=== PATIENT | female | born 1935 | race Caucasian/White ===

== ENCOUNTER → 2017-05-16 13:17 | Outpatient (POV) | payer MEDICARE, BC, SELFPAY ==
[2017-05-16 13:36] VITALS: BP 136/101; PULSE 69; RESP 18; O2SAT 96; BMI 24.7
--- NOTE | 2017-05-16 13:40 | P.CONS_ITS ---
[facility] Pain Management SOAP Note Subjective:: This patient is a pleasant 82-year-old white female who we are seeing for low back pain and right hip pain. She had great benefit from her previous right SI joint injection. She still has some residual pain over the right SI joint. She does have a positive Peewee's test on the right side. We will seek approval and plan on a repeat right SI joint injection under fluoroscopy. She also has some issues with bowel irregularity. We have suggested MiraLAX and Activia to help with these issues. Objective:: Alert and oriented ?3 in no acute distress. Patient does have an antalgic gait. She is tender over the right SI joint. She does have a positive Peewee's test on the right side. Motor strength of the lower extremities is 5/5. There is no gross sensory deficit. Assessment:: Sacroiliitis and degenerative disc disease of lumbar spine with lumbar radiculopathy symptoms. Plan:: We will seek approval for an plan on repeat right SI joint injection under fluoroscopy.
== END ==
PROVIDERS: PCP Nurse Practitioner Family; Visit Provider Anesthesiology
DX: M46.1 Sacroiliitis, not elsewhere classified (principal); M51.16 Intervertebral disc disorders with radiculopathy, lumbar region
CPT/HCPCS: 99212

== ENCOUNTER → 2017-06-16 13:32 | Day surgery (SDC) | payer MEDICARE, BC, SELFPAY ==
[2017-06-16 13:54] VITALS: BP 178/78; PULSE 77; RESP 18; TEMP 36.1; O2SAT 95; BMI 23.6
--- NOTE | 2017-06-16 14:38 | HMH.PMPROC ---
- Procedure Date: 06/16/17 Time: 14:38 Anesthesiologist:: Jian Huntley MD Complications:: None Pre-procedure Diagnosis:: Sacroiliitis Post-procedure Diagnosis:: Same Indications for Procedure:: My pain pump refillThoracic epidural steroid injection this patient is a pleasant 82-year-old white female who we are seeing for low back pain and right hip pain. She has had great benefit from a post right SI joint injection. She still has some residual pain. We will do a repeat right SI joint injection under fluoroscopy today.She does have a positive Peewee's test. She is tender over the right SI joint. Procedure Details:: Right SI joint injection under fluoroscopy Informed consent was obtained and the risks and benefits of the procedure was going to the patient. Patient was taken to the procedure room. Patient was placed prone on the procedure table. The right hip was prepped using ChloraPrep. The skin and subcutaneous tissues were anesthetized using lidocaine. I placed a 22-gauge spinal needle into the inferior aspect of the right SI joint. Needle placement was confirmed with dye. After this we injected 5 mL bupivacaine 0.25% and Depo-Medrol 40 mg into the right SI joint. The patient tolerated the procedure well with no complication. Plan and Disposition:: We will follow-up in 2 weeks. We will reevaluate her symptoms at that time
[2017-06-16 14:42] VITALS: BP 167/86; PULSE 77; RESP 20
[2017-06-16 14:43] VITALS: BP 167/84; PULSE 72; RESP 18
[2017-06-16 14:48] VITALS: BP 184/75; PULSE 77; RESP 16; O2SAT 96
== END ==
PROVIDERS: Family Provider Nurse Practitioner Family; PCP Nurse Practitioner Family; Visit Provider Anesthesiology
DX: M46.1 Sacroiliitis, not elsewhere classified (principal)
CPT/HCPCS: 27096; G0260; J1040; Q9966

== ENCOUNTER → 2017-07-25 10:16 | Outpatient (POV) | payer MEDICARE, BC, SELFPAY ==
[2017-07-25 10:31] VITALS: BP 145/73; PULSE 68; RESP 18; O2SAT 95; BMI 23.1
--- NOTE | 2017-07-25 11:06 | HMH.PAINSOAP ---
[facility] Pain Management SOAP Note Subjective:: This patient is a pleasant 82-year-old white female who presents today as a follow-up after her right SI joint injection. Patient states that relief from this. She received 80% is still having benefit from it. Patient states that her last right SI joint injection lasted up to 2 months. Patient states her pain is slowly returning. Patient is wondering about more long-term relief of her SI joint pain. Patient would like to discuss risotto me of SI joint. She would also like to discuss anti-inflammatory medications. ROS General: no recent weight change, no fever, no sleep disturbances Respiratory: no cough, no shortness of air, no recurring pulmonary infections Cardiovascular/Peripheral Vascular: No chest pain, No palpitations, no edema, no shortness of breath. Gastrointestinal: no new onset incontinence, normal bowel movements reported Genitourinary: no new onset incontinence Musculoskeletal: SI joint pain, back pain Psychiatric: normal mood/ affect, [denies depression], [denies anxiety] Neurological: [denies weakness in extremities], [denies balance issues] Objective:: Physical Exam General: Alert and oriented x3, no acute distress, pleasant and cooperative, [on room air] Lungs: Resps E/U, Symmetrical chest expansion, Eyes: PERRL Musculoskeletal: Flexion and extension of lumbar spine somewhat guarded secondary to pain, deep tendon reflexes normal, strength in upper and lower extremities [5/5], slightly antalgic gait noted, positive Peewee's test on the right side, extreme point tenderness over right SI joint Neurological: speech clear, necktie stitcher equal, no gross sensory deficits Assessment:: Sacroiliitis Plan:: Patient has been seen by Dr. Carmona in the past and been treated at [facility] for her back pain. Patient states that no injection has helped her more than his right SI injections. Patient is interested in a right SI joint risotto me. We will schedule this for her today I believe that this would be beneficial for the patient due to her good relief from the injections and increase functionality. Patient is also asking about an anti-inflammatory medications. I will start her on diclofenac 75 mg 1 p.o. twice daily I discussed with her that she cannot take any other NSAIDs with this medication. Patient will call us in a few weeks if this is not helping her and at that time we discussed starting gabapentin 100 mg 1 p.o. nightly. I will follow-up with the patient after her right SI rhizotomy. This note was dictated using voice recognition software and may contain errors or omissions
--- NOTE | 2017-07-25 11:10 | P.CONS_ITS ---
[facility] Pain Management SOAP Note Subjective:: This patient is a pleasant 82-year-old white female who presents today as a follow-up after her right SI joint injection. Patient states that relief from this. She received 80% is still having benefit from it. Patient states that her last right SI joint injection lasted up to 2 months. Patient states her pain is slowly returning. Patient is wondering about more long-term relief of her SI joint pain. Patient would like to discuss risotto me of SI joint. She would also like to discuss anti-inflammatory medications. ROS General: no recent weight change, no fever, no sleep disturbances Respiratory: no cough, no shortness of air, no recurring pulmonary infections Cardiovascular/Peripheral Vascular: No chest pain, No palpitations, no edema, no shortness of breath. Gastrointestinal: no new onset incontinence, normal bowel movements reported Genitourinary: no new onset incontinence Musculoskeletal: SI joint pain, back pain Psychiatric: normal mood/ affect, [denies depression], [denies anxiety] Neurological: [denies weakness in extremities], [denies balance issues] Objective:: Physical Exam General: Alert and oriented x3, no acute distress, pleasant and cooperative, [ on room air] Lungs: Resps E/U, Symmetrical chest expansion, Eyes: PERRL Musculoskeletal: Flexion and extension of lumbar spine somewhat guarded secondary to pain, deep tendon reflexes normal, strength in upper and lower extremities [5/5], slightly antalgic gait noted, positive Peewee's test on the right side, extreme point tenderness over right SI joint Neurological: speech clear, claim manager equal, no gross sensory deficits Assessment:: Sacroiliitis Plan:: Patient has been seen by Dr. Carmona in the past and been treated at [facility] for her back pain. Patient states that no injection has helped her more than his right SI injections. Patient is interested in a right SI joint risotto me. We will schedule this for her today I believe that this would be beneficial for the patient due to her good relief from the injections and increase functionality. Patient is also asking about an anti-inflammatory medications. I will start her on diclofenac 75 mg 1 p.o. twice daily I discussed with her that she cannot take any other NSAIDs with this medication. Patient will call us in a few weeks if this is not helping her and at that time we discussed starting gabapentin 100 mg 1 p.o. nightly. I will follow-up with the patient after her right SI rhizotomy. This note was dictated using voice recognition software and may contain errors or omissions
== END ==
PROVIDERS: Family Provider Nurse Practitioner Family; PCP Nurse Practitioner Family; Visit Provider Clinical Nurse Specialist Family Health
DX: M46.1 Sacroiliitis, not elsewhere classified (principal)
CPT/HCPCS: 99212

== ENCOUNTER → 2017-09-18 13:19 | Outpatient (POV) | payer MEDICARE, BC, SELFPAY ==
[2017-09-18 13:30] VITALS: BP 144/40; PULSE 71; RESP 18; TEMP 36.7; O2SAT 99; BMI 23.6
--- NOTE | 2017-09-18 14:29 | HMH.PAINSOAP ---
[facility] Pain Management SOAP Note Subjective:: This patient is a pleasant 82-year-old white female who presents today for follow-up after her right SI joint rhizotomy. She is doing extremely well stating that she is 90% better. Patient states she is sleeping better than she has in 2 years. Patient states she is much more functional. Patient rates her pain a 2 out of 10 today. Patient is also on diclofenac 75 mg 1 p.o. twice daily. Patient needs a refill of this. ROS General: no recent weight change, no fever, no sleep disturbances Respiratory: no cough, no shortness of air, no recurring pulmonary infections Cardiovascular/Peripheral Vascular: No chest pain, No palpitations, no edema, no shortness of breath. Gastrointestinal: no incontinence, normal bowel movements reported Genitourinary: no incontinence Musculoskeletal: SI joint pain on the right side Psychiatric: normal mood/ affect Neurological: [denies balance issues] Objective:: Physical Exam General: Alert and oriented x3, no acute distress, pleasant and cooperative, [on room air] Lungs: Resps E/U, Symmetrical chest expansion, Eyes: PERRL Musculoskeletal: Flexion and extension of lumbar spine somewhat guarded secondary to pain, deep tendon reflexes normal, strength in upper and lower extremities [5/5], [abnormal gait noted], positive Peewee's test on the right side Neurological: speech clear, yarn tester equal, no gross sensory deficits Assessment:: Right-sided sacroiliitis Plan:: We will follow-up with this patient on an as-needed basis. We will call in her diclofenac 75 mg 1 p.o. twice daily. This note was dictated using voice recognition software and may contain errors or omissions
--- NOTE | 2017-09-18 14:32 | P.CONS_ITS ---
[facility] Pain Management SOAP Note Subjective:: This patient is a pleasant 82-year-old white female who presents today for follow-up after her right SI joint rhizotomy. She is doing extremely well stating that she is 90% better. Patient states she is sleeping better than she has in 2 years. Patient states she is much more functional. Patient rates her pain a 2 out of 10 today. Patient is also on diclofenac 75 mg 1 p.o. twice daily. Patient needs a refill of this. ROS General: no recent weight change, no fever, no sleep disturbances Respiratory: no cough, no shortness of air, no recurring pulmonary infections Cardiovascular/Peripheral Vascular: No chest pain, No palpitations, no edema, no shortness of breath. Gastrointestinal: no incontinence, normal bowel movements reported Genitourinary: no incontinence Musculoskeletal: SI joint pain on the right side Psychiatric: normal mood/ affect Neurological: [denies balance issues] Objective:: Physical Exam General: Alert and oriented x3, no acute distress, pleasant and cooperative, [ on room air] Lungs: Resps E/U, Symmetrical chest expansion, Eyes: PERRL Musculoskeletal: Flexion and extension of lumbar spine somewhat guarded secondary to pain, deep tendon reflexes normal, strength in upper and lower extremities [5/5], [abnormal gait noted], positive Peewee's test on the right side Neurological: speech clear, line crewman equal, no gross sensory deficits Assessment:: Right-sided sacroiliitis Plan:: We will follow-up with this patient on an as-needed basis. We will call in her diclofenac 75 mg 1 p.o. twice daily. This note was dictated using voice recognition software and may contain errors or omissions
--- NOTE | 2017-09-18 16:15 | PC.PHONENOTE ---
called in Rx for Diclofenac 75mg BID with 2 refills
== END ==
PROVIDERS: Family Provider Nurse Practitioner Family; PCP Nurse Practitioner Family; Visit Provider Clinical Nurse Specialist Family Health
DX: M46.1 Sacroiliitis, not elsewhere classified (principal)
CPT/HCPCS: 99212

== ENCOUNTER → 2018-04-02 13:59 | Outpatient (POV) | payer MEDICARE, BC, SELFPAY ==
--- NOTE | 2018-04-02 14:24 | HMH.PAINSOAP ---
[facility] Pain Management SOAP Note Subjective:: Patient is a pleasant 83-year-old white female who presents today for follow-up. Patient had a right SI joint injection and resolved any several months ago and she has had good relief. Patient states she still having some relief however her pain is beginning to return. Patient is also out of refills on her diclofenac 75 mg 1 tab p.o. twice daily. Patient rates her pain 4 out of 10 today. ROS General: no recent weight change, no fever, no sleep disturbances Respiratory: no cough, no shortness of air, no recurring pulmonary infections Cardiovascular/Peripheral Vascular: No chest pain, No palpitations, no edema, no shortness of breath. Gastrointestinal: no incontinence, normal bowel movements reported Genitourinary: no incontinence Musculoskeletal: Right SI joint pain Psychiatric: normal mood/ affect Neurological: [denies weakness in extremities], [denies balance issues] Objective:: Physical Exam General: Alert and oriented x3, no acute distress, pleasant and cooperative, [on room air] Lungs: Resps E/U, Symmetrical chest expansion, Eyes: PERRL Musculoskeletal: Flexion and extension of lumbar spine somewhat guarded secondary to pain, deep tendon reflexes normal, strength in upper and lower extremities [5/5], [abnormal gait noted], positive Peewee's test on the right side Neurological: speech clear, contracts manager equal, no gross sensory deficits Assessment:: Right-sided sacroiliitis Plan:: We will schedule a right SI joint injection for the patient. We will also call in her diclofenac 75 mg 1 p.o. twice daily. This note was dictated using voice recognition software and may contain errors or omissions
[2018-04-02 14:26] VITALS: BP 160/71; PULSE 76; RESP 18; O2SAT 98; BMI 23.1
--- NOTE | 2018-04-02 14:27 | P.CONS_ITS ---
[facility] Pain Management SOAP Note Subjective:: Patient is a pleasant 83-year-old white female who presents today for follow-up. Patient had a right SI joint injection and resolved any several months ago and she has had good relief. Patient states she still having some relief however her pain is beginning to return. Patient is also out of refills on her diclofenac 75 mg 1 tab p.o. twice daily. Patient rates her pain 4 out of 10 today. ROS General: no recent weight change, no fever, no sleep disturbances Respiratory: no cough, no shortness of air, no recurring pulmonary infections Cardiovascular/Peripheral Vascular: No chest pain, No palpitations, no edema, no shortness of breath. Gastrointestinal: no incontinence, normal bowel movements reported Genitourinary: no incontinence Musculoskeletal: Right SI joint pain Psychiatric: normal mood/ affect Neurological: [denies weakness in extremities], [denies balance issues] Objective:: Physical Exam General: Alert and oriented x3, no acute distress, pleasant and cooperative, [on room air] Lungs: Resps E/U, Symmetrical chest expansion, Eyes: PERRL Musculoskeletal: Flexion and extension of lumbar spine somewhat guarded secondary to pain, deep tendon reflexes normal, strength in upper and lower extremities [5/5], [abnormal gait noted], positive Peewee's test on the right side Neurological: speech clear, mobile home servicer equal, no gross sensory deficits Assessment:: Right-sided sacroiliitis Plan:: We will schedule a right SI joint injection for the patient. We will also call in her diclofenac 75 mg 1 p.o. twice daily. This note was dictated using voice recognition software and may contain errors or omissions
== END ==
PROVIDERS: PCP Nurse Practitioner Family; Visit Provider Clinical Nurse Specialist Family Health
DX: M46.1 Sacroiliitis, not elsewhere classified (principal)
CPT/HCPCS: 99213

== ENCOUNTER → 2018-05-01 09:56 | Outpatient (POV) | payer MEDICARE, BC, SELFPAY ==
[2018-05-01 10:03] VITALS: BP 169/74; PULSE 69; RESP 18; O2SAT 98; BMI 23.1
--- NOTE | 2018-05-01 10:16 | HMH.PAINSOAP ---
[facility] Pain Management SOAP Note Subjective:: Is an extremely pleasant 83-year-old white female who presents today for follow-up after right SI joint injection. Patient got some relief however she did not get as much relief as she has in the past with her right SI joint rhizotomies. Patient received 80% relief for 7 months. Patient would like to repeat this. I do believe it would be beneficial. Patient rates her pain an 8 out of 10 today. ROS General: no recent weight change, no fever, no sleep disturbances Respiratory: no cough, no shortness of air, no recurring pulmonary infections Cardiovascular/Peripheral Vascular: No chest pain, No palpitations, no edema, no shortness of breath. Gastrointestinal: no incontinence, normal bowel movements reported Genitourinary: no incontinence Musculoskeletal: Right SI joint pain Psychiatric: normal mood/ affect Neurological: [denies weakness in extremities], [denies balance issues] Objective:: Physical Exam General: Alert and oriented x3, no acute distress, pleasant and cooperative, [on room air] Lungs: Resps E/U, Symmetrical chest expansion, Eyes: PERRL Musculoskeletal: Flexion and extension of lumbar spine somewhat guarded secondary to pain, deep tendon reflexes normal, strength in upper and lower extremities [5/5], [abnormal gait noted] positive Peewee's test on the right side Neurological: speech clear, prepress proofer equal, no gross sensory deficits Assessment:: Sacroiliitis Plan:: We will set of a right SI joint rhizotomy given the efficacy of this in the past. We will call in tramadol 50 mg 1 p.o. 3 times daily for 1 month. I will follow-up with the patient after her rhizotomy. This note was dictated using voice recognition software and may contain errors or omissions
--- NOTE | 2018-05-01 10:19 | P.CONS_ITS ---
[facility] Pain Management SOAP Note Subjective:: Is an extremely pleasant 83-year-old white female who presents today for follow- up after right SI joint injection. Patient got some relief however she did not get as much relief as she has in the past with her right SI joint rhizotomies. Patient received 80% relief for 7 months. Patient would like to repeat this. I do believe it would be beneficial. Patient rates her pain an 8 out of 10 today. ROS General: no recent weight change, no fever, no sleep disturbances Respiratory: no cough, no shortness of air, no recurring pulmonary infections Cardiovascular/Peripheral Vascular: No chest pain, No palpitations, no edema, no shortness of breath. Gastrointestinal: no incontinence, normal bowel movements reported Genitourinary: no incontinence Musculoskeletal: Right SI joint pain Psychiatric: normal mood/ affect Neurological: [denies weakness in extremities], [denies balance issues] Objective:: Physical Exam General: Alert and oriented x3, no acute distress, pleasant and cooperative, [on room air] Lungs: Resps E/U, Symmetrical chest expansion, Eyes: PERRL Musculoskeletal: Flexion and extension of lumbar spine somewhat guarded secondary to pain, deep tendon reflexes normal, strength in upper and lower extremities [5/5], [abnormal gait noted] positive Peewee's test on the right side Neurological: speech clear, independent film maker equal, no gross sensory deficits Assessment:: Sacroiliitis Plan:: We will set of a right SI joint rhizotomy given the efficacy of this in the past. We will call in tramadol 50 mg 1 p.o. 3 times daily for 1 month. I will follow-up with the patient after her rhizotomy. This note was dictated using voice recognition software and may contain errors or omissions
== END ==
PROVIDERS: PCP Nurse Practitioner Family; Visit Provider Clinical Nurse Specialist Family Health
DX: M46.1 Sacroiliitis, not elsewhere classified (principal)
CPT/HCPCS: 99213

== ENCOUNTER → 2018-05-30 08:43 | Outpatient (CLI) | payer MEDICARE, BC, SELFPAY ==
--- NOTE | 2018-05-30 09:02 | CT_ITS ---
CT abdomen pelvis w con CLINICAL INDICATION: Rectal pain,, possible rectal massITS.REASON: RECTAL MASS ORDERING PHYSICIAN: Haylie Valdez PATIENT AGE: 83 years COMPARISON: 04/03/2007 TECHNIQUE: Axial images obtained with sagittal and coronal reformats. All CT scans at the facility use one or more dose reduction, viz: automated exposure control, ma/kV adjustment per patient size (including targeted exams where dose is matched to indication, i.e. head), or iterative reconstruction technique. PROCEDURE: Oral Contrast: Redicat IV Contrast: 75 mg [id number]. FINDINGS: There are mild atelectatic or fibrotic changes in the lung bases. There is a small hiatal hernia There are scattered isodense lesions of the liver largest in the right hepatic lobe at 3.3 x 2.5 cm consistent with hepatic cysts. There are postcholecystectomy changes with mild biliary ectasia. The spleen, adrenal glands, and pancreas have an unremarkable appearance. There is an exophytic nodule projecting off the lateral aspect of the left kidney at 8 mm which is more dense somewhat one would expect for simple cyst. 5 mm cyst is present within the medial aspect of the left kidney. No renal calculi. No ureteral calculi. No hydronephrosis. No intestinal obstruction or free air. No evidence of appendicitis. There is extensive diverticulosis of the lower descending and sigmoid colon but no evidence of diverticulitis. No obvious rectal mass apparent. There is no stranding of the perirectal or presacral fat. There has been a prior hysterectomy. No pelvic mass abnormal fluid collection or focal inflammatory change. There is degenerative disc disease in the lumbar spine with 6 mm anterolisthesis of L3 on L4 with bulging discs at L3-L4, L4-L5, and L5-S1. There is a pessary device present IMPRESSION: 1. No acute abdominal or pelvic findings. 2. There is an 8 mm nodule projecting off the lateral aspect of the left kidney which could be due to hyperdense cyst or solid nodule. Ultrasound may be of further value to determine cystic or solid nature. 3. Diverticulosis. No evidence of diverticulitis. No obvious rectal mass. 4 hepatic cysts
== END ==
PROVIDERS: PCP Nurse Practitioner Family; Visit Provider Nurse Practitioner Family
DX: R19.07 Generalized intra-abdominal and pelvic swelling, mass and lump (principal)
CPT/HCPCS: 74177; Q9967

== ENCOUNTER → 2018-07-09 13:34 | Outpatient (POV) | payer MEDICARE, BC, SELFPAY ==
[2018-07-09 13:55] VITALS: BP 157/88; PULSE 75; RESP 18; O2SAT 99; BMI 23.0
--- NOTE | 2018-07-09 13:57 | P.CONS_ITS ---
[facility] Pain Management SOAP Note Subjective:: Is a very pleasant 83-year-old white female who presents today for follow-up after SI joint rhizotomy. Patient rates her pain in her SI joint is 0 out of 10. And is doing really well however she is having a flare of bursitis in her right hip. She rates the pain in her right hip a 7 out of 10. ROS General: no recent weight change, no fever, no sleep disturbances Respiratory: no cough, no shortness of air, no recurring pulmonary infections Cardiovascular/Peripheral Vascular: No chest pain, No palpitations, no edema, no shortness of breath. Gastrointestinal: no incontinence, normal bowel movements reported Genitourinary: no incontinence Musculoskeletal: Hip pain Psychiatric: normal mood/ affect Neurological: [denies weakness in extremities], [denies balance issues] Objective:: Physical Exam General: Alert and oriented x3, no acute distress, pleasant and cooperative, [on room air] Lungs: Resps E/U, Symmetrical chest expansion, Eyes: PERRL Musculoskeletal: Flexion and extension of lumbar spine somewhat guarded secondary to pain, deep tendon reflexes normal, strength in upper and lower extremities [5/5], [abnormal gait noted] extreme point tenderness over right greater trochanteric bursa Neurological: speech clear, senior sql server 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 I believe it would be beneficial given her symptomology. Patient is tried and failed anti-inflammatories and is trying to stay as active as possible with a home stretching routine. Dr. Huntley has reviewed this note and agrees with this plan of care. This note was dictated using voice recognition software and may contain errors or omissions
== END ==
PROVIDERS: PCP Nurse Practitioner Family; Visit Provider Clinical Nurse Specialist Family Health
DX: M71.9 Bursopathy, unspecified (principal); M46.1 Sacroiliitis, not elsewhere classified
CPT/HCPCS: 99213

== ENCOUNTER → 2018-07-31 11:36 | Outpatient (POV) | payer MEDICARE, BC, SELFPAY ==
--- NOTE | 2018-07-31 12:28 | HMH.PAINSOAP ---
[facility] Pain Management SOAP Note Subjective:: Patient is a pleasant 83-year-old white female who presents today for follow-up after right bursa injection. It did very well. Patient states her only pain is over her piriformis muscle. Patient is continuing with her diclofenac 75 mg 1 p.o. twice daily. Patient states that this is beneficial. She rates her pain a 7 out of 10 over her piriformis. ROS General: no recent weight change, no fever, no sleep disturbances Respiratory: no cough, no shortness of air, no recurring pulmonary infections Cardiovascular/Peripheral Vascular: No chest pain, No palpitations, no edema, no shortness of breath. Gastrointestinal: no incontinence, normal bowel movements reported Genitourinary: no incontinence Musculoskeletal: Piriformis pain Psychiatric: normal mood/ affect Neurological: [denies weakness in extremities], [denies balance issues] Objective:: Physical Exam General: Alert and oriented x3, no acute distress, pleasant and cooperative, [on room air] Lungs: Resps E/U, Symmetrical chest expansion, Eyes: PERRL Musculoskeletal: Flexion and extension of lumbar spine somewhat guarded secondary to pain, deep tendon reflexes normal, strength in upper and lower extremities [5/5], [abnormal gait noted] extreme point tenderness over right piriformis muscle Neurological: speech clear, nuclear operator equal, no gross sensory deficits Assessment:: Piriformis syndrome, myofascial pain syndrome, degenerative disc disease lumbar spine Plan:: We will schedule a right piriformis injection for the patient. We will refill her diclofenac 75 mg 1 p.o. twice daily and also start her on gabapentin 100 mg 1 p.o. nightly. I will follow-up with the patient at her injection and reassess her symptoms at that time. Dr. Huntley has reviewed this note and agrees with this plan of care. This note was dictated using voice recognition software and may contain errors or omissions
--- NOTE | 2018-07-31 12:32 | P.CONS_ITS ---
[facility] Pain Management SOAP Note Subjective:: Patient is a pleasant 83-year-old white female who presents today for follow-up after right bursa injection. It did very well. Patient states her only pain is over her piriformis muscle. Patient is continuing with her diclofenac 75 mg 1 p.o. twice daily. Patient states that this is beneficial. She rates her pain a 7 out of 10 over her piriformis. ROS General: no recent weight change, no fever, no sleep disturbances Respiratory: no cough, no shortness of air, no recurring pulmonary infections Cardiovascular/Peripheral Vascular: No chest pain, No palpitations, no edema, no shortness of breath. Gastrointestinal: no incontinence, normal bowel movements reported Genitourinary: no incontinence Musculoskeletal: Piriformis pain Psychiatric: normal mood/ affect Neurological: [denies weakness in extremities], [denies balance issues] Objective:: Physical Exam General: Alert and oriented x3, no acute distress, pleasant and cooperative, [on room air] Lungs: Resps E/U, Symmetrical chest expansion, Eyes: PERRL Musculoskeletal: Flexion and extension of lumbar spine somewhat guarded secondary to pain, deep tendon reflexes normal, strength in upper and lower extremities [5/5], [abnormal gait noted] extreme point tenderness over right piriformis muscle Neurological: speech clear, fixed income analyst equal, no gross sensory deficits Assessment:: Piriformis syndrome, myofascial pain syndrome, degenerative disc disease lumbar spine Plan:: We will schedule a right piriformis injection for the patient. We will refill her diclofenac 75 mg 1 p.o. twice daily and also start her on gabapentin 100 mg 1 p.o. nightly. I will follow-up with the patient at her injection and reassess her symptoms at that time. Dr. Huntley has reviewed this note and agrees with this plan of care. This note was dictated using voice recognition software and may contain errors or omissions
[2018-07-31 13:40] VITALS: BP 152/49; PULSE 69; RESP 18; O2SAT 98; BMI 23.0
== END ==
PROVIDERS: PCP Nurse Practitioner Family; Visit Provider Clinical Nurse Specialist Family Health
DX: M51.36 Other intervertebral disc degeneration, lumbar region (principal); G57.01 Lesion of sciatic nerve, right lower limb; M79.18 Myalgia, other site
CPT/HCPCS: 99213

== ENCOUNTER → 2018-09-11 09:24 | Outpatient (POV) | payer MEDICARE, BC, SELFPAY ==
[2018-09-11 09:38] VITALS: BP 146/68; PULSE 78; RESP 18; O2SAT 98; BMI 23.0
--- NOTE | 2018-09-11 14:03 | P.CONS_ITS ---
[facility] Pain Management SOAP Note Subjective:: She is a pleasant 83-year-old white female who presents today for follow-up after her piriformis injection. Patient is just not getting the same relief from injections that she has in the past. She rates the pain 8 out of 10. She is having sharp pains. She has tried multiple injections with no real relief along with facet joint injections and rhizotomies. Patient and I had a discussion about neuro stimulation. Patient is interested in pursuing this. Majority since pain is in her low back and bilateral legs. She also has burning and numbness and tingling in her toes. ROS General: no recent weight change, no fever, no sleep disturbances Respiratory: no cough, no shortness of air, no recurring pulmonary infections Cardiovascular/Peripheral Vascular: No chest pain, No palpitations, no edema, no shortness of breath. Gastrointestinal: no incontinence, normal bowel movements reported Genitourinary: no incontinence Musculoskeletal: Back pain, leg pain Psychiatric: normal mood/ affect Neurological: [denies weakness in extremities], [denies balance issues] Objective:: Physical Exam General: Alert and oriented x3, no acute distress, pleasant and cooperative, [on room air] Lungs: Resps E/U, Symmetrical chest expansion, Eyes: PERRL Musculoskeletal: Flexion and extension of lumbar spine somewhat guarded secondary to pain, deep tendon reflexes normal, strength in upper and lower extremities [5/5], [abnormal gait noted] Neurological: speech clear, media production manager equal, no gross sensory deficits Assessment:: Degenerative disc disease lumbar spine with lumbar radiculopathy, lumbar spondylosis and CRPS type II Plan:: Patient and I had a long discussion about realistic goal setting. Patient is interested in pursuing a neurostimulator. We will send patient for psychological evaluation to determine if she is a candidate if she has we will move forward with a nuvectra relator trial. Patient is not on any anticoagulation therapy. Patient's failed medications, injections, physical therapy, she continues a home stretching program. Dr. Huntley has reviewed this note and agrees with this plan of care. This note was dictated using voice recognition software and may contain errors or omissions
--- NOTE | 2018-09-24 13:15 | PC.NURSE ---
TRAMADOL 50MG TID WITH 2 REFILLS CALLED INTO CLINIC PHARMACY PER PROVIDER ORDER
== END ==
PROVIDERS: PCP Nurse Practitioner Family; Visit Provider Clinical Nurse Specialist Family Health
DX: M51.16 Intervertebral disc disorders with radiculopathy, lumbar region (principal); M47.896 Other spondylosis, lumbar region; G57.73 Causalgia of bilateral lower limbs
CPT/HCPCS: 99212

== ENCOUNTER → 2018-10-09 10:27 | Outpatient (POV) | payer MEDICARE, BC, SELFPAY ==
[2018-10-09 10:40] VITALS: BP 137/69; PULSE 71; RESP 18; O2SAT 98; BMI 22.3
--- NOTE | 2018-10-09 11:00 | HMH.PAINSOAP ---
[facility] Pain Management SOAP Note Subjective:: Patient is a pleasant 83-year-old white female who presents today for follow-up. Patient and I had discussed neuro stimulation previously she was on the schedule however at the last moment she decided that she had additional questions. She comes today with her to discuss. Patient is having back pain radiating into her left hip and down her sciatic nerve. She has bilateral numbness and tingling. Patient rates her pain a 6 out of 10. Patient is on tramadol. Patient would like to wean off of this. ROS General: no recent weight change, no fever, no sleep disturbances Respiratory: no cough, no shortness of air, no recurring pulmonary infections Cardiovascular/Peripheral Vascular: No chest pain, No palpitations, no edema, no shortness of breath. Gastrointestinal: no incontinence, normal bowel movements reported Genitourinary: no incontinence Musculoskeletal: Back pain, leg pain Psychiatric: normal mood/ affect, Neurological: Bilateral numbness and tingling in lower extremities, [denies balance issues] Objective:: Physical Exam General: Alert and oriented x3, no acute distress, pleasant and cooperative, [on room air] Lungs: Resps E/U, Symmetrical chest expansion, Eyes: PERRL Musculoskeletal: Flexion and extension of lumbar spine somewhat guarded secondary to pain, deep tendon reflexes normal, strength in upper and lower extremities [5/5], [abnormal gait noted] Neurological: speech clear, sampler and test preparer equal, no gross sensory deficits Assessment:: Degenerative disc disease lumbar spine with lumbar radiculopathy, lumbar spondylosis and CRPS type II Plan:: Patient had an appropriate psychological evaluation. Patient has tried and failed multiple injections including epidurals, facets, SI joint injections. She is failed physical therapy. She continues a home stretching program. Patient also failed anti-inflammatories and other medications. I will follow-up with the patient after her nuvectra trial. Patient's been instructed to call the office if she has any issues prior to her next appointment. She is not on any anticoagulation therapy. Dr. Huntley has reviewed this note and agrees with this plan of care. This note was dictated using voice recognition software and may contain errors or omissions
--- NOTE | 2018-10-09 11:04 | P.CONS_ITS ---
[facility] Pain Management SOAP Note Subjective:: Patient is a pleasant 83-year-old white female who presents today for follow-up. Patient and I had discussed neuro stimulation previously she was on the schedule however at the last moment she decided that she had additional questions. She comes today with her to discuss. Patient is having back pain radiating into her left hip and down her sciatic nerve. She has bilateral numbness and tingling. Patient rates her pain a 6 out of 10. Patient is on tramadol. Patient would like to wean off of this. ROS General: no recent weight change, no fever, no sleep disturbances Respiratory: no cough, no shortness of air, no recurring pulmonary infections Cardiovascular/Peripheral Vascular: No chest pain, No palpitations, no edema, no shortness of breath. Gastrointestinal: no incontinence, normal bowel movements reported Genitourinary: no incontinence Musculoskeletal: Back pain, leg pain Psychiatric: normal mood/ affect, Neurological: Bilateral numbness and tingling in lower extremities, [denies balance issues] Objective:: Physical Exam General: Alert and oriented x3, no acute distress, pleasant and cooperative, [on room air] Lungs: Resps E/U, Symmetrical chest expansion, Eyes: PERRL Musculoskeletal: Flexion and extension of lumbar spine somewhat guarded secondary to pain, deep tendon reflexes normal, strength in upper and lower extremities [5/5], [abnormal gait noted] Neurological: speech clear, box lining machine feeder equal, no gross sensory deficits Assessment:: Degenerative disc disease lumbar spine with lumbar radiculopathy, lumbar spondylosis and CRPS type II Plan:: Patient had an appropriate psychological evaluation. Patient has tried and failed multiple injections including epidurals, facets, SI joint injections. She is failed physical therapy. She continues a home stretching program. Patient also failed anti-inflammatories and other medications. I will follow-up with the patient after her nuvectra trial. Patient's been instructed to call the office if she has any issues prior to her next appointment. She is not on any anticoagulation therapy. Dr. Huntley has reviewed this note and agrees with this plan of care. This note was dictated using voice recognition software and may contain errors or omissions
== END ==
PROVIDERS: PCP Nurse Practitioner Family; Visit Provider Clinical Nurse Specialist Family Health
DX: M51.16 Intervertebral disc disorders with radiculopathy, lumbar region (principal); M47.896 Other spondylosis, lumbar region
CPT/HCPCS: 99212

== ENCOUNTER → 2018-10-23 12:54 | Outpatient (POV) | payer MEDICARE, BC, SELFPAY ==
[2018-10-23 13:10] VITALS: BP 146/69; PULSE 65; RESP 18; O2SAT 95; BMI 27.4
--- NOTE | 2018-10-23 13:24 | HMH.PMPROC ---
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 Patient states she got 90 to 100% relief of her symptoms she is much more functional. She is doing well. Patient would like to move forward with a permanent implant. She is tried and failed multiple modalities of treatment including injection therapy, medications, anti-inflammatories. She is also tried and failed physical therapy she is continuing a home stretching program. Physical Exam General: Alert and oriented x3, no acute distress, pleasant and cooperative, [on room air] Lungs: Resps E/U, Symmetrical chest expansion, Eyes: PERRL Musculoskeletal: Flexion and extension of lumbar spine somewhat guarded secondary to pain, deep tendon reflexes normal, strength in upper and lower extremities [5/5], [abnormal gait noted] Neurological: speech clear, chemist inorganic equal, no gross sensory deficits Procedure Details:: After informed consent was obtained the risk and benefits of the procedure were explained to the patient. Patient's vital signs were monitored with noninvasive blood pressure cuff and pulse oximeter. Patient's tape was removed on her back. The area in which her epidural leads entered was examined to ensure no redness or draining. Patient leads were then removed in sterile fashion. Patient then had Band-Aids placed over the puncture sites. Patient tolerated the procedure well. Plan and Disposition:: We will plan on a permanent placement for the patient. Patient is ready to move forward with this she is not on any anticoagulation therapy. I will follow-up with her after her implant. Patient during the trial had a pain score of 1 out of 10 it is typically a 6-[address] Huntley has reviewed this note and agrees with this plan of care. This note was dictated using voice recognition software and may contain errors or omissions
--- NOTE | 2018-10-23 13:27 | P.PCN_ITS ---
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 Patient states she got 90 to 100% relief of her symptoms she is much more functional. She is doing well. Patient would like to move forward with a permanent implant. She is tried and failed multiple modalities of treatment including injection therapy, medications, anti- inflammatories. She is also tried and failed physical therapy she is continuing a home stretching program. Physical Exam General: Alert and oriented x3, no acute distress, pleasant and cooperative, [on room air] Lungs: Resps E/U, Symmetrical chest expansion, Eyes: PERRL Musculoskeletal: Flexion and extension of lumbar spine somewhat guarded secondary to pain, deep tendon reflexes normal, strength in upper and lower extremities [5/5], [abnormal gait noted] Neurological: speech clear, artificial flower maker equal, no gross sensory deficits Procedure Details:: After informed consent was obtained the risk and benefits of the procedure were explained to the patient. Patient's vital signs were monitored with noninvasive blood pressure cuff and pulse oximeter. Patient's tape was removed on her back. The area in which her epidural leads entered was examined to ensure no redness or draining. Patient leads were then removed in sterile fashion. Patient then had Band-Aids placed over the puncture sites. Patient tolerated the procedure well. Plan and Disposition:: We will plan on a permanent placement for the patient. Patient is ready to move forward with this she is not on any anticoagulation therapy. I will follow-up with her after her implant. Patient during the trial had a pain score of 1 out of 10 it is typically a 6-[address] Huntley has reviewed this note and agrees with this plan of care. This note was dictated using voice recognition software and may contain errors or omissions
== END ==
PROVIDERS: PCP Nurse Practitioner Family; Visit Provider Clinical Nurse Specialist Family Health
DX: M51.16 Intervertebral disc disorders with radiculopathy, lumbar region (principal); M47.896 Other spondylosis, lumbar region
CPT/HCPCS: 99212

== ENCOUNTER → 2018-11-06 13:45 | Outpatient (POV) | payer MEDICARE, BC, SELFPAY ==
[2018-11-06 14:19] VITALS: BP 135/67; PULSE 74; RESP 18; O2SAT 94; BMI 22.3
--- NOTE | 2018-11-06 14:27 | HMH.PAINSOAP ---
[facility] Pain Management SOAP Note Subjective:: Patient is a pleasant 83-year-old white female who presents today for follow-up after a spinal cord stimulator placement. The patient says that she is doing great. She rates her pain a 0 out of 10 today. She says that she is able to walk and do daily activities around her house without any pain. Patient states this is the best thing that has ever happened to me . ROS General: no recent weight change, no fever, no sleep disturbances Respiratory: no cough, no shortness of air, no recurring pulmonary infections Cardiovascular/Peripheral Vascular: No chest pain, No palpitations, no edema, no shortness of breath. Gastrointestinal: no incontinence, normal bowel movements reported Genitourinary: no incontinence Musculoskeletal: Back pain Psychiatric: normal mood/ affect, [denies depression], [denies anxiety] Neurological: [denies weakness in extremities], [denies balance issues] Objective:: Physical Exam General: Alert and oriented x3, no acute distress, pleasant and cooperative, [on room air] Lungs: Resps E/U, Symmetrical chest expansion, Eyes: PERRL Musculoskeletal: Flexion and extension of lumbar spine somewhat guarded secondary to pain, deep tendon reflexes normal, strength in upper and lower extremities [5/5], normal gait noted Neurological: speech clear, telephone exchange operator equal, no gross sensory deficits Assessment:: Degenerative disc disease lumbar spine with lumbar radiculopathy, lumbar spondylosis and CRPS type II Plan:: The patient is doing well today. Incision is well approximated. There is no drainage, redness, or infection noted to site. Sutures remain intact. We will follow-up with the patient in 2 weeks and reassess her at that time. She is been instructed to call the office if she has any issues prior to that time. Dr. Huntley has reviewed this note and agrees with this plan of care. This note was dictated using voice recognition software and may contain errors or omissions
--- NOTE | 2018-11-06 14:31 | P.CONS_ITS ---
[facility] Pain Management SOAP Note Subjective:: Patient is a pleasant 83-year-old white female who presents today for follow-up after a spinal cord stimulator placement. The patient says that she is doing great. She rates her pain a 0 out of 10 today. She says that she is able to walk and do daily activities around her house without any pain. Patient states this is the best thing that has ever happened to me . ROS General: no recent weight change, no fever, no sleep disturbances Respiratory: no cough, no shortness of air, no recurring pulmonary infections Cardiovascular/Peripheral Vascular: No chest pain, No palpitations, no edema, no shortness of breath. Gastrointestinal: no incontinence, normal bowel movements reported Genitourinary: no incontinence Musculoskeletal: Back pain Psychiatric: normal mood/ affect, [denies depression], [denies anxiety] Neurological: [denies weakness in extremities], [denies balance issues] Objective:: Physical Exam General: Alert and oriented x3, no acute distress, pleasant and cooperative, [on room air] Lungs: Resps E/U, Symmetrical chest expansion, Eyes: PERRL Musculoskeletal: Flexion and extension of lumbar spine somewhat guarded secondary to pain, deep tendon reflexes normal, strength in upper and lower extremities [5/5], normal gait noted Neurological: speech clear, agency sales management assistant equal, no gross sensory deficits Assessment:: Degenerative disc disease lumbar spine with lumbar radiculopathy, lumbar spondylosis and CRPS type II Plan:: The patient is doing well today. Incision is well approximated. There is no drainage, redness, or infection noted to site. Sutures remain intact. We will follow-up with the patient in 2 weeks and reassess her at that time. She is been instructed to call the office if she has any issues prior to that time. Dr. Huntley has reviewed this note and agrees with this plan of care. This note was dictated using voice recognition software and may contain errors or omissions
== END ==
PROVIDERS: PCP Nurse Practitioner Family; Visit Provider Clinical Nurse Specialist Family Health
DX: M51.16 Intervertebral disc disorders with radiculopathy, lumbar region (principal); M47.896 Other spondylosis, lumbar region
CPT/HCPCS: 99212

== ENCOUNTER → 2018-11-20 10:52 | Outpatient (POV) | payer MEDICARE, BC, SELFPAY ==
[2018-11-20 11:08] VITALS: BP 120/66; PULSE 73; RESP 18; O2SAT 98; BMI 22.3
--- NOTE | 2018-11-20 11:17 | HMH.PAINSOAP ---
[facility] Pain Management SOAP Note Subjective:: Patient is a pleasant 83-year-old white female who presents today for follow-up after spinal cord stimulator placement. She says that she is doing great today. She rates her pain a 0 out of 10. Patient says that the stimulator has been 100% effective for her. She does report that she has some occasional pain upon awakening, but says the pain goes away after some movement. She says that she has gotten back to her normal routine and is having no complications today. Review of Systems General: No recent weight changes, no fever, no sleep disturbances Respiratory: No cough, no shortness of air, no recurring pulmonary infections Cardiovascular/peripheral vascular: No chest pain, no palpitations, no edema, no shortness of breath Gastrointestinal: No new onset incontinence, normal bowel movements reported Genitourinary: No new onset incontinence Musculoskeletal: Back pain Psychiatric: Normal mood/affect Neurological: [Denies weakness in extremities], [denies balance issues] Objective:: Physical exam General: Alert and oriented x3, no acute distress, pleasant and cooperative, [on room air] Lungs: Respirations even and unlabored, symmetrical chest expansion Eyes: PERRL Musculoskeletal: Flexion and extension lumbar spine somewhat guarded secondary to pain, deep tendon reflexes normal, strength in upper and lower extremities [5/5], [abnormal gait noted] Neurological: Speech clear, surveillance monitor equal, no gross sensory deficit Assessment:: Degenerative disc disease lumbar spine with lumbar radiculopathy, lumbar spondylosis and CRPS type II to bilateral lower extremities Plan:: Overall, the patient is doing well. She would like to follow-up with us in 1 month to reassess her symptoms. She is been instructed to call the office if she has any concerns prior to her next appointment. Dr. Huntley has reviewed this note and agrees with this plan of care. This note was dictated using voice recognition software and make contain errors or omissions.
--- NOTE | 2018-11-20 11:20 | P.CONS_ITS ---
[facility] Pain Management SOAP Note Subjective:: Patient is a pleasant 83-year-old white female who presents today for follow-up after spinal cord stimulator placement. She says that she is doing great today. She rates her pain a 0 out of 10. Patient says that the stimulator has been 100% effective for her. She does report that she has some occasional pain upon awakening, but says the pain goes away after some movement. She says that she has gotten back to her normal routine and is having no complications today. Review of Systems General: No recent weight changes, no fever, no sleep disturbances Respiratory: No cough, no shortness of air, no recurring pulmonary infections Cardiovascular/peripheral vascular: No chest pain, no palpitations, no edema, no shortness of breath Gastrointestinal: No new onset incontinence, normal bowel movements reported Genitourinary: No new onset incontinence Musculoskeletal: Back pain Psychiatric: Normal mood/affect Neurological: [Denies weakness in extremities], [denies balance issues] Objective:: Physical exam General: Alert and oriented x3, no acute distress, pleasant and cooperative, [on room air] Lungs: Respirations even and unlabored, symmetrical chest expansion Eyes: PERRL Musculoskeletal: Flexion and extension lumbar spine somewhat guarded secondary to pain, deep tendon reflexes normal, strength in upper and lower extremities [5/5], [abnormal gait noted] Neurological: Speech clear, line driver equal, no gross sensory deficit Assessment:: Degenerative disc disease lumbar spine with lumbar radiculopathy, lumbar spondylosis and CRPS type II to bilateral lower extremities Plan:: Overall, the patient is doing well. She would like to follow-up with us in 1 month to reassess her symptoms. She is been instructed to call the office if she has any concerns prior to her next appointment. Dr. Huntley has reviewed this note and agrees with this plan of care. This note was dictated using voice recognition software and make contain errors or omissions.
== END ==
PROVIDERS: PCP Nurse Practitioner Family; Visit Provider Clinical Nurse Specialist Family Health
DX: M51.16 Intervertebral disc disorders with radiculopathy, lumbar region (principal); M47.896 Other spondylosis, lumbar region
CPT/HCPCS: 99213

== ENCOUNTER → 2018-12-18 11:01 | Outpatient (POV) | payer MEDICARE, BC, SELFPAY ==
[2018-12-18 11:37] VITALS: BP 134/71; PULSE 71; RESP 18; O2SAT 98; BMI 23.0
--- NOTE | 2018-12-18 12:07 | HMH.PAINSOAP ---
[facility] Pain Management SOAP Note Subjective:: Patient is a pleasant 83-year-old white female who presents today for follow-up. Patient has had some increased pain lately. She has a neurostimulator which he is extremely well with fusion here today to be reprogram. She rates her pain a 5 out of 10. ROS General: no recent weight change, no fever, no sleep disturbances Respiratory: no cough, no shortness of air, no recurring pulmonary infections Cardiovascular/Peripheral Vascular: No chest pain, No palpitations, no edema, no shortness of breath. Gastrointestinal: no incontinence, normal bowel movements reported Genitourinary: no incontinence Musculoskeletal: Neck pain, back pain Psychiatric: normal mood/ affect, Neurological: [denies weakness in extremities], [denies balance issues] Objective:: Physical Exam General: Alert and oriented x3, no acute distress, pleasant and cooperative, [on room air] Lungs: Resps E/U, Symmetrical chest expansion, Eyes: PERRL Musculoskeletal: Flexion and extension of cervical and lumbar spine somewhat guarded secondary to pain, deep tendon reflexes normal, strength in upper and lower extremities [5/5], [abnormal gait noted] Neurological: speech clear, 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 Dr. Huntley has reviewed this note and agrees with this plan of care. This note was dictated using voice recognition software and may contain errors or omissions Pain Management Hx Components *Have you ever received a pneumonia vaccine?: Yes *Have you received a flu vaccine this season?: Yes - *Social History *Occupational Status:: other *Travel in the last 8 weeks: None
== END ==
PROVIDERS: PCP Nurse Practitioner Family; Visit Provider Clinical Nurse Specialist Family Health
DX: M51.16 Intervertebral disc disorders with radiculopathy, lumbar region (principal); M47.896 Other spondylosis, lumbar region; G57.73 Causalgia of bilateral lower limbs
CPT/HCPCS: 99212

== ENCOUNTER → 2019-04-15 13:37 | Outpatient (POV) | payer MEDICARE, BC, SELFPAY ==
[2019-04-15 14:06] VITALS: BP 137/71; PULSE 75; RESP 20; O2SAT 98; BMI 22.3
--- NOTE | 2019-04-15 14:46 | HMH.PAINSOAP ---
[facility] Pain Management SOAP Note Subjective:: Patient is a pleasant 84-year-old white female who presents today for follow-up. Patient has a neurostimulator and overall is doing well for her right side however she is having some left SI joint pain and left greater trochanteric bursa pain. Patient has had injections in the past with good relief. We will set her up with this. She rates her pain today a 10 out of 10. ROS General: no recent weight change, no fever, no sleep disturbances Respiratory: no cough, no shortness of air, no recurring pulmonary infections Cardiovascular/Peripheral Vascular: No chest pain, No palpitations, no edema, no shortness of breath. Gastrointestinal: no new onset incontinence, normal bowel movements reported Genitourinary: no new onset incontinence Musculoskeletal: Left hip and left SI joint pain Psychiatric: normal mood/ affect Neurological: [denies new onset weakness in extremities], [denies new onset balance issues] Objective:: Physical Exam General: Alert and oriented x3, no acute distress, pleasant and cooperative, Lungs: Resps E/U, Symmetrical chest expansion, Eyes: PERRL Musculoskeletal: Flexion and extension of lumbar spine somewhat guarded secondary to pain, deep tendon reflexes normal, strength in upper and lower extremities [5/5], [abnormal gait noted] patient is extremely tender over her left greater trochanteric bursa, positive SI joint compression test positive Arianne test and positive Anderson's test on the left side Neurological: speech clear, rating examiner equal, no gross sensory deficits Assessment:: Sacroiliitis, bursitis Plan:: We will set the patient for left SI joint injection left greater trochanteric bursa injection as soon as possible. I will follow-up with her after this reassess her symptoms at that time she is been instructed to call the office if she has any issues prior to her next appointment. Dr. Huntley has reviewed this note and agrees with this plan of care. This note was dictated using voice recognition software and may contain errors or omissions [facility] History I have reviewed the patient's past medical history: Yes Medical History: Reports:: Hypertension Denies:: Cancer, Diabetes Mellitus Type 1, Diabetes Mellitus Type 2, Internal Pacemaker, Lung Disease, MRSA, Seizures *Have you ever received a pneumonia vaccine?: Yes *Have you received a flu vaccine this season?: Yes Other Medical History: Reports: Hypothyroidism, Thyroid Disease, Other. Denies: Blood Transfusion Reaction Laterality Cases: Bilateral: Tonsillectomy Other Surgeries: Yes: Cholecystectomy, Hysterectomy-Total. No: Pacemaker Amputation: No Fractures: No - *Social History Smoking Status: Never smoker Alcohol Intake: never Substance Use Type: denies use *Occupational Status:: other Housing: house Household Members: spouse *Travel in the last 8 weeks: None Family Hx:: Cancer
--- NOTE | 2019-04-15 14:49 | P.CONS_ITS ---
[facility] Pain Management SOAP Note Subjective:: Patient is a pleasant 84-year-old white female who presents today for follow-up. Patient has a neurostimulator and overall is doing well for her right side however she is having some left SI joint pain and left greater trochanteric bursa pain. Patient has had injections in the past with good relief. We will set her up with this. She rates her pain today a 10 out of 10. ROS General: no recent weight change, no fever, no sleep disturbances Respiratory: no cough, no shortness of air, no recurring pulmonary infections Cardiovascular/Peripheral Vascular: No chest pain, No palpitations, no edema, no shortness of breath. Gastrointestinal: no new onset incontinence, normal bowel movements reported Genitourinary: no new onset incontinence Musculoskeletal: Left hip and left SI joint pain Psychiatric: normal mood/ affect Neurological: [denies new onset weakness in extremities], [denies new onset balance issues] Objective:: Physical Exam General: Alert and oriented x3, no acute distress, pleasant and cooperative, Lungs: Resps E/U, Symmetrical chest expansion, Eyes: PERRL Musculoskeletal: Flexion and extension of lumbar spine somewhat guarded secondary to pain, deep tendon reflexes normal, strength in upper and lower extremities [5/5], [abnormal gait noted] patient is extremely tender over her left greater trochanteric bursa, positive SI joint compression test positive Arianne test and positive Anderson's test on the left side Neurological: speech clear, 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 I will follow-up with her after this reassess her symptoms at that time she is been instructed to call the office if she has any issues prior to her next appointment. Dr. Huntley has reviewed this note and agrees with this plan of care. This note was dictated using voice recognition software and may contain errors or omissions [facility] History I have reviewed the patient's past medical history: Yes Medical History: Reports:: Hypertension Denies:: Cancer, Diabetes Mellitus Type 1, Diabetes Mellitus Type 2, Internal Pacemaker, Lung Disease, MRSA, Seizures *Have you ever received a pneumonia vaccine?: Yes *Have you received a flu vaccine this season?: Yes Other Medical History: Reports: Hypothyroidism, Thyroid Disease, Other. Denies: Blood Transfusion Reaction Laterality Cases: Bilateral: Tonsillectomy Other Surgeries: Yes: Cholecystectomy, Hysterectomy-Total. No: Pacemaker Amputation: No Fractures: No - *Social History Smoking Status: Never smoker Alcohol Intake: never Substance Use Type: denies use *Occupational Status:: other Housing: house Household Members: spouse *Travel in the last 8 weeks: None Family Hx:: Cancer
== END ==
PROVIDERS: PCP Nurse Practitioner Family; Visit Provider Clinical Nurse Specialist Family Health
DX: M46.1 Sacroiliitis, not elsewhere classified (principal); M71.9 Bursopathy, unspecified
CPT/HCPCS: 99212

== ENCOUNTER → 2019-05-09 10:31 | Outpatient (POV) | payer MEDICARE, BC, SELFPAY ==
[2019-05-09 10:49] VITALS: BP 134/52; PULSE 80; RESP 18; O2SAT 99; BMI 24.3
--- NOTE | 2019-05-09 11:02 | HMH.PAINSOAP ---
[facility] Pain Management SOAP Note Subjective:: Patient is a pleasant 84-year-old white female who presents today for follow-up after left SI joint injection, along with the left trochanteric bursa injection. Patient has a spinal cord stimulator for low back pain and for CRPS 2 of right lower leg. Patient says that she is having some increased pain now into her left low back area and into the left leg radiating all the way down to her left calf. Patient says this is a new onset of pain. She says that the stimulator is not giving her any relief in this area. Patient is also concerned that the stimulator it needs reprogramming. She says that she is not getting full relief as she did in the past. She is asking today to speak with the spinal cord stimulator utility sales representative. Patient says she did get a letter concerning bankruptcy of the stimulator company. She says that she is concerned because she does not feel that the stimulator is as effective as it once was and she is unsure what to do. He says that her pain did subside for approximately 1 day following her injections. She says that the pain also radiated to her left low back area and into the mid back area following the injection. patient says that she has undergone epidural steroid injections in the past and has gotten approximately 80% relief for 2 to 3 months. Patient is also complaining of left knee pain. She says that she suffered a fall approximately 1 year ago and is having increased pain to her left knee since the fall. She says the knee does intermittently swell and is cold to touch. She rates her pain a 6 out of 10 today. She is continuing with anti-inflammatories and a home stretching program. She is not on any anticoagulation therapy. Review of Systems General: No recent weight changes, no fever, no sleep disturbances Respiratory: No cough, no shortness of air, no recurring pulmonary infections Cardiovascular/peripheral vascular: No chest pain, no palpitations, no edema, no shortness of breath Gastrointestinal: No new onset incontinence, normal bowel movements reported Genitourinary: No new onset incontinence Musculoskeletal: Low back pain, left leg pain on the left knee pain Psychiatric: Normal mood/affect Neurological: [Denies weakness in extremities], [denies balance issues] Objective:: Physical exam General: Alert and oriented x3, no acute distress, pleasant and cooperative, [on room air] Lungs: Respirations even and unlabored, symmetrical chest expansion Eyes: PERRL Musculoskeletal: Flexion and extension of lumbar spine somewhat guarded secondary to pain, deep tendon reflexes normal, strength in upper and lower extremities [5/5], [abnormal gait noted] Neurological: Speech clear, 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 She is not on any anticoagulation therapy. We will also schedule her for an x-ray of her left knee. It is swollen cold to touch. We will give the patient the [employer] information so that she can contact them today. If the patient's stimulator continues to fail, we may need to consider placing the stimulator. Until then, she will continue with a home stretching program and anti-inflammatories. We will see her back in the clinic following her injection to reassess her symptoms. Dr. Huntley has reviewed this note and agrees with this plan of care. This note was dictated using voice recognition software and make contain errors or omissions. [facility] History I have reviewed the patient's past medical history: Yes Medical History: Reports:: Hypertension Denies:: Cancer, Diabetes Mellitus Type 1, Diabetes Mellitus Type 2, Internal Pacemaker, Lung Disease, MRSA, Seizures *Have you ever received a pneumonia vaccine?: Yes *Have you received
--- NOTE | 2019-05-09 11:22 | XR_ITS ---
PROCEDURE: XR KNEE LT 3V CLINICAL INDICATION: LT KNEE PAIN COMPARISON: No exams were available for comparison FINDINGS: No fracture or dislocation. No lytic or blastic change. There is normal mineralization. The joint spaces are well-preserved. No significant degenerative/arthritic changes. No erosive changes evident. Other findings:There are calcifications related to the medial and lateral meniscus areas. There are some posterior soft tissue linear calcifications, a few of which could be related to the popliteal artery and there could be involvement of the posterior capsule. IMPRESSION: No acute process. Calcific atherosclerotic vascular disease. Chondrocalcinosis. Dictated by: Guille Leary 05/09/2019 11:44 Electronically signed by Guille Leary in [place] 05/09/2019 11:44
== END ==
PROVIDERS: PCP Nurse Practitioner Family; Visit Provider Clinical Nurse Specialist Family Health
DX: M51.16 Intervertebral disc disorders with radiculopathy, lumbar region (principal); G57.70 Causalgia of unspecified lower limb; M25.569 Pain in unspecified knee
CPT/HCPCS: 73562; 99212

== ENCOUNTER → 2019-06-10 11:12 | Outpatient (POV) | payer MEDICARE, BC, SELFPAY ==
[2019-06-10 11:48] VITALS: BP 131/85; PULSE 75; RESP 18; O2SAT 99; BMI 21.6
--- NOTE | 2019-06-10 12:23 | P.CONS_ITS ---
[facility] Pain Management SOAP Note Subjective:: Patient is a pleasant 84-year-old white female who presents today for follow-up after a lumbar epidural steroid injection. Overall patient is doing better she rates her pain today 4 out of 10 mostly in her right SI joint. She does have a neurostimulator and is doing well with this. There is a positive Arianne test Anderson's test and SI joint compression test on the right side. Patient would like to schedule right SI joint injection. ROS General: no recent weight change, no fever, no sleep disturbances Respiratory: no cough, no shortness of air, no recurring pulmonary infections Cardiovascular/Peripheral Vascular: No chest pain, No palpitations, no edema, no shortness of breath. Gastrointestinal: no new onset incontinence, normal bowel movements reported Genitourinary: no new onset incontinence Musculoskeletal: SI joint pain Psychiatric: normal mood/ affect, [denies depression], [denies anxiety] Neurological: [denies new onset weakness in extremities], [denies new onset balance issues] Objective:: Physical Exam General: Alert and oriented x3, no acute distress, pleasant and cooperative, [on room air] Lungs: Resps E/U, Symmetrical chest expansion, [CTA bilateral] Eyes: PERRL Musculoskeletal: Flexion and extension of lumbar spine somewhat guarded secondary to pain, deep tendon reflexes normal, strength in upper and lower extremities [5/5], antalgic gait noted 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 I believe it would be beneficial give her him her symptomology. I will follow-up with her after this reassess her symptoms at that time she is been instructed to call the office if she has any issues prior to her next appointment. Dr. Huntley has reviewed this note and agrees with this plan of care. This note was dictated using voice recognition software and may contain errors or omissions [facility] History I have reviewed the patient's past medical history: Yes Medical History: Reports:: Hypertension Denies:: Cancer, Diabetes Mellitus Type 1, Diabetes Mellitus Type 2, Internal Pacemaker, Lung Disease, MRSA, Seizures *Have you ever received a pneumonia vaccine?: Yes *Have you received a flu vaccine this season?: Yes Other Medical History: Reports: Hypothyroidism, Thyroid Disease, Other. Denies: Blood Transfusion Reaction Laterality Cases: Bilateral: Tonsillectomy Other Surgeries: Yes: Cholecystectomy, Hysterectomy-Total. No: Pacemaker Amputation: No Fractures: No - *Social History Smoking Status: Never smoker Alcohol Intake: never Substance Use Type: denies use *Occupational Status:: other Housing: house Household Members: spouse *Travel in the last 8 weeks: None Family Hx:: Cancer
== END ==
PROVIDERS: PCP Nurse Practitioner Family; Visit Provider Clinical Nurse Specialist Family Health
DX: M46.1 Sacroiliitis, not elsewhere classified (principal); I10 Essential (primary) hypertension; E03.9 Hypothyroidism, unspecified
CPT/HCPCS: 99212

== ENCOUNTER → 2019-07-29 11:37 | Outpatient (POV) | payer MEDICARE, BC, SELFPAY ==
[2019-07-29 12:14] VITALS: BP 139/80; PULSE 67; RESP 18; O2SAT 98; BMI 21.6
--- NOTE | 2019-07-29 12:36 | HMH.PAINSOAP ---
[facility] Pain Management SOAP Note Subjective:: Patient is a pleasant 84-year-old white female presents today for follow-up after right SI joint injection. Patient is getting no relief with her injections. She rates her pain today a 7 out of 10 she is unable to do her activities of daily life. Patient's neurostimulator was working extremely well for her she was getting 90% relief of her symptoms however due to malfunction of the neurostimulator and no longer can be read interrogated or reprogram. Patient is no longer getting benefit from it. She would like to discuss a new system due to this failure. Patient had a successful trial getting 90% relief of her symptoms. Patient had a successful implant getting 90% relief of her symptoms however in the last several months there has been no ability to interrogate the stimulator or reprogram it. There is also no way to check impedances of the current neurostimulator leads. ROS General: no recent weight change, no fever, no sleep disturbances Respiratory: no cough, no shortness of air, no recurring pulmonary infections Cardiovascular/Peripheral Vascular: No chest pain, No palpitations, no edema, no shortness of breath. Gastrointestinal: no new onset incontinence, normal bowel movements reported Genitourinary: no new onset incontinence Musculoskeletal: Back pain, leg pain Psychiatric: normal mood/ affect, Neurological: [denies new onset weakness in extremities], [denies new onset balance issues] Objective:: Physical Exam General: Alert and oriented x3, no acute distress, pleasant and cooperative, [on room air] Lungs: Resps E/U, Symmetrical chest expansion, Eyes: PERRL Musculoskeletal: Flexion and extension of lumbar spine somewhat guarded secondary to pain, deep tendon reflexes normal, strength in upper and lower extremities [5/5], [abnormal gait noted] 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 Patient has been instructed to call the office if she has any issues prior to her next appointment. She is currently not on any anticoagulation therapy. Dr. Huntley has reviewed this note and agrees with this plan of care. This note was dictated using voice recognition software and may contain errors or omissions [facility] History I have reviewed the patient's past medical history: Yes Medical History: Reports:: Hypertension Denies:: Cancer, Diabetes Mellitus Type 1, Diabetes Mellitus Type 2, Internal Pacemaker, Lung Disease, MRSA, Seizures *Have you ever received a pneumonia vaccine?: Yes *Have you received a flu vaccine this season?: Yes Other Medical History: Reports: Hypothyroidism, Thyroid Disease, Other. Denies: Blood Transfusion Reaction Laterality Cases: Bilateral: Tonsillectomy Other Surgeries: Yes: Cholecystectomy, Hysterectomy-Total. No: Pacemaker Amputation: No Fractures: No - *Social History Smoking Status: Never smoker Alcohol Intake: never Substance Use Type: denies use *Occupational Status:: other Housing: house Household Members: spouse *Travel in the last 8 weeks: None Family Hx:: Unable to obtain
== END ==
PROVIDERS: PCP Nurse Practitioner Family; Visit Provider Clinical Nurse Specialist Family Health
DX: M51.16 Intervertebral disc disorders with radiculopathy, lumbar region (principal); G57.73 Causalgia of bilateral lower limbs
CPT/HCPCS: 99212

== ENCOUNTER → 2019-09-16 11:16 | Outpatient (CLI) | payer MEDICARE, BC, SELFPAY ==
[2019-09-17 08:54] LABS: Covid-19 Nasal PCR Sendout Lex NOT DETECTED
--- NOTE | 2019-09-17 10:20 | PC.NURSE ---
0938 - pt & [facility] notified of negative COVID 19 results.
== END ==
PROVIDERS: Visit Provider Anesthesiology
DX: Z03.818 Encounter for observation for suspected exposure to other biological agents ruled out (principal)
CPT/HCPCS: U0003

== ENCOUNTER 2019-09-18 14:04 | Day surgery (SDC) | payer MEDICARE, BC, SELFPAY ==
[2019-09-18 13:34] VITALS: BP 136/64; PULSE 72; RESP 18; TEMP 36.6; O2SAT 97; BMI 22.3
[2019-09-18 13:53] VITALS: BP 145/85; PULSE 88
[2019-09-18 13:54] VITALS: BP 150/85; PULSE 85; RESP 18; O2SAT 98
--- NOTE | 2019-09-18 13:58 | P.PCN_ITS ---
- Procedure Date: 09/18/19 Time: 13:58 Anesthesiologist:: Jian Huntley MD Complications:: None Pre-procedure Diagnosis:: Sacroiliitis Post-procedure Diagnosis:: Same Indications for Procedure:: Patient is a pleasant 84-year-old white female who we have been treating for low back pain with lumbar radicular symptoms. She currently has a [employer] cord stimulator system in place which is failing currently. She did get good relief however it is malfunctioning and we cannot reprogram the stimulator. We will try to get her approved for replacement of her spinal cord stimulator system wi th a [employer] system. This is due to failure of her spinal cord stimulator system as the company is no longer servicing the stimulators. She is also tender over both SI joints. She has a positive SI joint compression test bilaterally. She has a positive Peewee's test bilaterally. She has a positive Arianne test bilaterally. We will do bilateral SI joint injections today to help her with her SI joint pain. Procedure Details:: B/L SI joint injection under fluoroscopy Informed consent was obtained and the risks and benefits of the procedure was explained to the patient. The patient was taken to the procedure room and placed prone on the procedure table. The patient was prepped using ChloraPrep. The skin and subcutaneous tissues overlying the SI joints were anesthetized using lidocaine. I placed a 22-gauge needle first in the left SI joint and second in the right SI joint. Needle placement was confirmed with dye. After this we injected 5 mL bupivacaine 0.25% and Depo-Medrol 40 mg into each SI joint. Patient tolerated the procedure well with no complication. Plan and Disposition:: We will follow-up with her in 2 weeks. Will reevaluate her symptoms at that time. We will seek approval for replacement of her spinal cord stimulator system. Her leads are at T8-T9 and T10 bilaterally. Her current spinal cord s timulator system is failing due to non-servicing from the company. She did well with her spinal cord stimulator system when it was working.
[2019-09-18 14:18] VITALS: BP 143/68; PULSE 72; RESP 20; O2SAT 97
== END 2019-09-18 14:20 | disposition home or self-care (01) ==
LOC: SC.PAINP 14:04
PROVIDERS: PCP Nurse Practitioner Family; Visit Provider Anesthesiology
DX: M46.1 Sacroiliitis, not elsewhere classified (principal)
CPT/HCPCS: 27096; G0260; J1030; Q9966

== ENCOUNTER → 2019-09-30 09:59 | Outpatient (CLI) | payer MEDICARE, BC, SELFPAY ==
[2019-09-30 10:23] LABS: Basophils % 0.2 % (0.1-2.0); Eosinophils # 0.1 K/mm3 (0.0-0.4); Eosinophils % 1.5 % (0.1-12.0); Hematocrit 40.8 % (37.0-47.0); Hemoglobin 13.1 g/dL (12.2-16.2); Lymphocytes % 33.3 % (10-50); Mean Corpuscular HGB Conc 32.2 g/dL (31.8-35.4); Mean Corpuscular Hemoglobin 29.9 pg (27.0-31.2); Mean Corpuscular Volume 92.8 fl (81-99); Mean Platelet Volume 8.9 fl (7.4-10.4); Monocytes # 0.4 K/mm3 (0.1-1.0); Monocytes % 5.8 % (1.7-9.3); Neutrophils # 3.6 K/mm3 (1.8-7.8); Neutrophils % 59.1 % (37.0-80.0); Platelet Count 330 K/mm3 (142-424); Red Cell Distribution Width 13.8 % (11.5-17.5)
[2019-09-30 11:31] LABS: Anion Gap 7.7 mEq/L (5-15); Blood Urea Nitrogen 30 mg/dl (7-17); Calcium 9.5 mg/dl (8.4-10.2); Carbon Dioxide 31 mmol/L (22.0-30.0); Chloride 99 mmol/L (98-107); Estimated Glomerular Filt Rate 69 ml/min (>60); GFR (African American) 83 ML/MIN (>60); Glucose 100 mg/dl (74-100); Potassium 3.7 mmoL/L (3.5-5.1); Sodium 134 mmol/L (136-145)
[2019-10-02 11:05] LABS: Covid-19 Nasal PCR Sendout Lex NOT DETECTED
== END ==
PROVIDERS: Visit Provider Anesthesiology
DX: Z01.818 Encounter for other preprocedural examination (principal); M51.36 Other intervertebral disc degeneration, lumbar region
CPT/HCPCS: 36415; 80048; 85025; U0004

== ENCOUNTER 2019-10-02 08:15 | Day surgery (SDC) | payer MEDICARE, BC, SELFPAY ==
--- NOTE | 2019-09-27 08:29 | SUR.PREOP ---
09/27/2019 @ 0553--PHONE CALL MADE TO PATIENT. PATIENT UNDERSTANDS THAT LAB WORK AND COVID TESTING NEEDS TO BE COMPLETED @ 10 ON 09/30/2019 PATIENT UNDERSTANDS IF LAB WORK AND COVID-19 TESTS ARE NOT COMPLETED BY 12PM ON THAT DATE, THE SURGERY SCHEDULED WILL BE CANCELLED AND RESCHEDULED FOR ANOTHER TIME.
[2019-10-01 09:17] VITALS: BMI 22.8
[2019-10-02] VITALS (7 sets, daily range): BP systolic 131–168; BP diastolic 65–99; PULSE 45–63; RESP 18; TEMP 36.1–37.1; O2SAT 94–98
--- NOTE | 2019-10-02 09:32 | HMH.ANESCL ---
[facility] Anesthesia Checklist - Patient Identification Patient Identification: Arm Band, Verbal (Name & ) - Structural Data Admitted From: Home Planned Operative Procedure/s: Removal of neurostimulator, placement of neurostimulator generator and lead Consent for Planned Operative Procedure(s) Verified: Yes Verified Documents: Surgical Consent, History and Physical - NPO Status Verified Time NPO: 22:00 - Chart Verification Results Verified: CBC (Covid-19 negative), BMP - Additional verifications Anesthesia Reactions: No Hx Blood Transfusions: No Blood Transfusion Reaction: No - Airway Assessment C-Spine Mobility Assessed: Yes TMJ Mobility Assessed: Yes Dentition: Partials - Neurological Assessment Level of Consciousness: Awake, Alert, Appropriate, Follows Commands Hx Seizures: No Numbness or tingling in extremities: Yes (bilateral legs) - Anesthesia Plan Anesthesia Risk discussed: Yes Anesthesia Plan: Verified ASA Class: III Anesthesia Type: MAC (vs GA) [facility] History I have reviewed the patient's past medical history: Yes Medical History: Reports:: Hypertension Denies:: Cancer, Diabetes Mellitus Type 1, Diabetes Mellitus Type 2, Internal Pacemaker, Lung Disease, MRSA, Seizures *Have you ever received a pneumonia vaccine?: Yes *Have you received a flu vaccine this season?: Yes Other Medical History: Reports: Hypothyroidism, Thyroid Disease, Other. Denies: Blood Transfusion Reaction Anesthesia experience/problems:: None Laterality Cases: Bilateral: Cataract, Tonsillectomy Other Surgeries: Yes: Cholecystectomy, Hysterectomy-Total. No: Pacemaker Amputation: No Fractures: No - *Social History Educational Level: Completed High School Smoking Status: Never smoker Alcohol Intake: never Substance Use Type: denies use *Occupational Status:: retired Housing: house Household Members: spouse *Travel in the last 8 weeks: None Family Hx:: No significant family history
--- NOTE | 2019-10-02 11:55 | P.OP_ITS ---
Date of procedure: 10/02/19 Pre-op Diagnosis:: Malfunctioning pain stimulator system Post-op Diagnosis:: Same Procedure performed:: Removal and replacement of epidural pain stimulator generator Surgeon:: Mart Gomes MD MANAGER MEDICAL WRITING:: Boewn Hale, David Prasad, Sonny Bernabe, Henrry Winn, Other Anesthesia: MAC Estimated blood loss (mL): 5 Operative findings:: Not applicable Operative note:: Patient was placed prone on the operating table and her back and flank regions were prepped and draped in sterile fashion. Once adequate IV sedation was obtained via anesthesia and local anesthesia was 1% Xylocaine with epinephrine and incision was made over the epidural insertion site for the leads and carried through skin subcutaneous tissue. Careful dissection the leads and fixation devices were removed from this area noting the tip of the leads to be intact. Incision was made over the generator and with careful dissection generator was likewise removed. New epidural leads were placed in the epidural space to the area desired by Dr. gatica. These were affixed to the paraspinal fascia with fixation devices and 2-0 Prolene suture. At this point the leads were passed from the paraspinal incision to the pocket incision is a tunneling device. Leads fixed the new generator which was placed in the pocket. System noted to be functioning properly. Both pockets irrigated with antibiotic solution. Subcutaneous tissues closed with 2-0 Vicryl. Skin closed with a stitch of 4-0 nylon. Wound VAC dressings and binder applied to the wounds. The patient tolerated procedure well and was taken to the recovery room in stable condition. Antibiotic x1 week per protocol after discharge follow-up 1 week or sooner for any concerns Condition: stable Disposition: PACU Complications:: None
--- NOTE | 2019-10-02 12:24 | P.OP_ITS ---
Date of procedure: 11/06/19 Pre-op Diagnosis:: Degenerative disc disease of the lumbar spine with lumbar radiculopathy symptoms and failed spinal cord stimulator system Post-op Diagnosis:: Same Procedure performed:: Replacement spinal cord stimulator leads with tunneling for replacement of spinal cord stimulator system Surgeon:: Jian Huntley MD SERVICE LINE COORDINATOR:: Sonny Bernabe Anesthesia: GETA Estimated blood loss (mL): 5 Clinical Note:: Patient is a pleasant 84-year-old white female who we have been treating for low back pain with lumbar radicular symptoms. She currently has a [employer] core stimulator system in place which is currently failed. We are replacing her spinal cord stimulator leads and battery today. She previously did very well with her spinal cord stimulator system when it was working. She also recently had SI joint injections. These have helped with her pain symptoms in her hips. Operative findings:: None Operative note:: Informed consent was obtained the risk and benefits of the procedure were explained to the patient. The patient was taken to the operating room placed prone on the procedure table. She was prepped and draped in sterile fashion. C-arm fluoroscopy was used to view the lumbar spine. Dr. Gomes explanted the Nuvectra spinal cord stimulator system. A 17-gauge needle was inserted and advanced into the L2-L3 interspace. After confirmation of needle placement in the epidural space stimulating lead was inserted and advanced to the T8-T9-T10 vertebral body. Lead was checked in AP and lateral views. A second needle was then inserted and advanced again into the L2-L3 interspace. Again a stimulating lead was inserted and advanced again to the T8-T9-T10 vertebral body. The stylette of the lead and the needles were withdrawn. The leads were secured to the fascia with anchoring devices and 2-0 Prolene. I tunneled the leads from the back to the stimulator pocket and attached the leads to the stimulator. Impedances were checked and found to be okay. Both incisions were then closed with 2-0 Vicryl followed by 4-0 nylon. A wound VAC was placed over the incision and an abdominal binder was placed and the patient was taken to recovery in stable condition. The patient tolerated the procedure well with no complications. Was programmed by the [employer] sales representative womens health with good relief of pain symptoms. Patient was discharged home neurologically intact with good relief of pain symptoms. Patient was given a back brace to help with stability of the spine and also help relieve pain in the low back. Lyle and disposition: We will follow-up with this patient in 1 week for wound check. We will follow-up in 2 weeks for suture removal and reprogramming if needed. Condition: stable Disposition: PACU Complications:: None
== END 2019-10-02 13:45 | disposition home or self-care (01) ==
LOC: OR 08:16
PROVIDERS: PCP Nurse Practitioner Family; Visit Provider Anesthesiology
PROC: (CPT 63663; principal; 2019-10-02 09:45)
DX: T85.113A Breakdown (mechanical) of implanted electronic neurostimulator, generator, initial encounter (principal); M51.16 Intervertebral disc disorders with radiculopathy, lumbar region; I10 Essential (primary) hypertension; E03.9 Hypothyroidism, unspecified; Z90.710 Acquired absence of both cervix and uterus; Z90.49 Acquired absence of other specified parts of digestive tract
CPT/HCPCS: 63663; 63688; 96374; C1778; C1820; J2704; J3370

== ENCOUNTER → 2019-10-10 08:58 | Outpatient (POV) | payer MEDICARE, BC, SELFPAY ==
[2019-10-10 09:35] VITALS: BP 138/70; PULSE 69; RESP 18; TEMP 36.7; O2SAT 98; BMI 22.8
--- NOTE | 2019-10-10 10:00 | HMH.PAINSOAP ---
[facility] Pain Management SOAP Note Subjective:: Patient is a pleasant 84-year-old white female who presents today for follow-up after [employer] implant. Patient previously had a new vector stimulator system in place which failed. As a result, the device was removed and she was reimplanted with [employer]. She is following up today post procedure. Patient says that she is doing very well. She rates her pain a 2 out of 10. She says that she can already see that [employer] stimulator is going to work much better for her in comparison to her previous stimulator. The patient is being treated for low back pain and leg pain. Patient does live a very active lifestyle. [place] She also cares for 2 great grandchildren. Overall, the patient says she is doing well. Review of Systems General: No recent weight changes, no fever, no sleep disturbances Respiratory: No cough, no shortness of air, no recurring pulmonary infections Cardiovascular/peripheral vascular: No chest pain, no palpitations, no edema, no shortness of breath Gastrointestinal: No new onset incontinence, normal bowel movements reported Genitourinary: No new onset incontinence Musculoskeletal: Low back pain, leg pain Psychiatric: Normal mood/affect Neurological: [Denies weakness in extremities], [denies balance issues] Objective:: Physical exam General: Alert and oriented x3, no acute distress, pleasant and cooperative, [on room air] Lungs: Respirations even and unlabored, symmetrical chest expansion Eyes: PERRL Musculoskeletal: Flexion and extension of lumbar spine somewhat guarded secondary to pain, deep tendon reflexes normal, strength in upper and lower extremities [5/5], [abnormal gait noted] Neurological: Speech clear, field handyman equal, no gross sensory deficit Assessment:: Degenerative disc disease lumbar spine with lumbar radiculopathy symptoms, failed spinal cord stimulator system Plan:: Overall, the patient is doing well following her system change. We will plan to see her back in 2 weeks for suture removal. She has been instructed to contact clinic if she has any concerns before next clinic. The patient and I specifically discussed risk factors for COVID19. These risks include, but are not limited to age greater than 60, heart or lung disease, diabetes, immunosuppression, and travel. We also discussed NSAIDs may worsen COVID19 infection or symptoms. Patient should not use NSAIDs to treat COVID19 signs or symptoms. Patient was also informed that any type of corticosteroid of any form (oral or injection) will decrease the patient's immune system response and may increase the likelihood of COVID19 infection [address] symptoms[address]. Huntley has reviewed this note and agrees with this plan of care. This note was dictated using voice recognition software and make contain errors or omissions. [facility] History I have reviewed the patient's past medical history: Yes Medical History: Reports:: Hypertension Denies:: Cancer, Diabetes Mellitus Type 1, Diabetes Mellitus Type 2, Internal Pacemaker, Lung Disease, MRSA, Seizures *Have you ever received a pneumonia vaccine?: Yes *Have you received a flu vaccine this season?: Yes Other Medical History: Reports: Hypothyroidism, Thyroid Disease, Other. Denies: Blood Transfusion Reaction Laterality Cases: Bilateral: Tonsillectomy Other Surgeries: Yes: Cholecystectomy, Hysterectomy-Total. No: Pacemaker Amputation: No Fractures: No - *Social History Smoking Status: Never smoker Alcohol Intake: never Substance Use Type: denies use *Occupational Status:: other Housing: house Household Members: spouse *Travel in the last 8 weeks: None Family Hx:: No significant family history
== END ==
PROVIDERS: PCP Nurse Practitioner Family; Visit Provider Clinical Nurse Specialist Family Health
DX: M51.16 Intervertebral disc disorders with radiculopathy, lumbar region (principal); T85 Complications of other internal prosthetic devices, implants and grafts
CPT/HCPCS: 99212

== ENCOUNTER → 2019-10-22 10:03 | Outpatient (POV) | payer MEDICARE, BC, SELFPAY ==
[2019-10-22 10:43] VITALS: BP 145/75; PULSE 85; RESP 18; TEMP 36.6; O2SAT 99; BMI 23.0
--- NOTE | 2019-10-22 13:08 | HMH.PAINSOAP ---
[facility] Pain Management SOAP Note Subjective:: Pleasant 84-year-old white female who presents today for follow-up. Patient had a nerve stimulator placed she states her neurostimulator is doing well however she is fallen recently and is having quite a bit of hip pain. Patient has pain over her bilateral greater trochanteric bursa's. She rates her pain today a 10 out of 10 patient had her sutures removed for her nerve stimulator placement site intact with no sign symptoms of infection ROS General: no recent weight change, no fever, no sleep disturbances Respiratory: no cough, no shortness of air, no recurring pulmonary infections Cardiovascular/Peripheral Vascular: No chest pain, No palpitations, no edema, no shortness of breath. Gastrointestinal: no new onset incontinence, normal bowel movements reported Genitourinary: no new onset incontinence Musculoskeletal: Back pain, hip pain Psychiatric: normal mood/ affect Neurological: [denies new onset weakness in extremities], [denies new onset balance issues] Objective:: Physical Exam General: Alert and oriented x3, no acute distress, pleasant and cooperative, [on room air] Lungs: Resps E/U, Symmetrical chest expansion, Eyes: PERRL Musculoskeletal: Flexion and extension of lumbar spine somewhat guarded secondary to pain, deep tendon reflexes normal, strength in upper and lower extremities [5/5], [abnormal gait noted] Neurological: speech clear, retail sales representative equal, no gross sensory deficits Assessment:: Degenerative disc disease lumbar spine with lumbar radiculopathy symptoms, greater trochanteric bursitis Plan:: We will schedule the patient for bilateral greater trochanteric bursa injections we will get her seen by the neurostimulator company to ensure she is not getting over stimulation in her legs. I will follow-up with us after her injection reassess her symptoms at that time she has been instructed to call the office if she has any issues prior to her next appointment. Dr. Huntley has reviewed this note and agrees with this plan of care. This note was dictated using voice recognition software and may contain errors or omissions [facility] History I have reviewed the patient's past medical history: Yes Medical History: Reports:: Hypertension Denies:: Cancer, Diabetes Mellitus Type 1, Diabetes Mellitus Type 2, Internal Pacemaker, Lung Disease, MRSA, Seizures *Have you ever received a pneumonia vaccine?: Yes *Have you received a flu vaccine this season?: Yes Other Medical History: Reports: Hypothyroidism, Thyroid Disease, Other. Denies: Blood Transfusion Reaction Laterality Cases: Bilateral: Tonsillectomy Other Surgeries: Yes: Cholecystectomy, Hysterectomy-Total. No: Pacemaker Amputation: No Fractures: No - *Social History Smoking Status: Never smoker Alcohol Intake: never Substance Use Type: denies use *Occupational Status:: other Housing: house Household Members: spouse *Travel in the last 8 weeks: None Family Hx:: No significant family history
== END ==
PROVIDERS: PCP Nurse Practitioner Family; Visit Provider Clinical Nurse Specialist Family Health
DX: M51.16 Intervertebral disc disorders with radiculopathy, lumbar region (principal); M70.60 Trochanteric bursitis, unspecified hip
CPT/HCPCS: 99212

== ENCOUNTER 2019-11-08 10:41 | Day surgery (SDC) | payer MEDICARE, BC, SELFPAY ==
[2019-11-08 11:38] VITALS: BP 146/83; PULSE 67; RESP 18; TEMP 36.7; O2SAT 96; BMI 22.8
--- NOTE | 2019-11-08 11:48 | HMH.PMPROC ---
- Procedure Date: 11/08/19 Time: 11:48 Anesthesiologist:: Jian Huntley MD Complications:: None Pre-procedure Diagnosis:: Bilateral trochanteric bursitis Post-procedure Diagnosis:: Same Indications for Procedure:: This patient is a pleasant 84-year-old white female who we have been treating for low back pain with lumbar radiculopathy symptoms. She had been doing very well with her spinal cord stimulator. She did have a recent fall. She now has bilateral hip pain. She is tender over both trochanteric bursa's. We will do bilateral trochanteric bursa injections under fluoroscopy today to help her with her pain symptoms. Procedure Details:: My bilateral trochanteric bursa injection Informed consent was obtained and the risk and benefits of the procedure was explained to the patient. The patient was taken to the procedure room and placed prone on the procedure table. Both hips were prepped using ChloraPrep. The skin and subcutaneous tissues were anesthetized using lidocaine. A 22-gauge spinal needle was inserted and advanced into the greater trochanter on the left side. Needle placement was confirmed with dye. We then injected 5 mL bupivacaine 0.25% Depo-Medrol 40 mg into the left trochanteric bursa. The same was done for the right side. A 22-gauge spinal needle was inserted and advanced into the greater trochanter on the right side. Needle placement was confirmed with dye. We then injected 5 mL bupivacaine 0.25% Depo-Medrol 40 mg into the right trochanteric bursa. Patient tolerated the procedure well with no complications. Plan and Disposition:: We will follow-up with her in 2 weeks. Will reevaluate her symptoms at that time.
[2019-11-08 11:51] VITALS: BP 152/89; PULSE 85; RESP 18; O2SAT 99
[2019-11-08 11:52] VITALS: BP 158/89; PULSE 88; RESP 18; O2SAT 98
[2019-11-08 12:17] VITALS: BP 150/72; PULSE 67; RESP 18; TEMP 36.1; O2SAT 95
== END 2019-11-08 12:17 | disposition home or self-care (01) ==
LOC: SC.PAINP 10:44
PROVIDERS: PCP Nurse Practitioner Family; Visit Provider Anesthesiology
DX: M70.61 Trochanteric bursitis, right hip (principal); M70.62 Trochanteric bursitis, left hip; I10 Essential (primary) hypertension; F41.9 Anxiety disorder, unspecified; Z90.89 Acquired absence of other organs; Z90.711 Acquired absence of uterus with remaining cervical stump; Z96.82 Presence of neurostimulator; Z83.3 Family history of diabetes mellitus; Z79.899 Other long term (current) drug therapy
CPT/HCPCS: 20610; 77002; J1030; Q9966

== ENCOUNTER → 2019-11-28 13:40 | Outpatient (POV) | payer MEDICARE, BC, SELFPAY ==
[2019-11-28 14:05] VITALS: BP 144/84; PULSE 72; RESP 18; O2SAT 99; BMI 22.8
--- NOTE | 2019-11-28 14:39 | HMH.PAINSOAP ---
[facility] Pain Management SOAP Note Subjective:: Patient is a pleasant 84-year-old white female who presents today for follow-up after bilateral trochanteric bursa injections. Patient says that she is continuing to have low back pain with radiation into her buttocks and hips. She says that the pain is not any better following the injections. Patient did undergo a change out of her spinal cord stimulator system from [employer] to [employer]. She has been programmed by the stimulator employer relations representative. Patient says that extension of her back does give her some relief to her low back, however, she does not get any relief in her buttocks or leg pain. She rates her pain a 7 out of 10 today. Patient says she has been taking some [id number] gel as well as Aleve. This has given her some relief. She does try modified stretching program. Review of Systems General: No recent weight changes, no fever, no sleep disturbances Respiratory: No cough, no shortness of air, no recurring pulmonary infections Cardiovascular/peripheral vascular: No chest pain, no palpitations, no edema, no shortness of breath Gastrointestinal: No new onset incontinence, normal bowel movements reported Genitourinary: No new onset incontinence Musculoskeletal: Low back pain, bilateral buttock pain, right lower extremity pain Psychiatric: Normal mood/affect Neurological: [Denies weakness in extremities], [denies balance issues] Objective:: Physical exam General: Alert and oriented x3, no acute distress, pleasant and cooperative, [on room air] Lungs: Respirations even and unlabored, symmetrical chest expansion Eyes: PERRL Musculoskeletal: Flexion and extension of lumbar spine somewhat guarded secondary to pain, deep tendon reflexes normal, strength in upper and lower extremities [5/5], antalgic gait noted, positive [place]'s test, positive Peewee's test, positive distraction test Neurological: Speech clear, money examiner equal, no gross sensory deficit Assessment:: Degenerative disc disease lumbar spine with lumbar radiculopathy symptoms, sacroiliitis bilateral Plan:: The patient does have tenderness over her bilateral SI joints. She has a positive Arianne, Peewee's, distraction test. We will schedule her for bilateral SI joint injections to see if this gives her any relief. She has been reprogrammed with her stimulator and she says that she does continue to have pain unless she extends her back. She says that it is better, however, than her previous stimulator of new Vectra. She says it discharge better as well. We will order her diclofenac 50 mg 1 tablet p.o. twice daily. We will see her back in the clinic after her injections to reassess her symptoms. The patient and I specifically discussed risk factors for COVID19. These risks include, but are not limited to age greater than 60, heart or lung disease, diabetes, immunosuppression, and travel. We also discussed NSAIDs may worsen COVID19 infection or symptoms. Patient should not use NSAIDs to treat COVID19 signs or symptoms. Patient was also informed that any type of corticosteroid of any form (oral or injection) will decrease the patient's immune system response and may increase the likelihood of COVID19 [address] Huntley has reviewed this note and agrees with this plan of care. This note was dictated using voice recognition software and make contain errors or omissions. [facility] History I have reviewed the patient's past medical history: Yes Medical History: Reports:: Hypertension Denies:: Cancer, Diabetes Mellitus Type 1, Diabetes Mellitus Type 2, Internal Pacemaker, Lung Disease, MRSA, Seizures *Have you ever received a pneumonia vaccine?: Yes *Have you received a flu vaccine this season?: Yes Other Medical History: Reports: Hypothyroidism, Thyroid Disease, Other. Denies: Blood Transfusion Reaction Laterality Cases: Bilateral: Tonsillectomy Other Surgeries: Yes: Cholecystectomy, Hysterectomy-T
== END ==
PROVIDERS: PCP Nurse Practitioner Family; Visit Provider Clinical Nurse Specialist Family Health
DX: M51.16 Intervertebral disc disorders with radiculopathy, lumbar region (principal); M46.1 Sacroiliitis, not elsewhere classified
CPT/HCPCS: 99212

== ENCOUNTER → 2019-12-09 11:38 | Outpatient (CLI) | payer MEDICARE, BC, SELFPAY ==
[2019-12-09 13:20] LABS: Coronavirus 19 IgG Antibody Negative (Negative); Coronavirus 19 IgM Antibody Negative (Negative)
== END ==
PROVIDERS: Visit Provider Ophthalmology
DX: Z03.818 Encounter for observation for suspected exposure to other biological agents ruled out (principal)
CPT/HCPCS: 36415; 86328

== ENCOUNTER 2019-12-09 14:06 | Day surgery (SDC) | payer MEDICARE, BC, SELFPAY ==
[2019-12-09 14:36] VITALS: BP 147/62; PULSE 85; RESP 18; TEMP 36.2; O2SAT 97; BMI 22.8
[2019-12-09 14:47] VITALS: BP 140/77; PULSE 85; RESP 18
[2019-12-09 14:48] VITALS: BP 148/88; PULSE 85; RESP 18; O2SAT 98
--- NOTE | 2019-12-09 14:52 | HMH.PMPROC ---
- Procedure Date: 12/09/19 Time: 14:53 Anesthesiologist:: Ольга Sanchez APRN Complications:: None Pre-procedure Diagnosis:: Bilateral sacroiliitis Post-procedure Diagnosis:: Same Indications for Procedure:: Patient is a pleasant 84-year-old white female who presents today for bilateral SI joint injections. She has notable tenderness over bilateral SI joints with a positive Arianne, Peewee's, distraction test. Patient does rate her pain a 6 out of 10 today. We will perform bilateral SI injections if she gets relief. Patient also has a [employer] spinal cord stimulator. Physical exam General: Alert and oriented x3, no acute distress, pleasant and cooperative, [on room air] Lungs: Respirations even and unlabored, symmetrical chest expansion Eyes: PERRL Musculoskeletal: Flexion and extension of lumbar spine somewhat guarded secondary to pain, deep tendon reflexes normal, strength in upper and lower extremities [5/5], [abnormal gait noted] positive [place]'s test, positive Peewee's test, positive distraction test Neurological: Speech clear, enthone solder stripper equal, no gross sensory deficit Procedure Details:: Description of procedure: Informed consent was obtained and the risks and benefits of the procedure were explained to the patient. The patient was taken to the procedure room on the right and noninvasive monitors were placed including a noninvasive blood pressure cuff and pulse oximeter. Patient was placed prone on the procedure table. The lower back was cleansed using chlorhexidine as a cleansing solution. C-arm fluoroscopy was used to view the right sacroiliac joint. The skin and subcutaneous tissues were anesthetized Using lidocaine 1.5% and a 25-gauge needle. After this, a 22-gauge spinal needle was inserted using fluoroscopic guidance into the inferior aspect of the right sacroiliac joint. Omnipaque dye was injected and good spread was seen throughout the joint. After this, approximately mL of bupivacaine 0.25% and Depo-Medrol 0 40 mg was incrementally injected into the right sacroiliac joint. We then moved to the left sacroiliac joint. The skin and subcutaneous tissues were anesthetized using lidocaine 1.5% and a 25-gauge needle. After this a 22-gauge spinal needle was inserted under fluoroscopic guidance into the inferior aspect of the left sacroiliac joint. After this approximately 5 mL of bupivacaine 0.25% and Depo-Medrol 40 mg was incrementally injected into the left sacroiliac joint. The patient tolerated the procedure well without complications. The patient was observed in the pain clinic for period of time and was then discharged home neurologically intact. Plan and Disposition:: We will see the patient's back in the clinic in 2 weeks to reassess her symptoms. She has been instructed to contact the clinic if she has any concerns before her next appointment. The patient and I specifically discussed risk factors for COVID19. These risks include, but are not limited to age greater than 60, heart or lung disease, diabetes, immunosuppression, and travel. We also discussed NSAIDs may worsen COVID19 infection or symptoms. Patient should not use NSAIDs to treat COVID19 signs or symptoms. Patient was also informed that any type of corticosteroid of any form (oral or injection) will decrease the patient's immune system response and may increase the likelihood of COVID19 [address] Huntley has reviewed this note and agrees with this plan of care. This note was dictated using voice recognition software and make contain errors or omissions.
[2019-12-09 15:01] VITALS: BP 135/59; PULSE 74; RESP 18; O2SAT 97
== END 2019-12-09 15:02 | disposition home or self-care (01) ==
LOC: SC.PAINP 14:07
PROVIDERS: PCP Nurse Practitioner Family; Visit Provider Clinical Nurse Specialist Family Health
DX: M46.1 Sacroiliitis, not elsewhere classified (principal); Z96.82 Presence of neurostimulator; Z79.899 Other long term (current) drug therapy; Z90.89 Acquired absence of other organs; Z90.711 Acquired absence of uterus with remaining cervical stump; R63.0 Anorexia; Z68.22 Body mass index [BMI] 22.0-22.9, adult
CPT/HCPCS: 27096; 36415; 86328; G0260; J1030; Q9966

== ENCOUNTER 2019-12-10 08:17 | Day surgery (SDC) | payer MEDICARE, BC, SELFPAY ==
[2019-12-04 09:00] VITALS: BMI 22.8
[2019-12-10 10:00] VITALS: BP 177/72; PULSE 68; RESP 16; TEMP 36.5; O2SAT 98
[2019-12-10 10:49] VITALS: BP 142/79; PULSE 63; RESP 18; O2SAT 98
== END 2019-12-10 10:49 | disposition home or self-care (01) ==
LOC: OUTP 08:19
PROVIDERS: PCP Nurse Practitioner Family; Visit Provider Ophthalmology
PROC: (CPT 66821; principal; 2019-12-10 09:00)
DX: H26.491 Other secondary cataract, right eye (principal); Z96.1 Presence of intraocular lens; H53.8 Other visual disturbances; M19.90 Unspecified osteoarthritis, unspecified site; Z90.49 Acquired absence of other specified parts of digestive tract; Z90.721 Acquired absence of ovaries, unilateral; E78.5 Hyperlipidemia, unspecified; I10 Essential (primary) hypertension; Z79.899 Other long term (current) drug therapy
CPT/HCPCS: 66821

== ENCOUNTER → 2020-03-13 12:09 | Day surgery (SDC) | payer MEDICARE, BC, SELFPAY ==
[2020-03-13 12:11] VITALS: BP 133/52; PULSE 78; RESP 18; TEMP 36.2; O2SAT 97; BMI 22.8
--- NOTE | 2020-03-13 12:28 | HMH.PMPROC ---
- Procedure Date: 03/13/20 Time: 12:28 Anesthesiologist:: Jian Huntley MD Complications:: None Pre-procedure Diagnosis:: Sacroiliitis Post-procedure Diagnosis:: Same Indications for Procedure:: Patient is a pleasant 84-year-old white female who we are treating for low back pain with lumbar radiculopathy symptoms and bilateral hip pain. She does have a [employer] spinal cord stimulator which was reprogrammed today. This is helping tremendously with her spinal stenosis and lumbar radicular symptoms. She still has pain in her low back and over both hips. She is tender over both SI joints. She has had bilateral SI joint injections in the past which have helped tremendously. She is also have RFA in the past which is helped. We will plan on bilateral SI joint injections today to see if this takes care of her residual symptoms. Procedure Details:: B/L SI joint injection under fluoroscopy Informed consent was obtained and the risks and benefits of the procedure was explained to the patient. The patient was taken to the procedure room and placed prone on the procedure table. The patient was prepped using ChloraPrep. The skin and subcutaneous tissues overlying the SI joints were anesthetized using lidocaine. I placed a 22-gauge needle first in the left SI joint and second in the right SI joint. Needle placement was confirmed with dye. After this we injected 5 mL bupivacaine 0.25% and Depo-Medrol 40 mg into each SI joint. Patient tolerated the procedure well with no complication. Plan and Disposition:: We will follow-up with her in 2 weeks. Will reevaluate her symptoms at that time. We will plan on repeat injections if needed. She may need medial branch blocks and RFA in the future if this does not resolve her pain symptoms.
[2020-03-13 12:32] VITALS: BP 154/85; PULSE 82; RESP 18
[2020-03-13 12:33] VITALS: BP 155/78; PULSE 85; RESP 18; O2SAT 98
== END ==
PROVIDERS: Visit Provider Anesthesiology
DX: M46.1 Sacroiliitis, not elsewhere classified (principal); I10 Essential (primary) hypertension; E03.9 Hypothyroidism, unspecified; Z90.89 Acquired absence of other organs
CPT/HCPCS: 27096; G0260; J1030; Q9966

== ENCOUNTER → 2020-04-16 13:49 | Outpatient (POV) | payer MEDICARE, BC, SELFPAY ==
[2020-04-16 14:18] VITALS: BP 128/88; PULSE 74; RESP 18; TEMP 36.8; O2SAT 98; BMI 21.9
--- NOTE | 2020-04-16 14:29 | HMH.PAINSOAP ---
[facility] Pain Management SOAP Note Subjective:: Patient is a 89-year-old white female who presents today for complaints of severe left low back pain with radiation into her left hip and groin. Patient says this pain has been ongoing for the last couple weeks. She says that at her last visit on 03/13/2020 she met with the [employer] spinal cord stimulator outside sales representative. At that time, she also received a SI joint injection bilaterally. Patient says that she was doing well until the last 2 weeks. Her pain has returned worse to the left side at this time. She says it is worse with standing and walking and giving her worsening pain at bedtime. She says that she got 80% relief with the SI injections, however, only for 2 weeks. She would like to do a repeat left SI joint injection. Patient has asked for medication until she is able to have the injection. Her pain a 10 out of 10. Review of Systems General: No recent weight changes, no fever, no sleep disturbances Respiratory: No cough, no shortness of air, no recurring pulmonary infections Cardiovascular/peripheral vascular: No chest pain, no palpitations, no edema, no shortness of breath Gastrointestinal: No new onset incontinence, normal bowel movements reported Genitourinary: No new onset incontinence Musculoskeletal: Left low back pain mild left groin pain, left hip pain left leg pain Psychiatric: Normal mood/affect Neurological: [Denies weakness in extremities], [denies balance issues] Objective:: Physical exam General: Alert and oriented x3, no acute distress, pleasant and cooperative, [on room air] Lungs: Respirations even and unlabored, symmetrical chest expansion Eyes: PERRL Musculoskeletal: Flexion and extension of lumbar spine somewhat guarded secondary to pain, deep tendon reflexes normal, strength in upper and lower extremities [5/5], [abnormal gait noted] positive Peewee's test, positive distraction test, positive compression test Neurological: Speech clear, nursery supervisor equal, no gross sensory deficit Assessment:: Left sacroiliitis Plan:: Patient is having significant pain to her left low back area as well as her left groin and hip. She has tenderness to her left SI joint. We will schedule her for a left SI joint injection. I did discuss the corner lock procedure with the patient. If she continues to have pain but gets significant relief at least 80% with the injections she may be a corner lock candidate. We will give her tramadol 50 mg 1 tablet p.o. twice daily for 5 days. We will plan to do her injection this upcoming week to her left SI joint. We will see her back in the clinic after the injection to reassess her symptoms. Patient has been instructed to contact clinic if she has any concerns before her next appointment. The patient and I specifically discussed risk factors for COVID19. These risks include, but are not limited to age greater than 60, heart or lung disease, diabetes, immunosuppression, and travel. We also discussed NSAIDs may worsen COVID19 infection or symptoms. Patient should not use NSAIDs to treat COVID19 signs or symptoms. Patient was also informed that any type of corticosteroid of any form (oral or injection) will decrease the patient's immune system response and may increase the likelihood of COVID19 infection and symptoms[address] Dr. Huntley has reviewed this note and agrees with this plan of care. This note was dictated using voice recognition software and make contain errors or omissions. [facility] History I have reviewed the patient's past medical history: Yes Medical History: Reports:: Hyperlipidemia, Hypertension Denies:: Cancer, Diabetes Mellitus Type 1, Diabetes Mellitus Type 2, Internal Pacemaker, Lung Disease, MRSA, Seizures *Have you ever received a pneumonia vaccine?: Yes *Have you received a flu vaccine this season?: Yes Other Medical History: Reports: Hypothyroidism, Thyroid Disease, Other. Denies: Blood Transfusion Reaction Lateral
== END ==
PROVIDERS: PCP Nurse Practitioner Family; Visit Provider Clinical Nurse Specialist Family Health
DX: M46.1 Sacroiliitis, not elsewhere classified (principal)
CPT/HCPCS: 99212

== ENCOUNTER 2020-04-20 14:51 | Day surgery (SDC) | payer MEDICARE, BC, SELFPAY ==
[2020-04-20 15:09] VITALS: BP 172/72; PULSE 77; RESP 18; TEMP 36.8; O2SAT 99; BMI 21.2
[2020-04-20 15:41] VITALS: BP 138/78; PULSE 85; RESP 18; O2SAT 98
[2020-04-20 15:42] VITALS: BP 140/74; PULSE 88; RESP 18; O2SAT 97
--- NOTE | 2020-04-20 15:44 | HMH.PMPROC ---
- Procedure Date: 04/20/20 Time: 15:44 Anesthesiologist:: Debra Galvan APRN Complications:: None Pre-procedure Diagnosis:: Sacroiliitis Post-procedure Diagnosis:: Same Indications for Procedure:: Patient is a pleasant 85-year-old white female who presents today for SI joint injection. Patient has a positive Arianne test SI joint compression test Peewee's test on the left side. Her typical pain is well controlled with her neurostimulator. She presents today for a left SI joint injection. Procedure Details:: Informed consent was obtained and the risks and benefits of the procedure were explained to the patient. Patient was taken to the procedure room. Patient was placed prone on the procedure table. The left hip was prepped using ChloraPrep as a cleansing solution. The skin and subcutaneous tissues were anesthetized using lidocaine. Using fluoroscopic guidance I placed a 22-gauge spinal needle into the inferior aspect of the left SI joint. After this I injected 5 mL bupivacaine 0.25% and Depo-Medrol 40 mg into the left SI joint. The patient tolerated the procedure well with no complication. Plan and Disposition:: We will see the patient back in several weeks reassess her symptoms at that time she has been instructed to call the office if she has any issues prior to her next appointment. Dr. Huntley has reviewed this note and agrees with this plan of care. This note was dictated using voice recognition software and may contain errors or omissions
[2020-04-20 15:50] VITALS: BP 179/82; PULSE 77; RESP 20; O2SAT 99
== END 2020-04-20 15:50 | disposition home or self-care (01) ==
LOC: SC.PAINP 14:53
PROVIDERS: PCP Nurse Practitioner Family; Visit Provider Clinical Nurse Specialist Family Health
DX: M46.1 Sacroiliitis, not elsewhere classified (principal); I10 Essential (primary) hypertension; E03.9 Hypothyroidism, unspecified
CPT/HCPCS: 27096; G0260; J1040; Q9966

== ENCOUNTER → 2020-05-11 11:38 | Outpatient (POV) | payer MEDICARE, BC, SELFPAY ==
[2020-05-11 12:11] VITALS: BP 125/78; PULSE 85; RESP 18; O2SAT 98; BMI 21.1
--- NOTE | 2020-05-11 12:11 | P.CONS_ITS ---
[facility] Pain Management SOAP Note Subjective:: Patient is a pleasant 85-year-old white female who presents today for follow-up after SI joint injection. Patient got 90% relief of her symptoms for 2 weeks. She has had several SI joint injections with the same results. Patient has left-sided SI pain. She is a positive Arianne test Peewee's test SI joint compression test and distraction test on the left side. Patient has a neurostimulator that which does very well for her low back and right leg pain. However it does not cover her SI joint pain. Patient is interested in an SI joint stabilization. She rates her pain today an 8 out of 10 ROS General: no recent weight change, no fever, no sleep disturbances Respiratory: no cough, no shortness of air, no recurring pulmonary infections Cardiovascular/Peripheral Vascular: No chest pain, No palpitations, no edema, no shortness of breath. Gastrointestinal: no new onset incontinence, normal bowel movements reported Genitourinary: no new onset incontinence Musculoskeletal: Left SI joint pain Psychiatric: normal mood/ affect, Neurological: [denies new onset weakness in extremities], [denies new onset balance issues] Objective:: Physical Exam General: Alert and oriented x3, no acute distress, pleasant and cooperative, [on room air] Lungs: Resps E/U, Symmetrical chest expansion, Eyes: PERRL Musculoskeletal: Flexion and extension of lumbar spine somewhat guarded secondary to pain, deep tendon reflexes normal, strength in upper and lower extr emities [5/5], [abnormal gait noted] Neurological: speech clear, drop wire aliner equal, no gross sensory deficits Assessment:: Sacroiliitis Plan:: We will schedule the patient for left SI joint stabilization. I discussed the procedure with the patient. I answered all her questions. I will follow-up with her after this reassess her symptoms at that time she has been instructed to call the office if she has any issues prior to her next appointment. Dr. Huntley has reviewed this note and agrees with this plan of care. This note was dictated using voice recognition software and may contain errors or omissions [facility] History I have reviewed the patient's past medical history: Yes Medical History: Reports:: Hyperlipidemia, Hypertension Denies:: Cancer, Diabetes Mellitus Type 1, Diabetes Mellitus Type 2, Internal Pacemaker, Lung Disease, MRSA, Seizures *Have you ever received a pneumonia vaccine?: No *Have you received a flu vaccine this season?: No Other Medical History: Reports: Hypothyroidism, Thyroid Disease, Other. Denies: Blood Transfusion Reaction Laterality Cases: Bilateral: Tonsillectomy Other Surgeries: Yes: Cholecystectomy, Hysterectomy-Total, Hysterectomy-Partial. No: Pacemaker Amputation: No Fractures: No - *Social History Smoking Status: Never smoker Alcohol Intake: never Substance Use Type: denies use *Occupational Status:: retired Housing: assisted living facility Household Members: spouse *Travel in the last 8 weeks: None Family Hx:: Diabetes
== END ==
PROVIDERS: PCP Nurse Practitioner Family; Visit Provider Clinical Nurse Specialist Family Health
DX: M46.1 Sacroiliitis, not elsewhere classified (principal)
CPT/HCPCS: 99212

== ENCOUNTER → 2020-05-20 13:15 | Outpatient (CLI) | payer MEDICARE, BC, SELFPAY ==
[2020-05-20 14:19] LABS: Basophils % 0.4 % (0.1-2.0); Eosinophils # 0.1 K/mm3 (0.0-0.4); Hematocrit 43.3 % (37.0-47.0); Hemoglobin 14.4 g/dL (12.2-16.2); Lymphocytes # 1.8 K/mm3 (0.7-4.5); Lymphocytes % 30.7 % (10-50); Mean Corpuscular HGB Conc 33.3 g/dL (31.8-35.4); Mean Corpuscular Hemoglobin 32.3 pg (27.0-31.2); Mean Platelet Volume 9.7 fl (7.4-10.4); Monocytes # 0.4 K/mm3 (0.1-1.0); Monocytes % 6.1 % (1.7-9.3); Neutrophils # 3.7 K/mm3 (1.8-7.8); Neutrophils % 61.8 % (37.0-80.0); Platelet Count 283 K/mm3 (142-424); Red Blood Count 4.46 M/mm3 (4.20-5.40); Red Cell Distribution Width 13.7 % (11.5-17.5)
[2020-05-20 14:46] LABS: Chloride 100 mmol/L (98-107); Potassium 3.4 mmoL/L (3.5-5.1); Sodium 138 mmol/L (136-145)
[2020-05-20 14:49] LABS: Anion Gap 10.4 mEq/L (5-15); Blood Urea Nitrogen 21 mg/dl (7-17); Calcium 9.8 mg/dl (8.4-10.2); Carbon Dioxide 31 mmol/L (22.0-30.0); Estimated Glomerular Filt Rate 60 ml/min (>60); GFR (African American) 72 ML/MIN (>60); Glucose 111 mg/dl (74-100)
[2020-05-20 14:54] LABS: Coronavirus 19 IgG Antibody Negative (Negative); Coronavirus 19 IgM Antibody Negative (Negative)
== END ==
PROVIDERS: Visit Provider Anesthesiology
DX: Z01.818 Encounter for other preprocedural examination (principal); Z03.818 Encounter for observation for suspected exposure to other biological agents ruled out; M53.3 Sacrococcygeal disorders, not elsewhere classified
CPT/HCPCS: 36415; 80048; 85025; 86328

== ENCOUNTER 2020-05-22 10:19 | Day surgery (SDC) | payer MEDICARE, BC, SELFPAY ==
[2020-05-19 11:28] VITALS: BMI 21.4
[2020-05-22] VITALS (8 sets, daily range): BP systolic 130–159; BP diastolic 50–84; PULSE 65–77; RESP 12–18; TEMP 36.1–36.4; O2SAT 92–98
--- NOTE | 2020-05-22 15:29 | P.OP_ITS ---
Date of procedure: 05/22/20 Pre-op Diagnosis:: Sacroiliitis Post-op Diagnosis:: Same Procedure performed:: Left SI joint stabilization with Cornerloc Surgeon:: Jian Huntley MD BOILERMAKER LOFTSMAN:: Bowen Hale Anesthesia: GETA Estimated blood loss (mL): 20 Clinical Note:: Patient is a pleasant 85-year-old white female who we are treating for left- sided sacroiliitis. She did well after injections with 90% relief in her pain symptoms for approximately 2 to 3 weeks. Her pain is now returned. She only gets temporary relief with injections on the left side. She does have a positive Peewee's test on left side. She has a positive Arianne test on the left side. She has positive SI joint compression test on left side. She has a positive distraction test on left side. We will do left SI joint stabilization with cornerloc today. She does have a [employer] spinal cord stimulator which is helping her low back pain and right hip and leg pain tremendously. The stimulator was reprogrammed today. Operative findings:: None Operative note:: Informed consent was obtained and the risk and benefits of the procedure was explained to the patient. Patient was taken to the operating room placed prone on the procedure table. Patient was prepped and draped in sterile fashion. A lateral view of the sacrum with C-arm was taken to make sure it was out of anteversion. We then did an oblique view of the left sacroiliac joint. We lined up the anterior and posterior sides of the joint to achieve a [place] . A line was drawn on the skin with the SI joint. The superior and inferior aspect of the joint were anesthetized using lidocaine. The superior and inferior aspect of the joint were marked off. 1 cm medial and 1 cm superiorly into the upper quadrant and 1 cm medial and 1 cm distal a 1 1/2 cm longitudinal incisions were made through the skin and subcutaneous tissues. Guidepins were then placed superior and inferior at a 90 degree angle to each other under C-arm guidance through the incision was made into the superior third and inferior third of the SI joint. Lateral C-arm view was then taken to check the depth of the pins into the SI joint. On the lateral view the joint finder was placed over the guidepin into the appropriate position. The working cannula retractor was then placed over the joint finder into the SI joint into the appropriate position and depth. The joint finder and guidepin were removed. The SI joint was drilled to remove cartilage and to get into the subchondral bone of the sacrum and ilium. The broach was then used to prepare a triangular groove into both the sacrum and ilium for insertion of stabilization grafts. A collagen spine was then placed into the prepared space and the stabilization graft was placed. This was done both superiorly inferiorly into the SI joint. The cannulated retractor was removed. The incisions were then closed with 2-0 Vicryl followed by krystin. Dressings were placed and the patient was taken recovery in stable condition. Patient tolerated the procedure well with no complications. We will give the patient Bactrim DS 1 tablet twice a day for 5 days and [place] 5 mg 1 tablet every 4 to 6 hours. We gave her 24 tablets. Ramón and drug screen are all appropriate. Patient was discharged home neurologically intact with good relief of pain symptoms. She was sore on her left hip. We will follow-up with this patient in 2 weeks for suture removal. She has any problems or questions she is to call us back in the pain clinic. Condition: stable Disposition: PACU Complications:: None
--- NOTE | 2020-05-22 18:00 | P.PN_ITS ---
[facility] Anesthesia Checklist - Structural Data Admitted From: Home Planned Operative Procedure/s: si joint fusion Consent for Planned Operative Procedure(s) Verified: Yes - Additional verifications Anesthesia Reactions: No Hx Blood Transfusions: No Blood Transfusion Reaction: No - Airway Assessment C-Spine Mobility Assessed: Yes TMJ Mobility Assessed: Yes Dentition: Dentures-poor fitting - Neurological Assessment Level of Consciousness: Awake, Alert, Appropriate - Anesthesia Plan Anesthesia Risk discussed: Yes Anesthesia Plan: Verified ASA Class: III Anesthesia Type: General [facility] History I have reviewed the patient's past medical history: Yes Medical History: Reports:: Hyperlipidemia, Hypertension Denies:: Cancer, Diabetes Mellitus Type 1, Diabetes Mellitus Type 2, Internal Pacemaker, Lung Disease, MRSA, Seizures *Have you ever received a pneumonia vaccine?: Yes *Have you received a flu vaccine this season?: Yes Other Medical History: Reports: Hypothyroidism, Thyroid Disease, Other. Denies: Blood Transfusion Reaction Anesthesia experience/problems:: none Laterality Cases: Bilateral: Tonsillectomy Other Surgeries: Yes: Cholecystectomy, Hysterectomy-Total, Hysterectomy-Partial. No: Pacemaker Amputation: No Fractures: No - *Social History Smoking Status: Never smoker Alcohol Intake: never Substance Use Type: denies use *Occupational Status:: other Housing: assisted living facility Household Members: spouse *Travel in the last 8 weeks: None Family Hx:: Diabetes
--- NOTE | 2020-05-22 18:01 | HMH.ANESI ---
[facility] Anesthesia Record Part I Intake, IV Amount: 1,000 Estimated blood loss (mL): 0 Urine output (mL): 0 Blood Pressure: 130/60 SaO2: 94 Pulse Rate: 77 Respiratory Rate: 12 Temperature: 97.5 F Patient is:: Awake, Stable Stable to PACU at:: 18:00
--- NOTE | 2020-05-22 18:42 | PC.NURSE ---
1827-detailed report given to HUGH Daugherty 1829-pt transported to post op via stretcher w/yuli rails up and left in care of HUGH Daugherty with bed locked in lowest position, vss, pt stable
--- NOTE | 2020-05-25 13:05 | HMH.ANESII ---
[facility] Anesthesia Record Part II Discharge Time: 18:30 Destination: Surgical Day Care (OP Surgery) PACU nurse assessment reviewed?: Yes Patient Condition:: Good Anesthesia Complications:: None Swallowing reflex intact?: Yes Cyanosis?: No Blood Pressure: 152/84 Pulse Rate: 65 Temperature: 97.3 F Mental Status: Alert & Oriented Pain level:: 0 Nausea and/or vomitting:: None Intake, IV Amount: 0
[2020-05-25 13:06] VITALS: BP 152/84; PULSE 65; TEMP 36.3
== END 2020-05-22 19:00 | disposition home or self-care (01) ==
PROVIDERS: PCP Nurse Practitioner Family; Visit Provider Anesthesiology
PROC: (CPT 27280; principal; 2020-05-22 12:00)
DX: M46.1 Sacroiliitis, not elsewhere classified (principal); E03.9 Hypothyroidism, unspecified; Z79.899 Other long term (current) drug therapy
CPT/HCPCS: 27280; C1713; J2405; J2710; J3370

== ENCOUNTER → 2020-06-08 10:10 | Outpatient (POV) | payer MEDICARE, BC, SELFPAY ==
[2020-06-08 10:48] VITALS: BP 122/66; PULSE 71; RESP 20; TEMP 36.5; O2SAT 95; BMI 22.3
--- NOTE | 2020-06-08 11:22 | P.CONS_ITS ---
[facility] Pain Management SOAP Note Subjective:: She is a pleasant 85-year-old white female who presents today for follow-up after corner lock procedure. Patient is having quite a bit of pain she rates an 8 out of 10 she states that it is worse at nighttime. She does not have any bruising. Her incisions have healed well her krystin have been removed no sign symptoms of infection. Patient is just quite sore. Patient had a short-term prescription of [place] which did not benefit her. She states that this time she is not sleeping and she is absolutely miserable. I discussed extending the short-term prescription [place] for 2 additional weeks. She is agreeable. I do believe that she is still in her healing process. ROS General: no recent weight change, no fever, no sleep disturbances Respiratory: no cough, no shortness of air, no recurring pulmonary infections Cardiovascular/Peripheral Vascular: No chest pain, No palpitations, no edema, no shortness of breath. Gastrointestinal: no new onset incontinence, normal bowel movements reported Genitourinary: no new onset incontinence Musculoskeletal: Left SI joint pain Psychiatric: normal mood/ affect Neurological: [denies new onset weakness in extremities], [denies new onset balance issues] Objective:: Physical Exam General: Alert and oriented x3, no acute distress, pleasant and cooperative, [on room air] Lungs: Resps E/U, Symmetrical chest expansion, Eyes: PERRL Musculoskeletal: Flexion and extension of lumbar spine somewhat guarded seco ndary to pain, deep tendon reflexes normal, strength in upper and lower extremities [5/5], [abnormal gait noted] Neurological: speech clear, staff training and development manager equal, no gross sensory deficits Assessment:: Sacroiliitis Plan:: We will give the patient [place] 5 mg 1 p.o. 3 times daily as needed pain. We will see her back in the office in 2 weeks reassess her symptoms at that time. She has been instructed to call the office if she has any issues prior to next appointment. Dr. Huntley has reviewed this note and agrees with this plan of care. This note was dictated using voice recognition software and may contain errors or omissions Patient has been prescribed a controlled substance after being counseled on the medication, medication safety, and possible side effects. LAKESHIA report has been obtained and reviewed prior to prescription and found to be appropriate. Opioid contract was reviewed and signed by the patient, and that they have agreed to a ll of the terms set forth by our compliance program. [facility] History I have reviewed the patient's past medical history: Yes Medical History: Reports:: Hyperlipidemia, Hypertension Denies:: Cancer, Diabetes Mellitus Type 1, Diabetes Mellitus Type 2, Internal Pacemaker, Lung Disease, MRSA, Seizures *Have you ever received a pneumonia vaccine?: Yes *Have you received a flu vaccine this season?: Yes Other Medical History: Reports: Hypothyroidism, Thyroid Disease, Other. Denies: Blood Transfusion Reaction Laterality Cases: Bilateral: Tonsillectomy Other Surgeries: Yes: Cholecystectomy, Hysterectomy-Total, Hysterectomy-Partial. No: Pacemaker Amputation: No Fractures: No - *Social History Smoking Status: Never smoker Alcohol Intake: never Substance Use Type: denies use *Occupational Status:: retired Housing: assisted living facility Household Members: spouse *Travel in the last 8 weeks: None Family Hx:: Diabetes
== END ==
PROVIDERS: Visit Provider Clinical Nurse Specialist Family Health
DX: M46.1 Sacroiliitis, not elsewhere classified (principal)
CPT/HCPCS: 99212; G0463

== ENCOUNTER → 2020-06-22 11:23 | Outpatient (POV) | payer MEDICARE, BC, SELFPAY ==
[2020-06-22 11:30] VITALS: BP 152/70; PULSE 51; RESP 20; TEMP 36.5; O2SAT 99; BMI 21.4
--- NOTE | 2020-06-22 11:59 | P.CONS_ITS ---
[facility] Pain Management SOAP Note Subjective:: 85-year-old white female who presents today for follow-up. Patient states that she is in extreme pain rating it a 10 out of 10. Patient states it is in her left SI joint. Patient had a corner lock procedure her incisions are well healed no sign symptoms of infection. Patient is on [place] 5 mg 1 p.o. 3 times daily she states it does help somewhat. Patient and I discussed steroids to see if this would be beneficial. She is agreeable. ROS General: no recent weight change, no fever, no sleep disturbances Respiratory: no cough, no shortness of air, no recurring pulmonary infections Cardiovascular/Peripheral Vascular: No chest pain, No palpitations, no edema, no shortness of breath. Gastrointestinal: no new onset incontinence, normal bowel movements reported Genitourinary: no new onset incontinence Musculoskeletal: SI joint pain Psychiatric: normal mood/ affect Neurological: [denies new onset weakness in extremities], [denies new onset balance issues] Objective:: Physical Exam General: Alert and oriented x3, no acute distress, pleasant and cooperative, [on room air] Lungs: Resps E/U, Symmetrical chest expansion, Eyes: PERRL Musculoskeletal: Flexion and extension of lumbar spine somewhat guarded secondary to pain, deep tendon reflexes normal, strength in upper and lower extremities [5/5], [abnormal gait noted] Neurological: speech clear, butcher helper equal, no gross sensory deficits Assessment:: Degenerative disc disease lumbar spine lumbar radiculopathy, sacroiliitis Plan:: Patient is to continue with the [place] 5 mg 1 p.o. 3 times daily as needed for pain. We will also start her on prednisone 20 mg 1 p.o. twice daily for 5 days. I will follow-up with her in 1 week reassess her symptoms at that time she did not have any relief we will move forward with some diagnostic imaging. She has been instructed to call the office if she has any issues prior to her next appointment. Dr. Huntley has reviewed this note and agrees with this plan of care. This note was dictated using voice recognition software and may contain errors or omissions [facility] History I have reviewed the patient's past medical history: Yes Medical History: Reports:: Hyperlipidemia, Hypertension Denies:: Cancer, Diabetes Mellitus Type 1, Diabetes Mellitus Type 2, Internal Pacemaker, Lung Disease, MRSA, Seizures *Have you ever received a pneumonia vaccine?: Yes *Have you received a flu vaccine this season?: Yes Other Medical History: Reports: Hypothyroidism, Thyroid Disease, Other. Denies: Blood Transfusion Reaction Laterality Cases: Bilateral: Tonsillectomy Other Surgeries: Yes: Cholecystectomy, Hysterectomy-Total, Hysterectomy-Partial. No: Pacemaker Amputation: No Fractures: No - *Social History Smoking Status: Never smoker Alcohol Intake: never Substance Use Type: denies use *Occupational Status:: retired Housing: assisted living facility Household Members: spouse *Travel in the last 8 weeks: None Family Hx:: Diabetes
== END ==
PROVIDERS: PCP Nurse Practitioner Family; Visit Provider Clinical Nurse Specialist Family Health
DX: M51.16 Intervertebral disc disorders with radiculopathy, lumbar region (principal); M46.1 Sacroiliitis, not elsewhere classified
CPT/HCPCS: 99212; G0463

== ENCOUNTER 2020-07-24 11:03 | Day surgery (SDC) | payer MEDICARE, BC, SELFPAY ==
[2020-07-24 09:59] VITALS: BP 141/73; PULSE 80; RESP 18; TEMP 36.7; O2SAT 98; BMI 22.3
[2020-07-24 11:05] VITALS: BP 141/73; PULSE 80; RESP 18; TEMP 36.7; O2SAT 98; BMI 22.3
[2020-07-24 11:37] VITALS: BP 145/78; PULSE 78; RESP 18
[2020-07-24 11:40] VITALS: BP 148/82; PULSE 79; RESP 18; O2SAT 98
[2020-07-24 11:49] VITALS: BP 129/61; PULSE 71; RESP 18; O2SAT 98
--- NOTE | 2020-07-24 11:50 | P.PCN_ITS ---
- Procedure Date: 07/24/20 Time: 11:50 Anesthesiologist:: Jian Huntley MD Complications:: None Pre-procedure Diagnosis:: Trochanteric bursitis Post-procedure Diagnosis:: Same Indications for Procedure:: Patient is a pleasant 85-year-old white female who we are treating for left hip pain left leg pain. She did have her stimulator interrogated and reprogrammed today. This is helping her tremendously. She now has some residual pain in her left hip and left leg. This is worsened over the last few weeks. She is tender over the left trochanteric bursa. We will do a left trochanteric bursa injection under fluoroscopy today. She also has significant swelling and what seems to be arthritis in both hands. We will also start her on ibuprofen 800 mg 3 times a day to help her with her arthritic type symptoms. Procedure Details:: Left trochanteric bursa injection Informed consent was obtained and the risk and benefits of the procedure was explained to the patient. The patient was taken to procedure room and placed prone on the procedure table. The left hip was prepped using ChloraPrep. The skin and subcutaneous tissues were anesthetized using lidocaine. I placed a 22- gauge spinal needle under fluoroscopic guidance and advanced until it contacted the left greater trochanter. Needle placement was confirmed with dye. After this we injected 5 mL bupivacaine 0.25% and Depo-Medrol 40 mg. Patient tolerated the procedure well with no complications. Plan and Disposition:: We will follow-up with this patient in 2 weeks. Will reevaluate symptoms at that time. We will start her on ibuprofen 800 mg 3 times a day to see if this helps with her symptoms. Patient says her stimulator is doing well after reprogramming today.
== END 2020-07-24 11:50 | disposition home or self-care (01) ==
LOC: SC.PAINP 11:03
PROVIDERS: PCP Nurse Practitioner Family; Visit Provider Anesthesiology
DX: M19.042 Primary osteoarthritis, left hand (principal); M70.62 Trochanteric bursitis, left hip; M19.041 Primary osteoarthritis, right hand; Z96.82 Presence of neurostimulator; Z79.899 Other long term (current) drug therapy
CPT/HCPCS: 20610; 77002; 99212; G0463; J1040; Q9966

== ENCOUNTER → 2020-08-20 13:30 | Outpatient (POV) | payer MEDICARE, BC, SELFPAY ==
--- NOTE | 2020-08-20 14:12 | HMH.PAINSOAP ---
[facility] Pain Management SOAP Note Subjective:: Patient is a pleasant 85-year-old white female who presents today for follow-up after left trochanteric bursa injection. Patient states she got some relief from it however she still having more pain she is here to take to be reprogrammed for her neurostimulator. She is having some issues with her eyes she has an appointment with her central office equipment installer on Monday. Patient rates her pain a 7 out of 10 today. ROS General: no recent weight change, no fever, no sleep disturbances Respiratory: no cough, no shortness of air, no recurring pulmonary infections Cardiovascular/Peripheral Vascular: No chest pain, No palpitations, no edema, no shortness of breath. Gastrointestinal: no new onset incontinence, normal bowel movements reported Genitourinary: no new onset incontinence Musculoskeletal: Back pain, leg pain Psychiatric: normal mood/ affect Neurological: [denies new onset weakness in extremities], [denies new onset balance issues] Objective:: Physical Exam General: Alert and oriented x3, no acute distress, pleasant and cooperative, [on room air] Lungs: Resps E/U, Symmetrical chest expansion, Eyes: PERRL Musculoskeletal: Flexion and extension of lumbar spine somewhat guarded secondary to pain, deep tendon reflexes normal, strength in upper and lower extremities [5/5], [abnormal gait noted] Neurological: speech clear, 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 We will schedule L4-L5 lumbar epidural steroid injection if she has permission to move forward with this. Patient was reprogrammed by the personnel representative. She has been instructed to call the office if she has any issues prior to next appointment. Dr. Huntley has reviewed this note and agrees with this plan of care. This note was dictated using voice recognition software and may contain errors or omissions [facility] History I have reviewed the patient's past medical history: Yes Medical History: Reports:: Hyperlipidemia, Hypertension Denies:: Cancer, Diabetes Mellitus Type 1, Diabetes Mellitus Type 2, Internal Pacemaker, Lung Disease, MRSA, Seizures *Have you ever received a pneumonia vaccine?: No *Have you received a flu vaccine this season?: No Other Medical History: Reports: Hypothyroidism, Thyroid Disease, Other. Denies: Blood Transfusion Reaction Laterality Cases: Bilateral: Tonsillectomy Other Surgeries: Yes: Cholecystectomy, Hysterectomy-Total, Hysterectomy-Partial. No: Pacemaker Amputation: No Fractures: No - *Social History Smoking Status: Never smoker Alcohol Intake: never Substance Use Type: denies use *Occupational Status:: retired Housing: house Household Members: spouse *Travel in the last 8 weeks: None Family Hx:: Diabetes
[2020-08-20 14:44] VITALS: BP 149/66; PULSE 75; RESP 18; O2SAT 98; BMI 23.0
== END ==
PROVIDERS: PCP Nurse Practitioner Family; Visit Provider Clinical Nurse Specialist Family Health
DX: M51.16 Intervertebral disc disorders with radiculopathy, lumbar region (principal)
CPT/HCPCS: 99212; G0463

== ENCOUNTER 2020-09-04 10:49 | Day surgery (SDC) | payer MEDICARE, BC, SELFPAY ==
[2020-09-04 11:02] VITALS: BP 156/64; PULSE 74; RESP 18; TEMP 36.4; O2SAT 98; BMI 22.3
[2020-09-04 11:26] VITALS: BP 150/88; PULSE 85; RESP 18; O2SAT 98
[2020-09-04 11:30] VITALS: BP 152/89; PULSE 85; RESP 18; O2SAT 98
[2020-09-04 11:44] VITALS: BP 166/63; PULSE 75; RESP 18; O2SAT 98
--- NOTE | 2020-09-04 11:56 | HMH.PMPROC ---
- Procedure Date: 09/04/20 Time: 11:56 Anesthesiologist:: Jian Huntley MD Complications:: None Pre-procedure Diagnosis:: Disease of lumbar spine with lumbar radiculopathy symptoms Post-procedure Diagnosis:: Same Indications for Procedure:: This patient is a pleasant 85-year-old white female who we are treating for low back pain with lumbar radicular symptoms she does have a spinal cord stimulator in place she is doing well with her stimulator. She has some increasing pain down her left leg. We will do a transforaminal epidural steroid injection at L4-5 and L5-S1 on the left side today. Procedure Details:: Transforaminal epidural steroid injection under fluoroscopy Informed consent was obtained risk and benefits of the procedure were explained to the patient. Patient was taken the procedure room. The back was prepped using ChloraPrep. The skin and subcutaneous tissues were anesthetized using lidocaine. I placed a 22-gauge spinal needle into the intervertebral foramen of L4-5 and L5-S1. Needle placement was confirmed with dye. After this we injected 5 mL bupivacaine 0.25% and Depo-Medrol 20 mg into each transforaminal epidural space of L4-5 and L5-S1. We used a total of 40 mg of Medrol for both levels on the left side. Patient tolerated the procedure well with no complications. Plan and Disposition:: We will follow-up with her in 2 weeks. Will reevaluate symptoms at that time.
== END 2020-09-04 11:45 | disposition home or self-care (01) ==
LOC: SC.PAINP 10:51
PROVIDERS: PCP Nurse Practitioner Family; Visit Provider Anesthesiology
DX: M51.16 Intervertebral disc disorders with radiculopathy, lumbar region (principal); I10 Essential (primary) hypertension; E78.5 Hyperlipidemia, unspecified; E03.9 Hypothyroidism, unspecified; F41.9 Anxiety disorder, unspecified; Z90.49 Acquired absence of other specified parts of digestive tract; Z90.710 Acquired absence of both cervix and uterus
CPT/HCPCS: 64483; 64484; J1030; Q9966

== ENCOUNTER → 2020-12-03 09:10 | Outpatient (POV) | payer MEDICARE, BC, SELFPAY ==
[2020-12-03 09:30] VITALS: BP 144/63; PULSE 74; RESP 18; O2SAT 95; BMI 22.1
--- NOTE | 2020-12-03 10:29 | HMH.PAINSOAP ---
[facility] Pain Management SOAP Note Subjective:: Patient is an 85-year-old white female who presents today for follow-up. She was last seen in the clinic on 09/04/2020. Patient is having low back pain with radiation into her lower extremity. She is having swelling into her right leg and foot. She is also having neck pain with radiation into the right shoulder right hand with numbness and tingling. She did undergo a transforaminal epidural steroid injection at L4-L5 L5-S1 on the left side approximately 6 months ago. Her pain has returned. Her pain is a 7 out of 10 today. She says that her last injection that she had with Dr. Huntley was the best injection she has ever had. She says it has given her the most significant relief. She continues with home stretching and anti-inflammatories periodically. She says that she is ready for the injection once again. She is not on any anticoagulation therapy. Pain is worse when she is standing and walking and improves with sitting. Review of Systems General: No recent weight changes, no fever, no sleep disturbances Respiratory: No cough, no shortness of air, no recurring pulmonary infections Cardiovascular/peripheral vascular: No chest pain, no palpitations, no edema, no shortness of breath Gastrointestinal: No new onset incontinence, normal bowel movements reported Genitourinary: No new onset incontinence Musculoskeletal: Low back pain Psychiatric: Normal mood/affect Neurological: [Denies weakness in extremities], [denies balance issues] Objective:: Physical exam General: Alert and oriented x3, no acute distress, pleasant and cooperative, [on room air] Lungs: Respirations even and unlabored, symmetrical chest expansion Eyes: PERRL Musculoskeletal: Flexion and extension of [] lumbar spine somewhat guarded secondary to pain, deep tendon reflexes normal, strength in upper and lower extremities [5/5], [abnormal gait noted] Neurological: Speech clear, telemetry monitor equal, no gross sensory deficit Assessment:: Degenerative disc disease lumbar spine with lumbar radiculopathy symptoms Plan:: Patient had discussed undergoing a lumbar epidural steroid injection. She wants to repeat the transforaminal epidural injection that was performed at L4-L5 L5-S1 on the left side. She says her symptoms are exactly as they were before and this injection gave her significant relief. She is also having numbness and tingling in her neck, right shoulder, and right hand. She is having numbness and tingling in her right hand as well. She says that she would like to discuss injective therapy to this area after her transforaminal injection. Patient is not on any anticoagulation therapy. We will plan to see her back in the clinic after injection for reevaluation of symptoms. She has been instructed to contact clinic if she has any concerns for next ointment. Risks and benefits of the procedure have been explained to the patient. Patient would like to proceed with the procedure. Possible side effects of corticosteroids have been discussed with the patient. Patient has been instructed to contact the clinic with any concerns before the next appointment. Dr. uHntley has reviewed this note and agrees with this plan of care. This note was dictated using voice recognition software and make contain errors or omissions. [facility] History I have reviewed the patient's past medical history: Yes Medical History: Reports:: Hyperlipidemia, Hypertension Denies:: Cancer, Diabetes Mellitus Type 1, Diabetes Mellitus Type 2, Internal Pacemaker, Lung Disease, MRSA, Seizures *Have you ever received a pneumonia vaccine?: Yes *Have you received a flu vaccine this season?: Yes Other Medical History: Reports: Hypothyroidism, Thyroid Disease, Other. Denies: Blood Transfusion Reaction Laterality Cases: Bilateral: Tonsillectomy Other Surgeries: Yes: Cholecystectomy, Hysterectomy-Total, Hysterectomy-Partial. No: Pacemaker Amputation: No Fractures: No
== END ==
PROVIDERS: PCP Nurse Practitioner Family; Visit Provider Clinical Nurse Specialist Family Health
DX: M51.16 Intervertebral disc disorders with radiculopathy, lumbar region (principal)
CPT/HCPCS: 99212; G0463

== ENCOUNTER 2020-12-25 11:40 | Day surgery (SDC) | payer MEDICARE, BC, SELFPAY ==
[2020-12-25 11:44] VITALS: BP 148/63; PULSE 72; RESP 19; TEMP 36.4; O2SAT 97; BMI 21.6
[2020-12-25 11:58] VITALS: BP 143/62; PULSE 73; RESP 18; O2SAT 97
[2020-12-25 12:01] VITALS: BP 166/75; PULSE 72; RESP 18; O2SAT 97
[2020-12-25 12:10] VITALS: BP 151/70; PULSE 18; PULSE 67; O2SAT 97
--- NOTE | 2020-12-25 12:46 | P.PCN_ITS ---
- Procedure Date: 12/25/20 Time: 12:46 Anesthesiologist:: Jian Huntley MD Complications:: None Pre-procedure Diagnosis:: Disease of lumbar spine with lumbar radiculopathy symptoms down the left leg Post-procedure Diagnosis:: Same Indications for Procedure:: Patient is a pleasant 85-year-old white female who we are treating for low back pain and left leg pain. She has done well with previous transforaminal epidural steroid injection at L4-5 and L5-S1 on the left side. Pain is just now starting to come back. We will do a repeat injection today. Procedure Details:: Left transforaminal Epidural steroid injection of L4-5 and L5-S1 under fluoroscopy Informed consent was obtained the risk and benefits of the procedure was explained to the patient. Patient was taken the operating room placed prone on the procedure table. She was prepped and draped in sterile fashion. C-arm fluoroscopy was used to view the lumbar spine. The skin and subcutaneous tiss ues were anesthetized using lidocaine. I placed 22-gauge spinal needles into the intervertebral foramen of L4-L5 and L5-S1 on the left side. Needle placement was confirmed with dye. After this we injected 5 mL bupivacaine 0.25% and Depo-Medrol 20 mg into each transforaminal epidural base of L4-5 and L5-S1 on the left side. We used a total of 40 mg Depo-Medrol for both levels. The patient tolerated the procedure well with no complications. Plan and Disposition:: Follow-up with her in 2 weeks. Will reevaluate symptoms at that time.
== END 2020-12-25 12:10 | disposition home or self-care (01) ==
LOC: SC.PAINP 11:42
PROVIDERS: PCP Nurse Practitioner Family; Visit Provider Anesthesiology
DX: M51.16 Intervertebral disc disorders with radiculopathy, lumbar region (principal); E03.9 Hypothyroidism, unspecified; E78.5 Hyperlipidemia, unspecified; I10 Essential (primary) hypertension
CPT/HCPCS: 64483; 64484; 64493; J1030; Q9966

== ENCOUNTER → 2021-01-28 11:23 | Outpatient (POV) | payer MEDICARE, BC, SELFPAY ==
[2021-01-28 11:43] VITALS: BP 140/71; PULSE 67; RESP 18; O2SAT 98; BMI 21.6
--- NOTE | 2021-01-28 12:00 | HMH.PAINSOAP ---
[facility] Pain Management SOAP Note Subjective:: Patient is a pleasant 86-year-old white female who presents today for follow-up after an she says that she did undergo an injection in July 2020 for which she got up to 4 months of relief. She says while epidural steroid injection at L4-L5 and L5-S1?left transforaminal epidural injection. The patient says that she did not get any significant relief. She says that she is having pain in her left low back area with radiation into her left hip. Patient rates her pain a 7 out of 10. Her pain is worse with standing and walking. The pain does improve with sitting. Patient says that she did not get significant relief with her transforaminal epidural steroid injection. Patient says that she got significant relief with her injection that she had and July 2020. She says that she had the same type of pain that she is currently having. She has tried failed conservative therapies of physical therapy as well as continued home stretching. Review of Systems General: No recent weight changes, no fever, no sleep disturbances Respiratory: No cough, no shortness of air, no recurring pulmonary infections Cardiovascular/peripheral vascular: No chest pain, no palpitations, no edema, no shortness of breath Gastrointestinal: No new onset incontinence, normal bowel movements reported Genitourinary: No new onset incontinence Musculoskeletal: Left low back pain with radiation into left hip Psychiatric: [Normal mood/affect] Neurological: [Denies weakness in extremities], [denies balance issues] Objective:: Physical exam General: Alert and oriented x3, no acute distress, pleasant and cooperative, [on room air] Lungs: Respirations even and unlabored, symmetrical chest expansion Eyes: PERRL Musculoskeletal: Flexion and extension of lumbar [spine] somewhat guarded secondary to pain, strength in upper and lower extremities [5/5], [antalgic gait noted] positive Peewee's test, positive distraction test, compression test, tenderness to palpation over left trochanteric bursa , Neurological: Speech clear, [line staker equal], no gross sensory deficit Assessment:: Left trochanteric bursitis left sacroiliitis Plan:: We will schedule the patient for left SI joint injection and a left trochanteric bursa injection. She has had these injections in July 2020 and got up to 4 months of relief at about 70 to 80%. We will plan to follow-up with the patient after the injections for reevaluation of symptoms. Possible side effects of corticosteroids have been discussed with the patient. Risks and benefits of the procedure have been explained to the patient. Patient would like to proceed with the procedure. Patient has been instructed to contact the clinic with any concerns before the next appointment. Dr. Huntley has reviewed this note and agrees with this plan of care. This note was dictated using voice recognition software and make contain errors or omissions. [facility] History I have reviewed the patient's past medical history: Yes Medical History: Reports:: Hyperlipidemia, Hypertension Denies:: Cancer, Diabetes Mellitus Type 1, Diabetes Mellitus Type 2, Internal Pacemaker, Lung Disease, MRSA, Seizures *Have you ever received a pneumonia vaccine?: Yes *Have you received a flu vaccine this season?: No Other Medical History: Reports: Hypothyroidism, Thyroid Disease, Other. Denies: Blood Transfusion Reaction Laterality Cases: Bilateral: Tonsillectomy Other Surgeries: Yes: Cholecystectomy, Hysterectomy-Total, Hysterectomy-Partial. No: Pacemaker Amputation: No Fractures: No - *Social History Smoking Status: Never smoker Alcohol Intake: never Substance Use Type: denies use *Occupational Status:: unemployed Housing: house Household Members: spouse *Travel in the last 8 weeks: None Family Hx:: Diabetes
== END ==
PROVIDERS: Visit Provider Clinical Nurse Specialist Family Health
DX: M46.1 Sacroiliitis, not elsewhere classified (principal); M70.62 Trochanteric bursitis, left hip
CPT/HCPCS: 99212; G0463

== ENCOUNTER 2021-02-05 10:48 | Day surgery (SDC) | payer MEDICARE, BC, SELFPAY ==
[2021-02-05 10:52] VITALS: BP 132/60; PULSE 76; RESP 18; TEMP 36.6; O2SAT 97; BMI 21.9
[2021-02-05 11:20] VITALS: BP 178/68; PULSE 73; RESP 18; O2SAT 97
[2021-02-05 11:31] VITALS: BP 157/73; PULSE 85; RESP 18; O2SAT 97
--- NOTE | 2021-02-05 11:32 | P.PCN_ITS ---
- Procedure Date: 02/05/21 Time: 11:33 Anesthesiologist:: Jian Huntley MD Complications:: None Pre-procedure Diagnosis:: Sacroiliitis and trochanteric bursitis Post-procedure Diagnosis:: Same Indications for Procedure:: This patient is a pleasant 86-year-old white female who we are treating for left-sided hip pain. She is tender over the left SI joint. She is tender over the left trochanteric bursa. She has a positive Peewee's test on left side. She is positive Arianne test on left side. She is positive SI joint compression test on left side. She has a positive distraction test on left side. We will plan a left SI joint injection left trochanteric bursa injection under fluoroscopy today to help with pain symptoms. Procedure Details:: Left SI joint injection under fluoroscopy Informed consent was obtained and the risks and benefits of the procedure was explained to the patient. Patient was taken to the procedure room. Patient was placed prone on the procedure table. The left hip was prepped using ChloraPrep. The skin and subcutaneous tissues were anesthetized using lidocaine. I placed a 22-gauge spinal needle into the inferior aspect of the left SI joint. Needle placement was confirmed with dye. After this we injected 5 mL bupivacaine 0.25% and Depo-Medrol 40 mg into the left SI joint. The patient tolerated the procedure well with no complication. Left trochanteric bursa injection under fluoroscopy informed consent was obtained and the risk and benefits of the procedure was explained to the patient. The patient was taken to procedure room and placed prone on the procedure table. The left hip was prepped using ChloraPrep. The skin and subcutaneous tissues were anesthetized using lidocaine. I placed a 22- gauge spinal needle under fluoroscopic guidance and advanced until it contacted the left greater trochanter. Needle placement was confirmed with dye. After this we injected 5 mL bupivacaine 0.25% and Depo-Medrol 40 mg. Patient tolerated the procedure well with no complications. Plan and Disposition:: We will follow-up with this patient 2 weeks. Will reevaluate symptoms at that time.
[2021-02-05 11:43] VITALS: BP 160/70; PULSE 72; RESP 18; TEMP 36.6; O2SAT 97
[2021-02-05 11:44] VITALS: BP 160/70; PULSE 72; RESP 18; TEMP 36.6; O2SAT 97
== END 2021-02-05 11:30 | disposition home or self-care (01) ==
LOC: SC.PAINP 10:49
PROVIDERS: PCP Nurse Practitioner Family; Visit Provider Anesthesiology
DX: M46.1 Sacroiliitis, not elsewhere classified (principal); M70.62 Trochanteric bursitis, left hip; E78.5 Hyperlipidemia, unspecified; I10 Essential (primary) hypertension; E03.9 Hypothyroidism, unspecified
CPT/HCPCS: 20610; 27096; 77002; G0260; J1040; Q9966

== ENCOUNTER → 2021-02-25 11:30 | Outpatient (POV) | payer MEDICARE, BC, SELFPAY ==
[2021-02-25 11:40] VITALS: BP 158/78; PULSE 76; RESP 18; O2SAT 97; BMI 20.7
--- NOTE | 2021-02-25 12:22 | HMH.PAINSOAP ---
[facility] Pain Management SOAP Note Subjective:: Patient is an 86-year-old white female who presents today for follow-up after left SI joint injection and a left trochanteric bursa injection. Patient reports that she got 30 to 40% relief with the injections, however, she continues to have significant pain in her low back and left hip area. She is rating her pain a 6 or 7 out of 10 today. Patient says that the injection she had in August 2020 has given her the most significant relief. She does have a spinal cord stimulator that gives her relief of her right low back pain and radiation into her right lower extremity. The patient says that she did go to her primary care provider most recently and was told that her lab work is unremarkable and she does report to be having 4 pound weight loss in the last month. We do manage the patient with oral medications for arthritis, however she does not need a refill at this time. The patient has had multiple SI joint injections as well as epidural steroid injections and trochanteric bursa injections. She feels the epidural transforaminal gave her the most relief. She would like to proceed with this injection repeat. This would be the patient's #3 transforaminal epidural steroid injection. She has tried physical therapy in the past and home stretching. The patient is very active Review of Systems General: No recent weight changes, no fever, no sleep disturbances Respiratory: No cough, no shortness of air, no recurring pulmonary infections Cardiovascular/peripheral vascular: No chest pain, no palpitations, no edema, no shortness of breath Gastrointestinal: No new onset incontinence, normal bowel movements reported Genitourinary: No new onset incontinence Musculoskeletal: Left low back pain with radiation into left leg Psychiatric: [Normal mood/affect] Neurological: [Denies weakness in extremities], [denies balance issues] Objective:: Physical exam General: Alert and oriented x3, no acute distress, pleasant and cooperative Lungs: Respirations even and unlabored, symmetrical chest expansion Eyes: PERRL Musculoskeletal: Flexion and extension of lumbar [spine] somewhat guarded secondary to pain, [antalgic gait noted] Neurological: Speech clear, no gross sensory deficit Assessment:: Degenerative disc disease lumbar spine with lumbar radiculopathy symptoms Plan:: Patient has had a transforaminal epidural steroid injection in August 2020 for which she reports she got excellent relief up to 80% relief for a few months. She would like to proceed with a repeat injection. This would be the patient's #3 transforaminal epidural steroid injection at L4-L5 L5-S1 area. We will follow-up with her after the injection for reevaluation symptoms. Possible side effects of corticosteroids have been discussed with the patient. Risks and benefits of the procedure have been explained to the patient. Patient would like to proceed with the procedure. Patient has been instructed to contact the clinic with any concerns before the next appointment. Dr. Huntley has reviewed this note and agrees with this plan of care. This note was dictated using voice recognition software and make contain errors or omissions. [facility] History I have reviewed the patient's past medical history: Yes Medical History: Reports:: Hyperlipidemia, Hypertension Denies:: Cancer, Diabetes Mellitus Type 1, Diabetes Mellitus Type 2, Internal Pacemaker, Lung Disease, MRSA, Seizures *Have you ever received a pneumonia vaccine?: Yes *Have you received a flu vaccine this season?: Yes Other Medical History: Reports: Hypothyroidism, Thyroid Disease, Other. Denies: Blood Transfusion Reaction Laterality Cases: Bilateral: Tonsillectomy Other Surgeries: Yes: Cholecystectomy, Hysterectomy-Total, Hysterectomy-Partial. No: Pacemaker Amputation: No Fractures: No - *Social History Smoking Status: Never smoker Alcohol Intake: never Substance Use Type: denies
== END ==
PROVIDERS: Visit Provider Clinical Nurse Specialist Family Health
DX: M51.16 Intervertebral disc disorders with radiculopathy, lumbar region (principal)
CPT/HCPCS: 99212; G0463

== ENCOUNTER 2021-03-05 13:47 | Day surgery (SDC) | payer MEDICARE, BC, SELFPAY ==
[2021-03-05 14:37] VITALS: BP 148/73; PULSE 76; RESP 18; TEMP 35.3; O2SAT 98; BMI 20.7
--- NOTE | 2021-03-05 15:38 | HMH.PMPROC ---
- Procedure Date: 03/05/21 Time: 15:38 Anesthesiologist:: Jian Huntley MD Complications:: None Pre-procedure Diagnosis:: Degenerative disc disease of lumbar spine with lumbar radiculopathy symptoms Post-procedure Diagnosis:: Same Indications for Procedure:: This patient is a pleasant 86-year-old white female who we are treating for low back pain with lumbar radicular symptoms. Most of her pain is on the left side. It is radiating down the left leg. We will plan on lumbar epidural steroid injection transforaminal left L4-L5 and left L5-S1 today. Procedure Details:: Transforaminal epidural steroid injection under fluoroscopy Informed consent was obtained risk and benefits of the procedure were explained to the patient. Patient was taken the procedure room. The back was prepped using ChloraPrep. The skin and subtenons tissues were anesthetized using lidocaine. A 22-gauge spinal needle was inserted into the intervertebral foramen of L4-L5 and L5-S1 on the left side. Needle placement was confirmed with dye. After this we injected 5 mL bupivacaine 0.25% and Depo-Medrol 40 mg into each intervertebral foramen of L4-5 and L5-S1 left side. Plan and Disposition:: We will follow-up with this patient in 2 weeks. Will reevaluate symptoms at that time.
[2021-03-05 15:41] VITALS: BP 143/62; PULSE 79; RESP 20; O2SAT 96
[2021-03-05 15:42] VITALS: BP 145/62; PULSE 81; RESP 20; O2SAT 96
[2021-03-05 16:04] VITALS: BP 159/79; PULSE 78; RESP 18; TEMP 35.3; O2SAT 96
== END 2021-03-05 16:00 | disposition home or self-care (01) ==
LOC: SC.PAINP 13:48
PROVIDERS: PCP Nurse Practitioner Family; Visit Provider Anesthesiology
DX: M51.16 Intervertebral disc disorders with radiculopathy, lumbar region (principal); I10 Essential (primary) hypertension; K21.9 Gastro-esophageal reflux disease without esophagitis; Z90.49 Acquired absence of other specified parts of digestive tract; Z96.82 Presence of neurostimulator; Z90.710 Acquired absence of both cervix and uterus
CPT/HCPCS: 64483; 64484; J1040; Q9966

== ENCOUNTER → 2021-03-25 13:03 | Outpatient (POV) | payer MEDICARE, BC, SELFPAY ==
[2021-03-25 13:38] VITALS: BP 150/72; PULSE 82; RESP 18; O2SAT 96; BMI 20.7
== END ==
PROVIDERS: Visit Provider Clinical Nurse Specialist Family Health
DX: M25.562 Pain in left knee (principal); M79.605 Pain in left leg
CPT/HCPCS: 73502; 99212; G0463

== ENCOUNTER → 2021-03-25 13:33 | Outpatient (CLI) | payer MEDICARE, BC, SELFPAY ==
--- NOTE | 2021-03-25 13:40 | XR_ITS ---
PROCEDURE: XR HIP LT 2-3V W/PELVIS CLINICAL INDICATION: LT HIP PAIN COMPARISON: [facility] PELAP PELVIS AP ONLY from 02/13/2017 FINDINGS: AP view of the pelvis shows mild osteoarthritic change of the hips on both sides. No acute fracture or dislocation. No lytic or blastic change. A pessary device overlies the pubic area. There are 2 SI joint stabilizer devices on the left. Mild sclerosis of the right SI joint superiorly IMPRESSION: Mild osteoarthritis of the left hip Dictated by: Tremaine Pal MD 03/25/2021 14:24 Tremaine Pal MD in [place] 03/25/2021 14:24
--- NOTE | 2021-03-25 14:11 | HMH.PAINSOAP ---
[facility] Pain Management SOAP Note Subjective:: Patient is an 86-year-old white female who is following up today after transforaminal epidural steroid injection at left L4-L5 and left L5-S1. Patient says she got very little relief with this injection. She is having pain in her left hip and left leg. She says that her previous injection that she had performed in August 2020 is the only injection that has given her significant relief. Patient's chart was reviewed and, on 02/04/2021 patient had a transforaminal epidural steroid injection L4-L5/L5-S1 left, on 12/25/2020 left transforaminal epidural steroid injection L4-L5 L5-S1 left, 924 left SI joint injection, and most recently 03/05/2021 left transforaminal epidural steroid injection L4-L5 L5-S1. Patient is not getting significant relief. She rates her pain an 8 out of 10. She does not want to undergo CT scanning of the area due to anxiety of the machine. The patient has not gotten any significant relief with the last injections. She is having difficulty standing or walking. She is also complaining of neck pain that is made worse with turning or twisting neck. She has not had any recent imaging of this area. She does not want to perform imaging at this time. Patient is complaining of significant tenderness to her left hip as well. Review of Systems General: No recent weight changes, no fever, no sleep disturbances Respiratory: No cough, no shortness of air, no recurring pulmonary infections Cardiovascular/peripheral vascular: No chest pain, no palpitations, no edema, no shortness of breath Gastrointestinal: No new onset incontinence, normal bowel movements reported Genitourinary: No new onset incontinence Musculoskeletal: Left hip pain with radiation into left leg Psychiatric: [Normal mood/affect] Neurological: [Denies weakness in extremities], [denies balance issues] Objective:: Physical exam General: Alert and oriented x3, no acute distress, pleasant and cooperative Lungs: Respirations even and unlabored, symmetrical chest expansion Eyes: PERRL Musculoskeletal: Flexion and extension of left lower extremity somewhat guarded secondary to pain, [antalgic gait noted] Neurological: Speech clear, no gross sensory deficit Assessment:: Left hip pain, left leg pain Plan:: Patient is requesting x-rays. He we will order an x-ray of the patient's left hip. Her pain is primarily to the left hip and left leg. She does not want to undergo CT scan at this time. She has difficulty undergoing the scan due to the machine and anxiety. We will obtain the x-ray of the left hip and follow-up with her afterwards for discussion with further plan of care. Patient has been instructed to contact the clinic with any concerns before the next appointment. Dr. Huntley has reviewed this note and agrees with this plan of care. This note was dictated using voice recognition software and make contain errors or omissions. [facility] History I have reviewed the patient's past medical history: Yes Medical History: Reports:: Hyperlipidemia, Hypertension Denies:: Cancer, Diabetes Mellitus Type 1, Diabetes Mellitus Type 2, Internal Pacemaker, Lung Disease, MRSA, Seizures *Have you ever received a pneumonia vaccine?: Yes *Have you received a flu vaccine this season?: Yes Other Medical History: Reports: Hypothyroidism, Thyroid Disease, Other. Denies: Blood Transfusion Reaction Laterality Cases: Bilateral: Tonsillectomy Other Surgeries: Yes: Cholecystectomy, Hysterectomy-Total, Hysterectomy-Partial. No: Pacemaker Amputation: No Fractures: No - *Social History Smoking Status: Never smoker Alcohol Intake: never Substance Use Type: denies use *Occupational Status:: unemployed Housing: house Household Members: spouse *Travel in the last 8 weeks: None Family Hx:: Diabetes
== END ==
PROVIDERS: PCP Nurse Practitioner Family; Visit Provider Clinical Nurse Specialist Family Health
DX: M25.552 Pain in left hip (principal)
CPT/HCPCS: 73502

== ENCOUNTER → 2021-04-06 13:15 | Outpatient (POV) | payer MEDICARE, BC, SELFPAY | PROVIDERS: Visit Provider Dermatology | DX: Z00.00 Encounter for general adult medical examination without abnormal findings (principal) ==

== ENCOUNTER 2021-04-16 10:44 | Day surgery (SDC) | payer MEDICARE, BC, SELFPAY ==
[2021-04-16 10:54] VITALS: BP 159/66; PULSE 67; RESP 18; TEMP 36.9; O2SAT 97; BMI 31.0
[2021-04-16 11:19] VITALS: BP 162/68; PULSE 76; RESP 18; O2SAT 98
--- NOTE | 2021-04-16 11:27 | P.PCN_ITS ---
- Procedure Date: 04/16/21 Time: 11:28 Anesthesiologist:: Jian Huntley MD Complications:: None Pre-procedure Diagnosis:: Degenerative osteoarthritis left hip with continued left hip pain Post-procedure Diagnosis:: Same Indications for Procedure:: This patient is a pleasant 86-year-old white female who we are treating for left-sided hip pain. She does have an x-ray which does show mild osteoarthritis to the left hip. We will do a left hip intra-articular injection today to see if this helps with her pain symptoms. Procedure Details:: Left hip intra-articular injection Informed consent was obtained and the risk and benefits of the procedure were explained to the patient. Patient was taken the procedure room. Left hip was prepped using ChloraPrep. The skin and subtenons tissues were anesthetized using lidocaine. I placed a 22-gauge spinal needle into the left hip joint. Needle placement was confirmed with dye. After this we injected 10 mL bup ivacaine 0.25% and Depo-Medrol 40 mg into the left hip joint. Patient tolerated procedure well with no complications. Plan and Disposition:: We will follow-up with her in 2 weeks. Will reevaluate symptoms at that time. Patient is complaining of numbness in both hands. This is most likely due to degenerative arthritis of the cervical spine with cervical radicular symptoms. I do believe she would benefit from a cervical epidural steroid injection.
[2021-04-16 11:33] VITALS: BP 158/71; PULSE 78; RESP 20; O2SAT 97
== END 2021-04-16 11:34 | disposition home or self-care (01) ==
LOC: SC.PAINP 10:46
PROVIDERS: PCP Nurse Practitioner Family; Visit Provider Anesthesiology
DX: I10 Essential (primary) hypertension (principal); E78.5 Hyperlipidemia, unspecified; E03.9 Hypothyroidism, unspecified; Z72.0 Tobacco use; M16.12 Unilateral primary osteoarthritis, left hip; Z79.899 Other long term (current) drug therapy
CPT/HCPCS: 20610; 77002; J1040; Q9966

== ENCOUNTER → 2021-05-04 11:35 | Outpatient (POV) | payer MEDICARE, BC, SELFPAY ==
[2021-05-04 11:50] VITALS: BP 154/68; PULSE 72; RESP 18; O2SAT 97; BMI 20.9
--- NOTE | 2021-05-04 11:59 | HMH.PAINSOAP ---
[facility] Pain Management SOAP Note Subjective:: Patient is a pleasant 86-year-old female who comes in here today for follow-up after a left hip intra-articular injection. Patient is currently being treated for degenerative osteoarthritis of the left hip. After the procedure, patient says that she had significant relief of about 80 to 90% and rates her pain today as 4 out of 10. She denies any issues after the procedure. Today, patient is complaining of bilateral hand numbness, pain that radiates from her cervical spine. Patient says that this has been going on since the beginning of the month and it is gotten worse to where she keeps dropping things. She is also having issues driving. Patient is not currently taking any medication for this. Patient has a [employer] spinal cord stimulator for her lumbar pain that radiates to bilateral lower extremities causing pain, numbness, paresthesia. Patient is also complaining of some right leg numbness and says she will contact the [employer] environmental marketing representative for this. Her Ramón number is [phone] with a morphine equivalent of 0. Drug screens have been reviewed and appropriate. Review of Systems General: No recent weight changes, no fever, no sleep disturbances Respiratory: No cough, no shortness of air, no recurring pulmonary infections Cardiovascular/peripheral vascular: No chest pain, no palpitations, no edema, no shortness of breath Gastrointestinal: No new onset incontinence, normal bowel movements reported Genitourinary: No new onset incontinence Musculoskeletal: Low back pain, neck pain, Psychiatric: [Normal mood/affect] Neurological: bilateral upper extremities pain, numbness, and parestheia Objective:: Physical exam General: Alert and oriented x3, no acute distress, pleasant and cooperative Lungs: Respirations even and unlabored, symmetrical chest expansion Eyes: PERRL Musculoskeletal: Flexion and extension of lumbar and cervical [spine] somewhat guarded secondary to pain, [antalgic gait noted] Neurological: Speech clear, bilateral upper extremities pain, numbness, and parestheia Assessment:: 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 Osteoarthritis of the left hip Plan:: Patient has been having bilateral hand pain, weakness, and numbness that started at the beginning of the month. Patient states that she has been dropping objects and she has been having difficulty driving. Patient denies any trauma or falls recently. Patient's symptoms is most likely due to degenerative disc disease of the cervical spine with cervical radiculopathy. Patient has had success with lumbar epidural steroid injections in the past. We will schedule the patient for a cervical epidural steroid injection at the level of C5-C6. Risks and benefits of the procedure have been explained to the patient. Patient would like to proceed with the procedure. Patient says that she has been having some numbness to her right leg and will contact the [employer] environmental [employer] representative for this. Patient has been instructed to contact the clinic with any concerns before the next appointment. Dr. Huntley has reviewed this note and agrees with this plan of care. This note was dictated using voice recognition software and make contain errors or omissions. [facility] History Medical History: Reports:: Hyperlipidemia, Hypertension Denies:: Cancer, Diabetes Mellitus Type 1, Diabetes Mellitus Type 2, Internal Pacemaker, Lung Disease, MRSA, Seizures *Have you ever received a pneumonia vaccine?: No *Have you received a flu vaccine this season?: No Other Medical History: Reports: Hypothyroidism, Thyroid Disease, Other. Denies: Blood Transfusion Reaction Laterality Cases: Bilateral: Tonsillectomy Other Surgeries: Yes: Cholecystectomy, Hysterectomy-Total, Hysterectomy-Partial. No: Pacemaker Amputation: No Fractures: No - *Social History Smoking Sta
== END ==
PROVIDERS: Visit Provider Clinical Nurse Specialist Family Health
DX: M50.10 Cervical disc disorder with radiculopathy, unspecified cervical region (principal); M16.12 Unilateral primary osteoarthritis, left hip
CPT/HCPCS: 99212; G0463

== ENCOUNTER → 2021-05-11 15:52 | Outpatient (POV) | payer MEDICARE, BC, SELFPAY | PROVIDERS: Visit Provider Dermatology | DX: Z00.00 Encounter for general adult medical examination without abnormal findings (principal) ==

== ENCOUNTER 2021-05-28 10:45 | Day surgery (SDC) | payer MEDICARE, BC, SELFPAY ==
[2021-05-28 10:57] VITALS: BP 123/82; PULSE 73; RESP 20; TEMP 36.3; O2SAT 98; BMI 21.1
[2021-05-28 12:13] VITALS: BP 159/78; PULSE 80; RESP 18; O2SAT 95
[2021-05-28 12:15] VITALS: BP 159/78; PULSE 77; RESP 18; O2SAT 95
--- NOTE | 2021-05-28 12:20 | HMH.PMPROC ---
- Procedure Date: 05/28/21 Time: 12:21 Anesthesiologist:: Margarita Hickman MD Complications:: None Pre-procedure Diagnosis:: Degenerative disc disease of the cervical spine with cervical radiculopathy Post-procedure Diagnosis:: Same Indications for Procedure:: Patient is a very pleasant 86-year-old white female who presents today with chronic neck pain rating to her arms related to the above diagnosis. She has tried and failed conservative treatment including oral pain medications and home stretching program for greater than 6 weeks. The plan for today is for the patient to undergo a cervical epidural steroid injection at C7-T1. Procedure Details:: Cervical epidural steroid injection under fluoroscopy Informed consent was obtained and the risks and benefits of the procedure was explained to the patient. The patient was taken to the procedure room placed prone on the procedure table. The neck was prepped using ChloraPrep. The skin and subcutaneous tissues were anesthetized using lidocaine. I placed a 18-gauge epidural needle into the C7-T1 interspace and advanced using [id number] to air and fluoroscopic guidance. After confirmation of needle placement in the epidural space with dye, I injected 3 mL's lidocaine 1.5% and Depo-Medrol 80 mg. The patient tolerated the procedure well with no complications. Plan and Disposition:: We will follow-up with this patient in 2 weeks. Will reevaluate pain symptoms at that time.
[2021-05-28 12:26] VITALS: BP 146/66; PULSE 70; RESP 20; O2SAT 97
== END 2021-05-28 12:27 | disposition home or self-care (01) ==
LOC: SC.PAINP 10:47
PROVIDERS: PCP Nurse Practitioner Family; Visit Provider Anesthesiology Pain Medicine
DX: M50.13 Cervical disc disorder with radiculopathy, cervicothoracic region (principal); E78.5 Hyperlipidemia, unspecified; I10 Essential (primary) hypertension; E03.9 Hypothyroidism, unspecified
CPT/HCPCS: 62321; J1040; Q9966

== ENCOUNTER → 2021-06-14 11:34 | Outpatient (POV) | payer MEDICARE, BC, SELFPAY ==
[2021-06-14 11:48] VITALS: BP 151/77; PULSE 72; RESP 18; O2SAT 96; BMI 20.5
--- NOTE | 2021-06-14 12:01 | HMH.PAINSOAP ---
[facility] Pain Management SOAP Note Subjective:: Patient is an 86-year-old black female who presents today for follow-up after cervical epidural steroid injection at C7-T1. She got significant relief following the injection. She is doing well overall. Rates her pain a 3 out of 10. She does not want to proceed with any further injective therapy at this time. Review of Systems General: No recent weight changes, no fever, no sleep disturbances Respiratory: No cough, no shortness of air, no recurring pulmonary infections Cardiovascular/peripheral vascular: No chest pain, no palpitations, no edema, no shortness of breath Gastrointestinal: No new onset incontinence, normal bowel movements reported Genitourinary: No new onset incontinence Musculoskeletal: Intermittent neck pain with intermittent numbness into right arm Psychiatric: [Normal mood/affect] Neurological: [Denies weakness in extremities], [denies balance issues] Objective:: Physical exam General: Alert and oriented x3, no acute distress, pleasant and cooperative Lungs: Respirations even and unlabored, symmetrical chest expansion Eyes: PERRL Musculoskeletal: Flexion and extension of cervical [spine] somewhat guarded secondary to pain, normal gait noted Neurological: Speech clear, no gross sensory deficit Assessment:: Degenerative disc disease cervical spine cervical radiculopathy symptoms Plan:: Patient is doing well since her epidural to her cervical spine. We will plan to follow-up with her in 1 month for further evaluation. She has been instructed to contact the clinic if she has any concerns before next appointment. Patient has been instructed to contact the clinic with any concerns before the next appointment. Dr. Huntley has reviewed this note and agrees with this plan of care. This note was dictated using voice recognition software and make contain errors or omissions. [facility] History I have reviewed the patient's past medical history: Yes Medical History: Reports:: Hyperlipidemia, Hypertension Denies:: Cancer, Diabetes Mellitus Type 1, Diabetes Mellitus Type 2, Internal Pacemaker, Lung Disease, MRSA, Seizures *Have you ever received a pneumonia vaccine?: Yes *Have you received a flu vaccine this season?: Yes Other Medical History: Reports: Arthritis, Hypothyroidism, Thyroid Disease, Other. Denies: Blood Transfusion Reaction Laterality Cases: Bilateral: Tonsillectomy Other Surgeries: Yes: Cholecystectomy, Hysterectomy-Total, Hysterectomy-Partial. No: Pacemaker Amputation: No Fractures: No - *Social History Smoking Status: Never smoker Alcohol Intake: never Substance Use Type: denies use *Occupational Status:: unemployed Housing: house Household Members: spouse *Travel in the last 8 weeks: None Family Hx:: Other
== END ==
PROVIDERS: Visit Provider Clinical Nurse Specialist Family Health
DX: M50.10 Cervical disc disorder with radiculopathy, unspecified cervical region (principal)
CPT/HCPCS: 99212; G0463

== ENCOUNTER 2021-07-16 13:35 | Day surgery (SDC) | payer MEDICARE, BC, SELFPAY ==
[2021-07-16 13:46] VITALS: BP 141/72; BP 154/68; PULSE 83; PULSE 84; RESP 17; RESP 20; TEMP 36.4; O2SAT 97; O2SAT 98; BMI 20.5
[2021-07-16 14:28] VITALS: BP 152/71; PULSE 91; RESP 18; O2SAT 95
--- NOTE | 2021-07-16 14:39 | HMH.PMPROC ---
- Procedure Date: 07/16/21 Time: 14:39 Anesthesiologist:: Jian Huntley MD Complications:: None Pre-procedure Diagnosis:: Degenerative disc disease of the cervical spine with cervical radiculopathy symptoms Post-procedure Diagnosis:: Same Indications for Procedure:: Patient pleasant 86-year-old white female who we have been treating for neck pain and low back pain. She had a cervical epidural steroid injection at her last visit which did very well. Her pain is starting to return. We will do a repeat cervical epidural steroid injection under fluoroscopy today. She is noting some numbness in her hand and fingers as well as her feet. I do believe she has some neuropathy. We will start her on Lyrica 50 mg twice a day to see if this helps. Her Ramón and drug screen are all appropriate. Procedure Details:: Cervical epidural steroid injection under fluoroscopy Informed consent was obtained and the risks and benefits of the procedure was explained to the patient. The patient was taken to the procedure room placed prone on the procedure table. The neck was prepped using ChloraPrep. The skin and subcutaneous tissues were anesthetized using lidocaine. I placed a 18-gauge epidural needle into the C5-C6 interspace and advanced using [id number] to air and fluoroscopic guidance. After confirmation of needle placement in the epidural space with dye, I injected 3 mL's lidocaine 1.5% and Depo-Medrol 80 mg. The patient tolerated the procedure well with no complications. Plan and Disposition:: We will follow-up with her in 2 weeks. Will reevaluate symptoms at that time. We will start her on Lyrica 50 mg twice a day to help with her pain symptoms.
[2021-07-16 14:42] VITALS: BP 138/70; PULSE 82; O2SAT 96
== END 2021-07-16 14:42 | disposition home or self-care (01) ==
LOC: SC.PAINP 13:36
PROVIDERS: PCP Nurse Practitioner Family; Visit Provider Anesthesiology
DX: M50.13 Cervical disc disorder with radiculopathy, cervicothoracic region (principal); E03.9 Hypothyroidism, unspecified
CPT/HCPCS: 62321; J1040; Q9966

== ENCOUNTER → 2021-08-12 14:25 | Outpatient (POV) | payer MEDICARE, BC, SELFPAY ==
[2021-08-12 14:50] VITALS: BP 107/55; PULSE 75; RESP 18; TEMP 36.7; O2SAT 96; BMI 21.4
--- NOTE | 2021-08-12 16:40 | HMH.PAINSOAP ---
[facility] Pain Management SOAP Note Subjective:: Patient is a pleasant 86-year-old female who is here for a follow up after cervical epidural steroid injection on July 16, 2022. Patient is currently being treated for degenerative disc disease of the cervical and lumbar spine with cervical and lumbar radiculopathy symptoms. After the procedure, patients reports 80 to 90% relief and rates pain today at 2 out of 10. Patient denies any issues after the procedure. Patient continues to have significant relief after this cervical epidural steroid injection. She is also being managed with a [employer] stimulator for her lumbar radiculopathy. This is helping her significantly. She is also taking Lyrica 50 mg twice a day because she was complaining of numbness on her bilateral hands. She says that she continues to have numbness on her hands but does state that the Lyrica is helping some. [facility] number [phone]. Drug screens are appropriate. Review of Systems: General: No recent weight changes, no fever, no sleep disturbances Respiratory: No cough, no shortness of air, no recurring pulmonary infections Cardiovascular/peripheral vascular: No chest pain, no palpitations, no edema, no shortness of breath Gastrointestinal: No new onset incontinence, normal bowel movements reported Genitourinary: No new onset incontinence Musculoskeletal: Neck pain Psychiatric: [Normal mood/affect] Neurological: [Denies weakness in extremities], [denies balance issues] Objective:: Physical Exam: General: Alert and oriented x3, no acute distress, pleasant and cooperative, [on room air] Lungs: Respirations even and unlabored, symmetrical chest expansion Eyes: PERRL Musculoskeletal: Flexion and extension of cervical and lumbar [spine] somewhat guarded secondary to pain, [antalgic gait noted] Neurological: Speech clear, no gross sensory deficit Assessment:: 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 Patient does get injection every couple of months. She is also getting significant relief from her spinal cord stimulator for her low back pain and lumbar radiculopathies. Today, she says that she feels like she needs another cervical epidural steroid injection because she is going to be more active in the next couple of weeks. Additionally, she says that the injection helps a lot with her bilateral upper extremity neuropathies. We will schedule the patient for a cervical epidural steroid injection. Risk and benefits have been discussed with the patient and patient would like to proceed with this procedure. Patient has been instructed to contact the clinic with any concerns before the next appointment. Dr. Huntley has reviewed this note and agrees with this plan of care. This note was dictated using voice recognition software and make contain errors or omissions. [facility] History Medical History: Reports:: Hyperlipidemia, Hypertension Denies:: Cancer, Diabetes Mellitus Type 1, Diabetes Mellitus Type 2, Internal Pacemaker, Lung Disease, MRSA, Seizures *Have you ever received a pneumonia vaccine?: Yes *Have you received a flu vaccine this season?: Yes Other Medical History: Reports: Arthritis, Hypothyroidism, Thyroid Disease, Other. Denies: Blood Transfusion Reaction Laterality Cases: Bilateral: Tonsillectomy Other Surgeries: Yes: Cholecystectomy, Hysterectomy-Total, Hysterectomy-Partial. No: Pacemaker Amputation: No Fractures: No - *Social History Smoking Status: Never smoker Alcohol Intake: never Substance Use Type: denies use *Occupational Status:: retired Housing: house Household Members: spouse *Travel in the last 8 weeks: None Family Hx:: No significant family history
== END ==
PROVIDERS: Visit Provider Student in an Organized Health Care Education/Training Program
DX: M51.16 Intervertebral disc disorders with radiculopathy, lumbar region (principal); M50.10 Cervical disc disorder with radiculopathy, unspecified cervical region
CPT/HCPCS: 99212; G0463

== ENCOUNTER 2021-08-27 10:46 | Day surgery (SDC) | payer MEDICARE, BC, SELFPAY ==
[2021-08-27 11:02] VITALS: BP 139/70; PULSE 68; RESP 18; TEMP 36.3; O2SAT 96; BMI 20.9
[2021-08-27 11:21] VITALS: BP 137/85; PULSE 79; RESP 20; O2SAT 96
[2021-08-27 11:25] VITALS: BP 137/85; PULSE 78; RESP 20; O2SAT 97
--- NOTE | 2021-08-27 11:30 | HMH.PMPROC ---
- Procedure Date: 08/27/21 Time: 11:31 Anesthesiologist:: Anderson Marsk CRNA Complications:: None Pre-procedure Diagnosis:: Degenerative disc disease cervical spine multilevels. Post-procedure Diagnosis:: Same Indications for Procedure:: Very pleasant 86-year-old white female that returns our clinic today for cervical epidural steroid injection. She has had these injections in the past with significant improvement. She wishes to proceed with therapeutic injection today. She complains of neck pain as well as bilateral shoulder radicular symptoms at times. She rates her pain 6/10. Procedure Details:: Procedure:Cervical epidural steroid injection Informed consent was obtained and the risks and benefits of the procedure were explained to the patient. The patient was taken to the procedure room and noninvasive monitors placed, including noninvasive blood pressure cuff and pulse oximeter. The neck was prepped using Betadine as a cleansing solution. The C6-C7 interspace was palpated. The skin and subcutaneous tissues were anesthetized using lidocaine 1.5% and a 25-gauge needle. After this an 18-gauge Touhy epidural needle was placed into the C6-C7 interspace and advanced using loss of resistance to air until the epidural space was encountered. After confirmation of needle placement in the epidural space, a solution containing lidocaine 1.5%, 4 mL and Depo-Medrol 80 mg was incrementally injected into the cervical epidural space.~ The patient tolerated the procedure well with no complications. The patient was observed in the Pain Clinic and then discharged home neurologically intact. Plan and Disposition:: Patient was discharged from the clinic following the injection without incident.
[2021-08-27 11:34] VITALS: BP 147/74; PULSE 63; RESP 18; O2SAT 97
== END 2021-08-27 11:35 | disposition home or self-care (01) ==
LOC: SC.PAINP 10:47
PROVIDERS: PCP Nurse Practitioner Family; Visit Provider Nurse Anesthetist, Certified Registered
DX: M50.123 Cervical disc disorder at C6-C7 level with radiculopathy (principal); E78.5 Hyperlipidemia, unspecified; I10 Essential (primary) hypertension; M19.90 Unspecified osteoarthritis, unspecified site; E03.9 Hypothyroidism, unspecified
CPT/HCPCS: 62321; J1040; Q9966

== ENCOUNTER → 2021-10-04 13:12 | Outpatient (POV) | payer MEDICARE, BC, SELFPAY ==
[2021-10-04 13:26] VITALS: BP 123/81; PULSE 70; RESP 18; TEMP 36.6; O2SAT 94; BMI 23.0
--- NOTE | 2021-10-04 15:34 | HMH.PAINSOAP ---
[facility] Pain Management SOAP Note Subjective:: Patient is a pleasant 86-year-old female who presents today for follow-up after a cervical epidural steroid injection on 08/27/2021. 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 We have been managing this patient with injective therapy. This is the patient's third cervical epidural steroid injection. She states that the first 2 injection provided significant relief of 80 to 90%. However, this most recent one, only provided minimal relief. She continues to have numbness and paresthesia on bilateral hands. She says that she also has some weakness and has sometimes dropped things that she is holding because of this. She has tried conservative therapy such as oral medication, physical therapy and home exercises for greater than 6 weeks. We are also managing this patient's low back pain with a VivaSmart stimulator that continues to manage the patient's low back pain. Patient has no issues with her stimulator. Rates pain today 7 out of 10. We are managing this patient with Lyrica 50 mg 2 times a day. Patient states that this medication is helping her radicular pains however it is making her too sleepy during the day. She wants to decrease this medication. Ramón [phone] with an active morphine equivalent of 0. Review of Systems: General: No recent weight changes, no fever, no sleep disturbances Respiratory: No cough, no shortness of air, no recurring pulmonary infections Cardiovascular/peripheral vascular: No chest pain, no palpitations, no edema, no shortness of breath Gastrointestinal: No new onset incontinence, normal bowel movements reported Genitourinary: No new onset incontinence Musculoskeletal: Neck pain, low back pain Psychiatric: [Normal mood/affect] Neurological: [Denies weakness in extremities], [denies balance issues] Objective:: Physical Exam: General: Alert and oriented x3, no acute distress, pleasant and cooperative Lungs: Respirations even and unlabored, symmetrical chest expansion Eyes: PERRL Musculoskeletal: Flexion and extension of cervical and lumbar [spine] somewhat guarded secondary to pain, [antalgic gait noted] Neurological: Speech clear, no gross sensory deficit Assessment:: Degenerative disc disease of the cervical and lumbar spine with cervical and lumbar radiculopathy symptoms Plan:: Patient had minimal relief after her cervical epidural steroid injection. Historically, patient gets 80 to 90% relief after a cervical epidural steroid injection. Each injection last the patient 2 to 3 months. She was to schedule a repeat cervical epidural steroid injection. We will schedule this for the patient. Risks and benefits of the procedure have been explained to the patient. Patient would like to proceed with the procedure. Patient is not on any blood thinner. We will get an updated cervical MRI. Patient states that she can only do open MRIs. She will have to go to [place] for this. I will change her Lyrica to Lyrica 25 mg twice a day. Patient has been instructed to contact the clinic with any concerns before the next appointment. Dr. Huntley has reviewed this note and agrees with this plan of care. This note was dictated using voice recognition software and make contain errors or omissions. [facility] History Medical History: Reports:: Hyperlipidemia, Hypertension Denies:: Cancer, Diabetes Mellitus Type 1, Diabetes Mellitus Type 2, Internal Pacemaker, Lung Disease, MRSA, Seizures *Have you ever received a pneumonia vaccine?: Yes *Have you received a flu vaccine this season?: Yes Other Medical History: Reports: Arthritis, Hypothyroidism, Thyroid Disease, Other. Denies: Blood Transfusion Reaction Laterality Cases: Bilateral: Tonsillectomy Other Surgeries: Yes: Cholecystectomy, Hysterectomy-Total, Hysterectomy-Partial. No: Pacemaker Amputation: No Fractures: No - *Social History Smok
== END ==
PROVIDERS: Visit Provider Student in an Organized Health Care Education/Training Program
DX: M50.10 Cervical disc disorder with radiculopathy, unspecified cervical region (principal); M54.16 Radiculopathy, lumbar region
CPT/HCPCS: 99212; G0463

== ENCOUNTER 2021-11-12 10:56 | Day surgery (SDC) | payer MEDICARE, BC, SELFPAY ==
[2021-11-12 11:31] VITALS: BP 148/67; PULSE 66; RESP 18; TEMP 36.6; O2SAT 96; BMI 20.5
[2021-11-12 12:27] VITALS: BP 136/71; PULSE 68; RESP 18
[2021-11-12 12:31] VITALS: BP 138/74; PULSE 64; RESP 18; O2SAT 98
[2021-11-12 12:39] VITALS: BP 136/64; PULSE 70; RESP 20; O2SAT 97
--- NOTE | 2021-11-12 12:44 | HMH.PMPROC ---
- Procedure Date: 11/12/21 Time: 12:44 Anesthesiologist:: Jian Huntley MD Complications:: None Pre-procedure Diagnosis:: Degenerative disc disease of cervical spine with cervical radiculopathy symptoms Post-procedure Diagnosis:: Same Indications for Procedure:: Patient is a pleasant 86-year-old white female who we are treating for neck pain with cervical radicular symptoms. Usually she does get good relief from these injections however last one did not last very long. We will plan on a repeat cervical epidural steroid injection today to see if this will help with her pain symptoms. She is also having some numbness in her hands and feet. She most likely does have some peripheral neuropathy. We will refer her to Dr. Alatorre for evaluation. We will plan on cervical epidural steroid injection today to help with her pain symptoms. Procedure Details:: Cervical epidural steroid injection under fluoroscopy Informed consent was obtained and the risks and benefits of the procedure was explained to the patient. The patient was taken to the procedure room placed prone on the procedure table. The neck was prepped using ChloraPrep. The skin and subcutaneous tissues were anesthetized using lidocaine. I placed a 18-gauge epidural needle into the C5-C6 interspace and advanced using [id number] to air and fluoroscopic guidance. After confirmation of needle placement in the epidural space with dye, I injected 3 mL's lidocaine 1.5% and Depo-Medrol 80 mg. The patient tolerated the procedure well with no complications. Plan and Disposition:: We will follow-up with her in 2 weeks. Will reevaluate symptoms at that time. We will refer her to Dr. Alatorre for evaluation of her peripheral neuropathy especially since her hands and feet are both going down.
== END 2021-11-12 12:40 | disposition home or self-care (01) ==
LOC: SC.PAINP 10:56
PROVIDERS: PCP Nurse Practitioner Family; Visit Provider Anesthesiology
DX: M50.122 Cervical disc disorder at C5-C6 level with radiculopathy (principal)
CPT/HCPCS: 62321; J1040; Q9966

== ENCOUNTER 2022-02-16 18:49 | Emergency (ER) | payer MEDICARE, BC, SELFPAY ==
[2022-02-16 19:18] VITALS: BP 131/69; PULSE 79; RESP 18; TEMP 36.6; O2SAT 98; BMI 20.9
--- NOTE | 2022-02-16 19:38 | EXP.UTC ---
Discharge Plan Disposition Patient Disposition: Home, Self-Care Condition: Good Prescriptions Prescriptions: New amoxicillin-pot clavulanate 500-125 mg Tablet 1 tab PO Q12H 7 Days Qty: 14 0RF No Action diclofenac sodium 75 MG tablet,delayed release (DR/EC) 75 mg PO BID Qty: 60 3RF indapamide 2.5 MG tablet 2.5 mg PO DAILY levothyroxine 50 MCG tablet 50 mcg PO DAILY diclofenac sodium 75 MG tablet,delayed release (DR/EC) 75 mg PO BID acetaminophen 500 MG tablet 500 mg PO NEEDED PRN (Reason: pain) pregabalin 50 MG capsule 50 mg PO BID pregabalin 25 MG capsule 25 mg PO BID Referrals Follow up/Referrals: Nakita Marc [Primary Care Provider] - See instructions Activity Restrictions/Add. Instructions Additional Instructions/Restrictions: Keep area clean and dry and open to air Allow dermabond and steri strips to wear off do not pick off or Remove Return if needed Monitor for signs of infection including but not limited to redness, drainage swelling warmth Follow up with your Family Doctor if you see any signs of infection Straight to ER if life threatening symptoms Clinical Impressions Clinical Impression: Skin tear Instructions Patient Instructions: DI for Laceration Repair-Skin Glue Discharge ED Provider: Richelle Blakely [facility] [place] General Stated complaint: [id number]@home [place] Mode of Arrival: Ambulatory Source of Information: Patient Limitations: No Limitations Time Seen by Provider: 02/16/22 19:38 Description of Symptoms (Recalled from Triage Doc. by RN): pt comes in with laceration to left leg on [place]. pt states she was walking on porch and cut her leg on a piece of metal chair. incident happened this evening HEENT Symptoms (Recalled from RN notes): No Resp Symptoms (Recalled from RN notes): No Skin Symptoms (Recalled from RN notes): Yes MS Symptoms (Recalled from RN notes): No Functional Status (Recalled from RN notes): n/a History of Present Illness Provider Complaint: Patient states that she was on her porch and went to climb in chair and slipped and hit her [place] area on metal causing a skin tear to her left [place] area States that she has had them before and her PCP told her to get it looked at [facility] because she gets infected easily Related Data Home Medications Medication Instructions Recorded Confirmed indapamide 2.5 mg tablet 2.5 mg PO DAILY High blood pressure 07/25/17 11/12/21 levothyroxine 50 mcg tablet 50 mcg PO DAILY THYROID 07/25/17 11/12/21 acetaminophen 500 mg tablet 500 mg PO NEEDED PRN pain 12/04/19 11/12/21 diclofenac sodium 75 mg 75 mg PO BID Pain 08/27/21 11/12/21 tablet,delayed release pregabalin 50 mg capsule 50 mg PO BID Pain 10/04/21 11/12/21 pregabalin 25 mg capsule 25 mg PO BID Pain 11/12/21 11/12/21 Previous Rx's Medication Instructions Recorded diclofenac sodium 75 mg 75 mg PO BID #60 tabs 11/19/21 tablet,delayed release amoxicillin 500 mg-potassium 1 tab PO Q12H 7 days #14 tabs 02/16/22 clavulanate 125 mg tablet Allergies Allergy/AdvReac Type Severity Reaction Status Date / Time No Known Allergies Allergy Verified 02/16/22 19:20 Worker's Comp Is this a Worker's Comp case?: No PFSH PFSH Social History Smoking Status: Never smoker second hand exposure: No alcohol intake: never substance use type: denies use current occupational status: retired Travel in the last 8 weeks: None household members: spouse housing: house current occupational exposures/hazards: No caffeine: Yes ROS Obtained: Yes All systems reviewed & no additional complaints except as documented and Yes Systems reviewed as appropriate & no additional complaints except as documented Constitutional Constitutional: Reports system reviewed and no additional complaints, except as documented and Reports as per HPI Cardiovascular Cardiovascular: Reports sys
[2022-02-16 20:07] VITALS: BP 131/69; PULSE 79; RESP 18; TEMP 36.6
== END 2022-02-16 20:08 | disposition home or self-care (01) ==
PROVIDERS: Emergency Provider Nurse Practitioner; PCP Nurse Practitioner Family
DX: S81.812A Laceration without foreign body, left lower leg, initial encounter (principal); W26.9XXA Contact with unspecified sharp object(s), initial encounter; Y93.01 Activity, walking, marching and hiking
CPT/HCPCS: 12001; G0168; 99213; C9290; G0463; J2405

== ENCOUNTER → 2022-03-22 13:21 | Outpatient (CLI) | payer MEDICARE, BC, SELFPAY ==
[2022-03-22 16:43] LABS: Vitamin B12 363 pg/mL (239-931)
[2022-03-22 16:51] LABS: Folate 6.24 ng/mL
== END ==
PROVIDERS: PCP Nurse Practitioner Family; Visit Provider Nurse Practitioner Family
DX: R13.10 Dysphagia, unspecified (principal); R20.0 Anesthesia of skin; R20.2 Paresthesia of skin; Z87.39 Personal history of other diseases of the musculoskeletal system and connective tissue
CPT/HCPCS: 36415; 82607; 82746

== ENCOUNTER → 2022-04-14 10:16 | Outpatient (CLI) | payer MEDICARE, BC, SELFPAY ==
--- NOTE | 2022-04-14 10:20 | XR_ITS ---
FINAL REPORT CLINICAL HISTORY: RT wrist pain FINDINGS: RIGHT WRIST Three views demonstrate no acute fracture or dislocation. There are advanced hypertrophic changes of osteoarthritis at the lateral intercarpal joints. There are multiple degenerative subchondral cysts throughout the carpal bones. The bones are osteopenic. There is mild chondrocalcinosis of the triangular fibrocartilage. The soft tissues are unremarkable. 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 No acute bony abnormality. Reviewed, Interpreted and Dictated by Buck Khan MD Transcribed by Carina Bahena Authenticated and [facility]
--- NOTE | 2022-04-14 11:06 | XR_ITS ---
FINAL REPORT CLINICAL HISTORY: LT wrist pain FINDINGS: LEFT WRIST Three views demonstrate no acute fracture or dislocation. The visualized joint spaces are normally aligned. There are mild to moderate hypertrophic changes in the lateral intercarpal joints the bones are osteopenic. There is chondrocalcinosis in the triangular fibrocartilage. The soft tissues are unremarkable. IMPRESSION: Mild to moderate changes of osteoarthritis. No acute bony abnormality. Reviewed, Interpreted and Dictated by Buck Khan MD Transcribed by Carina Bahena Authenticated and [facility]
== END ==
PROVIDERS: PCP Nurse Practitioner Family; Visit Provider Orthopaedic Surgery
DX: M25.531 Pain in right wrist (principal)
CPT/HCPCS: 73110

== ENCOUNTER → 2022-05-04 12:46 | Outpatient (CLI) | payer MEDICARE, BC, SELFPAY ==
--- NOTE | 2022-05-04 13:00 | XR_ITS ---
FINAL REPORT CLINICAL HISTORY: preop sob FINDINGS: Two views of the chest were obtained. The heart size and pulmonary vascularity are within normal limits. The mediastinum is normal. No acute pulmonary abnormality is identified. Spinal stimulator is present. There is no pneumothorax. The bony thorax is intact. IMPRESSION: No active cardiopulmonary disease. Reviewed, Interpreted and Dictated by John Guajardo III, MD Transcribed by Denise Peterson Authenticated and . [facility]
[2022-05-04 13:29] LABS: Microscopic, Urine URINE MICROSCOPIC (MICROSCOPIC)
[2022-05-04 14:38] LABS: Basophils # 0.1 K/mm3 (0-0.2); Basophils % 0.9 % (0.1-2.0); Eosinophils # 0.1 K/mm3 (0.0-0.4); Eosinophils % 1.6 % (0.1-12.0); Hemoglobin 12.7 g/dL (12.2-16.2); Lymphocytes # 2.3 K/mm3 (0.7-4.5); Lymphocytes % 31.9 % (10-50); Mean Corpuscular HGB Conc 31.6 g/dL (31.8-35.4); Mean Corpuscular Hemoglobin 29.5 pg (27.0-31.2); Mean Corpuscular Volume 93.2 fl (81-99); Mean Platelet Volume 10.7 fl (7.4-10.4); Monocytes # 0.4 K/mm3 (0.1-1.0); Monocytes % 5.1 % (1.7-9.3); Neutrophils # 4.4 K/mm3 (1.8-7.8); Neutrophils % 60.5 % (37.0-80.0); Platelet Count 382 K/mm3 (142-424); Red Cell Distribution Width 14.1 % (11.5-17.5); White Blood Count 7.3 K/mm3 (4.8-10.8)
[2022-05-04 15:48] LABS: Alanine Aminotransferase 11 U/L (12-78); Albumin Level 3.9 g/dl (3.5-5.0); Albumin/Globulin Ratio 1.4 (1.1-1.8); Alkaline Phosphatase 115 U/L (38-126); Anion Gap 9.9 mEq/L (5-15); Aspartate Amino Transferase 20 U/L (14-36); Bilirubin,Total 0.2 mg/dl (0.2-1.3); Blood Urea Nitrogen 23 mg/dl (7-17); Calcium 9.6 mg/dl (8.4-10.2); Carbon Dioxide 29 mmol/L (22.0-30.0); Chloride 103 mmol/L (98-107); Estimated Glomerular Filt Rate 60 ml/min (>60); GFR (African American) 72 ML/MIN (>60); Globulin 2.7 g/dL (1.3-3.2); Glucose 82 mg/dl (74-100); Potassium 3.9 mmoL/L (3.5-5.1); Sodium 138 mmol/L (136-145); Total Protein,Serum 6.6 g/dl (6.3-8.2)
[2022-05-04 18:32] LABS: Appearance,Urine CLOUDY (Clear); Blood, Urine Negative (Negative); Color,Urine DK YELLOW (Yellow); Glucose,Urine (UA) Negative (Negative); Ketones,Urine TRACE (Negative); Leukocyte Esterase,Urine TRACE (Negative); Nitrate,Urine POSITIVE (Negative); PH,Urine 5.5 (5.0-8.5); Protein,Urine TRACE (Negative); Specific Gravity, Urine 1.025 (1.005-1.030)
[2022-05-04 18:35] LABS: Bilirubin,Urine Negative (Negative)
[2022-05-04 18:49] LABS: Bacteria,Urine 4+ /lpf
[2022-05-04 18:50] LABS: RBC,Urine Occasional #/hpf (0-3); Squamous Epithelial Cell,Urine 20-50 #/hpf (0-5)
== END ==
PROVIDERS: PCP Nurse Practitioner Family; Visit Provider Orthopaedic Surgery
DX: Z01.818 Encounter for other preprocedural examination (principal); K62.89 Other specified diseases of anus and rectum; B96.29 Other Escherichia coli [E. coli] as the cause of diseases classified elsewhere; R82.90 Unspecified abnormal findings in urine
CPT/HCPCS: 36415; 71046; 80053; 81001; 85025; 87086; 87088; 87186

== ENCOUNTER 2022-05-13 06:04 | Day surgery (SDC) | payer MEDICARE, BC, SELFPAY ==
[2022-05-12 08:57] VITALS: BMI 20.5
[2022-05-13 06:22] VITALS: BP 166/68; PULSE 77; RESP 18; TEMP 36.3; O2SAT 95
--- NOTE | 2022-05-13 07:06 | EXP.ANES.CKL ---
[facility] Disclaimer: The information contained in this section may have been updated after the patient was seen, as this information can be updated by other users. Medical History History of arthritis History of hypertension History of hypothyroidism Surgical History H/O: hysterectomy History of cholecystectomy History of surgery Family History Other No significant family history Social History (Updated 05/13/22 @ 06:26 by Fidelia Aviles RN) Smoking Status: Never smoker second hand exposure: No alcohol intake: never substance use type: denies use current occupational status: retired Travel in the last 8 weeks: None household members: spouse housing: house current occupational exposures/hazards: No caffeine: Yes [facility] Anesthesia Checklist Patient Identification Patient Identification: Arm Band and Family Structural Data Admitted From: Direct Admit Planned Operative Procedure/s: Endoscopic CTR Verified Documents: Surgical Consent and History and Physical NPO Status Verified Time NPO: 00:00 Additional verifications Patient : No Anesthesia Reactions: No Hx Blood Transfusions: Yes Blood Transfusion Reaction: No Cephalosporin Allergy: No Previous Colonoscopy: Yes Airway Assessment C-Spine Mobility Assessed: Yes TMJ Mobility Assessed: Yes Dentition: Dentures-good fit Neurological Assessment Level of Consciousness: Awake, Alert, Appropriate and Follows Commands Hx Seizures: No Numbness or tingling in extremities: Yes Anesthesia Plan Anesthesia Risk discussed: Yes ASA Class: II Anesthesia Type: MAC Preoperative Comments Pre-Operative Comments: Fall Precautions, Dropping things.
[2022-05-13 08:18] VITALS: BP 159/80; PULSE 71; RESP 18; TEMP 36.3; O2SAT 95
--- NOTE | 2022-05-13 08:19 | P.OP_ITS ---
Date of procedure: 05/13/22 Pre-op Diagnosis:: Right carpal tunnel syndrome Post-op Diagnosis:: Same Procedure performed:: Right endoscopic carpal tunnel release Surgeon:: Cesar Carmona DO [employer]INK[employer] SERVICE TECHNICIAN:: Other Anesthesia: MAC and local Estimated blood loss (mL): 0 Operative findings:: See dictation Operative note:: Patient identified preoperatively right wrist marked yes my initials. Transferred operative suite placed upon the general bed. Hand table placed. Patient given sedation. Right upper extremity prepped draped normal sterile fashion. Once prepped and draped final operative timeout performed to identify proper patient procedure and extremity. Everyone involved in the case agreed. No counter indications to beginning. Did receive preoperative antibiotics. Marking pen was used to make plan incision of the volar wrist crease. Local anesthesia infiltrated to the surgical site. Once adequate anesthesia confirmed Esmarch was used exsanguinate extremity pneumatic tourniquet plated 250 mmHg. Skin knife was used to incise the skin careful dissection was taken down with scissors to identify the most proximal aspect of the transverse carpal ligament. The dilator from the endoscopic carpal tunnel set was used followed by the sled for the right side. Transverse carpal ligament clearly seen superiorly within the wound. Probe was used to find the most distal aspect of the transverse carpal ligament soft tissue rasp was used to remove soft tissue from the transverse carpal ligament undersurface. Using the hook blade for the endoscopic set transverse carpal ligament was incised through the entire length. This was clearly seen on the camera. Sled was removed copious irrigation wound performed Skin closed with nylon stitch sterile hand dressing placed patient waken anesthesia taken to stepdown in stable condition. Condition: stable Disposition: PACU Complications:: None apparent
[2022-05-13 08:28] VITALS: BP 157/75; PULSE 76; RESP 18; O2SAT 94
[2022-05-13 08:38] VITALS: BP 141/77; PULSE 67; RESP 18; O2SAT 94
[2022-05-13 08:50] VITALS: BP 168/85; PULSE 68; RESP 18; O2SAT 96
== END 2022-05-13 08:57 | disposition home or self-care (01) ==
PROVIDERS: PCP Nurse Practitioner Family; Visit Provider Orthopaedic Surgery
PROC: (CPT 64721; principal; 2022-05-13 07:30)
DX: G56.01 Carpal tunnel syndrome, right upper limb (principal)
CPT/HCPCS: 64721; 96374; J2405

== ENCOUNTER → 2022-07-12 13:24 | Outpatient (CLI) | payer MEDICARE, BC, SELFPAY ==
[2022-07-12 13:30] LABS: Microscopic, Urine URINE MICROSCOPIC (MICROSCOPIC)
[2022-07-12 14:15] LABS: Appearance,Urine SL CLOUDY (Clear); Basophils # 0.1 K/mm3 (0-0.2); Basophils % 0.9 % (0.1-2.0); Blood, Urine Negative (Negative); Color,Urine YELLOW (Yellow); Eosinophils # 0.2 K/mm3 (0.0-0.4); Eosinophils % 2.9 % (0.1-12.0); Glucose,Urine (UA) Negative (Negative); Hematocrit 37.8 % (37.0-47.0); Hemoglobin 12.2 g/dL (12.2-16.2); Ketones,Urine TRACE (Negative); Leukocyte Esterase,Urine TRACE (Negative); Lymphocytes # 1.8 K/mm3 (0.7-4.5); Lymphocytes % 25.9 % (10-50); Mean Corpuscular HGB Conc 32.4 g/dL (31.8-35.4); Mean Corpuscular Hemoglobin 29.8 pg (27.0-31.2); Mean Platelet Volume 9.8 fl (7.4-10.4); Monocytes # 0.4 K/mm3 (0.1-1.0); Monocytes % 5.6 % (1.7-9.3); Neutrophils # 4.6 K/mm3 (1.8-7.8); Neutrophils % 64.7 % (37.0-80.0); Nitrate,Urine POSITIVE (Negative); Platelet Count 367 K/mm3 (142-424); Protein,Urine TRACE (Negative); Red Blood Count 4.11 M/mm3 (4.20-5.40); Red Cell Distribution Width 14.1 % (11.5-17.5); Specific Gravity, Urine 1.025 (1.005-1.030); White Blood Count 7.1 K/mm3 (4.8-10.8)
[2022-07-12 14:18] LABS: Bilirubin,Urine 2+ (Negative)
[2022-07-12 14:27] LABS: Bacteria,Urine 4+ /lpf; RBC,Urine Occasional #/hpf (0-3)
[2022-07-12 15:06] LABS: Alanine Aminotransferase 15 U/L (12-78); Albumin Level 3.5 g/dl (3.5-5.0); Albumin/Globulin Ratio 1.3 (1.1-1.8); Alkaline Phosphatase 89 U/L (38-126); Anion Gap 6.7 mEq/L (5-15); Aspartate Amino Transferase 23 U/L (14-36); Bilirubin,Total 0.3 mg/dl (0.2-1.3); Blood Urea Nitrogen 25 mg/dl (7-17); Calcium 8.5 mg/dl (8.4-10.2); Carbon Dioxide 26 mmol/L (22.0-30.0); Chloride 108 mmol/L (98-107); Estimated Glomerular Filt Rate 68 ml/min (>60); GFR (African American) 82 ML/MIN (>60); Globulin 2.8 g/dL (1.3-3.2); Glucose 105 mg/dl (74-100); Potassium 3.7 mmoL/L (3.5-5.1); Sodium 137 mmol/L (136-145); Total Protein,Serum 6.3 g/dl (6.3-8.2)
== END ==
PROVIDERS: PCP Nurse Practitioner Family; Visit Provider Orthopaedic Surgery
DX: Z01.818 Encounter for other preprocedural examination (principal); K62.89 Other specified diseases of anus and rectum; B96.89 Other specified bacterial agents as the cause of diseases classified elsewhere; R82.90 Unspecified abnormal findings in urine
CPT/HCPCS: 36415; 80053; 81001; 85025; 87086; 87088; 87186

== ENCOUNTER 2022-07-18 07:48 | Day surgery (SDC) | payer MEDICARE, BC, SELFPAY ==
[2022-07-13 12:27] VITALS: BMI 20.5
[2022-07-18 08:28] VITALS: BP 150/74; PULSE 75; RESP 18; TEMP 36.3; O2SAT 97
--- NOTE | 2022-07-18 08:57 | P.PN_ITS ---
[facility] Disclaimer: The information contained in this section may have been updated after the patient was seen, as this information can be updated by other users. Medical History History of arthritis History of hypertension History of hypothyroidism Surgical History H/O: hysterectomy History of carpal tunnel release History of cholecystectomy History of surgery Family History Other No significant family history Social History (Updated 07/18/22 @ 08:39 by Fidelia Aviles RN) Smoking Status: Never smoker second hand exposure: No alcohol intake: never substance use type: denies use current occupational status: retired Travel in the last 8 weeks: None household members: spouse housing: house current occupational exposures/hazards: No caffeine: Yes [facility] Anesthesia Checklist Patient Identification Patient Identification: Arm Band and Verbal (Name & ) Structural Data Admitted From: Home Planned Operative Procedure/s: Left Carpal Tunnel Repair Consent for Planned Operative Procedure(s) Verified: Yes Verified Documents: Surgical Consent NPO Status Verified Time NPO: 00:00 Chart Verification Results Verified: CBC and BMP Additional verifications Anesthesia Reactions: No Hx Blood Transfusions: Yes Blood Transfusion Reaction: No Airway Assessment C-Spine Mobility Assessed: Yes TMJ Mobility Assessed: Yes Dentition: Good Dentition Neurological Assessment Level of Consciousness: Awake, Alert and Appropriate Anesthesia Plan Anesthesia Risk discussed: Yes ASA Class: II Anesthesia Type: MAC
--- NOTE | 2022-07-18 10:41 | EXP.OP.NOTE ---
Date of procedure: 07/18/22 Pre-op Diagnosis:: Left carpal tunnel syndrome Post-op Diagnosis:: Same Procedure performed:: Left endoscopic carpal tunnel release Surgeon:: Cesar Carmona DO RESTAURANT SUPERVISOR:: Anita Steele Anesthesia: MAC and local Estimated blood loss (mL): 0 Clinical Note:: 87-year-old active female with previous right endoscopic carpal tunnel release with near complete resolution of median nerve symptoms presenting today for left endoscopic carpal tunnel release secondary to carpal tunnel syndrome Operative findings:: See dictation Operative note:: Patient identified preoperatively. Left wrist marked with a yes and my initials. Transferred to operative suite. Placed upon the operating bed. With a hand table. Left upper extremity prepped and draped in normal sterile fashion. Once prepped and draped final operative timeout performed to identify proper patient procedure and extremity. Everyone involved in the case agreed. No counter indications to beginning. She did receive preoperative antibiotics. Marking pen was used to lili plan incision over the volar wrist crease. Esmarch was used exsanguinate extremity medic tourniquet inflated to 250 mmHg. Local anesthesia infiltrated to the proposed skin injection. Skin knife was used to incise the skin careful dissection was taken down the scissors and retractors to identify the most proximal aspect of the transverse carpal ligament once identified the dilator from the [place] endoscopic carpal tunnel release system was utilized followed by the left sided sled into the carpal tunnel. Once in the carpal tunnel transverse carpal ligament clearly seen superiorly within the wound. The rasp was used to remove soft tissue from the undersurface of transverse carpal ligament and the probe was used to identify the most distal aspect of transverse carpal ligament. Then the endoscopic hook blade was utilized for cutting the transverse carpal ligament this was visualized with a camera. Once complete release was complete copious irrigation wound performed skin closed with nylon stitch sterile hand dressing placed patient waken from sedation taken recovery in stable condition. Tourniquet time (min): 13 Condition: stable Disposition: PACU Complications:: None apparent
[2022-07-18 10:42] VITALS: BP 102/53; PULSE 63; RESP 14; TEMP 36.3; O2SAT 98
[2022-07-18 10:52] VITALS: BP 112/57; PULSE 61; RESP 15; O2SAT 100
[2022-07-18 11:02] VITALS: BP 141/73; PULSE 66; RESP 17; O2SAT 95
[2022-07-18 11:12] VITALS: BP 132/72; PULSE 68; RESP 17; O2SAT 97
== END 2022-07-18 11:45 | disposition home or self-care (01) ==
PROVIDERS: PCP Nurse Practitioner Family; Visit Provider Orthopaedic Surgery
PROC: (CPT 64721; principal; 2022-07-18 09:45)
DX: G56.02 Carpal tunnel syndrome, left upper limb (principal); I10 Essential (primary) hypertension; E03.9 Hypothyroidism, unspecified; Z79.899 Other long term (current) drug therapy
CPT/HCPCS: 64721; 96374

== ENCOUNTER → 2022-07-25 14:23 | Outpatient (POV) | payer MEDICARE, BC, SELFPAY ==
[2022-07-25 14:59] VITALS: BP 143/59; PULSE 69; RESP 18; O2SAT 97; BMI 20.5
--- NOTE | 2022-07-25 15:17 | EXP.PAIN.SOA ---
[facility] Pain Management SOAP Note Subjective:: Patient is a pleasant 87-year-old female who presents today for follow-up and medication refill. We are currently treating the patient for degenerative disc disease of cervical spine with cervical radiculopathy symptoms, carpal tunnel syndrome, arthritis. Today she rates her pain a 0 out of 10. Patient denies any new trauma or injury. Patient denies any change location or type of pain she experiences. Patient states she did not just have left carpal tunnel release approximately [address] Carmona. Patient denies any problems following this surgery. She states she does have a spinal cord stimulator in place with [employer] and this device continues to provide significant relief. Patient states that she has recently started seeing Dr. Alatorre's office. She states that she has had significant improvement from the time she started coming to see us. She is currently managed with diclofenac 75 mg twice daily. Patient denies any side effects from this medication. She states it helps significantly improve her arthritis in her hands. Patient is not on any scheduled medications. Her Ramón is [phone]. Its been reviewed and appropriate. Review of Systems: General: No recent weight changes, no fever, no sleep disturbances Respiratory: No cough, no shortness of air, no recurring pulmonary infections Cardiovascular/peripheral vascular: No chest pain, no palpitations, no edema, no shortness of breath Gastrointestinal: No new onset incontinence, normal bowel movements reported Genitourinary: No new onset incontinence Musculoskeletal: Neck pain, hand pain Psychiatric: [Normal mood/affect] Neurological: [Denies weakness in extremities], [denies balance issues] Objective:: Physical Exam: General: Alert and oriented x3, no acute distress, pleasant and cooperative Lungs: Respirations even and unlabored, symmetrical chest expansion Eyes: PERRL Musculoskeletal: Flexion and extension of cervical [spine] somewhat guarded secondary to pain, [antalgic gait noted] Neurological: Speech clear, no gross sensory deficit Assessment:: Degenerative disc disease of cervical spine with cervical radiculopathy symptoms, carpal tunnel syndrome, arthritis Plan:: Patient continues to have significant relief with her current medication regiment and does not require any additional injective therapy at this time. I will send in a refill of her diclofenac 75 mg twice daily and provide a 6-month supply of this medication. I will also order the patient a compounding cream. Patient will return to clinic in 6 months for reevaluation of symptoms, medication refill and follow-up. Patient has been instructed to contact the clinic with any concerns before the next appointment. Dr. Huntley has reviewed this note and agrees with this plan of care. This note was dictated using voice recognition software and make contain errors or omissions. [facility] Disclaimer: The information contained in this section may have been updated after the patient was seen, as this information can be updated by other users. Medical History (Updated 07/18/22 @ 11:08 by Fidelia Aviles RN) H/O Eckert's palsy History of arthritis History of hypertension History of hypothyroidism Surgical History H/O: hysterectomy History of carpal tunnel release History of cholecystectomy History of surgery Family History Other No significant family history Social History (Updated 07/18/22 @ 08:39 by Fidelia Aviles RN) Smoking Status: Never smoker second hand exposure: No alcohol intake: never substance use type: denies use current occupational status: retired Travel in the last 8 weeks: None household members: spouse housing: house current occupational exposures/hazards: No caffeine: Yes
== END | disposition home or self-care (01) ==
PROVIDERS: PCP Nurse Practitioner Family; Visit Provider Nurse Practitioner Family
DX: M50.10 Cervical disc disorder with radiculopathy, unspecified cervical region (principal); G56.00 Carpal tunnel syndrome, unspecified upper limb; M19.90 Unspecified osteoarthritis, unspecified site
CPT/HCPCS: 99212; G0463

== ENCOUNTER → 2022-11-04 10:58 | Outpatient (POV) | payer MEDICARE, BC, SELFPAY ==
[2022-11-04 11:00] VITALS: BP 143/70; PULSE 70; RESP 20; TEMP 36.4; O2SAT 97; BMI 19.7
--- NOTE | 2022-11-04 13:42 | EXP.PAIN.SOA ---
[facility] Pain Management SOAP Note Subjective:: The patient is a pleasant 87-year-old white female who has a spinal cord stimulator in place to help for degenerative disc disease of the cervical spine with cervical radiculopathy symptoms. She has had a fall and has needed adjustment to her stimulator. She has 1-lead where her contacts are out of range. She does have another lead which is covering her pain symptoms. She did get reprogram her stimulator to better control her pain. She does not need revision at this point. Objective:: Alert and oriented x3 no acute distress. Patient does have antalgic gait. Motor strength of lower extremity is 5/5. There is no gross sensory deficit. Stimulator was programmed by the [employer] sales representative gas service. One of the leads is contacts which are completely out the other lead was programmable. Assessment:: Degenerative disc disease of cervical spine with cervical radiculopathy symptoms. Plan:: Patient underwent reprogramming of her stimulator with good results today. We will follow-up with her in 3 months. If she has any issues between now and then she is to call us in the pain clinic. [facility] Disclaimer: The information contained in this section may have been updated after the patient was seen, as this information can be updated by other users. Medical History H/O Eckert's palsy History of arthritis History of hypertension History of hypothyroidism Surgical History H/O: hysterectomy History of carpal tunnel release History of cholecystectomy History of surgery spinal cord stimulator Family History Other No significant family history Social History Smoking Status: Never smoker second hand exposure: No alcohol intake: never substance use type: denies use current occupational status: retired Travel in the last 8 weeks: None household members: spouse housing: house current occupational exposures/hazards: No caffeine: Yes
== END ==
PROVIDERS: PCP Nurse Practitioner Family; Visit Provider Anesthesiology
DX: M50.10 Cervical disc disorder with radiculopathy, unspecified cervical region (principal)
CPT/HCPCS: 99212; G0463

== ENCOUNTER 2023-01-13 18:24 | Emergency (ER) | payer MEDICARE, BC, SELFPAY ==
[2023-01-13 18:45] VITALS: BP 162/67; PULSE 74; RESP 14; TEMP 36.8; O2SAT 96; BMI 19.7
--- NOTE | 2023-01-13 19:30 | EXP.UTC ---
Discharge Plan Disposition Patient Disposition: Home, Self-Care Condition: Good Prescriptions Prescriptions: No Action indapamide 2.5 MG tablet 2.5 mg PO DAILY levothyroxine 50 MCG tablet 50 mcg PO DAILY diclofenac sodium 75 MG tablet,delayed release (DR/EC) 75 mg PO BID Qty: 60 5RF diclofenac sodium [diclofenac sodium] 75 mg tablet,delayed release (DR/EC) 75 mg PO BID Qty: 60 2RF acetaminophen 500 MG tablet 500 mg PO NEEDED PRN (Reason: pain) nitrofurantoin macrocrystal 50 mg capsule 50 mg PO BID Rx Instructions: must administer with a meal/food Referrals Follow up/Referrals: Nakita Marc [Primary Care Provider] - See instructions Activity Restrictions/Add. Instructions Additional Instructions/Restrictions: Leave area open to air Allow steri strips and dermabond to wear off FOllow up with your Family Doctor if needed Straight to ER if any life threatening symptoms Clinical Impressions Clinical Impression: Skin tear Instructions Patient Instructions: DI for Laceration Repair-Skin Glue Discharge ED Provider: Richelle Blakely [facility] General Stated complaint: AO RT arm lac 1800 Mode of Arrival: Ambulatory Source of Information: Patient Limitations: No Limitations Time Seen by Provider: 01/13/23 19:05 Description of Symptoms (Recalled from Triage Doc. by RN): PATIENT C/O SKIN TEAR TO RIGHT FOREARM TODAY HEENT Symptoms (Recalled from RN notes): No Resp Symptoms (Recalled from RN notes): No Skin Symptoms (Recalled from RN notes): Yes MS Symptoms (Recalled from RN notes): No Functional Status (Recalled from RN notes): WNL History of Present Illness Provider Complaint: Patient states that she was packing a flower basket earlier and it caused two skin tears on her right forearm States that she came in to get them checked to see if they could be glued Related Data Home Medications Medication Instructions Recorded Confirmed indapamide 2.5 mg tablet 2.5 mg PO DAILY High blood pressure 07/25/17 08/02/22 levothyroxine 50 mcg tablet 50 mcg PO DAILY THYROID 07/25/17 08/02/22 acetaminophen 500 mg tablet 500 mg PO NEEDED PRN pain 12/04/19 08/02/22 nitrofurantoin macrocrystal 50 mg 50 mg PO BID UTI 07/18/22 08/02/22 capsule Previous Rx's Medication Instructions Recorded diclofenac sodium 75 mg 75 mg PO BID Pain #60 tabs 07/25/22 tablet,delayed release diclofenac sodium 75 mg 75 mg PO BID #60 tabs 09/23/22 tablet,delayed release Allergies Allergy/AdvReac Type Severity Reaction Status Date / Time No Known Allergies Allergy Verified 08/02/22 11:17 Worker's Comp Is this a Worker's Comp case?: [facility] Disclaimer: The information contained in this section may have been updated after the patient was seen, as this information can be updated by other users. Medical History H/O Eckert's palsy History of arthritis History of hypertension History of hypothyroidism Surgical History H/O: hysterectomy History of carpal tunnel release History of cholecystectomy History of surgery spinal cord stimulator Family History Other No significant family history Social History Smoking Status: Never smoker second hand exposure: No alcohol intake: never substance use type: denies use current occupational status: retired Travel in the last 8 weeks: None household members: spouse housing: house current occupational exposures/hazards: No caffeine: Yes ROS Obtained: Yes All systems reviewed & no additional complaints except as documented and Yes Systems reviewed as appropriate & no additional complaints except as documented Constitutional Constitutional: Reports system reviewed and no additional complaints, excep
[2023-01-13 19:31] VITALS: BP 162/67; PULSE 74; RESP 14; TEMP 36.8; O2SAT 96
== END 2023-01-13 19:34 | disposition home or self-care (01) ==
PROVIDERS: Emergency Provider Nurse Practitioner; PCP Nurse Practitioner Family
DX: S51.801A Unspecified open wound of right forearm, initial encounter (principal); E03.9 Hypothyroidism, unspecified; I10 Essential (primary) hypertension; W26.8XXA Contact with other sharp object(s), not elsewhere classified, initial encounter
CPT/HCPCS: 99212; 99214; G0463

== ENCOUNTER → 2023-01-26 13:17 | Outpatient (POV) | payer MEDICARE, BC, SELFPAY ==
--- NOTE | 2023-01-26 13:43 | EXP.PAIN.SOA ---
[facility] Pain Management SOAP Note Subjective:: Patient is a pleasant 88-year-old female who presents today for follow-up. We are currently treating the patient for degenerative disc disease of cervical spine with cervical radiculopathy symptoms, carpal tunnel syndrome, arthritis. Today she rates her pain a 7 out of 10. Patient denies any new trauma or injury. Patient denies any change location or type of pain she experiences. She states she continues to have trouble with her [employer] spinal cord stimulator device. Patient states she is having more difficulty charging the device as well as its not functioning at random times. Patient does state that following her fall a few months ago there was a lead that moved and is no longer within range. Patient is questioning whether or not it is best to replace her device then to continue fight with getting it to work. Patient has had multiple reprogramming with [employer] risk control representative however it has been limited due to only having 1-lead intact and functioning. Patient continues to do well following her carpal tunnel release on the left side by Dr. Carmona. She is currently managed with diclofenac 75 mg twice daily. Patient denies any side effects from this medication. She states that she does not need any refills at this time. Patient is not on any scheduled medications. Her Ramón is [id number]. Its been reviewed and appropriate. Review of Systems: General: No recent weight changes, no fever, no sleep disturbances Respiratory: No cough, no shortness of air, no recurring pulmonary infections Cardiovascular/peripheral vascular: No chest pain, no palpitations, no edema, no shortness of breath Gastrointestinal: No new onset incontinence, normal bowel movements reported Genitourinary: No new onset incontinence Musculoskeletal: Bilateral arm pain neck pain Psychiatric: [Normal mood/affect] Neurological: [Denies weakness in extremities], [denies balance issues] Objective:: Physical Exam: General: Alert and oriented x3, no acute distress, pleasant and cooperative Lungs: Respirations even and unlabored, symmetrical chest expansion Eyes: PERRL Musculoskeletal: Flexion and extension of cervical [spine] somewhat guarded secondary to pain, [antalgic gait noted] Neurological: Speech clear, no gross sensory deficit Assessment:: Degenerative disc disease of cervical spine with cervical radiculopathy symptoms, carpal tunnel syndrome, arthritis, nonfunctioning spinal cord stimulator Plan:: Patient continues to experience worsening pain in her neck and upper extremities with limited range of motion. Patient continues to have more trouble with her [employer] spinal cord stimulator of minimal functioning and trouble recharging the device. Patient has been readjusted multiple times with portions not being able to cover due to a lead moving out of contact. This was related to a recent fall over the last few months. I have discussed with the patient that she may benefit from spinal cord stimulator removal and replacement. Patient has had her spinal cord stimulator and for approximately 5 years and is coming to the end of life of the device. Risk and benefits of this procedure were explained to the patient and she would like to proceed forward with this plan of care. I will discuss this in detail with Dr. Huntley. Patient will be submitted to insurance for a spinal cord stimulator removal and replacement we will contact the patient once we have official approval for specific time and date. Patient does not need any refills of her diclofenac at this time. Patient has been instructed to contact the clinic with any concerns before the next appointment. Dr. Huntley has reviewed this note and agrees with this plan of care. This note was dictated using voice recognition software and make contain errors or omissions. [facility] Disclaimer: The information contained in this section may have been updated after the patient w
[2023-01-26 13:49] VITALS: BP 141/73; PULSE 72; RESP 20; O2SAT 95; BMI 20.5
== END ==
PROVIDERS: Visit Provider Nurse Practitioner Family
DX: M50.10 Cervical disc disorder with radiculopathy, unspecified cervical region (principal); G56.00 Carpal tunnel syndrome, unspecified upper limb; M19.90 Unspecified osteoarthritis, unspecified site; T85.11 Breakdown (mechanical) of implanted electronic stimulator of nervous system
CPT/HCPCS: 99212; G0463

== ENCOUNTER → 2023-03-29 12:45 | Outpatient (CLI) | payer MEDICARE, BC, SELFPAY ==
[2023-03-29 13:16] LABS: Basophils % 0.5 % (0.1-2.0); Eosinophils # 0.2 K/mm3 (0.0-0.4); Eosinophils % 2.5 % (0.1-12.0); Hematocrit 36.7 % (37.0-47.0); Hemoglobin 12.6 g/dL (12.2-16.2); Lymphocytes # 1.9 K/mm3 (0.7-4.5); Lymphocytes % 26.3 % (10-50); Mean Corpuscular HGB Conc 34.5 g/dL (31.8-35.4); Mean Corpuscular Hemoglobin 31.7 pg (27.0-31.2); Mean Platelet Volume 9.2 fl (7.4-10.4); Monocytes # 0.4 K/mm3 (0.1-1.0); Monocytes % 5.9 % (1.7-9.3); Neutrophils # 4.7 K/mm3 (1.8-7.8); Neutrophils % 64.9 % (37.0-80.0); Platelet Count 329 K/mm3 (142-424); Red Blood Count 3.99 M/mm3 (4.20-5.40); Red Cell Distribution Width 13.6 % (11.5-17.5); White Blood Count 7.3 K/mm3 (4.8-10.8)
[2023-03-29 14:55] LABS: Anion Gap 13.6 mEq/L (5-15); Blood Urea Nitrogen 27 mg/dl (7-17); Calcium 8.9 mg/dl (8.4-10.2); Carbon Dioxide 28 mmol/L (22.0-30.0); Chloride 100 mmol/L (98-107); Estimated Glomerular Filt Rate 47 ml/min (>60); GFR (African American) 57 ML/MIN (>60); Glucose 90 mg/dl (74-100); Potassium 3.6 mmoL/L (3.5-5.1); Sodium 138 mmol/L (136-145)
== END ==
PROVIDERS: PCP Nurse Practitioner Family; Visit Provider Anesthesiology
DX: Z01.810 Encounter for preprocedural cardiovascular examination (principal)
CPT/HCPCS: 36415; 80048; 85025

== ENCOUNTER 2023-03-31 07:50 | Day surgery (SDC) | payer MEDICARE, BC, SELFPAY ==
[2023-03-28 16:49] VITALS: BMI 20.5
[2023-03-31] VITALS (9 sets, daily range): BP systolic 109–143; BP diastolic 61–79; PULSE 60–70; RESP 16–18; TEMP 36.2–36.7; O2SAT 94–97
--- OUTSIDE RECORDS SUMMARY | 2023-03-31 07:53 | XMS_ITS | Clinical Summary ---
Author Name Unknown Address [address] [place] [address] Phone Organization [facility] Address [address] [place] [address] Phone Care Team Providers Care Senior Planning Manager Name Role Phone Joselito Vaughan Unavailable Unavailable Conditions or Problems Problem Name Problem Code Onset Date Status Entry Date Provider Comment Standard Description Annotate ABRASION, LEFT LEG, INFECTED L08.89 (ICD-10-CM ) Active Malachi Olmstead MD Other specified local infections of the skin and subcutaneous tissue ADVERSE DRUG REACTION 06278575 (SNOMED CT) 07/11 Resolved 07/11 Yue Vela Adverse reaction to drug NAUSEA 229412211 (SNOMED CT) 06/12 Resolved 06/12 Yue Vela Nausea HYPOKALEMIA [id number] (SNOMED CT) 08/14 Resolved 08/14 Yue Vela Hypokalemia PLANTAR WART [id number] (SNOMED CT) 11/20 Active 11/20 Yue Vela Verruca plantaris
--- NOTE | 2023-03-31 09:42 | P.PNANES_ITS ---
[facility] Disclaimer: The information contained in this section may have been updated after the patient was seen, as this information can be updated by other users. Medical History H/O Eckert's palsy History of arthritis History of hypertension History of hypothyroidism Surgical History H/O: hysterectomy History of carpal tunnel release History of cholecystectomy History of surgery spinal cord stimulator Family History Other No significant family history Social History Smoking Status: Never smoker second hand exposure: No alcohol intake: never substance use type: denies use current occupational status: other Travel in the last 8 weeks: None household members: spouse housing: house current occupational exposures/hazards: No caffeine: Yes [facility] Anesthesia Checklist Patient Identification Patient Identification: Arm Band, Family and Verbal (Name & ) Structural Data Admitted From: Home Planned Operative Procedure/s: SC Stimulator Replacement Consent for Planned Operative Procedure(s) Verified: Yes Verified Documents: Surgical Consent and History and Physical NPO Status Verified Time NPO: 22:00 Chart Verification Results Verified: CBC, BMP and Chest Xray Additional verifications Patient : No Anesthesia Reactions: No Hx Blood Transfusions: Yes Blood Transfusion Reaction: No Cephalosporin Allergy: No Cardiovascular Assessment Heart Sounds: S1 & S2 Pulse Rhythm: Irregular Peripheral Edema: No Airway Assessment Mallampati Score:: Class II C-Spine Mobility Assessed: Yes (Limited extension) TMJ Mobility Assessed: Yes Dentition: Dentures-good fit (Top.) Neurological Assessment Level of Consciousness: Awake, Alert, Appropriate and Follows Commands Hx Seizures: No Numbness or tingling in extremities: No Anesthesia Plan Anesthesia Risk discussed: Yes Anesthesia Plan: Verified ASA Class: III Anesthesia Type: MAC
--- NOTE | 2023-03-31 12:40 | P.OP_ITS ---
Date of procedure: 03/31/23 Pre-op Diagnosis:: Nonfunctioning spinal cord stimulator Post-op Diagnosis:: Same Procedure performed:: Replacement spinal cord stimulator epidural lead x2 and replacement of stimulator battery Surgeon:: Jian Huntley MD CARDIOLOGY PHYSICIAN:: Other Anesthesia: MAC Estimated blood loss (mL): 5 Clinical Note:: This patient is a pleasant 88-year-old white female who recently fell and has 1- lead that is migrated with contacts out. Her battery is also end-of-life and not functioning appropriately. We will plan on replacing her leads and battery today. I had a long discussion with the patient she has issues recharging her battery so I do believe that she would benefit from replacing her body with a nonrechargeable prime battery. We will replace leads and battery today. Operative findings:: None Operative note:: Informed consent was obtained the risk and benefits of the procedure were explained to the patient. Patient was taken the operating room placed prone on the procedure table. She was prepped and draped in sterile fashion. C-arm fluoroscopy was used to view the battery and leads. The skin and subcutaneous tissues overlying the battery was anesthetized using lidocaine. I made an incision and dissected out the battery. We disconnected the leads. I then made an incision over the lead anchors and dissected out the leads. Over a wire and percutaneous lead introducer kit we were able to change out the leads and get them in appropriate position at the T8 vertebral body. The leads were secured to the fascia with anchor device and 2-0 Prolene. I tunneled leads to the generator pocket which was enlarged inferiorly. We connected this to a prime battery. Impedances were checked and found to be okay. Both incisions were irrigated with antibiotic solution. Both incisions were then closed with 2-0 Vicryl followed by 4-0 nylon and subcutaneous krystin. Patient tolerated the procedure well with no complications. Patient was programmed by the [employer] underwriting service representative with good stimulation in the pain. Plan and disposition: We will follow-up with this patient in 1 week for wound check and reprogram. We will follow-up in 2 to 3 weeks for suture removal. Condition: stable Disposition: PACU Complications:: none
--- NOTE | 2023-03-31 13:37 | EXP.ANES.I ---
[facility] Anesthesia Record Part I Anesthesia Record I Intake, IV Amount: 1,000 Hydration: Adequate Estimated blood loss (mL): 10 Urine output (mL): 0 Blood Products used (#): none Blood Pressure: 122/63 SaO2: 94 Pulse Rate: 69 Airway Patency: Patent Respiratory Rate: 16 Temperature: 97.1 F Patient is:: Awake (Talking) and Stable Stable to PACU at:: 11:38
== END 2023-03-31 11:40 | disposition home or self-care (01) ==
PROVIDERS: PCP Nurse Practitioner Family; Visit Provider Anesthesiology
PROC: (CPT 63663; principal; 2023-03-31 09:30)
DX: T85.192A Other mechanical complication of implanted electronic neurostimulator of spinal cord electrode (lead), initial encounter (principal); Z45.49 Encounter for adjustment and management of other implanted nervous system device
CPT/HCPCS: 63663 ×2; 63685; 96374; C1778; C1820; J3370

== ENCOUNTER → 2023-04-05 10:50 | Outpatient (POV) | payer MEDICARE, BC, SELFPAY ==
--- NOTE | 2023-04-05 11:00 | EXP.PAIN.SOA ---
[facility] Pain Management SOAP Note Subjective:: Patient is a pleasant 88-year-old female who presents today for 1 week postop of spinal cord stimulator replacement on 03/31/2023. We are currently treating the patient for degenerative disc disease of cervical spine with cervical radiculopathy symptoms, carpal tunnel syndrome, arthritis. Today she rates her pain a 3 out of 10. Patient states this is the best she has felt for at least 5 years. She states that the programming on her new [employer]CS device is working well and she has been able to increase her activity with decreased pain symptoms. Patient denies any issues following her surgery. She does state that there was a miscommunication regarding the antibiotic that she was supposed to have after and that she never did pick it up however she states she does not feel like she needs this medication. Patient is currently managed with diclofenac 75 mg twice a day. She denies any side effects from this medication. She is not requesting any refills at this time. She is also prescribed compounded cream. Her Ramón has been reviewed and is appropriate. Review of Systems: General: No recent weight changes, no fever, no sleep disturbances Respiratory: No cough, no shortness of air, no recurring pulmonary infections Cardiovascular/peripheral vascular: No chest pain, no palpitations, no edema, no shortness of breath Gastrointestinal: No new onset incontinence, normal bowel movements reported Genitourinary: No new onset incontinence Musculoskeletal: Neck pain Psychiatric: [Normal mood/affect] Neurological: [Denies weakness in extremities], [denies balance issues] Objective:: Physical Exam: General: Alert and oriented x3, no acute distress, pleasant and cooperative Lungs: Respirations even and unlabored, symmetrical chest expansion Eyes: PERRL Musculoskeletal: Flexion and extension of cervical [spine] somewhat guarded secondary to pain, [antalgic gait noted] Neurological: Speech clear, no gross sensory deficit Assessment:: Degenerative disc disease of cervical spine with cervical radiculopathy symptoms, carpal tunnel syndrome, arthritis Plan:: Patient is doing well following her spinal cord stimulator replacement. Her incision sites are clean, dry, well-approximated with minimal erythema noted and sutures intact. I have counseled the patient to continue her postop restrictions of minimal bending, twisting or lifting, no submerging in water until her incisions are fully healed and to continue to use her abdominal binder to prevent seroma formation. Patient will return to clinic in 2 weeks for suture removal and reevaluation of symptoms and plan of care. Patient has been instructed to contact the clinic with any concerns before the next appointment. Dr. Huntley has reviewed this note and agrees with this plan of care. This note was dictated using voice recognition software and make contain errors or omissions. [facility] Disclaimer: The information contained in this section may have been updated after the patient was seen, as this information can be updated by other users. Medical History H/O Eckert's palsy History of arthritis History of hypertension History of hypothyroidism Surgical History H/O: hysterectomy History of carpal tunnel release History of cholecystectomy History of surgery spinal cord stimulator Family History Other No significant family history Social History Smoking Status: Never smoker second hand exposure: No alcohol intake: never substance use type: denies use current occupational status: retired Travel in the last 8 weeks: None household members: spouse housing: house current occupational exposures/hazards: No caffeine: Yes
[2023-04-05 11:05] VITALS: BP 139/85; PULSE 78; RESP 18; O2SAT 95; BMI 21.4
== END ==
PROVIDERS: PCP Nurse Practitioner Family; Visit Provider Nurse Practitioner Family
DX: M50.10 Cervical disc disorder with radiculopathy, unspecified cervical region (principal); G56.00 Carpal tunnel syndrome, unspecified upper limb; M19.90 Unspecified osteoarthritis, unspecified site; Z96.82 Presence of neurostimulator
CPT/HCPCS: 99212; G0463

== ENCOUNTER → 2023-04-19 12:54 | Outpatient (POV) | payer MEDICARE, BC, SELFPAY ==
--- NOTE | 2023-04-19 13:12 | EXP.PAIN.SOA ---
[facility] Pain Management SOAP Note Subjective:: Patient is a pleasant 88-year-old female who presents today for suture removal. We are currently treating the patient for degenerative disc disease of cervical spine with cervical radiculopathy symptoms, carpal tunnel syndrome, arthritis. Today she rates her pain a 0 out of 10. Patient states she is continued to do well following her spinal cord stimulator replacement surgery. She states she has been able to increase her activity with decreased pain symptoms. She states that she has been in contact with the [employer] representatives and they were scheduled to meet with her on Monday for possible reprogramming however she states she does not even need this. Patient states she did talk to them and let them know that she would call them if she needed them. Patient is currently managed with diclofenac 75 mg twice a day. She denies any side effects from this medication and states she does not need any refills. Patient is also prescribed compounded cream. Her Ramón has been reviewed and is appropriate. Review of Systems: General: No recent weight changes, no fever, no sleep disturbances Respiratory: No cough, no shortness of air, no recurring pulmonary infections Cardiovascular/peripheral vascular: No chest pain, no palpitations, no edema, no shortness of breath Gastrointestinal: No new onset incontinence, normal bowel movements reported Genitourinary: No new onset incontinence Musculoskeletal: Neck pain Psychiatric: [Normal mood/affect] Neurological: [Denies weakness in extremities], [denies balance issues] Objective:: Physical Exam: General: Alert and oriented x3, no acute distress, pleasant and cooperative Lungs: Respirations even and unlabored, symmetrical chest expansion Eyes: PERRL Musculoskeletal: Flexion and extension of cervical [spine] somewhat guarded secondary to pain, [antalgic gait noted] Neurological: Speech clear, no gross sensory deficit Incision sites clean, dry, well-approximated with no erythema noted sutures intact Assessment:: Degenerative disc disease of cervical spine with cervical radiculopathy symptoms, carpal tunnel syndrome, arthritis Plan:: Patient continues to do well from her spinal cord stimulator replacement. Patient's sutures and krystin were all removed during today's visit and Steri-Strips applied. I have counseled the patient to continue her postop restrictions for the next month. Patient will return to clinic in 1 month for reevaluation of symptoms and plan of care. Patient has been instructed to contact the clinic with any concerns before the next appointment. Dr. Huntley has reviewed this note and agrees with this plan of care. This note was dictated using voice recognition software and make contain errors or omissions. [facility] Disclaimer: The information contained in this section may have been updated after the patient was seen, as this information can be updated by other users. Medical History H/O Eckert's palsy History of arthritis History of hypertension History of hypothyroidism Surgical History H/O: hysterectomy History of carpal tunnel release History of cholecystectomy History of surgery spinal cord stimulator Family History Other No significant family history Social History Smoking Status: Never smoker second hand exposure: No alcohol intake: never substance use type: denies use current occupational status: retired Travel in the last 8 weeks: None household members: spouse housing: house current occupational exposures/hazards: No caffeine: Yes
[2023-04-19 13:23] VITALS: BP 133/56; PULSE 75; RESP 18; O2SAT 96; BMI 20.5
== END ==
PROVIDERS: PCP Nurse Practitioner Family; Visit Provider Nurse Practitioner Family
DX: M50.10 Cervical disc disorder with radiculopathy, unspecified cervical region (principal); G56.00 Carpal tunnel syndrome, unspecified upper limb; M19.90 Unspecified osteoarthritis, unspecified site; Z96.82 Presence of neurostimulator; Z48.02 Encounter for removal of sutures
CPT/HCPCS: 99212; 99213; G0463

== ENCOUNTER → 2023-05-18 12:57 | Outpatient (POV) | payer MEDICARE, BC, SELFPAY ==
--- NOTE | 2023-05-18 13:29 | A.OFFVIS_ITS ---
[facility] Pain Management SOAP Note Subjective:: Patient is a pleasant 88-year-old female who presents today for follow-up. We are currently treating the patient for degenerative disc disease of cervical spine with cervical radiculopathy symptoms, carpal tunnel syndrome, arthritis, low back pain with lumbar radiculopathy symptoms. Today she rates her pain a 3 out of 10. Patient denies any new trauma or injury. She denies any change to location or type of pain she experiences. Patient does state that she has still been experiencing some right leg numbness as well as some neck pain with right shoulder pain however she does believe the change in the weather played a role. Patient does have a spinal cord stimulator in place from [email or web address] and is meeting with career services representative today for possible reprogramming. Patient is currently managed with diclofenac 75 mg twice a day. She denies any side effects from these medications along with compounded cream. She does state that the cream has made a tremendous improvement in her hand pain. Her Ramón has been reviewed and is appropriate. Review of Systems: General: No recent weight changes, no fever, no sleep disturbances Respiratory: No cough, no shortness of air, no recurring pulmonary infections Cardiovascular/peripheral vascular: No chest pain, no palpitations, no edema, no shortness of breath Gastrointestinal: No new onset incontinence, normal bowel movements reported Genitourinary: No new onset incontinence Musculoskeletal: Neck pain, right leg numbness Psychiatric: [Normal mood/affect] Neurological: [Denies weakness in extremities], [denies balance issues] Objective:: Physical Exam: General: Alert and oriented x3, no acute distress, pleasant and cooperative Lungs: Respirations even and unlabored, symmetrical chest expansion Eyes: PERRL Musculoskeletal: Flexion and extension of cervical [spine] somewhat guarded secondary to pain, [antalgic gait noted] Neurological: Speech clear, no gross sensory deficit Assessment:: Degenerative disc disease of cervical spine with cervical radiculopathy symptoms, carpal tunnel syndrome, arthritis, low back pain with lumbar radiculopathy symptoms Plan:: Patient continues to do well following her spinal cord stimulator replacement. Probation Manager was able to talk with the patient and review over the programming. I have counseled the patient to try her compounded cream on her neck and shoulder pain. I have also discussed with the patient that she may benefit from cervical epidurals in the future. We will discuss this at future visits. Patient will return to clinic in 3 months for reevaluation of symptoms and plan of care. Patient has been instructed to contact the clinic with any concerns before the next appointment. Dr. Huntley has reviewed this note and agrees with this plan of care. This note was dictated using voice recognition software and make contain errors or omissions. [facility] Disclaimer: The information contained in this section may have been updated after the patient was seen, as this information can be updated by other users. Medical History H/O Eckert's palsy History of arthritis History of hypertension History of hypothyroidism Surgical History H/O: hysterectomy History of carpal tunnel release History of cholecystectomy History of surgery spinal cord stimulator Family History Other No significant family history Social History Smoking Status: Never smoker second hand exposure: No alcohol intake: never substance use type: denies use current occupational status: retired Travel in the last 8 weeks: None household members: spouse housing: house current occupational exposures/hazards: No caffeine: Yes
[2023-05-18 14:02] VITALS: BP 140/76; PULSE 72; RESP 18; O2SAT 97; BMI 20.3
== END ==
PROVIDERS: PCP Nurse Practitioner Family; Visit Provider Nurse Practitioner Family
DX: M50.10 Cervical disc disorder with radiculopathy, unspecified cervical region (principal); G56.00 Carpal tunnel syndrome, unspecified upper limb; M19.90 Unspecified osteoarthritis, unspecified site; M54.16 Radiculopathy, lumbar region; Z96.82 Presence of neurostimulator
CPT/HCPCS: 99212; G0463

== ENCOUNTER 2023-08-16 13:21 | Outpatient (POV) | payer MEDICARE, BC, SELFPAY ==
[2023-08-16 13:36] VITALS: BP 148/79; PULSE 79; RESP 18; O2SAT 96; BMI 20.5
--- NOTE | 2023-08-16 14:38 | XR_ITS ---
FINAL REPORT CLINICAL HISTORY: .mid/low back pain possible lead movement COMPARISON: None FINDINGS: CERVICAL SPINE 5 views were obtained. There is no acute fracture. There is mild anterolisthesis of C3 on C4. There is leftward curvature of the cervical spine. Facet joints are properly aligned. There is moderate degenerative change. Mild osteophytes are noted. IMPRESSION: Moderate degenerative change without acute bony abnormality. THORACIC SPINE 3 views of the thoracic spine were obtained. There is no acute fracture. There is no malalignment. There is mild degenerative change. Spinal stimulator leads are noted at the T7-8 level. IMPRESSION: Mild degenerative change without acute bony abnormality. Spinal stimulator leads at the T7-8 level. LUMBOSACRAL SPINE 5 views of the lumbosacral spine were obtained. There is no acute fracture. There is no malalignment. There are moderate and severe degenerative changes. There is rightward curvature of the lumbar spine. Multilevel vacuum phenomenon is noted. There are vascular calcifications. IMPRESSION: Moderate and severe degenerative changes without acute bony abnormality. Reviewed, Interpreted and Dictated by John Guajardo III, MD Transcribed by Nancy Story Authenticated and [facility]
--- NOTE | 2023-08-16 16:11 | A.OFFVIS_ITS ---
[facility] Pain Management SOAP Note Subjective:: Patient is a pleasant 88-year-old female who presents today for follow-up. Today she rates her pain a 6 out of 10. Patient states that she feels like the stimulator is not working as well as it should be. She states this is her third device and initially when she got it put and it was working well however over the last month it does not seem to be doing what it supposed to. Patient denies any specific trauma or injury that possibly led to this change. She feels like she does have some swelling in her back and that when [employer] representative have tried to reprogram that it does get better coverage but it just does not last. Patient does also state that she is having trouble with constipation as well as that she is urinating a lot. Patient is currently managed with diclofenac 75 mg twice a day and compounded cream. She does state that this has helped significantly and that she may need refills on her cream. Patient does state that due to the worsening pain she is even having trouble with her right leg with walking. Patient does also state from our last visit t hat her [id number] was diagnosed with brain cancer so that they have been going through a lot regarding this diagnosis and her stay up at . Her Ramón has been reviewed and is appropriate. Review of Systems: General: No recent weight changes, no fever, no sleep disturbances Respiratory: No cough, no shortness of air, no recurring pulmonary infections Cardiovascular/peripheral vascular: No chest pain, no palpitations, no edema, no shortness of breath Gastrointestinal: No new onset incontinence, normal bowel movements reported Genitourinary: No new onset incontinence Musculoskeletal: Low back pain, right leg pain Psychiatric: [Normal mood/affect] Neurological: [Denies weakness in extremities], [denies balance issues] Objective:: Physical Exam: General: Alert and oriented x3, no acute distress, pleasant and cooperative Lungs: Respirations even and unlabored, symmetrical chest expansion Eyes: PERRL Musculoskeletal: Flexion and extension of lumbar [spine] somewhat guarded secondary to pain, [antalgic gait noted] Neurological: Speech clear, no gross sensory deficit Skin: Within normal limits no erythema noted around her SCS generator Assessment:: Degenerative disc disease of cervical and lumbar spine with cervical and lumbar radiculopathy symptoms, carpal tunnel syndrome, arthritis Plan:: Patient is experiencing worsening pain in her low back and right leg. Patient did have limited range of motion of her lumbar spine. I have discussed with the patient due to her change in sensation with her spinal cord stimulator that I will do x-ray imaging to verify lead placement and that these have not moved. I will also reach out to [employer] representative to discuss this as well as Dr. Huntley. Patient will be ordered refills on her compounded cream and will return to clinic in 2 weeks for reevaluation of symptoms and plan of care. Patient has been instructed to contact the clinic with any concerns before the next appointment. Dr. Huntley has reviewed this note and agrees with this plan of care. This note was dictated using voice recognition software and make contain errors or omissions. [facility] Disclaimer: The information contained in this section may have been updated after the patient was seen, as this information can be updated by other users. Medical History H/O Eckert's palsy History of arthritis History of hypertension History of hypothyroidism Surgical History H/O: hysterectomy History of carpal tunnel release History of cholecystectomy History of surgery spinal cord stimulator Family History Other No significant family history Social History Smoking Status: Never smoker second hand exposure: No alcohol intake: never substance use type: denies use current occupational status: retired Travel in the last 8 weeks: None household members: spouse housing: house current occupational exposures/hazards: No caffeine: Yes
== END 2023-08-16 23:59 ==
PROVIDERS: PCP Nurse Practitioner Family; Visit Provider Nurse Practitioner Family
DX: M50.10 Cervical disc disorder with radiculopathy, unspecified cervical region (principal); M51.16 Intervertebral disc disorders with radiculopathy, lumbar region; G56.00 Carpal tunnel syndrome, unspecified upper limb; M19.90 Unspecified osteoarthritis, unspecified site; Z96.82 Presence of neurostimulator
CPT/HCPCS: 72084; 99212; G0463

== ENCOUNTER 2023-08-30 14:05 | Outpatient (POV) | payer MEDICARE, BC, SELFPAY ==
[2023-08-30 14:15] VITALS: BP 128/54; PULSE 75; RESP 18; O2SAT 96; BMI 20.5
--- NOTE | 2023-08-30 16:07 | A.OFFVIS_ITS ---
[facility] Pain Management SOAP Note Subjective:: Patient is a pleasant 88-year-old female who presents today for 2-week follow- up. Today she rates her pain a 6 out of 10. Patient denies any new trauma or injury. She does state that she still feels like her stimulator is not working the way it should. Patient states that even today that she does not feel like it is working and turned on. Patient states that she has difficulty when she gets up in the morning trying to get up out of bed. Patient does also state that there have been 2 occurrences where she did have shocking sensations throughout her body. Patient has been does state that they had turned up the device however it was not turned up high when this occurred. Patient's does state that he does have questions that whether or not it is functioning correctly. At her last visit we did order x-ray imaging to confirm lead placement and she would like to review over this at today's visit. Patient does state that she is having harder time dealing with this stimulator because of where she has had the 2 other stimulators in the past and that they did not do this in comparison. Her Ramón has been reviewed and is appropriate. Review of Systems: General: No recent weight changes, no fever, no sleep disturbances Respiratory: No cough, no shortness of air, no recurring pulmonary infections Cardiovascular/peripheral vascular: No chest pain, no palpitations, no edema, no shortness of breath Gastrointestinal: No new onset incontinence, normal bowel movements reported Genitourinary: No new onset incontinence Musculoskeletal: Low back pain, right leg numbness Psychiatric: [Normal mood/affect] Neurological: [Denies weakness in extremities], [denies balance issues] Objective:: Physical Exam: General: Alert and oriented x3, no acute distress, pleasant and cooperative Lungs: Respirations even and unlabored, symmetrical chest expansion Eyes: PERRL Musculoskeletal: Flexion and extension of lumbar [spine] somewhat guarded secondary to pain, [antalgic gait noted] Neurological: Speech clear, no gross sensory deficit Skin: Area over the stimulator generated is unremarkable with no erythema or swelling noted, no pain with palpation Assessment:: Degenerative disc disease of cervical and lumbar spine with cervical and lumbar radiculopathy symptoms Plan:: Patient continues to have issues with her current stimulator programming. I have discussed with the patient that due to this being her third stimulator that it may be in fact just positional due to the scarring from the previous devices. I have also gone over that her x-ray imaging did not show significant movement with her leads and that her last reprogramming with [employer] still show that it was getting good connection and working correctly. I have reached out to [employer] dealer compliance representative to get her reprogrammed next week. Patient's is the one who typically deals with the remote and I have counseled the patient that it may be beneficial for her to start using it so she gets more comfortable with the programming and feeling she experiences. I have also explained that when we reprogram her device this is the time to evaluate whether or not if the device is working correctly but if that is capturing. I have also discussed with the patient that I did discuss with [employer] at length regarding her symptoms and situation and then he did agree that it may take a few more times to reprogram her device to get better coverage. We will plan on having her follow-up with Dr. Huntley at her next appointment after the reprogramm ing next week. Patient acknowledges understanding and agrees with this plan of care. Patient has been instructed to contact the clinic with any concerns before the next appointment. Dr. Huntley has reviewed this note and agrees with this plan of care. This note was dictated using voice recognition software and make contain errors or omissions. [facility] Disclaimer: The information contained in this section may have been updated after the patient was seen, as this information can be updated by other users. Medical History H/O Eckert's palsy History of arthritis History of hypertension History of hypothyroidism Surgical History H/O: hysterectomy History of carpal tunnel release History of cholecystectomy History of surgery spinal cord stimulator Family History Other No significant family history Social History Smoking Status: Never smoker second hand exposure: No alcohol intake: never substance use type: denies use current occupational status: unemployed Travel in the last 8 weeks: None household members: spouse housing: house current occupational exposures/hazards: No caffeine: Yes
== END 2023-08-30 23:59 ==
LOC: SC.PAIN 14:06
PROVIDERS: PCP Nurse Practitioner Family; Visit Provider Nurse Practitioner Family
DX: M50.10 Cervical disc disorder with radiculopathy, unspecified cervical region (principal); M51.16 Intervertebral disc disorders with radiculopathy, lumbar region; Z96.82 Presence of neurostimulator
CPT/HCPCS: 99202; 99212; G0463

== ENCOUNTER 2023-09-22 10:39 | Outpatient (POV) | payer MEDICARE, BC, SELFPAY ==
[2023-09-22 10:52] VITALS: BP 149/70; PULSE 74; RESP 18; TEMP 36.4; O2SAT 99; BMI 20.5
--- NOTE | 2023-09-22 12:14 | EXP.PAIN.SOA ---
[facility] Pain Management SOAP Note Subjective:: Patient has increasing pain and is concerned about her stimulator. She is not getting adequate relief and not getting adequate stimulation with a shocking sensation occasionally. Objective:: Alert and oriented x 3 no acute distress. She does have antalgic gait. Motor strength of lower extremities is 5/5. There is no gross sensory deficit. Assessment:: Degenerative disc disease of lumbar spine with lumbar radiculopathy symptoms and postlaminectomy syndrome lumbar spine Plan:: The stimulator was reprogrammed today by the [employer] representative government relations. She was put on a good program which cover all of her areas of pain. I did talk to the patient we did test out different movements to make sure it was not shocking her. She did not get any shocking sensations. Will follow-up with her in 1 week to see how the stimulation is I did tell her to not touch her research programmer and leave her stimulator on. [facility] Disclaimer: The information contained in this section may have been updated after the patient was seen, as this information can be updated by other users. Medical History H/O Eckert's palsy History of arthritis History of hypertension History of hypothyroidism Surgical History H/O: hysterectomy History of carpal tunnel release History of cholecystectomy History of surgery spinal cord stimulator Family History Other No significant family history Social History Smoking Status: Never smoker second hand exposure: No alcohol intake: never substance use type: denies use current occupational status: other Travel in the last 8 weeks: None household members: spouse housing: house current occupational exposures/hazards: No caffeine: Yes
== END 2023-09-22 23:59 | disposition home or self-care (01) ==
LOC: SC.PAIN 10:40
PROVIDERS: PCP Nurse Practitioner Family; Visit Provider Anesthesiology
DX: M51.16 Intervertebral disc disorders with radiculopathy, lumbar region (principal); M96.1 Postlaminectomy syndrome, not elsewhere classified; Z96.82 Presence of neurostimulator
CPT/HCPCS: 99212; G0463

== ENCOUNTER 2023-10-04 14:54 | Outpatient (POV) | payer MEDICARE, BC, SELFPAY ==
--- NOTE | 2023-10-04 15:12 | A.OFFVIS_ITS ---
[facility] Pain Management SOAP Note Subjective:: Patient is a pleasant 88-year-old female who presents today for 2-week follow- up. Today she rates her pain a 4 out of 10. Patient denies any new trauma or injury. Patient does state the last reprogramming she did on 21 September has been the best 1 yet. Patient states that all of her prior issues have seemed to resolve and she is doing much better with overall pain improvement. Patient states her only complaint now is she is having to go to the restroom and urinate frequently. She states that she has talked to her PCP and thinks that it may have been related to the medication she is on. Her Ramón has been reviewed and is appropriate. Review of Systems: General: No recent weight changes, no fever, no sleep disturbances Respiratory: No cough, no shortness of air, no recurring pulmonary infections Cardiovascular/peripheral vascular: No chest pain, no palpitations, no edema, no shortness of breath Gastrointestinal: No new onset incontinence, normal bowel movements reported Genitourinary: No new onset incontinence Musculoskeletal: Low back pain Psychiatric: [Normal mood/affect] Neurological: [Denies weakness in extremities], [denies balance issues] Objective:: Physical Exam: General: Alert and oriented x3, no acute distress, pleasant and cooperative Lungs: Respirations even and unlabored, symmetrical chest expansion Eyes: PERRL Musculoskeletal: Flexion and extension of lumbar [spine] somewhat guarded secondary to pain, [antalgic gait noted] Neurological: Speech clear, no gross sensory deficit Assessment:: Degenerative disc disease of cervical and lumbar spine with cervical and lumbar radiculopathy symptoms Plan:: Patient has had much better improvement from her last reprogramming on her stimulator and does not require any additional interventions at this time. I have discussed with the patient that we will let her contact our office for her next follow-up appointment. Patient acknowledges understanding and agrees with plan of care. Patient has been instructed to contact the clinic with any concerns before the next appointment. Dr. Huntley has reviewed this note and agrees with this plan of care. This note was dictated using voice recognition software and make contain errors or omissions. [facility] Disclaimer: The information contained in this section may have been updated after the patient was seen, as this information can be updated by other users. Medical History H/O Eckert's palsy History of arthritis History of hypertension History of hypothyroidism Surgical History H/O: hysterectomy History of carpal tunnel release History of cholecystectomy History of surgery spinal cord stimulator Family History Other No significant family history Social History Smoking Status: Never smoker second hand exposure: No alcohol intake: never substance use type: denies use current occupational status: other Travel in the last 8 weeks: None household members: spouse housing: house current occupational exposures/hazards: No caffeine: Yes
[2023-10-04 15:25] VITALS: BP 147/88; PULSE 84; RESP 18; O2SAT 96; BMI 20.3
== END 2023-10-04 23:59 | disposition home or self-care (01) ==
LOC: SC.PAIN 14:55
PROVIDERS: Visit Provider Nurse Practitioner Family
DX: M50.10 Cervical disc disorder with radiculopathy, unspecified cervical region (principal); M51.16 Intervertebral disc disorders with radiculopathy, lumbar region; Z96.82 Presence of neurostimulator
CPT/HCPCS: 99212; G0463

== ENCOUNTER 2023-12-11 15:57 | Emergency (ER) | payer MEDICARE, BC, SELFPAY ==
[2023-12-11 15:59] VITALS: BP 153/74; PULSE 78; RESP 19; TEMP 37.3; O2SAT 97; BMI 19.7
--- NOTE | 2023-12-11 16:09 | ED_ITS ---
<Statement entered by Alena Gresham DO - 12/11/23 19:27> I was consulted by the ANDREW, and we discussed the complexity of the problems being addressed. I approved the treatment and management plan for this patient's care in the emergency department, thus performing a substantive portion of the medical decision making. Alena Gresham DO Discharge Plan Disposition Patient Disposition: Xfer Short-Term Hosp Condition: Good Prescriptions Prescriptions: No Action indapamide 2.5 MG tablet 2.5 mg PO DAILY levothyroxine 50 MCG tablet 50 mcg PO DAILY diclofenac sodium 75 MG tablet,delayed release (DR/EC) 75 mg PO BID Qty: 60 5RF Referrals Follow up/Referrals: Nakita Marc [Primary Care Provider] - See instructions Activity Restrictions/Add. Instructions Additional Instructions/Restrictions: 2 the [facility] emergency department care of Dr. Roberts Clinical Impressions Clinical Impression: Skin tear of left upper extremity Finger fracture, left Qualifiers: Encounter type: initial encounter Finger: middle finger Fracture type: closed P halanx: distal Fracture alignment: nondisplaced Qualified Code(s): S62.663A - Nondisplaced fracture of distal phalanx of left middle finger, initial encounter for closed fracture Stand Alone Forms Stand Alone Forms: Transfer Record - ED Print Language Print Language: Uruguayan Discharge ED Provider: Alena Gresham General Adult HPI General Chief complaint: Fall Stated complaint: AO 12/10 @1500, left arm lac Time Seen by Provider: 12/11/23 16:04 History of Present Illness HPI narrative: Patient presents for evaluation of a fall. Patient was working in her yard and had an accidental trip and fall striking her left upper extremity against the edge of a metal wheelbarrow. She suffered a laceration to the lateral aspect of her proximal upper extremity. Patient also reports pain with to the DIP of the left third digit. She denies striking her head losing consciousness or pain or injury anywhere else. Patient has reduced range of motion of the left upper extremity secondary to pain however she is neurovascular intact distally. Related Data Home Medications ?Medication ?Instructions ?Recorded ?Confirmed indapamide 2.5 mg tablet 2.5 mg PO DAILY High blood pressure 07/25/17 10/04/23 levothyroxine 50 mcg tablet 50 mcg PO DAILY THYROID 07/25/17 10/04/23 Previous Rx's ?Medication ?Instructions ?Recorded diclofenac sodium 75 mg 75 mg PO BID Pain #60 tabs 01/18/23 tablet,delayed release Allergies Allergy/AdvReac Type Severity Reaction Status Date / Time No Known Allergies Allergy Verified 09/22/23 10:53 [facility] Disclaimer: The information contained in this section may have been updated after the patient was seen, as this information can be updated by other users. Medical History H/O Eckert's palsy History of arthritis History of hypertension History of hypothyroidism Surgical History H/O: hysterectomy History of carpal tunnel release History of cholecystectomy History of surgery spinal cord stimulator Family History Other No significant family history Social History Smoking Status: Never smoker second hand exposure: No alcohol intake: never substance use type: denies use current occupational status: retired Travel in the last 8 weeks: None household members: spouse housing: house current occupational exposures/hazards: No caffeine: Yes ROS Obtained: Yes Systems reviewed as appropriate & no additional complaints except as documented Physical Exam General General appearance: alert and in no apparent distress Head Head exam: atraumatic and normal inspection Eye Eye exam: Present normal appearance and EOMI Neck Neck exam: Present normal inspection; Absent tenderness Chest Chest inspection: Present normal inspection; Absent tenderness Respiratory Respiratory exam: Present normal lung sounds bilaterally Cardiovascular Cardiovascular exam: Present regular rate, normal rhythm and normal heart sounds Abdominal Exam Abdominal exam: Present soft and normal bowel sounds; Absent tenderness Expanded Upper Extremity Exam Left: Shoulder exam: Present normal inspection and full ROM; Absent tenderness Elbow exam: Present normal inspection and full ROM; Absent tenderness Forearm/Wrist exam: Present normal inspection and full ROM Hand L/R back image: 2 1. Ecchymosis no bony deformity L/R Arms Top View: 2 1. Large skin tear to the muscle belly 2. Swelling suspicious for muscle belly versus hematoma Back Exam Back exam: Present normal inspection and full ROM; Absent tenderness Neurological Exam Neurological exam: Present alert and oriented X3 Psychiatric Psychiatric exam: Present normal affect and normal mood Medical Decision Making Medical Records Medical records reviewed: Yes I reviewed the patient's medical records. Ramón Inquiry Pt receiving controlled substance: No Vital Signs: 12/11/23 15:59 12/11/23 17:41 12/11/23 18:39 Temperature 99.2 F Temperature Source Oral Pulse Rate 72 71 Pulse Rate [Left Radial] 78 Respiratory Rate 19 Blood Pressure 173/77 H Blood Pressure [Right Arm] 153/74 H Blood Pressure Mean [Right Arm] 100 02 Sat by Pulse Oximetry 97 96 97 Oxygen Delivery Method Room Air Room Air 12/11/23 18:39 12/11/23 19:02 Temperature 98.9 F Temperature Source Oral Pulse Rate 75 70 Pulse Rate [Left Radial] Respiratory Rate 20 Blood Pressure 198/94 H 173/84 H Blood Pressure [Right Arm] Blood Pressure Mean [Right Arm] 02 Sat by Pulse Oximetry 99 Oxygen Delivery Method Room Air Orders (Tests/Meds): ED MEDICATIONS Discontinued Medications Generic Name Dose Route Start Last Admin Trade Name Freq PRN Reason Stop Dose Admin Acetaminophen 1,000 mg 12/11/23 16:10 12/11/23 16:38 Acetaminophen 500mg Tab PO 12/11/23 16:11 1,000 mg ONCE ONE Administration Tetanus/Reduced Diphtheria/Acell Pertussis 0.5 ml 12/11/23 18:20 12/11/23 18:31 Tet/Diphth/Pert-Adult 0.5ml Syringe IM 12/11/23 18:21 Not Given .ONCE ONE ORDERS Category Date Time Status Elbow XR left mininum 3 views [XR elbow LT min 3V] Stat Exams 12/11/23 16:09 Completed Forearm XR left 2 views [XR forearm LT 2V] Stat Exams 12/11/23 16:09 Completed Hand XR left minimum 3 views [XR hand LT min 3V] Stat Exams 12/11/23 16:09 Completed Humerus XR left [XR humerus LT] Stat Exams 12/11/23 16:09 Completed Medical Decision Narrative: In summary patient is a 88-year-old female who presents to the emergency department for evaluation of fall and left upper extremity injury. Patient is hemodynamically stable upon arrival, afebrile. Physical exam is remarkable for a large skin tear/laceration to the lateral proximal left upper extremity with a even more proximal area of swelling suspicious for partial muscle belly versus hematoma. There is no obvious bony defect.. Patient also has ecchymosis at the left third DIP and the periungual area without bony deformity. Patient is otherwise neurovascularly intact. Patient has reduced range of motion due to pain of the left upper extremity. The remainder of her exam is unremarkable and nonfocal including no pain ambulating without assistance no neck pain back pain midline vertebral tenderness etc. Differential diagnosis includes skin tear versus complex laceration versus muscle belly injury versus hematoma of the third left digit versus fracture etc. Initial workup will be conducted with plain film x-rays. Initial interventions include Tylenol and Toradol. Initial workup reviewed by me shows she has a possible distal phalanx base fracture of the third digit prior to radiology read and no other acute fractures noted on plain film. Given the significant soft tissue defect and after reexamination patient has basically torn the subcutaneous tissue down to the muscle belly of her left proximal upper extremity. I had interactive discussion with the [facility] transfer center and they have agreed to accept her in transfer to the [facility] emergency department in care of Dr. Roberts. Critical Care Critical Care Time Critical Care Time: No
--- NOTE | 2023-12-11 16:09 | XR_ITS ---
PROCEDURE INFORMATION: Exam: XR Left Hand Exam date and time: 12/11/2023 4:19 PM Age: 88 years old Clinical indication: Injury or trauma; Fall; Blunt trauma (contusions or hematomas); Hand; Left; Additional info: Fall, hematoma third dip TECHNIQUE: Imaging protocol: Radiologic exam of the left hand. Views: 3 or more views. COMPARISON: CR HANDL3 HAND-LT-3 VIEWS 02/13/2017 8:01 PM FINDINGS: Bones/joints: Diffuse osteopenia. 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 There is progression of erosive changes along the head of proximal 3rd phalanx. There is an acute fracture along the base of the 3rd distal phalanx Soft tissues: Normal. IMPRESSION: 1. There is an acute fracture along the base of the 3rd distal phalanx 2. 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 3. There is progression of erosive changes along the head of proximal 3rd phalanx.
--- NOTE | 2023-12-11 16:09 | XR_ITS ---
PROCEDURE INFORMATION: Exam: XR Left Forearm Exam date and time: 12/11/2023 4:21 PM Age: 88 years old Clinical indication: Injury or trauma; Fall; Blunt trauma (contusions or hematomas); Arm, lower; Left TECHNIQUE: Imaging protocol: Radiologic exam of the left forearm. Views: 2 views. COMPARISON: CR FOREAL FOREARM-LT 02/13/2017 8:01 PM FINDINGS: Bones/joints: Diffuse osteopenia. No visible fracture or dislocation. Soft tissues: Normal. IMPRESSION: No visible fracture or dislocation.
--- NOTE | 2023-12-11 16:09 | XR_ITS ---
PROCEDURE INFORMATION: Exam: XR Left Humerus Exam date and time: 12/11/2023 4:16 PM Age: 88 years old Clinical indication: Injury or trauma; Fall; Blunt trauma (contusions or hematomas); Arm, upper; Left TECHNIQUE: Imaging protocol: Radiologic exam of the left humerus. Views: 2 or more views. COMPARISON: CR XR MULTIPLE SPINE 6+V 08/16/2023 3:21 PM FINDINGS: Bones/joints: Diffuse osteopenia. No visible acute fracture. There is high-riding of the humeral head can be seen in the context of chronic rotator cuff tear. Soft tissues: Normal. IMPRESSION: 1. No visible acute fracture. 2. There is high-riding of the humeral head can be seen in the context of chronic rotator cuff tear.
--- NOTE | 2023-12-11 16:09 | XR_ITS ---
PROCEDURE INFORMATION: Exam: XR Left Elbow Exam date and time: 12/11/2023 4:21 PM Age: 88 years old Clinical indication: Injury or trauma; Fall; Blunt trauma (contusions or hematomas); Elbow; Left TECHNIQUE: Imaging protocol: Radiologic exam of the left elbow. Views: 3 or more views. COMPARISON: CR Forearm L 12/11/2023 4:21 PM FINDINGS: Bones/joints: Diffuse osteopenia. No visible fracture or dislocation. Soft tissues: Normal. IMPRESSION: No visible fracture or dislocation.
--- NOTE | 2023-12-11 16:26 | PC.NURSE ---
updated pts on plan on care
[2023-12-11] MEDS: ACETAMINOPHEN 500MG TAB 1000 MG PO (16:38)
[2023-12-11 17:41] VITALS: PULSE 72; O2SAT 96
--- NOTE | 2023-12-11 18:12 | PC.NURSE ---
CONSULT TO [facility] AT THIS TIME IMAGES POWER SHARED TO [facility]
[2023-12-11 18:39] VITALS: BP 173/77; BP 198/94; PULSE 71; PULSE 75; O2SAT 97; O2SAT 99
--- NOTE | 2023-12-11 18:45 | PC.NURSE ---
report called to WILLY at ED
--- NOTE | 2023-12-11 18:51 | PC.NURSE ---
EMS Called for pt transport
[2023-12-11 19:02] VITALS: BP 173/84; PULSE 70; RESP 20; TEMP 37.2; O2SAT 96
== END 2023-12-11 19:06 | disposition short-term general hospital (02) ==
PROVIDERS: Emergency Provider Emergency Medicine; PCP Nurse Practitioner Family
DX: S62.633A Displaced fracture of distal phalanx of left middle finger, initial encounter for closed fracture (principal); S41.102A Unspecified open wound of left upper arm, initial encounter; W01.118A Fall on same level from slipping, tripping and stumbling with subsequent striking against other sharp object, initial encounter; Z23 Encounter for immunization
CPT/HCPCS: 73060; 73080; 73090; 73130; 90471; 99285

== ENCOUNTER 2024-01-22 15:00 | Outpatient (RCR) | payer MEDICARE, BC, SELFPAY | END 2024-01-22 15:05 | disposition home or self-care (01) | LOC: PT 15:00 | PROVIDERS: Visit Provider Nurse Practitioner Family | DX: M79.622 Pain in left upper arm (principal); S41.102A Unspecified open wound of left upper arm, initial encounter | CPT/HCPCS: 97163; 97164; 97597; 97598 ==

== ENCOUNTER 2024-03-13 15:00 | Outpatient (RCR) | payer MEDICARE, BC, SELFPAY | END 2024-03-13 23:59 | disposition home or self-care (01) | LOC: PT 15:00 | PROVIDERS: Visit Provider Nurse Practitioner Family | DX: M79.661 Pain in right lower leg (principal); S81.801A Unspecified open wound, right lower leg, initial encounter | CPT/HCPCS: 97163; 97597; 97598 ==

== ENCOUNTER 2024-07-15 09:03 | Outpatient (POV) | payer MEDICARE, BC, SELFPAY ==
[2024-07-15 10:04] VITALS: BP 131/74; PULSE 77; RESP 16; O2SAT 98; BMI 17.2
--- NOTE | 2024-07-15 10:05 | EXP.PAIN.SOA ---
[facility] Disclaimer: The information contained in this section may have been updated after the patient was seen, as this information can be updated by other users. Medical History H/O Eckert's palsy History of arthritis History of hypertension History of hypothyroidism Surgical History H/O: hysterectomy History of carpal tunnel release History of cholecystectomy History of surgery spinal cord stimulator Family History Other No significant family history Social History Smoking Status: Never smoker second hand exposure: No alcohol intake: never substance use type: denies use current occupational status: retired Travel in the last 8 weeks: None household members: spouse housing: house current occupational exposures/hazards: No caffeine: Yes Have you lived/traveled outside US in past 30 days?: No Contact w/someone who lives/traveled outside US past 30 days?: No Exposure to someone with infectious disease in past 14 days?: No Do you have a fever (greater than 100.4 F or 38 C)?: No Have you tested positive for COVID-19: No Exposed to someone with COVID-19 in past 14 days?: No Do you have a sore throat?: No Do you have a cough?: No Do you have any weakness?: No Do you have any diarrhea?: No Are you experiencing any unusual bleeding?: No Do you have any muscle aches/pain?: No Do you have any abdominal pain?: No Are you experiencing loss of taste or smell?: No PM Subjective & Objective Subjective Subjective:: Patient is a pleasant 89-year-old female who presents today for worsening pain and stimulator trouble. Today she rates her pain a 4 out of 10. Patient does state from our last visit last year she has had a bad fall months ago where she ended up cutting her left arm down to the bone. She states that she ended up going to the ER here and then was transferred to however nobody ever really cleansed the wound were dressed it. She states that she ended up leaving [facility] in the morning because she was still in a hallway. Patient states that she ended up seeing her primary care and she ended up cleaning it some and then saw wound management. Patient states that it is taking some time but it is now healing however she has had additional issues with an infection in her leg and has been on antibiotics. Patient states that her stimulator had been working wonderful up until about 2 weeks ago. She states at that time there were no significant changes or falls. She states that she started noticing more headache and that was having a little bit more upper back pain. Patient states that she ended up talking to [employer] representative over the phone and tried troubleshooting the device however feels like that programming is still not working well. Patient is interested in any help we may be able to provide. She does state that the headache today he is doing okay and does not have one currently. She does state the only other change from the last time we saw her that she is no longer taking the diclofenac. She states that she was not having any kidney issues however out of concern that it may cause them stopped taking any of this medication. Her Ramón has been reviewed and is appropriate. Review of Systems: General: No recent weight changes, no fever, no sleep disturbances Respiratory: No cough, no shortness of air, no recurring pulmonary infections Cardiovascular/peripheral vascular: No chest pain, no palpitations, no edema, no shortness of breath Gastrointestinal: No new onset incontinence, normal bowel movements reported Genitourinary: No new onset incontinence Musculoskeletal: Headache, upper back pain Psychiatric: [Normal mood/affect] Neurological: [Denies weakness in extremities], [denies balance issues] Pain at rest (0-10 scale): 4 Objective Objective:: Physical Exam: General: Alert and oriented x3, no acute distress, pleasant and cooperative Lungs: Respirations even and unlabored, symmetrical chest expansion Eyes: PERRL Musculoskeletal: Flexion and extension of cervical [spine] somewhat guarded secondary to pain, [antalgic gait noted] point tenderness along upper mid back approximately T7-T8 Neurological: Speech clear, no gross sensory deficit Has patient had previous pain injection?: No Conservative treatment options previously tried: Home exercise plan Length of treatment: Longer than 12 weeks Meds Home Medications and Allergies Home Medications ?Medication ?Instructions ?Recorded ?Confirmed ?Type indapamide 2.5 mg tablet 2.5 mg PO DAILY High blood pressure 07/25/17 07/15/24 History levothyroxine 50 mcg tablet 50 mcg PO DAILY THYROID 07/25/17 07/15/24 History diclofenac sodium 75 mg 75 mg PO BID Pain #60 tabs 01/18/23 07/15/24 Rx tablet,delayed release New Prescriptions to Start Prescriptions: Allergies Allergy/AdvReac Type Severity Reaction Status Date / Time No Known Allergies Allergy Verified 09/22/23 10:53 Assessment and Plan *Assessment and plan (1) Mid back pain: Status: Acute Category: Medical Code(s): M54.9 - Dorsalgia, unspecified (2) Headache: Status: Acute Category: Medical Code(s): R51.9 - Headache, unspecified Plan I did discuss with the patient that I will reach out to [employer] representatives and make sure that she is reprogrammed in person. Patient did get great coverage from December all the way to the last 2 weeks. Patient agrees with this plan of care. Patient is going to call her office for her next follow-up. Patient has been instructed to contact the clinic with any concerns before the next appointment. Dr. Huntley has reviewed this note and agrees with this plan of care. This note was dictated using voice recognition software and make contain errors or omissions. All injections are used with Lidocaine, Bupivacaine and Depo Medrol. Occasionally urine drug screen is needed to verify patient's compliance with our office pain contract. This is ordered based off specific treatments related to chronic pain with the potential to abuse certain medications.
== END 2024-07-15 23:59 | disposition home or self-care (01) ==
LOC: SC.PAIN 09:06
PROVIDERS: PCP Nurse Practitioner Family; Visit Provider Nurse Practitioner Family
DX: M54.9 Dorsalgia, unspecified (principal); R51.9 Headache, unspecified
CPT/HCPCS: 99212; G0463

== ENCOUNTER 2024-08-01 13:26 | Outpatient (POV) | payer MEDICARE, BC, SELFPAY ==
[2024-08-01 13:58] VITALS: BP 113/60; PULSE 85; RESP 18; O2SAT 98; BMI 18.0
--- NOTE | 2024-08-01 14:35 | EXP.PAIN.SOA ---
[facility] Disclaimer: The information contained in this section may have been updated after the patient was seen, as this information can be updated by other users. Medical History H/O Eckert's palsy History of arthritis History of hypertension History of hypothyroidism Surgical History H/O: hysterectomy History of carpal tunnel release History of cholecystectomy History of surgery spinal cord stimulator Family History Other No significant family history Social History Smoking Status: Never smoker second hand exposure: No alcohol intake: never substance use type: denies use current occupational status: retired Travel in the last 8 weeks: None household members: spouse housing: house current occupational exposures/hazards: No caffeine: Yes Have you lived/traveled outside US in past 30 days?: No Contact w/someone who lives/traveled outside US past 30 days?: No Exposure to someone with infectious disease in past 14 days?: No Do you have a fever (greater than 100.4 F or 38 C)?: No Have you tested positive for COVID-19: No Exposed to someone with COVID-19 in past 14 days?: No Do you have a sore throat?: No Do you have a cough?: No Do you have any weakness?: No Do you have any diarrhea?: No Are you experiencing any unusual bleeding?: No Do you have any muscle aches/pain?: No Do you have any abdominal pain?: No Are you experiencing loss of taste or smell?: No PM Subjective & Objective Subjective Subjective:: Patient is a pleasant 89-year-old female who presents today for follow-up. Today she rates her pain a 4 out of 10. She denies any new falls or injuries from her last appointment with those. We did ultimately end up finding out that her believes had moved and were no longer functioning. Patient did meet with [employer] disability representative and only had 2 connections available to program. Patient does state that she is really thought about it and due to her age and the fact that she is hide the stimulator off the last couple of weeks and has been managing okay feels like she would just like to have it explanted. Patient does have the nonrechargeable battery that is larger and does typically aggravate her back pain and does feel like it moves under her skin. Patient does also state the last time she had her stimulator on it did shock her on 4 different occasions that was rather significant. Patient does also make mention that she is still having issues with her skin. Patient did previously have a injury to her arm that went to the bone and ultimately did not end up having it clean for about 4 days. Patient states she had ultimately then had an infection in that wound and went to wound management. She states that she ended up being released from there however ended up also having something fall on her foot along the right side that did break the skin. She states it was a size of about a nicolás and that she ended up having more issues on that foot and going on to her lower leg where the wounds just are not healing correctly. Patient and do make mention that years ago she did have an infectious disease where she was very sick. Patient is unsure whether or not if that has anything to do with her ongoing skin issues with nonhealing. Patient states she has been given a topical cream that she is applying and does seem to be helping. Her Ramón has been reviewed and is appropriate. Review of Systems: General: No recent weight changes, no fever, no sleep disturbances Respiratory: No cough, no shortness of air, no recurring pulmonary infections Cardiovascular/peripheral vascular: No chest pain, no palpitations, no edema, no shortness of breath Gastrointestinal: No new onset incontinence, normal bowel movements reported Genitourinary: No new onset incontinence Musculoskeletal: Low back pain Psychiatric: [Normal mood/affect] Neurological: [Denies weakness in extremities], [denies balance issues] Pain at rest (0-10 scale): 4 Objective Objective:: Physical Exam: General: Alert and oriented x3, no acute distress, pleasant and cooperative Lungs: Respirations even and unlabored, symmetrical chest expansion Eyes: PERRL Musculoskeletal: Flexion and extension of lumbar [spine] somewhat guarded secondary to pain, [antalgic gait noted] Neurological: Speech clear, no gross sensory deficit Has patient had previous pain injection?: No Conservative treatment options previously tried: Home exercise plan Length of treatment: Longer than 12 weeks Meds Home Medications and Allergies Home Medications ?Medication ?Instructions ?Recorded ?Confirmed ?Type indapamide 2.5 mg tablet 2.5 mg PO DAILY High blood pressure 07/25/17 08/01/24 History levothyroxine 50 mcg tablet 50 mcg PO DAILY THYROID 07/25/17 08/01/24 History diclofenac sodium 75 mg 75 mg PO BID Pain #60 tabs 01/18/23 08/01/24 Rx tablet,delayed release New Prescriptions to Start Prescriptions: Allergies Allergy/AdvReac Type Severity Reaction Status Date / Time No Known Allergies Allergy Verified 09/22/23 10:53 Assessment and Plan *Assessment and plan (1) Mid back pain: Status: Acute Category: Medical Code(s): M54.9 - Dorsalgia, unspecified (2) History of degenerative disc disease: Problem Comment: Lumbar spine stimulator in place with symptomatic improvement managed by pain management, Dr. Huntley. Status: Chronic Category: Medical Code(s): Z87.39 - Personal history of other diseases of the musculoskeletal system and connective tissue Plan I did review over with her regarding explant of her spinal cord stimulator and am in agreement that with everything considering I do believe it is in her best interest to go ahead and have it removed. Patient was counseled that in future that due to the already history of movement with her percutaneous leads that it would be something that I would recommend paddle lead placement and that is more extensive in nature. We will plan on submitting to insurance to have her spinal cord stimulator generator and leads removed due to painful hardware including the anchor at her midline incision. Patient will be given a tentative surgery date and was counseled that it may be a little bit out due to our surgical schedule. Patient agrees with this plan of care. Patient has been instructed to contact the clinic with any concerns before the next appointment. Dr. Huntley has reviewed this note and agrees with this plan of care. This note was dictated using voice recognition software and make contain errors or omissions. All injections are used with Lidocaine, Bupivacaine and Depo Medrol. Occasionally urine drug screen is needed to verify patient's compliance with our office pain contract. This is ordered based off specific treatments related to chronic pain with the potential to abuse certain medications.
== END 2024-08-01 23:59 | disposition home or self-care (01) ==
LOC: SC.PAIN 13:29
PROVIDERS: PCP Nurse Practitioner Family; Visit Provider Nurse Practitioner Family
DX: M54.9 Dorsalgia, unspecified (principal); Z87.39 Personal history of other diseases of the musculoskeletal system and connective tissue
CPT/HCPCS: 99212; G0463

== ENCOUNTER 2024-10-11 12:16 | Outpatient (CLI) | payer MEDICARE, BC, SELFPAY ==
[2024-10-11 12:43] LABS: Basophils % 0.4 % (0.1-2.0); Eosinophils % 0.6 % (0.1-12.0); Hematocrit 41.9 % (37.0-47.0); Hemoglobin 13.7 g/dL (12.2-16.2); Immature Granulocytes # 0.01 10^3uL; Immature Granulocytes % 0.1 %; Lymphocytes # 2.1 K/mm3 (0.7-4.5); Mean Corpuscular HGB Conc 32.7 g/dL (31.8-35.4); Mean Corpuscular Hemoglobin 30.5 pg (27.0-31.2); Mean Corpuscular Volume 93.3 fl (81-99); Mean Platelet Volume 10.8 fl (7.4-10.4); Monocytes # 0.5 K/mm3 (0.1-1.0); Monocytes % 7.3 % (1.7-9.3); Neutrophils # 4.1 K/mm3 (1.8-7.8); Neutrophils % 60.6 % (37.0-80.0); Nucleated Red Blood Cells # 0 10^3/uL; Nucleated Red Blood Cells % 0 %; Platelet Count 342 K/mm3 (142-424); Red Blood Count 4.49 M/mm3 (4.20-5.40); Red Cell Distribution Width 13.6 % (11.5-17.5); Red Cell Distribution Width-SD 46.5 fL; White Blood Count 6.8 K/mm3 (4.8-10.8)
[2024-10-11 12:58] LABS: Chloride 101 mmol/L (98-107); Sodium 138 mmol/L (136-145)
[2024-10-11 12:59] LABS: Potassium 3.9 mmoL/L (3.5-5.1)
[2024-10-11 13:02] LABS: Anion Gap 8.9 mEq/L (5-15); Blood Urea Nitrogen 21 mg/dl (7-17); Calcium 9.9 mg/dl (8.4-10.2); Carbon Dioxide 32 mmol/L (22.0-30.0); Estimated Glomerular Filt Rate 68 ml/min (>60); GFR (African American) 82 ML/MIN (>60); Glucose 95 mg/dl (74-100)
== END 2024-10-11 23:59 | disposition home or self-care (01) ==
LOC: LAB 12:19
PROVIDERS: PCP Nurse Practitioner Family; Visit Provider Anesthesiology
DX: Z01.812 Encounter for preprocedural laboratory examination (principal)
CPT/HCPCS: 36415; 80048; 85025

== ENCOUNTER 2024-10-18 06:38 | Day surgery (SDC) | payer MEDICARE, BC, SELFPAY ==
[2024-10-14 09:50] VITALS: BMI 19.7
[2024-10-18 07:38] VITALS: BP 170/69; PULSE 80; RESP 16; TEMP 36.2; O2SAT 97
[2024-10-18] MEDS: LACTATED RINGERS 1000ML 1,000 ML 999 ML IV (07:53)
--- NOTE | 2024-10-18 08:07 | EXP.ANES.CKL ---
[facility] Disclaimer: The information contained in this section may have been updated after the patient was seen, as this information can be updated by other users. Medical History H/O Eckert's palsy History of arthritis History of hypertension History of hypothyroidism Surgical History History of carpal tunnel release History of cholecystectomy H/O: hysterectomy History of surgery Family History Other No significant family history Social History Smoking Status: Never smoker second hand exposure: No alcohol intake: never substance use type: denies use current occupational status: retired Travel in the last 8 weeks?: None household members: spouse housing: house current occupational exposures/hazards: No caffeine: Yes Have you lived/traveled outside US in past 30 days?: No Contact w/someone who lives/traveled outside US past 30 days?: No Exposure to someone with infectious disease in past 14 days?: No Do you have a fever (greater than 100.4 F or 38 C)?: No Have you tested positive for COVID-19?: No Exposed to someone with COVID-19 in past 14 days?: No Do you have a sore throat?: No Do you have a cough?: No Do you have any weakness?: No Do you have any diarrhea?: No Are you experiencing any unusual bleeding?: No Do you have any muscle aches/pain?: No Do you have any abdominal pain?: No Are you experiencing loss of taste or smell?: No [facility] Anesthesia Checklist Patient Identification Patient Identification: Arm Band and Verbal (Name & ) Structural Data Admitted From: Home Planned Operative Procedure/s: stimulator explant Consent for Planned Operative Procedure(s) Verified: Yes Verified Documents: Surgical Consent and History and Physical NPO Status Verified Time NPO: 00:00 Additional verifications Anesthesia Reactions: No Hx Blood Transfusions: Yes Blood Transfusion Reaction: No Airway Assessment Mallampati Score:: Class II Dentition: Edentulous Neurological Assessment Level of Consciousness: Awake, Alert and Appropriate Anesthesia Plan Anesthesia Risk discussed: Yes Anesthesia Plan: Verified ASA Class: II Anesthesia Type: MAC
[2024-10-18] MEDS: CEFAZOLIN SODIUM 1 GM in 0.9 % SODIUM CHLORIDE 50 ML IV (08:44)
[2024-10-18] MEDS: LIDOCAINE 1% W/EPI 1:100,000 20ML VIAL 40 ML (09:06)
[2024-10-18 09:28] VITALS: BP 123/54; PULSE 75; RESP 16; TEMP 36.3; O2SAT 97
--- NOTE | 2024-10-18 09:34 | EXP.OP.NOTE ---
Date of procedure: 10/18/24 Pre-op Diagnosis:: Nonfunctioning spinal cord stimulator system Post-op Diagnosis:: Same Procedure performed:: Explant spinal cord stimulator system with epidural lead explant x 2 and generator explant Surgeon:: Jian Huntley MD ELECTRONICS INSPECTOR:: Sonny Bernabe Anesthesia: MAC Estimated blood loss (mL): 5 Clinical Note:: This patient is a pleasant 89-year-old white female who we have been treating for degenerative disease of lumbar spine with lumbar radiculopathy symptoms. She has a nonfunctioning [employer] spinal cord stimulator in place. We reprogrammed this several times and she has not gotten adequate benefit. The generator is causing more pain. We will explant her spinal cord stimulator system today including explanting epidural leads and generator. Operative findings:: None Operative note:: Informed consent was obtained risk and benefits of the procedure were explained to the patient. The patient was taken the operating room placed prone on the procedure table. She was prepped and draped in sterile fashion. The skin and subcutaneous tissues overlying stimulator generator were anesthetized using lidocaine. We also anesthetized the skin and subcutaneous tissues overlying the leads and lead anchors. We made an incision over the generator and lead anchors. I explanted the generator and dissected out the lead anchors. I expected both leads and generator. Both incisions were irrigated with antibiotic solution. Both incisions were then closed with 2-0 Vicryl followed by 4-0 nylon and krystin. Patient tolerated the procedure well with no complications. Patient was discharged home neurologic intact with good relief of pain symptoms. Plan and disposition: Will follow-up with this patient in 1 week for wound check and will follow-up in 2 to 3 weeks for suture and staple removal Condition: stable Disposition: PACU Complications:: none
[2024-10-18 09:38] VITALS: BP 128/69; PULSE 74; RESP 18; O2SAT 97
[2024-10-18 09:48] VITALS: BP 144/76; PULSE 75; RESP 18; O2SAT 98
[2024-10-18 09:58] VITALS: BP 157/73; PULSE 78; RESP 18; O2SAT 97
== END 2024-10-18 10:05 | disposition home or self-care (01) ==
PROVIDERS: PCP Nurse Practitioner Family; Visit Provider Anesthesiology
PROC: (CPT 63688; principal; 2024-10-18 08:25)
DX: M51.16 Intervertebral disc disorders with radiculopathy, lumbar region (principal); T85.840A Pain due to nervous system prosthetic devices, implants and grafts, initial encounter; I10 Essential (primary) hypertension; E03.9 Hypothyroidism, unspecified; Z90.49 Acquired absence of other specified parts of digestive tract; Z90.710 Acquired absence of both cervix and uterus
CPT/HCPCS: 63688; 63661; 96374; J2003; J2004; J2704; J3010; J7120

== ENCOUNTER 2024-10-23 13:05 | Outpatient (POV) | payer MEDICARE, BC, SELFPAY ==
--- OUTSIDE RECORDS SUMMARY | 2024-10-23 13:11 | XMS_ITS | Clinical Summary ---
Author Organization [facility] Address [address] [place] [address] Phone Care Team Providers Care Print Shop Assistant Name Role Phone Joselito Vaughan Unavailable Unavailable Conditions or Problems Problem Name Problem Code Onset Date Status Entry Date Provider Comment Standard Description Annotate ABRASION, LEFT LEG, INFECTED L08.89 (ICD-10-CM ) Active Malachi Olmstead MD Other specified local infections of the skin and subcutaneous tissue ADVERSE DRUG REACTION 20311824 (SNOMED CT) 07/11 Resolved 07/11 Yue Vela Adverse reaction to drug NAUSEA 670242793 (SNOMED CT) 06/12 Resolved 06/12 Yue Vela Nausea HYPOKALEMIA 00496356 (SNOMED CT) 08/14 Resolved 08/14 Yue Vela Hypokalemia PLANTAR WART 04750115 (SNOMED CT) 11/20 Active 11/20 Yue Vela Verruca plantaris HYPOKALEMIA 00346395 (SNOMED CT) 08/14 Removed 08/14 Malachi Olmstead MD Hypokalemia ADVERSE DRUG REACTION 06700939 (SNOMED CT) 07/11 Removed 07/11 Jessica W Adverse reaction to drug ADVERSE DRUG REACTION 73132396 (SNOMED CT) 07/11 Correction 07/11 Malachi Olmstead MD Adverse reaction to drug NAUSEA 387835634 (SNOMED CT) 06/12 Removed 06/12 Yue Vela Nausea DIARRHEA, ANTIBIOTIC ASSOCIATED 156315615 (SNOMED CT) 05/21 Resolved 05/24 Yue Vela Antibiotic-ass ociated diarrhea 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 (ICD-10-CM ) 05/26 Active 05/26 Miri Brandt Cutaneous mycobacterial infection DIARRHEA, ANTIBIOTIC ASSOCIATED 395744263 (SNOMED CT) 05/21 Removed 05/24 Malachi Olmstead MD Antibiotic-ass ociated diarrhea ABSCESS, FINGER POSITIVE AFB CULTURE 681.00 (ICD-9-CM) 05/21 Active 05/21 Anetra D Raza Cellulitis and abscess of finger, unspecified Medications Medication Instructions Start Date Stop Date Generic Name ND Provider MINOCYCLINE HCL 100 MG TABS MINOCYCLINE HCL 77556637894 Malachi Olmstead MD INDAPAMIDE 2.5 MG TABS INDAPAMIDE 71016566844 Malachi Olmstead MD KLOR-CON M20 20 MEQ CR-TABS 20meq po bid POTASSIUM CHLORIDE HAKEEM CR 33700645906 Malachi Olmstead MD BIAXIN 500 MG ORAL TABLET 1 by mouth every 12 hours CLARITHROMYCIN 45394657369 Dary Z CIPRO 500 MG TABS 1 tablet daily CIPROFLOXACIN HCL 69222551606 Dary Z ZOFRAN 4 MG ORAL TABLET 1 po tid prn ONDANSETRON HCL 41048259757 Malachi Olmstead MD ETHAMBUTOL HCL 400 MG TABS one tablet po daily ETHAMBUTOL HCL 15736803160 Malachi Olmstead MD AZITHROMYCIN 250 MG TABS one tablet po daily AZITHROMYCIN 39565689258 Malachi Olmstead MD CIPRO 500 MG TABS 1 tablet daily CIPROFLOXACIN HCL 39258289147 Malachi Olmstead MD BIAXIN 500 MG ORAL TABLET 1 by mouth every 12 hours CLARITHROMYCIN 78325720434 Malachi Olmstead MD CIPRO 500 MG TABS 1 by mouth twice a day CIPROFLOXACIN HCL 44357066052 Malachi Olmstead MD LEVOTHROID TABS LEVOTHYROXINE SODIUM TABS 59254496725 Anetra D Raza PEPCID 20 MG TABS FAMOTIDINE 02079624863 Anetra D Raza ESTRADIOL 0.025 MG/24HR PTWK ESTRADIOL 69755405081 Anetra D Raza INDAPAMIDE 2.5 MG TABS INDAPAMIDE 11610102902 Anetra D Raza Medications Administered No information available. 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 Lab Report: Basic Metabolic Panel GFR EST Unable to Calculate ml/min/1.732 mL/min estimated glomer ular filtration rate Lab Report: CBC w Auto Diff IMM GRANU % 0.2 % 0.0-0.6 N Immature granulocytes/100 leukocytes in Blood BASOPHIL % 0.5 % 0.0-1.0 N Basophils/ 100 leukocytes in Blood by Manual count % EOS AUTO 1.1 % 0.0-3.0 N Eosinophil s/100 leukocytes in Blood by Automated count MONOCYTE BF 8.5 % 0.0-12.0 N monocyte s as percent of body fluid leukocytes LYMPHS % 40.8 % 24.0-44.0 N Lymphocyte s/100 leukocytes in Blood by Automated count PMN % 48.9 % 41.0-71.0 N Neutrophils /100 leukocytes in Blood by Automated count Z-GE-unk 0.0 GE use only - for [employer] import when terms are not otherwise specified BASOABSOLMAN 0.03 K/MCL {Cells}/ uL 0.00-0.20 N basophils, absolute, manual EOS ABSLT 0.06 10*3/uL 0.10-0.30 L Eosinophi ls [#/volume] in Blood MONOCYTABMAN 0.48 K/MCL {Cells}/ uL 0.00-1.00 N monocytes, absolute, manual LYMPHSABSMAN 2.32 K/MCL {Cells}/ uL 0.60-4.80 N lymphocytes, absolute, manual ABS NEUTROPH 2.78 10*3/uL 1.50-8.30 N Neutro phils [#/volume] in Blood PLATELETS 272 10*3/mm3 150-450 N Platelets [#/volume] in Blood by Automated count RDW_ 13.1 11.3-14.5 N RDW, no uni ts MCHC 33.1 G/DL 32.0-36.0 N MCHC [Mass/ volume] by Automated count MCH 31.7 pg 27.0-31.0 H MCH [Entiti c mass] by Automated count MCV 95.8 fL 80.0-99.0 N MCV [Entiti c volume] by Automated count HCT 43.5 % 34.5-44.0 N Hematocrit [Volume Fraction] of Blood by Automated count HGB 14.4 g/dL 11.5-15.5 N Hemoglobin [Mass/volume] in Blood RBC 4.54 M/MCL 10*6/mm3 3.89-5.14 N Erythro cytes [#/volume] in Blood by Automated count WBC 5.68 10*3/mm3 3.50-10.8 0 N Leukocytes [#/volume] in Blood by Automated count Lab Report: ESR (Sed Rate) ESR 4 mm/h 0-30 N Erythrocyte sedimentation rate by Westergren method Lab Report: Comprehensive Me tabolic Panel ANIONGAP 6 mmol/L 3-11 N anion gap, s alivia GFRC 91 mL/min/1 .73m2 Glomerular Filtration Rate Calculation ALBUMIN 3.8 g/dL 3.4-4.8 N Albumin [Mass/volume] in Serum or Plasma PROTEIN, TOT 6.6 g/dL 6.4-8.3 N Protein [Mass/volume] in Serum or Plasma BILI TOTAL 0.4 mg/dL 0.3-1.2 N Bilirubin. total [Mass/volume] in Serum or Plasma SGPT (ALT) 26 U/L 7-40 N Alanine aminotransferase [Enzymatic activity/volume] in Serum or Plasma SGOT (AST) 23 U/L 8-33 N Aspartate aminotransferase [Enzymatic activity/volume] in Serum or Plasma ALK PHOS 66 U/L 25-100 N Alkaline rakel sphatase [Enzymatic activity/volume] in Blood CALCIUM 9.3 mg/dL 8.7-10.4 N Calcium [Moles/volume] in Serum or Plasma CO2 33 mmol/L 20-31 H Carbon dioxid e, total [Moles/volume] in Venous blood CHLORIDE 101 mmol/L 98-107 N Chloride [Moles/volume] in Serum or Plasma POTASSIUM 3.7 mmol/L 3.4-5.4 N Potassium [Moles/volume] in Serum or Plasma SODIUM 140 mmol/L 136-145 N Sodium [Moles/volume] in Serum or Plasma CREATININE 0.6 mg/dL 0.6-1.3 N Creatinine [Mass/volume] in Serum or Plasma BUN 23 mg/dL 6-20 H Urea nitrogen [Mass/volume] in Serum or Plasma GLUCOSE SER 80 mg/dL 70-100 N Glucose [Mass/volume] in Serum or Plasma Office Visit: f/u 6 MEDS REVIEW Done Documenta tion of current medications (procedure) Plan of Care Type Date Detail Pending order CMP Pending order CBC with Differe ntial Pending order Sedimentation Ra te (ESR) Pending order BMP Pending order CBC with Differe ntial Pending order CMP Pending order Sedimentation Ra te (ESR) Pending order CMP Pending order CBC with Differe ntial Pending order Sedimentation Ra te (ESR) Pending order Continue oral an tibiotics Pending order New Oral Antibio tic Pending order CMP Pending order CBC with Differe ntial Pending order Sedimentation Ra te (ESR) Procedures Code Procedure Name Date Entry Date CPT-99135 Flu Vaccine CPT-67951 CMP CPT-08046 CBC with Differential 11/20 CPT-14488 Sedimentation Rate (ESR) 201 07/19/08 CPT-36345 BMP CPT-31500 CBC with Differential 07/04 CPT-78829 CMP CPT-34988 Sedimentation Rate (ESR) 201 07/15/19 CPT-77568 CMP CPT-37886 CBC with Differential 07/11 CPT-80955 Sedimentation Rate (ESR) 201 06/26/26 CPT-Cooral Continue oral antibiotics 20 04/24/29 CPT-baldev New Oral Antibiotic CPT-25594 CMP CPT-78600 CBC with Differential 06/12 CPT-80400 Sedimentation Rate (ESR) 201 06/25/28 Vital Signs Date Name Value Unit Description BMI (Body Mass Index) 23.19 kg/m2 Bod y Mass Index (Ratio) Body Temperature 97.4 [degF] temperat ure E&M BP Diastolic 76 mm[Hg] blood pressu re, diastolic BP Systolic 150 mm[Hg] blood pressur e, systolic Heart Rate 64 /min pulse rate Height 64 [in_us] height E&M Respiratory Rate 14 /min respirat ory rate E&M Weight Measured 134.6 [lb_av] weight E& M Weight Measured 134.6 [lb_av] weight E& M BP Diastolic 70 mm[Hg] blood pressu re, diastolic, standing BP Systolic 124 mm[Hg] blood pressur e, systolic, standing Immunizations No information available. Advance Directives No information available.
--- OUTSIDE RECORDS SUMMARY | 2024-10-23 13:11 | XMS_ITS | Clinical Summary ---
Author Organization [facility] Address [address] [place] [address] Care Team Providers Care Skid Strapper Name Role Phone Haylie Valdez Nahomi SQUIRES Primary Care Provider [phone] Allergies No known active allergies Family History Medical History Relation Name Comments Lung cancer Father Relation Name Status Comments Father Social History Tobacco Use Types Packs/Day Years Used Date Smoking Tobacco: Never Alcohol Use Standard Drinks/Week Comments No 0 (1 standard drink = 0.6 oz pur e alcohol) Comments Unknown Sex and Gender Information Value Date Recorded Sex Assigned at Not on file Legal Sex Female 6:36 PM EDT Gender Identity Not on file Sexual Orientation Not on file Last Filed Vital Signs Vital Sign Reading Time Taken Comments Blood Pressure 164/76 12/12/2023 12:10 AM EDT Pulse 66 12/12/2023 12:10 AM EDT Temperature 36.8 C (98.3 F) 12/12/2023 12:10 AM EDT Respiratory Rate 16 12/12/2023 12:10 AM EDT Oxygen Saturation 95% 12/12/2023 12:10 AM EDT Inhaled Oxygen Concentration - - Weight 49.9 kg (110 lb) 12/11/2023 8:15 PM EDT Height 162.6 cm (5' 4 ) 12/11/2023 8:15 PM EDT Body Mass Index 18.88 12/11/2023 8:15 PM EDT Plan of Treatment Health Maintenance Due Date Last Done Comments [facility]-Bone Density Scan 1937 [facility]-Depression Screening 1937 [facility]-Medicare Annual Wellness (AWV) 1935 [facility]-Infant/Child/Adol SDOH Screenings 1937 [facility]- SDOH Screenings 1955 [facility]-Adult SDOH Screenings 1955 [facility]-Zoster Vaccines (1 of 2) 1987 [facility]-DLTKC-20 Vaccine ( season) 2024 04/19/2023, 04/25/2022, 09/20/2021, Additional history exists [facility]-Influenza Vaccine (Season Ended) 2025 02/08/2023, 02/08/2022, 02/08/2021, Additional history exists [facility]-DTaP,Tdap,and Td Vaccines (2 - Td or Tdap) 09/22/2031 09/21/2021 [facility]-Pneumococcal Vaccine: 50+ Years Completed 04/10/2019, 03/16/2017 [facility]-RSV Vaccine: 60+ Years or Completed 08/09/2023 HPV Vaccines Aged Out No longer eligi ble based on patient's age to complete this topic [facility]-HIB Vaccines Aged Out No longer e ligible based on patient's age to complete this topic [facility]-Hepatitis A Vaccines Aged Out No longer eligible based on patient's age to complete this topic [facility]-IPV Vaccines Aged Out No longer e ligible based on patient's age to complete this topic [facility]-Rotavirus Vaccines Aged Out No lo nger eligible based on patient's age to complete this topic Insurance MEDICARE [facility] Care Teams Skid Strapper Relationship Specialty Start Date End Date Haylie Valdez APRN [address] [place] [address] PCP - General 09/25/20
--- NOTE | 2024-10-23 13:41 | EXP.PAIN.SOA ---
[facility] Disclaimer: The information contained in this section may have been updated after the patient was seen, as this information can be updated by other users. Medical History H/O Eckert's palsy History of arthritis History of hypertension History of hypothyroidism Surgical History History of carpal tunnel release History of cholecystectomy H/O: hysterectomy History of surgery Family History Other No significant family history Social History Smoking Status: Never smoker second hand exposure: No alcohol intake: never substance use type: denies use current occupational status: other Travel in the last 8 weeks?: None household members: spouse housing: house current occupational exposures/hazards: No caffeine: Yes PM Subjective & Objective Subjective Subjective:: Patient is a pleasant 89-year-old female who presents today for 1 week postop stimulator explant. Today she rates her pain a 0 out of 10. She denies any new falls or injuries. Patient does state that she ended up having a skin tear on her right arm from the IV. Patient denies any other changes. Her Ramón has been reviewed and is appropriate. Review of Systems: General: No recent weight changes, no fever, no sleep disturbances Respiratory: No cough, no shortness of air, no recurring pulmonary infections Cardiovascular/peripheral vascular: No chest pain, no palpitations, no edema, no shortness of breath Gastrointestinal: No new onset incontinence, normal bowel movements reported Genitourinary: No new onset incontinence Musculoskeletal: Low back pain Psychiatric: [Normal mood/affect] Neurological: [Denies weakness in extremities], [denies balance issues] Pain at rest (0-10 scale): 0 Objective Objective:: Physical Exam: General: Alert and oriented x3, no acute distress, pleasant and cooperative Lungs: Respirations even and unlabored, symmetrical chest expansion Eyes: PERRL Musculoskeletal: Flexion and extension of lumbar spine within normal limits Neurological: Speech clear, no gross sensory deficit Skin: Incision site is clean, dry, well-approximated with sutures and krystin intact Has patient had previous pain injection?: No Conservative treatment options previously tried: Home exercise plan Length of treatment: Longer than 12 weeks Meds Home Medications and Allergies Home Medications ?Medication ?Instructions ?Recorded ?Confirmed ?Type indapamide 2.5 mg tablet 2.5 mg PO DAILY High blood pressure 07/25/17 10/23/24 History levothyroxine 50 mcg tablet 50 mcg PO DAILY THYROID 07/25/17 10/23/24 History New Prescriptions to Start Prescriptions: Allergies Allergy/AdvReac Type Severity Reaction Status Date / Time No Known Allergies Allergy Verified 10/18/24 08:04 Assessment and Plan *Assessment and plan (1) History of degenerative disc disease: Problem Comment: Lumbar spine stimulator in place with symptomatic improvement managed by pain management, Dr. Huntley. Status: Chronic Category: Medical Code(s): Z87.39 - Personal history of other diseases of the musculoskeletal system and connective tissue Plan Patient was counseled that she is on postop restrictions the full 6 weeks. We will plan on having her back in 2 weeks for suture and staple removal. Patient agrees with this plan of care. Patient's spouse is interested and setting up new patient appointment. We will get him scheduled the same day for her 2-week follow-up. Patient and spouse agree with this plan of care. Patient has been instructed to contact the clinic with any concerns before the next appointment. Dr. Hunltey has reviewed this note and agrees with this plan of care. This note was dictated using voice recognition software and make contain errors or omissions. All injections are used with Lidocaine, Bupivacaine and dexamethasone. Occasionally urine drug screen is needed to verify patient's compliance with our office pain contract. This is ordered based off specific treatments related to chronic pain with the potential to abuse certain medications.
[2024-10-23 13:54] VITALS: BP 122/67; PULSE 75; RESP 16; O2SAT 96; BMI 19.3
== END 2024-10-23 23:59 | disposition home or self-care (01) ==
LOC: SC.PAIN 13:08
PROVIDERS: PCP Nurse Practitioner Family; Visit Provider Nurse Practitioner Family
DX: S51.811A Laceration without foreign body of right forearm, initial encounter (principal); X58.XXXA Exposure to other specified factors, initial encounter; Y92.9 Unspecified place or not applicable; Z96.82 Presence of neurostimulator; Y93.9 Activity, unspecified; Z87.39 Personal history of other diseases of the musculoskeletal system and connective tissue
CPT/HCPCS: 99212; G0463

== ENCOUNTER 2024-11-06 13:28 | Outpatient (POV) | payer MEDICARE, BC, SELFPAY ==
--- OUTSIDE RECORDS SUMMARY | 2024-11-06 13:32 | XMS_ITS | Data Portability ---
Author Organization [place] [employer] [facility] Address [address] [place] [address] Assessment No assessment recorded. Plan of Treatment Reminders Order Date Submit Date Provider Last Modified By Organization Details Last Modified Time Details Appointments ANNUAL EXAM 2024 11:00A M Geetha Mrac APRN Not available Not available Not available Lab CMP, serum or plasma 2024 025 [place] [facility] [address] [place], [address], 08/24/2024 08:26:53 CBC w/ auto diff 2024 025 [place] [facility] ([facility]), [address] [place], [address], 08/24/2024 08:26:53 TSH, ultra-sen sitive, serum 2024 025 [place] [facility] ([facility] [address] [place], [address], 08/24/2024 08:26:55 cobalamin and folate panel, serum 2024 025 [place] [facility] ([facility] [address] [place], [address], 08/24/2024 08:26:54 vitamin D, 25-hydrox y, total, serum 2024 025 [place] [facility] [place], [address], 08/24/2024 08:26:55 iron + total iron-bind ing capacity (TIBC), serum 2024 [place] [facility] ([facility], [address] [facility], [place], [address], 08/24/2024 08:26:54 Referral None recorded. Procedures None recorded. Surgeries None recorded. Imaging None recorded. Medication Orders Daily Multi-Vit ji tablet 2024 [facility], [address] [place] [address], [address], 08/23/2024 14:11:47 Silvadene 1 % topical cream 2024 [facility], [address] [place] [address], [address], 08/23/2024 14:11:47 triamcino lone acetonide 0.1 % topical cream 2024 025 [facility], [address] [place] [address], [address], 08/23/2024 11:36:05 mirtazapi ne 7.5 mg tablet 2024 025 [facility], [address] [place] [address], [address], 08/23/2024 11:36:04 Patient TargetsNo targets recorded. Patient InstructionsNo instructions recorded. Reason for Referral None Reported. Results Created Date Observation Date Name Description Value Unit Range Abnormal Flag Note LastModifiedBy Organization Detail LastModifiedTime 02/26/2002/27/2024 TSH+F REE T4 TSH 1.160 uIU/m L 0.450- 4.500 normal Not Available [facility] ([facility]) [address] [facility], [place], [address], 02/27/2024 04:08:06 02/26/2002/27/2024 TSH+F REE T4 T4,free(dire ct) 1.65 NG/dL 0.82-1 .77 normal Not Available [facility] ([facility]) [address] [place], [address], 02/27/2024 04:08:06 02/26/2002/27/2024 CBC WITH DIFFE RENTI AL/PL ATELE T WBC 7.0 x10e3 /uL 3.4-10 .8 normal Not Available [facility] ([facility]) [address] [place], [address], 02/27/2024 04:08:06 02/26/2002/27/2024 CBC WITH DIFFE RENTI AL/PL ATELE T RBC 4.05 x10e6 /uL 3.77-5 .28 normal Not Available [facility] ([facility]) [address] [place], [address], 02/27/2024 04:08:06 02/26/2002/27/2024 CBC WITH DIFFE RENTI AL/PL ATELE T hemoglobin 11.8 g/dL 11.1-1 5.9 normal Not Available [facility] ([facility]) [address] [place], [address], 02/27/2024 04:08:06 02/26/2002/27/2024 CBC WITH DIFFE RENTI AL/PL ATELE T hematocrit 37.2 % 34.0-4 6.6 normal Not Available [facility] ([facility]) [address] [place], [address], 02/27/2024 04:08:06 02/26/2002/27/2024 CBC WITH DIFFE RENTI AL/PL ATELE T MCV 92 fL 79-97 normal Not Available [facility] ([facility]) [address] [place], [address], 02/27/2024 04:08:06 02/26/2002/27/2024 CBC WITH DIFFE RENTI AL/PL ATELE T MCH 29.1 pg 26.6-3 3.0 normal Not Available [facility] ([facility]) [address] [place], [address], 02/27/2024 04:08:06 02/26/20 24 02/27/2024 CBC WITH DIFFE RENTI AL/PL ATELE T MCHC 31.7 g/dL 31.5-3 5.7 normal Not Available [facility] ([facility]) [address] [facility], [place], [address], 02/27/2024 04:08:06 02/26/2002/27/2024 CBC WITH DIFFE RENTI AL/PL ATELE T RDW 12.9 % 11.7-1 5.4 Not Available [facility] ([facility]) [address] [place], [address], 02/27/2024 04:08:06 02/26/20 24 02/27/2024 CBC WITH DIFFE RENTI AL/PL ATELE T platelets 372 x10e3 /uL 150-45 0 normal Not Available [facility] ([facility]) [address] [place], [address], 02/27/2024 04:08:06 02/26/20 24 02/27/2024 CBC WITH DIFFE RENTI AL/PL ATELE T neutrophils 56 % not estab. normal Not Available [facility] ([facility]) [address] [place], [address], 02/27/2024 04:08:06 02/26/2002/27/2024 CBC WITH DIFFE RENTI AL/PL ATELE T lymphs 35 % not estab. normal Not Available [facility] ([facility]) [address] [place], [address], 02/27/2024 04:08:06 02/26/20 24 02/27/2024 CBC WITH DIFFE RENTI AL/PL ATELE T monocytes 7 % not estab. normal Not Available [facility] ([facility]) [address] [place], [address], 02/27/2024 04:08:06 02/26/2002/27/2024 CBC WITH DIFFE RENTI AL/PL ATELE T eos 1 % not estab. normal Not Available [facility] ([facility]) [address] [place], [address], 02/27/2024 04:08:06 02/26/2002/27/2024 CBC WITH DIFFE RENTI AL/PL ATELE T basos 1 % not estab. normal Not Available [facility] ([facility]) [address] [facility], [place], [address], 02/27/2024 04:08:06 02/26/2002/27/2024 CBC WITH DIFFE RENTI AL/PL ATELE T immature cells GAME AUTHOR Not Available [facility] ([facility]) [address] [place], [address], 02/27/2024 04:08:06 02/26/2002/27/2024 CBC WITH DIFFE RENTI AL/PL ATELE T neutrophils (absolute) 3.9 x10e3 /uL 1.4-7. 0 normal Not Available [facility] ([facility]) [address] [place], [address], 02/27/2024 04:08:06 02/26/20 24 02/27/2024 CBC WITH DIFFE RENTI AL/PL ATELE T lymphs (absolute) 2.4 x10e3 /uL 0.7-3. 1 normal Not Available [facility] ([facility]) [address] [place], [address], 02/27/2024 04:08:06 02/26/20 24 02/27/2024 CBC WITH DIFFE RENTI AL/PL ATELE T monocytes(ab solute) 0.5 x10e3 /uL 0.1-0. 9 normal Not Available [facility] ([facility]) [address] [facility], [place], [address], 02/27/2024 04:08:06 02/26/2002/27/2024 CBC WITH DIFFE RENTI AL/PL ATELE T eos (absolute) 0.1 x10e3 /uL 0.0-0. 4 normal Not Available [facility] ([facility]) [address] [facility], [place], [address], 02/27/2024 04:08:06 02/26/2002/27/2024 CBC WITH DIFFE RENTI AL/PL ATELE T baso (absolute) 0.0 x10e3 /uL 0.0-0. 2 normal Not Available [facility] ([facility]) [address] [facility], [place], [address], 02/27/2024 04:08:06 02/26/2002/27/2024 CBC WITH DIFFE RENTI AL/PL ATELE T immature granulocytes 0 % not estab. Not Available [facility] ([facility]) [address] [facility], [place], [address], 02/27/2024 04:08:06 02/26/2002/27/2024 CBC WITH DIFFE RENTI AL/PL ATELE T immature grans (abs) 0.0 x10e3 /uL 0.0-0. 1 Not Available [facility] ([facility]) [address] [facility], [place], [address], 02/27/2024 04:08:06 02/26/2002/27/2024 CBC WITH DIFFE RENTI AL/PL ATELE T NRBC GAME AUTHOR Not Available [facility] ([facility]) [address] [facility], [place], [address], 02/27/2024 04:08:06 02/26/2002/27/2024 CBC WITH DIFFE RENTI AL/PL ATELE T hematology comments: GAME AUTHOR Not Available [facility] ([facility]) [address] [facility] [place], [address], 02/27/2024 04:08:06 02/26/20 24 02/27/2024 COMP. METAB OLIC PANEL (14) glucose 104 mg/dL 70-99 above high normal Not Available [facility] ([facility]) [address] [facility] [place], [address], 02/27/2024 04:08:07 02/26/20 24 02/27/2024 COMP. METAB OLIC PANEL (14) BUN 18 mg/dL 8-27 normal Not Available [facility] ([facility]) [address] [facility] [place], [address], 02/27/2024 04:08:07 02/26/20 24 02/27/2024 COMP. METAB OLIC PANEL (14) creatinine 0.99 mg/dL 0.57-1 .00 normal Not Available [facility] ([facility]) [address] [facility] [place], [address], 02/27/2024 04:08:07 02/26/20 24 02/27/2024 COMP. METAB OLIC PANEL (14) eGFR 55 mL/mi n/1.7 3 >59 below low normal Not Available [facility] ([facility]) [address] [facility] [place], [address], 02/27/2024 04:08:07 02/26/20 24 02/27/2024 COMP. METAB OLIC PANEL (14) BUN/creatini ne ratio 18 12-28 normal Not Available [facility] ([facility]) [address] [facility] [place], [address], 02/27/2024 04:08:07 02/26/20 24 02/27/2024 COMP. METAB OLIC PANEL (14) sodium 140 mmol/ L 134-14 4 normal Not Available [facility] ([facility]) [address] [facility], [place], [address], 02/27/2024 04:08:07 02/26/20 24 02/27/2024 COMP. METAB OLIC PANEL (14) potassium 3.8 mmol/ L 3.5-5. 2 normal Not Available [facility] ([facility]) [address] [place], [address], 02/27/2024 04:08:07 02/26/20 24 02/27/2024 COMP. METAB OLIC PANEL (14) chloride 101 mmol/ L 96-106 normal Not Available [facility] ([facility]) [address] [place], [address], 02/27/2024 04:08:07 02/26/20 24 02/27/2024 COMP. METAB OLIC PANEL (14) carbon dioxide, total 26 mmol/ L 20-29 normal Not Available [facility] ([facility]) [address] [place], [address], 02/27/2024 04:08:07 02/26/20 24 02/27/2024 COMP. METAB OLIC PANEL (14) calcium 9.1 mg/dL 8.7-10 .3 normal Not Available [facility] ([facility]) [address] [place], [address], 02/27/2024 04:08:07 02/26/20 24 02/27/2024 COMP. METAB OLIC PANEL (14) protein, total 6.8 g/dL 6.0-8. 5 normal Not Available [facility] ([facility]) [address] [place], [address], 02/27/2024 04:08:07 02/26/20 24 02/27/2024 COMP. METAB OLIC PANEL (14) albumin 3.6 g/dL 3.7-4. 7 below low normal Not Available [facility] ([facility]) [address] [place], [address], 02/27/2024 04:08:07 02/26/20 24 02/27/2024 COMP. METAB OLIC PANEL (14) globulin, total 3.2 g/dL 1.5-4. 5 Not Available [facility] ([facility]) [address] [facility], [place], [address], 02/27/2024 04:08:07 02/26/20 24 02/27/2024 COMP. METAB OLIC PANEL (14) bilirubin, total 0.2 mg/dL 0.0-1. 2 normal Not Available [facility] ([facility]) [address] [facility], [place], [address], 02/27/2024 04:08:07 02/26/20 24 02/27/2024 COMP. METAB OLIC PANEL (14) alkaline phosphatase 90 IU/L 44-121 normal Not Available [facility] ([facility]) [address] [facility], [place], [address], 02/27/2024 04:08:07 02/26/20 24 02/27/2024 COMP. METAB OLIC PANEL (14) AST (SGOT) 10 IU/L 0-40 normal Not Available [facility] ([facility]) [address] [facility], [place], [address], 02/27/2024 04:08:07 02/26/20 24 02/27/2024 COMP. METAB OLIC PANEL (14) ALT (SGPT) 7 IU/L 0-32 normal Not Available [facility] ([facility]) [address] [facility], [place], [address], 02/27/2024 04:08:07 08/24/1908/24/2024 CBC WITH DIFFE RENTI AL/PL ATELE T WBC 6.7 x10e3 /uL 3.4-10 .8 normal Not Available [facility] ([facility]) [address] [facility], [place], [address], 08/24/2024 08:26:53 04/11/20 25 08/24/2024 CBC WITH DIFFE RENTI AL/PL ATELE T RBC 4.08 x10e6 /uL 3.77-5 .28 normal Not Available [facility] ([facility]) [address] [place], [address], 08/24/2024 08:26:53 08/24/19 25 08/24/2024 CBC WITH DIFFE RENTI AL/PL ATELE T hemoglobin 13.1 g/dL 11.1-1 5.9 normal Not Available [facility] ([facility]) [address] [place], [address], 08/24/2024 08:26:53 08/24/19 25 08/24/2024 CBC WITH DIFFE RENTI AL/PL ATELE T hematocrit 38.6 % 34.0-4 6.6 normal Not Available [facility] ([facility]) [address] [place], [address], 08/24/2024 08:26:53 08/24/19 25 08/24/2024 CBC WITH DIFFE RENTI AL/PL ATELE T MCV 95 fL 79-97 normal Not Available [facility] ([facility]) [address] [place], [address], 08/24/2024 08:26:53 08/24/19 25 08/24/2024 CBC WITH DIFFE RENTI AL/PL ATELE T MCH 32.1 pg 26.6-3 3.0 normal Not Available [facility] ([facility]) [address] [place], [address], 08/24/2024 08:26:53 08/24/19 25 08/24/2024 CBC WITH DIFFE RENTI AL/PL ATELE T MCHC 33.9 g/dL 31.5-3 5.7 normal Not Available [facility] ([facility]) [address] [place], [address], 08/24/2024 08:26:53 08/24/19 25 08/24/2024 CBC WITH DIFFE RENTI AL/PL ATELE T RDW 13.5 % 11.7-1 5.4 Not Available [facility] ([facility]) [address] [facility], [place], [address], 08/24/2024 08:26:53 08/24/19 25 08/24/2024 CBC WITH DIFFE RENTI AL/PL ATELE T platelets 318 x10e3 /uL 150-45 0 normal Not Available [facility] ([facility]) [address] [facility], [place], [address], 08/24/2024 08:26:53 08/24/19 25 08/24/2024 CBC WITH DIFFE RENTI AL/PL ATELE T neutrophils 64 % not estab. normal Not Available [facility] ([facility]) [address] [facility], [place], [address], 08/24/2024 08:26:53 08/24/19 25 08/24/2024 CBC WITH DIFFE RENTI AL/PL ATELE T lymphs 27 % not estab. normal Not Available [facility] ([facility]) [address] [facility], [place], [address], 08/24/2024 08:26:53 08/24/19 25 08/24/2024 CBC WITH DIFFE RENTI AL/PL ATELE T monocytes 7 % not estab. normal Not Available [facility] ([facility]) [address] [facility], [place], [address], 08/24/2024 08:26:53 08/24/19 25 08/24/2024 CBC WITH DIFFE RENTI AL/PL ATELE T eos 1 % not estab. normal Not Available [facility] ([facility]) [address] [facility], [place], [address], 08/24/2024 08:26:53 08/24/19 25 08/24/2024 CBC WITH DIFFE RENTI AL/PL ATELE T basos 1 % not estab. normal Not Available [facility] ([facility]) [address] [place], [address], 08/24/2024 08:26:53 08/24/19 25 08/24/2024 CBC WITH DIFFE RENTI AL/PL ATELE T immature cells GAME AUTHOR Not Available [facility] ([facility]) [address] [place], [address], 08/24/2024 08:26:53 08/24/19 25 08/24/2024 CBC WITH DIFFE RENTI AL/PL ATELE T neutrophils (absolute) 4.4 x10e3 /uL 1.4-7. 0 normal Not Available [facility] ([facility]) [address] [place], [address], 08/24/2024 08:26:53 08/24/19 25 08/24/2024 CBC WITH DIFFE RENTI AL/PL ATELE T lymphs (absolute) 1.8 x10e3 /uL 0.7-3. 1 normal Not Available [facility] ([facility]) [address] [place], [address], 08/24/2024 08:26:53 08/24/19 25 08/24/2024 CBC WITH DIFFE RENTI AL/PL ATELE T monocytes(ab solute) 0.5 x10e3 /uL 0.1-0. 9 normal Not Available [facility] ([facility]) [address] [place], [address], 08/24/2024 08:26:53 08/24/19 25 08/24/2024 CBC WITH DIFFE RENTI AL/PL ATELE T eos (absolute) 0.1 x10e3 /uL 0.0-0. 4 normal Not Available [facility] ([facility]) [address] [place], [address], 08/24/2024 08:26:53 08/24/19 25 08/24/2024 CBC WITH DIFFE RENTI AL/PL ATELE T baso (absolute) 0.0 x10e3 /uL 0.0-0. 2 normal Not Available [facility] ([facility]) [address] [facility], [place], [address], 08/24/2024 08:26:53 08/24/19 25 08/24/2024 CBC WITH DIFFE RENTI AL/PL ATELE T immature granulocytes 0 % not estab. Not Available [facility] ([facility]) [address] [facility], [place], [address], 08/24/2024 08:26:53 08/24/19 25 08/24/2024 CBC WITH DIFFE RENTI AL/PL ATELE T immature grans (abs) 0.0 x10e3 /uL 0.0-0. 1 Not Available [facility] ([facility]) [address] [facility], [place], [address], 08/24/2024 08:26:53 08/24/19 25 08/24/2024 CBC WITH DIFFE RENTI AL/PL ATELE T NRBC GAME AUTHOR Not Available [facility] ([facility]) [address] [facility], [place], [address], 08/24/2024 08:26:53 08/24/19 25 08/24/2024 CBC WITH DIFFE RENTI AL/PL ATELE T hematology comments: GAME AUTHOR Not Available [facility] ([facility]) [address] [place], [address], 08/24/2024 08:26:53 08/24/19 25 08/24/2024 COMP. METAB OLIC PANEL (14) glucose 101 mg/dL 70-99 above high normal Not Available [facility] ([facility]) [address] [place], [address], 08/24/2024 08:26:53 08/24/19 25 08/24/2024 COMP. METAB OLIC PANEL (14) BUN 23 mg/dL 8-27 normal Not Available [facility] ([facility]) [address] [facility] [place], [address], 08/24/2024 08:26:53 08/24/19 25 08/24/2024 COMP. METAB OLIC PANEL (14) creatinine 0.88 mg/dL 0.57-1 .00 normal Not Available [facility] ([facility]) [address] [facility] [place], [address], 08/24/2024 08:26:53 08/24/19 25 08/24/2024 COMP. METAB OLIC PANEL (14) eGFR 64 mL/mi n/1.7 3 >59 normal Not Available [facility] ([facility]) [address] [facility], [place], [address], 08/24/2024 08:26:53 08/24/19 25 08/24/2024 COMP. METAB OLIC PANEL (14) BUN/creatini ne ratio 26 12-28 normal Not Available [facility] ([facility]) [address] [facility] [place], [address], 08/24/2024 08:26:53 08/24/19 25 08/24/2024 COMP. METAB OLIC PANEL (14) sodium 139 mmol/ L 134-14 4 normal Not Available [facility] ([facility]) [address] [facility] [place], [address], 08/24/2024 08:26:53 08/24/19 25 08/24/2024 COMP. METAB OLIC PANEL (14) potassium 3.6 mmol/ L 3.5-5. 2 normal Not Available [facility] ([facility]) [address] [facility] [place], [address], 08/24/2024 08:26:53 08/24/19 25 08/24/2024 COMP. METAB OLIC PANEL (14) chloride 99 mmol/ L 96-106 normal Not Available [facility] ([facility]) [address] [facility] [place], [address], 08/24/2024 08:26:53 08/24/19 25 08/24/2024 COMP. METAB OLIC PANEL (14) carbon dioxide, total 25 mmol/ L 20-29 normal Not Available [facility] ([facility]) [address] [facility] [place], [address], 08/24/2024 08:26:53 08/24/19 25 08/24/2024 COMP. METAB OLIC PANEL (14) calcium 9.6 mg/dL 8.7-10 .3 normal Not Available [facility] ([facility]) [address] [facility] [place], [address], 08/24/2024 08:26:53 08/24/19 25 08/24/2024 COMP. METAB OLIC PANEL (14) protein, total 6.7 g/dL 6.0-8. 5 normal Not Available [facility] ([facility]) [address] [facility], [place], [address], 08/24/2024 08:26:53 08/24/19 25 08/24/2024 COMP. METAB OLIC PANEL (14) albumin 4.1 g/dL 3.7-4. 7 normal Not Available [facility] ([facility]) [address] [facility] [place], [address], 08/24/2024 08:26:53 08/24/19 25 08/24/2024 COMP. METAB OLIC PANEL (14) globulin, total 2.6 g/dL 1.5-4. 5 Not Available [facility] ([facility]) [address] [facility] [place], [address], 08/24/2024 08:26:53 08/24/19 25 08/24/2024 COMP. METAB OLIC PANEL (14) bilirubin, total 0.4 mg/dL 0.0-1. 2 normal Not Available [facility] ([facility]) [address] [place], [address], 08/24/2024 08:26:53 08/24/19 25 08/24/2024 COMP. METAB OLIC PANEL (14) alkaline phosphatase 76 IU/L 44-121 normal Not Available [facility] ([facility]) [address] [place], [address], 08/24/2024 08:26:53 08/24/19 25 08/24/2024 COMP. METAB OLIC PANEL (14) AST (SGOT) 19 IU/L 0-40 normal Not Available [facility] ([facility]) [address] [place], [address], 08/24/2024 08:26:53 08/24/19 25 08/24/2024 COMP. METAB OLIC PANEL (14) ALT (SGPT) 10 IU/L 0-32 normal Not Available [facility] ([facility]) [address] [place], [address], 08/24/2024 08:26:53 08/24/19 25 08/24/2024 IRON AND TIBC iron bind.cap.(TI BC) 427 ug/dL 250-45 0 normal Not Available [facility] ([facility]) [address] [facility], [place], [address], 08/24/2024 08:26:54 08/24/19 25 08/24/2024 IRON AND TIBC UIBC 347 ug/dL 118-36 9 normal Not Available [facility] ([facility]) [address] [place], [address], 08/24/2024 08:26:54 08/24/19 25 08/24/2024 IRON AND TIBC iron 80 ug/dL 27-139 normal Not Available [facility] ([facility]) [address] [place], [address], 08/24/2024 08:26:54 08/24/19 25 08/24/2024 IRON AND TIBC iron saturation 19 % 15-55 normal Not Available [facility] ([facility]) [address] [facility], [place], [address], 08/24/2024 08:26:54 08/24/19 25 08/24/2024 VITAM IN B12 AND FOLAT E vitamin B12 333 pg/mL 232-12 45 normal Not Available [facility] ([facility]) [address] [facility], [place], [address], 08/24/2024 08:26:54 08/24/1908/24/2024 VITAM IN B12 AND FOLAT E folate (folic acid), serum 8.2 NG/mL >3.0 normal A serum folat e collin ntrat ion of less than 3.1 ng/mL is consi dered to repre sent clini debra defic iency . Not Available [facility] ([facility]) [address] [facility], [place], [address], 08/24/2024 08:26:54 08/24/1908/24/2024 VITAM IN D, 25-HY DROXY vitamin D, 25-hydroxy 25.4 NG/mL 30.0-1 00.0 below low normal Vitam in D defic iency has been defin ed by the Insti tute of Medic ine and an Endoc rine Socie ty pract ice guide line as a level of serum 25-OH vitam in D less than 20 ng/mL (1,2) . The Endoc rine Socie ty went on to furth er defin e vitam in D insuf ficie ncy as a level betwe en 21 and 29 ng/mL (2). 1. IOM (Inst itute of Medic ine). 2009. Dieta ry refer ence intak es for calci um and D. Walter vizcaino [place]: The [facility] . 2. Naya chaidez [place], [place], Bisch off-F errar i CASH, et al. Evalu ation , treat ment, and preve ntion of vitam in D defic iency : an Endoc rine Socie ty clini debra pract ice guide line. JCEM. 2010; 96(9) :1911 -30. Not Available [facility] ([facility]) [address] [facility], [place], [address], 08/24/2024 08:26:55 08/24/19 25 08/24/2024 TSH RFX ON ABNOR MAL TO FREE T4 TSH 2.170 uIU/m L 0.450- 4.500 normal Not Available [facility] ([facility]) [address] [facility], [place], [address], 08/24/2024 08:26:55 Result Notes None recorded. 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 2 09:06:52 Hypothyr oidism [id number] Completed 201606/23/2016 Problem Code: E03.8; Problem Code Type: ICD-10; Not Available [facility] 2 22:58:49 Hypothyr oidism [id number] Completed 201505/15/2019 Problem Code: E03.8; Problem Code Type: ICD-10; Not Available [facility] 2 22:58:49 Hypothyr oidism [id number] Active 2018 Not Available [facility] 2 22:58:50 Mixed hyperlip idemia [id number] Completed 201605/24/2018 Problem Code: E78.2; Problem Code Type: ICD-10; Not Available [facility] 2 22:58:50 Hyperten sive disorder [id number] Completed 201504/20/2017 Problem Code: I10; Problem Code Type: ICD-10; Not Available [facility] 2 22:58:50 Acute bronchit is [id number] Completed 202102/08/2022 Problem Code: J20.9; Problem Code Type: ICD-10; JESSICA JOSESHALINI odell, [employer] 2 09:06:52 Gastroes ophageal reflux disease without esophagi tis [id number] Completed 201502/08/2022 JESSICA JOSESHALINI [employer], [employer] 2 09:06:52 Disorder of skin and/or subcutan eous tissue 03781184 Completed 202102/08/2022 Problem Code: L98.9; Problem Code Type: ICD-10; JESSICA GARCIASHALINI odell, [employer] 2 09:06:52 Effusion of joint of left knee 75912320947 9105 Completed 201605/04/2017 Not Available [facility] 2 22:58:50 Pain of right hip joint 16879339668 9102 Completed 201605/15/2019 Problem Code: M25.551; Problem Code Type: ICD-10; Not Available [facility] 2 22:58:51 Pain of right shoulder joint 38730296707 669024 Completed 201605/15/2019 Problem Code: M25.511; Problem Code Type: ICD-10; Not Available [facility] 2 22:58:51 Spinal stenosis of lumbar region 55018238 Completed 201605/15/2019 Problem Code: M48.06; Problem Code Type: ICD-10; Not Available [facility] 2 22:58:51 Right side sciatica 75585533608 9101 Completed 201602/08/2022 Problem Code: M54.31; Problem Code Type: ICD-10; JESSICA odell, [employer] 2 09:06:52 Neck pain 67053814 Completed 201802/08/2022 JESSICA KNUTSON null, [employer] 2 09:06:52 Intra-ab dominal and pelvic swelling , mass and lump Completed 201807/23/2018 Not Available [facility] 2 22:58:51 Syncope and collapse 158964592 Completed 201605/15/2019 Problem Code: R55; Problem Code Type: ICD-10; Not Available [facility] 2 22:58:52 Lacerati on of left forearm 25536679756 008716 Completed 202102/08/2022 JESSICA odell, [employer] 2 09:06:52 Closed fracture finger proximal phalanx, shaft 997892537 Completed 201604/21/2017 Problem Code: S62.516S ; Problem Code Type: ICD-10; Not Available [facility] 2 22:58:52 Open wound of lower leg 823713227 Completed 201902/08/2022 JESSICA KNUTSON null, [employer] 2 09:06:52 Secondar y AND/OR recurren t hemorrha ge as early complica tion of trauma 28173961 Completed 202102/08/2022 JESSICA odell, [employer] 2 09:06:52 General examinat ion of patient Completed 201802/08/2022 JESSICA odell, [employer] 2 09:06:52 Body mass index 20-24 - normal 593776685 Completed 201802/08/2022 JESSICA odell, [employer] 2 09:06:52 Hormone replacem ent therapy Completed 201505/15/2019 Problem Code: Z79.890; Problem Code Type: ICD-10; Not Available [facility] 2 22:58:53 Acquired hypothyr oidism 317606758 Active 2016 Problem Code: 244.8; Problem Code Type: ICD-9; Not Available [facility] 2 22:58:54 Benign essentia l hyperten herber 8150152 Completed 201505/24/2018 Problem Code: 401.1; Problem Code Type: ICD-9; Not Available [facility] 2 22:58:55 Knee joint effusion 386956060 Completed 201605/04/2017 Problem Code: 719.06; Problem Code Type: ICD-9; Not Available [facility] 2 22:58:55 Sciatica 47249176 Completed 201602/20/2017 Problem Code: 724.3; Problem Code Type: ICD-9; Not Available [facility] 2 22:58:55 Digestiv e symptom 661926083 Completed 201807/23/2018 Problem Code: 787.99; Problem Code Type: ICD-9; Not Available [facility] 2 22:58:55 Closed fracture of pelvis 49720294 Completed 201802/08/2022 Problem Code: S32.2XXA ; Problem Code Type: ICD-10; JESSICA odell, [employer] 2 09:06:52 Lacerati on of left forearm 21101368278 233865 Completed 201902/08/2021 JESSICA odell, [employer] 2 09:06:52 Post-apoorva gical wound care Completed 201605/15/2019 Problem Code: Z48.02; Problem Code Type: ICD-10; Not Available [facility] 2 22:58:57 Gastroes ophageal reflux disease 046483336 Completed 201502/08/2022 Problem Code: 530.81; Problem Code Type: ICD-9; JESSICA KNUTSON jose r, [employer] 2 09:06:52 Closed fracture of middle AND/OR proximal phalanx of finger Completed 201604/21/2017 Problem Code: 816.01; Problem Code Type: ICD-9; Not Available [facility] 2 22:58:58 Essentia l hyperten herber 14017683 Active 2023 Nakita Marc APRN [address] [place], [address] , [employer] 4 14:16:29 Vitamin D deficien cy 28148079 Active 2024 Nakita Marc APRN [address] [place], [address] , [employer] 5 09:22:32 Problem Notes None recorded. Procedures Surgical History Date Name Laterality Status Provider Name and Address Organization Details Recorded Time 06/15/19 23 Carpal tunnel surgery completed [employer] 08/08/2022 10:30:32 Hysterectomy completed [employer] 02/08/2022 09:09:29 Gallbladder Surgery completed [employer] 02/08/2022 09:09:36 Imaging Results None recorded. Procedure Notes None recorded. Medical Equipment None Reported. Allergies No known drug allergies Medications Name Sig Start Date Stop Date Status Note LastModified by Organization Details LastModified Time silver sulfadiazin e 1 % topical cream APPLY A 1/16 INCH (1.5 MM) THICK LAYER TO ENTIRE BURN AREA BY TOPICAL ROUTE 2 TIMES PER DAY active Not Available Not Available No t Available doxycycline hyclate 100 mg capsule TAKE ONE CAPSULE BY MOUTH TWICE DAILY WITH A MEAL FOR 10 DAYS FOR leg infection 04/23 completed Not Available Not Available Not Available indapamide 2.5 mg tablet TAKE 1 TABLET BY MOUTH ONCE DAILY IN THE MORNING active Not Available Not Available No t Available tizanidine 4 mg tablet take 1/2 tablet q hs 05/13 completed Not Available Not Available Not Available Lotrisone 1 %-0.05 % topical cream Apply small amount to affected area bid 09/22 completed Not Available Not Available Not Available cephalexin 250 mg capsule take 1 capsule (250 mg) by oral route every 8 hours for 10 days 02/25 completed Not Available Not Available Not Available Ativan 1 mg tablet take the tablet 1 hour before the procedure . 04/20 completed Not Available Not Available Not Available prednisone 5 mg tablet 10 pills today and decrease by one pill each day 05/13 completed Not Available Not Available Not Available ciprofloxac in 500 mg tablet TAKE 1 TABLET BY MOUTH TWICE DAILY FOR UTI 08/08 completed Not Available Not Available Not Available sulfamethox azole 800 mg-trimetho prim 160 mg tablet TAKE 1 TABLET BY MOUTH TWICE DAILY 08/08 completed Not Available Not Available Not Available tramadol 50 mg tablet 1 pill every 6 Hours prn pain. 08/25 completed Not Available Not Available Not Available triamcinolo ne acetonide 0.1 % topical cream APPLY A THIN LAYER TO THE AFFECTED AREA(S) BY TOPICAL ROUTE 2 TIMES PER DAY 08/23 completed Not Available Not Available Not Available meloxicam 7.5 mg tablet start taking one pill per day after finishing the prednison e 03/27 completed Not Available Not Available Not Available famotidine 20 mg tablet Take 1 tablet daily 05/24 completed Not Available Not Available Not Available estradiol 1 mg tablet Take 1 tablet(s) by mouth daily 05/24 completed Not Available Not Available Not Available doxycycline monohydrate 100 mg capsule take 1 capsule (100 mg) by oral route 2 times per day for 10 days 08/23 completed Not Available Not Available Not Available levothyroxi ne 50 mcg tablet TAKE 1 TABLET BY MOUTH ONCE DAILY ON AN EMPTY STOMACH 30 MINUTES BEFORE BREAKFAST active Not Available Not Available No t Available cephalexin 500 mg capsule TAKE ONE CAPSULE BY MOUTH EVERY 8 HOURS FOR 10 DAYS 02/25 completed Not Available Not Available Not Available urea 10 % topical cream USE TO SOFTEN BOTH HEELS 2 3 DAYS PER WEEK 08/08 completed Not Available Not Available Not Available megestrol 40 mg tablet TAKE ONE TABLET BY MOUTH EVERY DAY FOR appetite 06/03 completed Not Available Not Available Not Available diclofenac sodium 25 mg tablet,jaylyn yed release Take 1 tablet every day by oral route as needed, for spraingly for back pain. 08/23 completed Not Available Not Available Not Available diclofenac sodium 75 mg tablet,jaylyn yed release TAKE ONE TABLET BY MOUTH TWICE DAILY NEEDED FOR PAIN 03/15 completed Not Available Not Available Not Available Tylenol-Cod eine #3 300 mg-30 mg tablet 1 po q 4 hours prn 05/27 completed Not Available Not Available Not Available clotrimazol e 1 % topical cream apply to the affected and surroundi ng areas of skin by topical route 2 times per day in the morning and evening 05/13 completed Not Available Not Available Not Available amoxicillin 500 mg-potassiu m clavulanate 125 mg tablet TAKE 1 TABLET BY MOUTH EVERY 12 HOURS FOR 7 DAYS 08/08 completed Not Available Not Available Not Available Daily Multi-Vitam in tablet Take 1 tablet every day by oral route. 2024 active Not Available Not Available Not Avai lable mirtazapine 7.5 mg tablet TAKE ONE TABLET BY MOUTH NIGHTLY AT BEDTIME FOR appetitie 08/23 completed Not Available Not Available Not Available pregabalin 50 mg capsule TAKE 1 CAPSULE BY MOUTH TWICE DAILY 08/08 completed Not Available Not Available Not Available [facility] Levothyroxi ne Sodium Take 1 capsule(s ) by mouth daily. 10/21 completed Not Available Not Available Not Available cholecalcif hebert (vitamin D3) 1,250 mcg (50,000 unit) capsule TAKE ONE CAPSULE BY MOUTH ONCE WEEKLY FOR vitamin d deficienc y active Not Available Not Available No t Available Certavite-A ntioxidant 18 mg-400 mcg tablet TAKE ONE TABLET BY MOUTH EVERY DAY active Not Available Not Available No t Available Vitals Date Recorded Body height Body mass index (BMI) Body weight Body temperature Heart rate Oxygen saturation Oxygen saturation in Arterial blood by Pulse oximetry Systolic blood pressure Diastolic blood pressure Provider Name and Address Organization Details Last Updated DateTime 5 162.56 cm 19.4 kg/m2 47718.2 2 g 99.4 [degF] 77 /min 96 % 96 % 115 mm[Hg] 60 mm[Hg] [employer] 5 13:43:09 Date Recorded Body height Body mass index (BMI) Body weight Body temperature Heart rate Oxygen saturation Oxygen saturation in Arterial blood by Pulse oximetry Systolic blood pressure Diastolic blood pressure Provider Name and Address Organization Details Last Updated DateTime 5 162.56 cm 19.4 kg/m2 19980.9 4 g 97.8 [degF] 85 /min 97 % 97 % 112 mm[Hg] 61 mm[Hg] [employer] 5 11:02:00 Date Recorded Body height Body mass index (BMI) Body weight Body temperature Heart rate Oxygen saturation Oxygen saturation in Arterial blood by Pulse oximetry Systolic blood pressure Diastolic blood pressure Provider Name and Address Organization Details Last Updated DateTime 4 162.56 cm 19.2 kg/m2 60743.9 1 g 97.9 [degF] 73 /min 96 % 96 % 130 mm[Hg] 50 mm[Hg] [employer] 4 14:49:30 Date Recorded Body height Body temperature Heart rate Oxygen saturation Oxygen saturation in Arterial blood by Pulse oximetry Body mass index (BMI) Body weight Systolic blood pressure Diastolic blood pressure Provider Name and Address Organization Details Last Updated DateTime 4 162.56 cm 98.1 [degF] 49 /min 96 % 96 % 19.1 kg/m2 09415.7 5 g 139 mm[Hg] 56 mm[Hg] [employer] 4 17:01:02 Date Recorded Body height Body mass index (BMI) Body weight Body temperature Heart rate Oxygen saturation Oxygen saturation in Arterial blood by Pulse oximetry Systolic blood pressure Diastolic blood pressure Provider Name and Address Organization Details Last Updated DateTime 4 162.56 cm 19.1 kg/m2 58070.7 5 g 97.7 [degF] 85 /min 95 % 95 % 137 mm[Hg] 53 mm[Hg] JESSICA KNUTSON [employer] 4 15:33:52 Social History Question Answer Notes LastModified by Organizat ion Details LastModified Time Tobacco Smoking Status Never Smoker Cindy odell [employer] 12/13/2023 16:45:00 Do You Have An Advance Directive? No Information n ot available 02/08/2022 Is Your Home Air Conditioned? Yes Information not available 02/08/2022 Are You Blind Or Do You Have Difficulty Seeing? No Information n ot available 02/08/2022 Are You A Caregiver? No Information not available 02/08/2022 In The 14 Days Before Symptom Onset, Have You Had Close Contact With A Laboratory-confirm ed COVID-19 While That Case Was Ill? No Information n ot available 02/08/2022 In The 14 Days Before Symptom Onset, Have You Had Close Contact With A Person Who Is Under Investigation For COVID-19 While That Person Was Ill? No Information not available 02/08/2022 Have You Been To An Area Known To Be High Risk For COVID-19? No Information not available 02/08/2022 Are You Deaf Or Do You Have Serious Difficulty Hearing? No Information not available 02/08/2022 What Type Of Diet Are You Following? REGULAR Information n ot available 02/08/2022 Are There Any Guns Present In Your Home? No Information not available 02/08/2022 Do You Have A Medical Power Of Bag Patcher? No Information not available 02/08/2022 What Was The Date Of Your Most Recent Tobacco Screening? 08/23/2024 Information not available 08/23/2024 Do You Have Any Pets? Yes Information not available 02/08/2022 What Is Your Relationship Status? Information not available 02/08/2022 Do You Use Your Seat Belt Or Car Seat Routinely? Yes Information not available 02/08/2022 Do You Have Smoke And Carbon Monoxide Detectors In Your Home? Yes Information not available 02/08/2022 Are You Passively Exposed To Smoke? No Information no t available 02/08/2022 Are There Any Smokers In Your House? No Information not available 02/08/2022 Do You Participate In Social Media? No Information not available 02/08/2022 Do You Use Sunscreen Routinely? No Information not available 02/08/2022 Has Tobacco Cessation Counseling Been Provided? No Information not available 02/08/2022 Have You Recently Traveled Abroad? No Information not available 02/08/2022 Do You Have Difficulty Walking Or Climbing Stairs? No Information not available 02/08/2022 Are You Currently In School? No Information not available 02/08/2022 Do You Have Any Dietary Restrictions? No Information not available 02/08/2022 Sex: Female Functional Status Question Answer Note LastModified by [employer] Details LastModified Time Do you use any illicit or recreational drugs? No Information not available 02/08/2022 Do you or have you ever used any other forms of tobacco or nicotine? No Information not available 02/08/2022 What is your level of alcohol consumption? None Information not available 02/08/2022 Are you currently employed? No Information not available 02/08/2022 Do you have transportation difficulties? No Information not available 02/08/2022 Are you able to walk? YESWOREST Information not available 02/08/2022 Do you have difficulty doing errands alone? No Information not available 02/08/2022 Are you able to care for yourself? Yes Information not available 02/08/2022 Do you have difficulty dressing or bathing? No Information not available 02/08/2022 Mental Status Question Answer Note LastModified by Organization D etails LastModified Time Do you have difficulty concentrating, remembering or making decisions? No Information no t available 02/08/2022 Family History Relationship Description Onset Age of this Age Resolved Age Notes LastModified by Organization Details LastModified Time Father No current problems or disability [email or web address] Not available 03/15 13:07:32 Mother No current problems or disability [email or web address] Not available 03/15 13:07:32 Notes:*Procedure Description : Family medical history unremarkable*Relative: Unspecified Relation *Problem: Relative: ''; *Procedure Description: Family medical history unknown*Relative: Unspecified Relation *Problem: Relative: ''; Medical History Condition Response Hypertension Y Hypothyroidism Y Gynecological History Statement/Question Response Date of Last Pap Smear Most Recent Mammogram Obstetrics History GPAL:G 0 P 0 0 0 0 Immunizations Vaccine Type Date Status Note Provider Nam e and Address Organization Details Recorded Time Influenza, high-dose, quadrivalent, PF 3 completed Nakita Marc APRN [address] [place] [address], [phone], [employer] 02/08/2023 12:14:04 RSV, recombinant, protein subunit RSVpreF, adjuvant reconstituted, 0.5 mL, PF 4 completed Nakita Marc APRN [address] [place] [address], [phone], [employer] 08/13/2023 16:54:29 pneumococcal polysaccharide PPV23 9 completed Kendall odell, [employer] 03/15/2024 13:06:00 COVID-19, mRNA, LNP-S, PF, 100 mcg/0.5mL dose or 50 mcg/0.25mL dose 2 completed Kendall Colon null, [employer] 03/15/2024 13:06:00 COVID-19, mRNA, LNP-S, PF, 100 mcg/0.5mL dose or 50 mcg/0.25mL dose 1 completed Kendall Colon null, [employer] 03/15/2024 13:06:00 COVID-19, mRNA, LNP-S, PF, 100 mcg/0.5mL dose or 50 mcg/0.25mL dose 1 completed Kendall Colon null, [employer] 03/15/2024 13:06:00 Influenza, split virus, quadrivalent, PF 1 completed Not Available [facility] 01/18/2022 23:27:06 Tdap 2 completed Not Available [facility] 01/18/2022 23:27:06 COVID-19, mRNA, LNP-S, PF, 100 mcg/0.5mL dose or 50 mcg/0.25mL dose 1 completed Kendall Colon null, [employer] 03/15/2024 13:06:00 Influenza, MDCK, quadrivalent, PF 0 completed Not Available [facility] 01/18/2022 23:27:07 Influenza, high-dose, trivalent, PF 4 completed Nakita Marc, [employer] [address] [place] [address], [phone], [employer] 02/26/2024 17:09:12 Influenza, split virus, quadrivalent, preservative 8 completed Kendall Colon null, [employer] 03/15/2024 13:06:00 COVID-19, mRNA, LNP-S, bivalent, PF, 50 mcg/0.5 mL or 25mcg/0.25 mL dose 2 completed Kendall Colon null, [employer] 03/15/2024 13:06:00 pneumococcal polysaccharide PPV23 9 completed Kendall Colon null, [employer] 03/15/2024 13:06:00 Pneumococcal conjugate PCV 13 7 completed Kendall Colon null, [employer] 03/15/2024 13:06:00 Influenza, high-dose, trivalent, PF 7 completed Kendall Colon null, [employer] 03/15/2024 13:06:00 Influenza, high-dose, trivalent, PF 9 completed Kendall Colon null, [employer] 03/15/2024 13:06:00 COVID-19, mRNA, LNP-S, PF, 50 mcg/0.5 mL 3 completed Not Available [facility] 08/23/2024 10:52:26 Influenza, split virus, quadrivalent, PF 2 completed Nakita Marc APRN [address] [place] [address], [phone], [facility], [facility] 02/08/2022 09:50:14 Past Encounters Encounter ID Performer Location Encounter Start Date Encounter Closed Date Diagnosis/Indication Diagnosis SNOMED-CT Code Diagnosis ICD10 Code Diagnosis Note [id number] Nakita Marc [place] [address] 02/08/2022 08:32:21 02/08/2022 09:57:19 Acquired hypothyroidism 672054949 E03.9 Essential hypertension 97182452 I10 Administra tion of influenza vaccine 42355677 Z23 [id number] Nakita Marc [place] [address] 08/08/2022 10:03:52 08/08/2022 10:51:07 Acquired hypothyroidism 407824313 E03.9 Continue current meds. Essential hypertension 86607444 I10 Adult [facility] examination 012334907 Z00.00 Body mass index 20-24 - normal 961318583 Z68.21 [id number] Nakita Marc [place] [address] 02/08/2023 10:37:08 02/08/2023 12:39:29 Acquired hypothyroidism 461501753 E03.9 Continue current meds. Essential hypertension 25532042 I10 DASH diet emphasized . Administra tion of influenza vaccine 76915049 Z23 [id number] [place] [address] 08/09/2023 13:50:49 08/09/2023 15:10:19 Active or passive immunization 509097019 Z23 Adult [facility] examination 981013465 Z00.00 Patient presented to office today for their Medicare Annual Wellness Visit. Education was provided on healthy nutrition, including a diet rich in fruits and vegetables , minimizing simple carbohydra tiffanie, salt, and saturated fats. Encouraged regular cardiovasc ular exercise such as walking at least 30 minutes daily, 5 times per week. Emphasized preventive health measures and educated pt on fall prevention and community- based lifestyle interventi ons to help reduce health risks and promote healthy living. Acquired hypothyroidism 132485742 E03.9 Continue current meds. Essential hypertension 30947037 I10 DASH diet emphasized . Body mass index 20-24 - normal 158234878 Z68.21 Osteoarthritis 355155995 M19.90 Cautioned for only rare prn use for her lumbar DDD. Prefer she use tylenol arthritis prn arthritic pain. [id number] [place] [address] 12/12/2023 14:18:32 12/12/2023 16:05:39 Deep avulsion wound 216317796 T14.8XXD Large avulsion wound to left upper lateral arm down to muscle layer. Begin LALA whitman here tomorrow for wound care until she can be seen by [facility] Wound care clinic. [id number] Nakita Marc [place] [address] 0 12/13/2023 16:32:21 12/13/2023 17:11:49 Deep avulsion wound 738213398 T14.8XXD Large avulsion wound to left upper lateral arm down to muscle layer. Begin j carlos, RTC here tomorrow for wound care until she can be seen by [facility] Wound care clinic. Wound was cleaned with sterile saline and hibiclens. Nonstick dressing with xeroform, telfa and roll gauze applied. Tdap is UTD. She is to leave dressing on until I see her back for wound check and dressing change tomorrow. [id number] Nakita Marc [place] [address] 0 12/15/2023 16:41:58 12/18/2023 07:30:55 Deep avulsion wound 030086390 T14.8XXD Large avulsion wound to left upper lateral arm down to muscle layer. Begin antx, RTC here Monday for wound care until she can be seen by [facility] Wound care clinic. [id number] Nakita Marc [place] [address] 0 12/18/2023 09:46:35 12/18/2023 10:31:31 Deep avulsion wound 460250519 T14.8XXD Large avulsion wound to left upper lateral arm down to muscle layer. Complete oral antx, begin Wound Care Center treatments at [facility] tomorrow AM as scheduled. [id number] Nakita Marc [place] [address] 0 01/22/2024 16:25:56 01/22/2024 16:58:45 Open wound of lower leg 461833860 S81.801A Begin wound care therapy. Cellulitis of lower limb 076939892 L03.119 Start Keflex today. Cleanse BID with antibacter ial soap and water and keep covered with dry dressing. Acquired hypothyroidism 842584270 E03.9 Refill synthroid Essential hypertension 74048547 I10 refill [id number] Nakita Marc [place] [address] 0 02/26/2024 13:41:18 02/26/2024 15:08:52 Administration of influenza vaccine 19563310 Z23 Acquired hypothyroidism 903894543 E03.9 Refill synthroid Essential hypertension 00238349 I10 Refill Indapamide . 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 Short trial megace, start MVI. Samples given of Ensure today. Healthy diet with adequate protein encouraged . [id number] Nakita Maurerbebe [place] [address] 0 03/15/2024 12:58:02 03/15/2024 13:51:53 Cellulitis of right lower limb 1741445222 0351862 L03.115 Elevate leg over the weekend and start antx. RTC on Monday for recheck and dressing change. [id number] Nakita Marc [place] [address] 0 03/18/2024 14:17:38 03/18/2024 15:29:24 Cellulitis of right lower limb 6541356098 9301574 L03.115 Elevate leg over the weekend and start antx. RTC on Monday for recheck and dressing change. wound care with silvadene and dressing completed today. [id number] Nakita Marc [place] [address] 0 03/20/2024 16:32:46 03/20/2024 17:20:55 Cellulitis of right lower limb 6310332149 [id number] L03.115 Elevate leg, continue antx and compressio n stocking. Daily dressing changes with silvadene to be performed. RTC in 1 week for recheck. [id number] Nakita Marc [place] [address] 0 03/27/2024 15:19:51 03/27/2024 16:44:57 Cellulitis of right lower limb 0763749409 5294980 L03.115 Continue daily dressings for the rest of this week and then continue the stocking to manage further edema issues. [id number] Nakita Marc [place] [address] 06/03/2024 13:26:22 06/03/2024 14:36:10 Xerosis due to atopic dermatitis 433521929 L85.3 He is of emollient lotions encouraged . 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 Could not tolerate megace due to nausea. I would like her to try to drink 1-2 Ensure drinks per day. We discussed increasing dietary protein. We will try low-dose mirtazapin e at bedtime. She was cautioned for oversedati on with that medication . Body mass index less than 20 305239017 Z68.1 [id number] Nakita [address] [place] [address] 08/23/2024 10:49:30 08/23/2024 13:14:09 Mild thinness in adulthood 632986922 R63.6 Essential hypertension 44127766 I10 Refill Indapamide . Hypothyroidism 71398231 E03.8 Continue Synthroid. Fatigue 26677133 R53.83 Cellulitis of right lower limb [id number] L03.115 Healed, may use silvadene prn. Cachexia [id number] R64 Improved. Continue Ensure. Health Concerns Section Related Observation LastModified by Organization Detai ls LastModified Time None Recorded Concern Status LastModified by Organization Details LastModified Time None Recorded Advance Directives Directive N: Payers Insurance Date Sequence Insurance Name Policy Number Policy Hall Covered Member ID Hall Member ID Guarantor Name 11/06/2023 SLIDING FEE SCHEDULE - DISCOUNT Margaret Feeback 11/06/2023 SLIDING FEE SCHEDULE - DISCOUNT Margaret Feeback 08/21/2024 1 [place] Margaret A Feeback [id number] Margaret Feeback 09/16/2024 2 [place] [id number] Margaret A Feeback [id number] Margaret Feeback 08/21/2024 [place] [employer] [facility] - [facility] Margaret A Feeback [id number] Margaret Feeback Notes Date Note Type Note Provider Name and Address Organization Details Recorded Time 03/18/20 24 text/htm l WoundReported bypatient.Location:location: Right lower leg Pain Quality:throbbing; worsening Severity:moderate Duration:3 months Timing:gradual; recurrent Context:puncture Alleviating Factors:lying down Aggravating Factors:weight bearing; walking Associated Symptoms:no numbness; no tingling; no ecchymosis; no radiation of pain; no fever; no chills;swelling;redness;warmth; drainage Prior Imaging:no recent studies Previous Injections:none Persistent waxing and waning cellulitis of RLE after she struck his leg on an ac unit in November. Has been seeing wound care in [facility] for this. She reports increased pain, edema, and drainage over past one week. Nakita Mrac APRN [address] [place], [address], [employer]. 03/24/2024 20:14:31 03/20/20 24 text/htm l WoundReported bypatient.Location:location: Right lower leg Pain Quality:throbbing; worsening Severity:moderate Duration:3 months Timing:gradual; recurrent Context:puncture Alleviating Factors:lying down Aggravating Factors:weight bearing; walking Associated Symptoms:no numbness; no tingling; no ecchymosis; no radiation of pain; no fever; no chills;swelling;redness;warmth; drainage Prior Imaging:no recent studies Previous Injections:none Persistent waxing and waning cellulitis of RLE after she struck his leg on an ac unit in November. Has been seeing wound care in [facility] for this. She reports increased pain, edema, and drainage over past one week.Drainage and erythema is improved today. Wound care and ressing change performed in office today. She is taking the oral antx and using [id number] stocking. Nakita Marc APRN [address] [place], [address], [employer]. 03/24/2024 18:11:50 03/27/20 24 text/htm l WoundReported bypatient.Location:location: Right lower leg Pain Quality:improving Severity:mild; improved 90% Duration:3 months Timing:gradual; recurrent Context:puncture Alleviating Factors:lying down Aggravating Factors:weight bearing; walking Associated Symptoms:no numbness; no tingling; no ecchymosis; no radiation of pain; no drainage; no fever; no chills;swelling;redness;warmth Prior Imaging:no recent studies Previous Injections:none Persistent waxing and waning cellulitis of RLE after she struck his leg on an ac unit in November. Has been seeing wound care in [facility] for this. She reports increased pain, edema, and drainage over past one week.Drainage and erythema is improved today. Wound care and dressing change performed in office today. She is taking the oral antx and using [id number] stocking. Follow up 11/13/24: Wound is now healed and erythema almost completed resolved. She has been wearing compression sockover the dressing and edema is also almost completely resolved. Nakita Marc APRN [address] [place], [address], [employer]. 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 She denies all GI symptoms. She is frustrated that she does not have the appetite that she once did. We did try Megace and that was unsuccessful as it did cause some nausea she says. She is having normal bowel movements. She admits she prefers to eat sweets. Nakita Marc APRN [address] [place], [address], [employer]. 06/16/2024 20:42:34 08/24/19 25 text/htm l Hypertension F/UReported bypatient.Medications:taking medications as directed; no side effects from medication; checks blood pressure at home, range: (120/70) Lifestyle:regular exercise; limits sodium intake Associated Symptoms:no dizziness; no lightheadedness; no chest pain; no shortness of breath; no palpitations; no edema; no calf pain with exertion; no headacheHypothyroidReported bypatient.Reason for Visit:general check-up; TSH check/labs Onset/Timing:age at dx: 77 Duration:>12 months Associated Symptoms:no weakness; no lightheadedness; no fatigue; no cold intolerance; no constipation; no weight gain; normal mood; no pain; no dry/coarse skin; no edema; no deepening of the voice; no hoarseness; no goiter; no mass detected; no chest pain; no palpitations;involuntary weight loss 13 lbs. Treatment:current T4 dose: 50 mcg; taking medication as prescribed She states her appetite is improved.Continues to see Interventional Pain for intermittent epidural lumbar injections for DDD. She is having her spinal stimulator removed. Nakita Marc, SHAW [address] [facility], [place], [address], [facility] [employer] 09/15/2024 22:01:41 OBGyn Episode No OBEpisode recorded.
--- OUTSIDE RECORDS SUMMARY | 2024-11-06 13:32 | XMS_ITS | Clinical Summary ---
Author Organization [facility] Address [address] [place] [address] Care Team Providers Care Site Acquisition Manager Name Role Phone Haylie Valdez Nahomi SQUIRES Primary Care Provider [phone] Allergies No known active allergies Family History [...] 1953 UKY-Zoster Vaccines (1 of 2) 1987 [id number] Vaccine ( season) 2024 04/19/2023, 04/25/2022, 09/20/2021, [...] age to complete this topic Insurance MEDICARE [facility] Care Teams Site Acquisition Manager Relationship Specialty Start Date End Date Haylie Valdez APRN [address] [place] [address] PCP - General 09/25/20
--- OUTSIDE RECORDS SUMMARY | 2024-11-06 13:32 | XMS_ITS | Clinical Summary ---
Author Organization [facility] Address [address] [place] [address] Phone Care Team Providers Care Hose Turner Name Role Phone Joselito Vaughan Unavailable Unavailable Conditions or Problems Problem Name Problem Code Onset Date Status Entry Date Provider Comment Standard Description Annotate ABRASION, LEFT LEG, INFECTED L08.89 (ICD-10-CM ) Active Malachi Olmstead MD Other specified local infections of the skin and subcutaneous tissue ADVERSE DRUG REACTION 73474329 (SNOMED CT) 07/11 Resolved 07/11 Yue Vela Adverse reaction to drug NAUSEA 062368883 (SNOMED CT) 06/12 Resolved 06/12 Yue Vela Nausea HYPOKALEMIA 51540478 (SNOMED CT) 08/14 Resolved 08/14 Yue Vela Hypokalemia PLANTAR WART 89590640 (SNOMED CT) 11/20 Active 11/20 Yue Vela Verruca plantaris HYPOKALEMIA 05731927 (SNOMED CT) 08/14 Removed 08/14 Malachi Olmstead MD Hypokalemia ADVERSE DRUG REACTION 30013551 (SNOMED CT) 07/11 Removed 07/11 Jessica W Adverse reaction to drug ADVERSE DRUG REACTION 69151215 (SNOMED CT) 07/11 Correction 07/11 Malachi Olmstead MD Adverse reaction to drug NAUSEA 626542478 (SNOMED CT) 06/12 Removed 06/12 Yue Vela Nausea DIARRHEA, ANTIBIOTIC ASSOCIATED 334636527 (SNOMED CT) 05/21 Resolved 05/24 Yue Vela Antibiotic-ass ociated diarrhea 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 (ICD-10-CM ) 05/26 Active 05/26 Miri Brandt Cutaneous mycobacterial infection DIARRHEA, ANTIBIOTIC ASSOCIATED 722965597 (SNOMED CT) 05/21 Removed 05/24 Malachi Olmstead MD Antibiotic-ass ociated diarrhea ABSCESS, FINGER POSITIVE AFB CULTURE 681.00 (ICD-9-CM) 05/21 Active 05/21 Anetra D Raza Cellulitis and abscess of finger, unspecified Medications Medication Instructions Start Date Stop Date Generic Name ND Provider MINOCYCLINE HCL 100 MG TABS MINOCYCLINE HCL 83183893417 Malachi Olmstead MD INDAPAMIDE 2.5 MG TABS INDAPAMIDE 99702528215 Malachi Olmstead MD KLOR-CON M20 20 MEQ CR-TABS 20meq po bid POTASSIUM CHLORIDE HAKEEM CR 11046798976 Malachi Olmstead MD BIAXIN 500 MG ORAL TABLET 1 by mouth every 12 hours CLARITHROMYCIN 25238671627 Dary Z CIPRO 500 MG TABS 1 tablet daily CIPROFLOXACIN HCL 60753839588 Dary Z ZOFRAN 4 MG ORAL TABLET 1 po tid prn ONDANSETRON HCL 12049292826 Malachi Olmstead MD ETHAMBUTOL HCL 400 MG TABS one tablet po daily ETHAMBUTOL HCL 36256630765 Malachi Olmstead MD AZITHROMYCIN 250 MG TABS one tablet po daily AZITHROMYCIN 68560037294 Malachi Olmstead MD CIPRO 500 MG TABS 1 tablet daily CIPROFLOXACIN HCL 15872457737 Malachi Olmstead MD BIAXIN 500 MG ORAL TABLET 1 by mouth every 12 hours CLARITHROMYCIN 58016364496 Malachi Olmstead MD CIPRO 500 MG TABS 1 by mouth twice a day CIPROFLOXACIN HCL 63646937404 Malachi Olmstead MD LEVOTHROID TABS LEVOTHYROXINE SODIUM TABS 73897531357 Anetra D Raza PEPCID 20 MG TABS FAMOTIDINE 51301497544 Anetra D Raza ESTRADIOL 0.025 MG/24HR PTWK ESTRADIOL 75564568630 Anetra D Raza INDAPAMIDE 2.5 MG TABS INDAPAMIDE 34901539099 Anetra D Raza Medications Administered No information available. 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 Lab Report: Basic Metabolic Panel [...] Procedures Code Procedure Name Date Entry Date CPT-22875 Flu Vaccine CPT-11504 CMP CPT-12465 CBC with Differential 11/20 CPT-94182 Sedimentation Rate (ESR) 201 07/19/08 CPT-03702 BMP CPT-49614 CBC with Differential 07/04 CPT-16922 CMP CPT-90174 Sedimentation Rate (ESR) 201 07/15/19 CPT-70281 CMP CPT-93765 CBC with Differential 07/11 CPT-08692 Sedimentation Rate (ESR) 201 06/26/26 CPT-Cooral Continue oral antibiotics 20 04/24/29 CPT-baldev New Oral Antibiotic CPT-77085 CMP CPT-01227 CBC with Differential 06/12 CPT-51309 Sedimentation Rate (ESR) 201 06/25/28 Vital Signs [...]
[2024-11-06 13:50] VITALS: BP 121/61; PULSE 76; O2SAT 95; BMI 19.3
--- NOTE | 2024-11-06 14:23 | EXP.PAIN.SOA ---
[facility] Disclaimer: The information contained in this section may have been updated after the patient was seen, as this information can be updated by other users. Medical History H/O Eckert's palsy History of arthritis History of hypertension History of hypothyroidism Surgical History History of carpal tunnel release History of cholecystectomy H/O: hysterectomy History of surgery Family History Other No significant family history Social History Smoking Status: Never smoker second hand exposure: No alcohol intake: never substance use type: denies use current occupational status: retired Travel in the last 8 weeks?: None household members: spouse housing: house current occupational exposures/hazards: No caffeine: Yes PM Subjective & Objective Subjective Subjective:: Patient is a pleasant 89-year-old female who presents today for suture and staple removal as well as follow-up. Today she rates her pain a 0 out of 10. She states she really only has pain when she is up moving/walking. Patient denies any problems following her spinal cord stimulator explant. She states overall she is doing well. Her skin tear on her right arm has healed up nicely. Her Ramón has been reviewed and is appropriate. Review of Systems: General: No recent weight changes, no fever, no sleep disturbances Respiratory: No cough, no shortness of air, no recurring pulmonary infections Cardiovascular/peripheral vascular: No chest pain, no palpitations, no edema, no shortness of breath Gastrointestinal: No new onset incontinence, normal bowel movements reported Genitourinary: No new onset incontinence Musculoskeletal: Low back pain Psychiatric: [Normal mood/affect] Neurological: [Denies weakness in extremities], [denies balance issues] Pain at rest (0-10 scale): 0 Objective Objective:: Physical Exam: General: Alert and oriented x3, no acute distress, pleasant and cooperative Lungs: Respirations even and unlabored, symmetrical chest expansion Eyes: PERRL Musculoskeletal: Flexion and extension of lumbar [spine] somewhat guarded secondary to pain, [antalgic gait noted] Neurological: Speech clear, no gross sensory deficit Skin: Incision sites are clean, dry, well-approximated with no erythema noted Has patient had previous pain injection?: No Conservative treatment options previously tried: Home exercise plan Length of treatment: Longer than 12 weeks Meds Home Medications and Allergies Home Medications ?Medication ?Instructions ?Recorded ?Confirmed ?Type indapamide 2.5 mg tablet 2.5 mg PO DAILY High blood pressure 07/25/17 10/23/24 History levothyroxine 50 mcg tablet 50 mcg PO DAILY THYROID 07/25/17 10/23/24 History New Prescriptions to Start Prescriptions: Allergies Allergy/AdvReac Type Severity Reaction Status Date / Time No Known Allergies Allergy Verified 10/18/24 08:04 Assessment and Plan *Assessment and plan (1) Degenerative disc disease: Status: Acute Category: Medical Plan Patient was able to have all of her sutures and krystin removed with skin glue and Steri-Strips applied. Patient was counseled that she is still on her postop restrictions including minimal bending, lifting or twisting no submerging in water until her incisions are fully healed and to continue to use her abdominal binder as needed to prevent seroma formation. Patient acknowledges understanding agrees with plan of care. Patient will return to clinic in 1 month for reevaluation of symptoms and plan of care. Patient has been instructed to contact the clinic with any concerns before the next appointment. Dr. Huntley has reviewed this note and agrees with this plan of care. This note was dictated using voice recognition software and make contain errors or omissions. All injections are used with Lidocaine, Bupivacaine and dexamethasone. Occasionally urine drug screen is needed to verify patient's compliance with our office pain contract. This is ordered based off specific treatments related to chronic pain with the potential to abuse certain medications.
== END 2024-11-06 23:59 | disposition home or self-care (01) ==
LOC: SC.PAIN 13:30
PROVIDERS: PCP Nurse Practitioner Family; Visit Provider Nurse Practitioner Family
DX: M51.360 Other intervertebral disc degeneration, lumbar region with discogenic back pain only (principal)
CPT/HCPCS: 99212; G0463

== ENCOUNTER 2024-12-09 11:24 | Outpatient (POV) | payer MEDICARE, BC, SELFPAY ==
--- OUTSIDE RECORDS SUMMARY | 2024-12-09 11:34 | XMS_ITS | Clinical Summary ---
Author Organization [facility] Address [address] [place] [address] Phone Care Team Providers Care Plumbing Instructor Name Role Phone Joselito Vaughan Unavailable Unavailable Conditions or Problems Problem Name Problem Code Onset Date Status Entry Date Provider Comment Standard Description Annotate ABRASION, LEFT LEG, INFECTED L08.89 (ICD-10-CM ) Active Malachi Olmstead MD Other specified local infections of the skin and subcutaneous tissue ADVERSE DRUG REACTION 97610101 (SNOMED CT) 07/11 Resolved 07/11 Yue Vela Adverse reaction to drug NAUSEA 616760299 (SNOMED CT) 06/12 Resolved 06/12 Yue Vela Nausea HYPOKALEMIA 78964957 (SNOMED CT) 08/14 Resolved 08/14 Yue Vela Hypokalemia PLANTAR WART 42237912 (SNOMED CT) 11/20 Active 11/20 Yue Vela Verruca plantaris HYPOKALEMIA 40866179 (SNOMED CT) 08/14 Removed 08/14 Malachi Olmstead MD Hypokalemia ADVERSE DRUG REACTION 77490934 (SNOMED CT) 07/11 Removed 07/11 Jessica W Adverse reaction to drug ADVERSE DRUG REACTION 81497269 (SNOMED CT) 07/11 Correction 07/11 Malachi Olmstead MD Adverse reaction to drug NAUSEA 467618230 (SNOMED CT) 06/12 Removed 06/12 Yue Vela Nausea DIARRHEA, ANTIBIOTIC ASSOCIATED 773528617 (SNOMED CT) 05/21 Resolved 05/24 Yue Vela Antibiotic-ass ociated diarrhea 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 (ICD-10-CM ) 05/26 Active 05/26 Miri Brandt Cutaneous mycobacterial infection DIARRHEA, ANTIBIOTIC ASSOCIATED 301506967 (SNOMED CT) 05/21 Removed 05/24 Malachi Olmstead MD Antibiotic-ass ociated diarrhea ABSCESS, FINGER POSITIVE AFB CULTURE 681.00 (ICD-9-CM) 05/21 Active 05/21 Anetra D Raza Cellulitis and abscess of finger, unspecified Medications Medication Instructions Start Date Stop Date Generic Name ND Provider MINOCYCLINE HCL 100 MG TABS MINOCYCLINE HCL 17399227084 Malachi Olmstead MD INDAPAMIDE 2.5 MG TABS INDAPAMIDE 38885335544 Malachi Olmstead MD KLOR-CON M20 20 MEQ CR-TABS 20meq po bid POTASSIUM CHLORIDE HAKEEM CR 50295110750 Malachi Olmstead MD BIAXIN 500 MG ORAL TABLET 1 by mouth every 12 hours CLARITHROMYCIN 01609401031 Dary Z CIPRO 500 MG TABS 1 tablet daily CIPROFLOXACIN HCL 35013352590 Dary Z ZOFRAN 4 MG ORAL TABLET 1 po tid prn ONDANSETRON HCL 22121581005 Malachi Olmstead MD ETHAMBUTOL HCL 400 MG TABS one tablet po daily ETHAMBUTOL HCL 30708880613 Malachi Olmstead MD AZITHROMYCIN 250 MG TABS one tablet po daily AZITHROMYCIN 85000009293 Malachi Olmstead MD CIPRO 500 MG TABS 1 tablet daily CIPROFLOXACIN HCL 91655760321 Malachi Olmstead MD BIAXIN 500 MG ORAL TABLET 1 by mouth every 12 hours CLARITHROMYCIN 76807727154 Malachi Olmstead MD CIPRO 500 MG TABS 1 by mouth twice a day CIPROFLOXACIN HCL 60387318174 Malachi Olmstead MD LEVOTHROID TABS LEVOTHYROXINE SODIUM TABS 94914756264 Anetra D Raza PEPCID 20 MG TABS FAMOTIDINE 04151054392 Anetra D Raza ESTRADIOL 0.025 MG/24HR PTWK ESTRADIOL 80027025875 Anetra D Raza INDAPAMIDE 2.5 MG TABS INDAPAMIDE 10502883238 Anetra D Raza Medications Administered No information available. 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 Lab Report: Basic Metabolic Panel [...] Procedures Code Procedure Name Date Entry Date CPT-94816 Flu Vaccine CPT-62523 CMP CPT-91631 CBC with Differential 11/20 CPT-12850 Sedimentation Rate (ESR) 201 07/19/08 CPT-93250 BMP CPT-94558 CBC with Differential 07/04 CPT-43721 CMP CPT-49815 Sedimentation Rate (ESR) 201 07/15/19 CPT-58693 CMP CPT-14572 CBC with Differential 07/11 CPT-22949 Sedimentation Rate (ESR) 201 06/26/26 CPT-Cooral Continue oral antibiotics 20 04/24/29 CPT-baldev New Oral Antibiotic CPT-17330 CMP CPT-73076 CBC with Differential 06/12 CPT-26409 Sedimentation Rate (ESR) 201 06/25/28 Vital Signs [...]
--- OUTSIDE RECORDS SUMMARY | 2024-12-09 11:35 | XMS_ITS | Clinical Summary ---
Author Organization [facility] Address [address] [place] [address] Care Team Providers Care On Call Pharmacy Technician Name Role Phone Haylie Valdez Nahomi SQUIRES Primary Care Provider Allergies No known active allergies Family History [...] 1953 UKY-Zoster Vaccines (1 of 2) 1987 [id number] Vaccine (7 - season) 2024 04/19/2023, 04/25/2022, 09/20/2021, Additional history exists UKY-Influenza Vaccine (#1) 01/13/202502/08, 02/08/2022, 02/08/2021, Additional history exists UKY-DTaP,Tdap,and Td [...] complete this topic Insurance MEDICARE [facility] Care Teams On Call Pharmacy Technician Relationship Specialty Start Date End Date Haylie Valdez APRN [address] [place] [address] PCP - General 09/25/20
--- OUTSIDE RECORDS SUMMARY | 2024-12-09 11:35 | XMS_ITS | Data Portability ---
Author Organization [place] [employer] [facility] [place] Address [address] [place] [address] Assessment No assessment recorded. Plan of Treatment Reminders Order Date Submit Date Provider Last Modified By Organization Details Last Modified Time Details Appointments ANNUAL EXAM 2024 11:00A M Geetha Marc APRN Not available Not available Not available Lab CMP, serum or plasma 2024 025 EARLE [facility] ([place]), [address] [place], [address], 08/24/2024 08:26:53 CBC w/ auto diff 2024 025 JAYLENE [facility] ([place]), [address] [place], [address], 08/24/2024 08:26:53 TSH, ultra-sen sitive, serum 2024 025 EARLE [facility] ([place]), [address] [place], [address], 08/24/2024 08:26:55 cobalamin and folate panel, serum 2024 025 JAYLENE [facility] ([place]), [address] [place], [address], 08/24/2024 08:26:54 vitamin D, 25-hydrox y, total, serum 2024 025 EARLE [facility] [address] [place], [address], 08/24/2024 08:26:55 iron + total iron-bind ing capacity (TIBC), serum 2024 EARLE [facility] ([facility], [address] [facility], [place], [address], 08/24/2024 08:26:54 Referral None recorded. Procedures None recorded. Surgeries None recorded. Imaging None recorded. Medication Orders Daily Multi-Vit ji tablet 2024 [facility], [address] [place] [address], [address], 08/23/2024 14:11:47 Silvadene 1 % topical cream 2024 [facility], [address] [place] [address], [address], 08/23/2024 14:11:47 triamcino lone acetonide 0.1 % topical cream 2024 025 [facility], [address] [place] [address], [address], 08/23/2024 11:36:05 mirtazapi ne 7.5 mg tablet 2024 025 [facility], [address] [place] [address], [address], 08/23/2024 11:36:04 Patient TargetsNo targets recorded. Patient InstructionsNo instructions recorded. Reason for Referral None Reported. Results Created Date Observation Date Name Description Value Unit Range Abnormal Flag Note LastModifiedBy Organization Detail LastModifiedTime 02/26/2002/27/2024 TSH+F REE T4 TSH 1.160 uIU/m L 0.450- 4.500 normal Not Available [facility] ([facility]) [address] [facility], [place], [address], 02/27/2024 04:08:06 02/26/2002/27/2024 TSH+F REE T4 T4,free(dire ct) 1.65 NG/dL 0.82-1 .77 normal Not Available [facility] ([facility]) [address] [place], [address], 02/27/2024 04:08:06 02/26/2002/27/2024 CBC WITH DIFFE RENTI AL/PL ATELE T WBC 7.0 x10e3 /uL 3.4-10 .8 normal Not Available [facility] ([facility]) [address] [place], [address], 02/27/2024 04:08:06 02/26/2002/27/2024 CBC WITH DIFFE RENTI AL/PL ATELE T RBC 4.05 x10e6 /uL 3.77-5 .28 normal Not Available [facility] ([facility]) [address] [place], [address], 02/27/2024 04:08:06 02/26/2002/27/2024 CBC WITH DIFFE RENTI AL/PL ATELE T hemoglobin 11.8 g/dL 11.1-1 5.9 normal Not Available [facility] ([facility]) [address] [place], [address], 02/27/2024 04:08:06 02/26/2002/27/2024 CBC WITH DIFFE RENTI AL/PL ATELE T hematocrit 37.2 % 34.0-4 6.6 normal Not Available [facility] ([facility]) [address] [place], [address], 02/27/2024 04:08:06 02/26/2002/27/2024 CBC WITH DIFFE RENTI AL/PL ATELE T MCV 92 fL 79-97 normal Not Available [facility] ([facility]) [address] [place], [address], 02/27/2024 04:08:06 02/26/2002/27/2024 CBC WITH DIFFE RENTI AL/PL ATELE T MCH 29.1 pg 26.6-3 3.0 normal Not Available [facility] ([facility]) [address] [place], [address], 02/27/2024 04:08:06 02/26/20 24 02/27/2024 CBC WITH DIFFE RENTI AL/PL ATELE T MCHC 31.7 g/dL 31.5-3 5.7 normal Not Available [facility] ([facility]) [address] [facility], [place], [address], 02/27/2024 04:08:06 02/26/2002/27/2024 CBC WITH DIFFE RENTI AL/PL ATELE T RDW 12.9 % 11.7-1 5.4 Not Available [facility] ([facility]) [address] [place], [address], 02/27/2024 04:08:06 02/26/20 24 02/27/2024 CBC WITH DIFFE RENTI AL/PL ATELE T platelets 372 x10e3 /uL 150-45 0 normal Not Available [facility] ([facility]) [address] [place], [address], 02/27/2024 04:08:06 02/26/20 24 02/27/2024 CBC WITH DIFFE RENTI AL/PL ATELE T neutrophils 56 % not estab. normal Not Available [facility] ([facility]) [address] [place], [address], 02/27/2024 04:08:06 02/26/2002/27/2024 CBC WITH DIFFE RENTI AL/PL ATELE T lymphs 35 % not estab. normal Not Available [facility] ([facility]) [address] [place], [address], 02/27/2024 04:08:06 02/26/20 24 02/27/2024 CBC WITH DIFFE RENTI AL/PL ATELE T monocytes 7 % not estab. normal Not Available [facility] ([facility]) [address] [place], [address], 02/27/2024 04:08:06 02/26/2002/27/2024 CBC WITH DIFFE RENTI AL/PL ATELE T eos 1 % not estab. normal Not Available [facility] ([facility]) [address] [place], [address], 02/27/2024 04:08:06 02/26/2002/27/2024 CBC WITH DIFFE RENTI AL/PL ATELE T basos 1 % not estab. normal Not Available [facility] ([facility]) [address] [facility], [place], [address], 02/27/2024 04:08:06 02/26/2002/27/2024 CBC WITH DIFFE RENTI AL/PL ATELE T immature cells ASSISTANT COUNSEL Not Available [facility] ([facility]) [address] [place], [address], 02/27/2024 04:08:06 02/26/2002/27/2024 CBC WITH DIFFE RENTI AL/PL ATELE T neutrophils (absolute) 3.9 x10e3 /uL 1.4-7. 0 normal Not Available [facility] ([facility]) [address] [place], [address], 02/27/2024 04:08:06 02/26/20 24 02/27/2024 CBC WITH DIFFE RENTI AL/PL ATELE T lymphs (absolute) 2.4 x10e3 /uL 0.7-3. 1 normal Not Available [facility] ([facility]) [address] [place], [address], 02/27/2024 04:08:06 02/26/20 24 02/27/2024 CBC WITH DIFFE RENTI AL/PL ATELE T monocytes(ab solute) 0.5 x10e3 /uL 0.1-0. 9 normal Not Available [facility] ([facility]) [address] [facility], [place], [address], 02/27/2024 04:08:06 02/26/2002/27/2024 CBC WITH DIFFE RENTI AL/PL ATELE T eos (absolute) 0.1 x10e3 /uL 0.0-0. 4 normal Not Available [facility] ([facility]) [address] [facility], [place], [address], 02/27/2024 04:08:06 02/26/2002/27/2024 CBC WITH DIFFE RENTI AL/PL ATELE T baso (absolute) 0.0 x10e3 /uL 0.0-0. 2 normal Not Available [facility] ([facility]) [address] [facility], [place], [address], 02/27/2024 04:08:06 02/26/2002/27/2024 CBC WITH DIFFE RENTI AL/PL ATELE T immature granulocytes 0 % not estab. Not Available [facility] ([facility]) [address] [facility], [place], [address], 02/27/2024 04:08:06 02/26/2002/27/2024 CBC WITH DIFFE RENTI AL/PL ATELE T immature grans (abs) 0.0 x10e3 /uL 0.0-0. 1 Not Available [facility] ([facility]) [address] [facility], [place], [address], 02/27/2024 04:08:06 02/26/2002/27/2024 CBC WITH DIFFE RENTI AL/PL ATELE T NRBC ASSISTANT COUNSEL Not Available [facility] ([facility]) [address] [facility], [place], [address], 02/27/2024 04:08:06 02/26/2002/27/2024 CBC WITH DIFFE RENTI AL/PL ATELE T hematology comments: ASSISTANT COUNSEL Not Available [facility] ([facility]) [address] [facility] [place], [address], 02/27/2024 04:08:06 02/26/20 24 02/27/2024 COMP. METAB OLIC PANEL (14) glucose 104 mg/dL 70-99 above high normal Not Available [facility] ([facility]) [address] [facility] [place], [address], 02/27/2024 04:08:07 02/26/20 24 02/27/2024 COMP. METAB OLIC PANEL (14) BUN 18 mg/dL 8-27 normal Not Available [facility] ([facility]) [address] [facility] [place], [address], 02/27/2024 04:08:07 02/26/20 24 02/27/2024 COMP. METAB OLIC PANEL (14) creatinine 0.99 mg/dL 0.57-1 .00 normal Not Available [facility] ([facility]) [address] [facility] [place], [address], 02/27/2024 04:08:07 02/26/20 24 02/27/2024 COMP. METAB OLIC PANEL (14) eGFR 55 mL/mi n/1.7 3 >59 below low normal Not Available [facility] ([facility]) [address] [facility] [place], [address], 02/27/2024 04:08:07 02/26/20 24 02/27/2024 COMP. METAB OLIC PANEL (14) BUN/creatini ne ratio 18 12-28 normal Not Available [facility] ([facility]) [address] [facility] [place], [address], 02/27/2024 04:08:07 02/26/20 24 02/27/2024 COMP. METAB OLIC PANEL (14) sodium 140 mmol/ L 134-14 4 normal Not Available [facility] ([facility]) [address] [facility], [place], [address], 02/27/2024 04:08:07 02/26/20 24 02/27/2024 COMP. METAB OLIC PANEL (14) potassium 3.8 mmol/ L 3.5-5. 2 normal Not Available [facility] ([facility]) [address] [place], [address], 02/27/2024 04:08:07 02/26/20 24 02/27/2024 COMP. METAB OLIC PANEL (14) chloride 101 mmol/ L 96-106 normal Not Available [facility] ([facility]) [address] [place], [address], 02/27/2024 04:08:07 02/26/20 24 02/27/2024 COMP. METAB OLIC PANEL (14) carbon dioxide, total 26 mmol/ L 20-29 normal Not Available [facility] ([facility]) [address] [place], [address], 02/27/2024 04:08:07 02/26/20 24 02/27/2024 COMP. METAB OLIC PANEL (14) calcium 9.1 mg/dL 8.7-10 .3 normal Not Available [facility] ([facility]) [address] [place], [address], 02/27/2024 04:08:07 02/26/20 24 02/27/2024 COMP. METAB OLIC PANEL (14) protein, total 6.8 g/dL 6.0-8. 5 normal Not Available [facility] ([facility]) [address] [place], [address], 02/27/2024 04:08:07 02/26/20 24 02/27/2024 COMP. METAB OLIC PANEL (14) albumin 3.6 g/dL 3.7-4. 7 below low normal Not Available [facility] ([facility]) [address] [place], [address], 02/27/2024 04:08:07 02/26/20 24 02/27/2024 COMP. METAB OLIC PANEL (14) globulin, total 3.2 g/dL 1.5-4. 5 Not Available [facility] ([facility]) [address] [facility], [place], [address], 02/27/2024 04:08:07 02/26/20 24 02/27/2024 COMP. METAB OLIC PANEL (14) bilirubin, total 0.2 mg/dL 0.0-1. 2 normal Not Available [facility] ([facility]) [address] [facility], [place], [address], 02/27/2024 04:08:07 02/26/20 24 02/27/2024 COMP. METAB OLIC PANEL (14) alkaline phosphatase 90 IU/L 44-121 normal Not Available [facility] ([facility]) [address] [facility], [place], [address], 02/27/2024 04:08:07 02/26/20 24 02/27/2024 COMP. METAB OLIC PANEL (14) AST (SGOT) 10 IU/L 0-40 normal Not Available [facility] ([facility]) [address] [facility], [place], [address], 02/27/2024 04:08:07 02/26/20 24 02/27/2024 COMP. METAB OLIC PANEL (14) ALT (SGPT) 7 IU/L 0-32 normal Not Available [facility] ([facility]) [address] [facility], [place], [address], 02/27/2024 04:08:07 08/24/1908/24/2024 CBC WITH DIFFE RENTI AL/PL ATELE T WBC 6.7 x10e3 /uL 3.4-10 .8 normal Not Available [facility] ([facility]) [address] [facility], [place], [address], 08/24/2024 08:26:53 04/11/20 25 08/24/2024 CBC WITH DIFFE RENTI AL/PL ATELE T RBC 4.08 x10e6 /uL 3.77-5 .28 normal Not Available [facility] ([facility]) [address] [place], [address], 08/24/2024 08:26:53 08/24/19 25 08/24/2024 CBC WITH DIFFE RENTI AL/PL ATELE T hemoglobin 13.1 g/dL 11.1-1 5.9 normal Not Available [facility] ([facility]) [address] [place], [address], 08/24/2024 08:26:53 08/24/19 25 08/24/2024 CBC WITH DIFFE RENTI AL/PL ATELE T hematocrit 38.6 % 34.0-4 6.6 normal Not Available [facility] ([facility]) [address] [place], [address], 08/24/2024 08:26:53 08/24/19 25 08/24/2024 CBC WITH DIFFE RENTI AL/PL ATELE T MCV 95 fL 79-97 normal Not Available [facility] ([facility]) [address] [place], [address], 08/24/2024 08:26:53 08/24/19 25 08/24/2024 CBC WITH DIFFE RENTI AL/PL ATELE T MCH 32.1 pg 26.6-3 3.0 normal Not Available [facility] ([facility]) [address] [place], [address], 08/24/2024 08:26:53 08/24/19 25 08/24/2024 CBC WITH DIFFE RENTI AL/PL ATELE T MCHC 33.9 g/dL 31.5-3 5.7 normal Not Available [facility] ([facility]) [address] [place], [address], 08/24/2024 08:26:53 08/24/19 25 08/24/2024 CBC WITH DIFFE RENTI AL/PL ATELE T RDW 13.5 % 11.7-1 5.4 Not Available [facility] ([facility]) [address] [facility], [place], [address], 08/24/2024 08:26:53 08/24/19 25 08/24/2024 CBC WITH DIFFE RENTI AL/PL ATELE T platelets 318 x10e3 /uL 150-45 0 normal Not Available [facility] ([facility]) [address] [facility], [place], [address], 08/24/2024 08:26:53 08/24/19 25 08/24/2024 CBC WITH DIFFE RENTI AL/PL ATELE T neutrophils 64 % not estab. normal Not Available [facility] ([facility]) [address] [facility], [place], [address], 08/24/2024 08:26:53 08/24/19 25 08/24/2024 CBC WITH DIFFE RENTI AL/PL ATELE T lymphs 27 % not estab. normal Not Available [facility] ([facility]) [address] [facility], [place], [address], 08/24/2024 08:26:53 08/24/19 25 08/24/2024 CBC WITH DIFFE RENTI AL/PL ATELE T monocytes 7 % not estab. normal Not Available [facility] ([facility]) [address] [facility], [place], [address], 08/24/2024 08:26:53 08/24/19 25 08/24/2024 CBC WITH DIFFE RENTI AL/PL ATELE T eos 1 % not estab. normal Not Available [facility] ([facility]) [address] [facility], [place], [address], 08/24/2024 08:26:53 08/24/19 25 08/24/2024 CBC WITH DIFFE RENTI AL/PL ATELE T basos 1 % not estab. normal Not Available [facility] ([facility]) [address] [place], [address], 08/24/2024 08:26:53 08/24/19 25 08/24/2024 CBC WITH DIFFE RENTI AL/PL ATELE T immature cells ASSISTANT COUNSEL Not Available [facility] ([facility]) [address] [place], [address], 08/24/2024 08:26:53 08/24/19 25 08/24/2024 CBC WITH DIFFE RENTI AL/PL ATELE T neutrophils (absolute) 4.4 x10e3 /uL 1.4-7. 0 normal Not Available [facility] ([facility]) [address] [place], [address], 08/24/2024 08:26:53 08/24/19 25 08/24/2024 CBC WITH DIFFE RENTI AL/PL ATELE T lymphs (absolute) 1.8 x10e3 /uL 0.7-3. 1 normal Not Available [facility] ([facility]) [address] [place], [address], 08/24/2024 08:26:53 08/24/19 25 08/24/2024 CBC WITH DIFFE RENTI AL/PL ATELE T monocytes(ab solute) 0.5 x10e3 /uL 0.1-0. 9 normal Not Available [facility] ([facility]) [address] [place], [address], 08/24/2024 08:26:53 08/24/19 25 08/24/2024 CBC WITH DIFFE RENTI AL/PL ATELE T eos (absolute) 0.1 x10e3 /uL 0.0-0. 4 normal Not Available [facility] ([facility]) [address] [place], [address], 08/24/2024 08:26:53 08/24/19 25 08/24/2024 CBC WITH DIFFE RENTI AL/PL ATELE T baso (absolute) 0.0 x10e3 /uL 0.0-0. 2 normal Not Available [facility] ([facility]) [address] [facility], [place], [address], 08/24/2024 08:26:53 08/24/19 25 08/24/2024 CBC WITH DIFFE RENTI AL/PL ATELE T immature granulocytes 0 % not estab. Not Available [facility] ([facility]) [address] [facility], [place], [address], 08/24/2024 08:26:53 08/24/19 25 08/24/2024 CBC WITH DIFFE RENTI AL/PL ATELE T immature grans (abs) 0.0 x10e3 /uL 0.0-0. 1 Not Available [facility] ([facility]) [address] [facility], [place], [address], 08/24/2024 08:26:53 08/24/19 25 08/24/2024 CBC WITH DIFFE RENTI AL/PL ATELE T NRBC ASSISTANT COUNSEL Not Available [facility] ([facility]) [address] [facility], [place], [address], 08/24/2024 08:26:53 08/24/19 25 08/24/2024 CBC WITH DIFFE RENTI AL/PL ATELE T hematology comments: ASSISTANT COUNSEL Not Available [facility] ([facility]) [address] [place], [address], 08/24/2024 08:26:53 08/24/19 25 08/24/2024 COMP. METAB OLIC PANEL (14) glucose 101 mg/dL 70-99 above high normal Not Available [facility] ([facility]) [address] [place], [address], 08/24/2024 08:26:53 08/24/19 25 08/24/2024 COMP. METAB OLIC PANEL (14) BUN 23 mg/dL 8-27 normal Not Available [facility] ([facility]) [address] [facility] [place], [address], 08/24/2024 08:26:53 08/24/19 25 08/24/2024 COMP. METAB OLIC PANEL (14) creatinine 0.88 mg/dL 0.57-1 .00 normal Not Available [facility] ([facility]) [address] [facility] [place], [address], 08/24/2024 08:26:53 08/24/19 25 08/24/2024 COMP. METAB OLIC PANEL (14) eGFR 64 mL/mi n/1.7 3 >59 normal Not Available [facility] ([facility]) [address] [facility], [place], [address], 08/24/2024 08:26:53 08/24/19 25 08/24/2024 COMP. METAB OLIC PANEL (14) BUN/creatini ne ratio 26 12-28 normal Not Available [facility] ([facility]) [address] [facility] [place], [address], 08/24/2024 08:26:53 08/24/19 25 08/24/2024 COMP. METAB OLIC PANEL (14) sodium 139 mmol/ L 134-14 4 normal Not Available [facility] ([facility]) [address] [facility] [place], [address], 08/24/2024 08:26:53 08/24/19 25 08/24/2024 COMP. METAB OLIC PANEL (14) potassium 3.6 mmol/ L 3.5-5. 2 normal Not Available [facility] ([facility]) [address] [facility] [place], [address], 08/24/2024 08:26:53 08/24/19 25 08/24/2024 COMP. METAB OLIC PANEL (14) chloride 99 mmol/ L 96-106 normal Not Available [facility] ([facility]) [address] [facility] [place], [address], 08/24/2024 08:26:53 08/24/19 25 08/24/2024 COMP. METAB OLIC PANEL (14) carbon dioxide, total 25 mmol/ L 20-29 normal Not Available [facility] ([facility]) [address] [facility] [place], [address], 08/24/2024 08:26:53 08/24/19 25 08/24/2024 COMP. METAB OLIC PANEL (14) calcium 9.6 mg/dL 8.7-10 .3 normal Not Available [facility] ([facility]) [address] [facility] [place], [address], 08/24/2024 08:26:53 08/24/19 25 08/24/2024 COMP. METAB OLIC PANEL (14) protein, total 6.7 g/dL 6.0-8. 5 normal Not Available [facility] ([facility]) [address] [facility], [place], [address], 08/24/2024 08:26:53 08/24/19 25 08/24/2024 COMP. METAB OLIC PANEL (14) albumin 4.1 g/dL 3.7-4. 7 normal Not Available [facility] ([facility]) [address] [facility] [place], [address], 08/24/2024 08:26:53 08/24/19 25 08/24/2024 COMP. METAB OLIC PANEL (14) globulin, total 2.6 g/dL 1.5-4. 5 Not Available [facility] ([facility]) [address] [facility] [place], [address], 08/24/2024 08:26:53 08/24/19 25 08/24/2024 COMP. METAB OLIC PANEL (14) bilirubin, total 0.4 mg/dL 0.0-1. 2 normal Not Available [facility] ([facility]) [address] [place], [address], 08/24/2024 08:26:53 08/24/19 25 08/24/2024 COMP. METAB OLIC PANEL (14) alkaline phosphatase 76 IU/L 44-121 normal Not Available [facility] ([facility]) [address] [place], [address], 08/24/2024 08:26:53 08/24/19 25 08/24/2024 COMP. METAB OLIC PANEL (14) AST (SGOT) 19 IU/L 0-40 normal Not Available [facility] ([facility]) [address] [place], [address], 08/24/2024 08:26:53 08/24/19 25 08/24/2024 COMP. METAB OLIC PANEL (14) ALT (SGPT) 10 IU/L 0-32 normal Not Available [facility] ([facility]) [address] [place], [address], 08/24/2024 08:26:53 08/24/19 25 08/24/2024 IRON AND TIBC iron bind.cap.(TI BC) 427 ug/dL 250-45 0 normal Not Available [facility] ([facility]) [address] [facility], [place], [address], 08/24/2024 08:26:54 08/24/19 25 08/24/2024 IRON AND TIBC UIBC 347 ug/dL 118-36 9 normal Not Available [facility] ([facility]) [address] [place], [address], 08/24/2024 08:26:54 08/24/19 25 08/24/2024 IRON AND TIBC iron 80 ug/dL 27-139 normal Not Available [facility] ([facility]) [address] [place], [address], 08/24/2024 08:26:54 08/24/19 25 08/24/2024 IRON AND TIBC iron saturation 19 % 15-55 normal Not Available [facility] ([facility]) [address] [facility], [place], [address], 08/24/2024 08:26:54 08/24/19 25 08/24/2024 VITAM IN B12 AND FOLAT E vitamin B12 333 pg/mL 232-12 45 normal Not Available [facility] ([facility]) [address] [facility], [place], [address], 08/24/2024 08:26:54 08/24/1908/24/2024 VITAM IN B12 AND FOLAT E folate (folic acid), serum 8.2 NG/mL >3.0 normal A serum folat e collin ntrat ion of less than 3.1 ng/mL is consi dered to repre sent clini debra defic iency . Not Available [facility] ([facility]) [address] [facility], [place], [address], 08/24/2024 08:26:54 08/24/1908/24/2024 VITAM IN D, 25-HY [...] and D. Walter vizcaino [place]: [facility] Press . 2. Naya chaidez [place], [place], Bisch off-F errar i CASH, et al. Evalu ation , treat ment, and preve ntion of vitam in D defic iency : an Endoc rine Socie ty clini debra pract ice guide line. JCEM. 2010; 96(4) :1911 -30. Not Available [facility] ([facility]) [address] [facility], [place], [address], 08/24/2024 08:26:55 08/24/19 25 08/24/2024 TSH RFX ON ABNOR MAL TO FREE T4 TSH 2.170 uIU/m L 0.450- 4.500 normal Not Available [facility] ([facility]) [address] [facility], [place], [address], 08/24/2024 08:26:55 Result Notes None recorded. Problems Name Problem SNOMED Code Status Onset Date Resolution Date Notes Provider Name and Address Organization Details Recorded Time Hypothyr oidism 70379081 Completed 201505/15/2019 Problem Code: E03.8; Problem Code Type: ICD-10; Not Available [facility] 2 22:58:49 Hyperten sive disorder [id number] Completed 201504/20/2017 Problem Code: I10; Problem Code Type: ICD-10; Not Available [facility] 2 22:58:50 Gastroes ophageal reflux disease without esophagi tis [id number] Completed 201502/08/2022 JESSICA odell, [employer] 2 09:06:52 Hormone replacem ent therapy Completed 201505/15/2019 Problem Code: Z79.890; Problem Code Type: ICD-10; Not Available [facility] 2 22:58:53 Benign essentia l hyperten herber [id number] Completed 201505/24/2018 Problem Code: 401.1; Problem Code Type: ICD-9; Not Available [facility] 2 22:58:55 Gastroes ophageal reflux disease [id number] Completed 201502/08/2022 Problem Code: 530.81; Problem Code Type: ICD-9; JESSICA odell, [employer] 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 2 09:06:52 Hypothyr oidism 76634517 Completed 201606/23/2016 Problem Code: E03.8; Problem Code Type: ICD-10; Not Available [facility] 2 22:58:49 Mixed hyperlip idemia 125242170 Completed 201605/24/2018 Problem Code: E78.2; Problem Code Type: ICD-10; Not Available [facility] 2 22:58:50 Syncope and collapse 091025863 Completed 201605/15/2019 Problem Code: R55; Problem Code Type: ICD-10; Not Available [facility] 2 22:58:52 Acquired hypothyr oidism 610376313 Active 2016 Problem Code: 244.8; Problem Code Type: ICD-9; Not Available [facility] 2 22:58:54 Iron deficien cy anemia secondar y to inadequa te dietary iron intake 046449467 Completed 201602/14/2017 Problem Code: D50.8; Problem Code Type: ICD-10; Not Available [facility] 2 22:58:49 Right side sciatica 19574967909 9101 Completed 201602/08/2022 Problem Code: M54.31; Problem Code Type: ICD-10; JESSICA odell [place] [employer] 2 09:06:52 Sciatica 85323435 Completed 201602/20/2017 Problem Code: 724.3; Problem Code Type: ICD-9; Not Available [facility] 2 22:58:55 Closed fracture finger proximal phalanx, shaft 721213276 Completed 201604/21/2017 Problem Code: S62.516S ; Problem Code Type: ICD-10; Not Available [facility] 2 22:58:52 Post-apoorva gical wound care Completed 201605/15/2019 Problem Code: Z48.02; Problem Code Type: ICD-10; Not Available [facility] 2 22:58:57 Closed fracture of middle AND/OR proximal phalanx of finger Completed 201604/21/2017 Problem Code: 816.01; Problem Code Type: ICD-9; Not Available [facility] 2 22:58:58 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 9105 Completed 201605/15/2019 Problem Code: D41.02; Problem Code Type: ICD-10; Not Available [facility] 2 22:58:49 Spinal stenosis of lumbar region 11953145 Completed 201605/15/2019 Problem Code: M48.06; Problem Code Type: ICD-10; Not Available [facility] 2 22:58:51 Effusion of joint of left knee 91654856579 9105 Completed 201605/04/2017 Not Available [facility] 2 22:58:50 Knee joint effusion 714000248 Completed 201605/04/2017 Problem Code: 719.06; Problem Code Type: ICD-9; Not Available [facility] 2 22:58:55 Intra-ab dominal and pelvic swelling , mass and lump Completed 201807/23/2018 Not Available [facility] 2 22:58:51 Digestiv e symptom 241368540 Completed 201807/23/2018 Problem Code: 787.99; Problem Code Type: ICD-9; Not Available [facility] 2 22:58:55 Closed fracture of pelvis 34428856 Completed 201802/08/2022 Problem Code: S32.2XXA ; Problem Code Type: ICD-10; JESSICA MYNEAR null, [employer] 2 09:06:52 Neck pain 41356334 Completed 201802/08/2022 JESSICA MYNEAR null, [employer] 2 09:06:52 Hypothyr oidism 74335558 Active 2018 Not Available [facility] 2 22:58:50 General examinat ion of patient Completed 201802/08/2022 JESSICA MYNEAR null, [employer] 2 09:06:52 Body mass index 20-24 - normal 230586236 Completed 201802/08/2022 JESSICA MYNEAR null, [employer] 2 09:06:52 Lacerati on of left forearm 16514947489 844636 Completed 201902/08/2021 JESSICA MYNEAR null, [employer] 2 09:06:52 Open wound of lower leg 571126663 Completed 201902/08/2022 JESSICA MYNEAR null, [employer] 2 09:06:52 Acute bronchit is 06847492 Completed 202102/08/2022 Problem Code: J20.9; Problem Code Type: ICD-10; JESSICA MYNEAR null, [employer] 2 09:06:52 Lacerati on of left forearm 68108577207 711570 Completed 202102/08/2022 JESSICA MYNEAR null, [employer] 2 09:06:52 Disorder of skin and/or subcutan eous tissue 08787080 Completed 202102/08/2022 Problem Code: L98.9; Problem Code Type: ICD-10; JESSICA odell, [employer] 2 09:06:52 Secondar y AND/OR recurren t hemorrha ge as early complica tion of trauma 58184129 Completed 202102/08/2022 JESSICA odell, [employer] 2 09:06:52 [facility] hyperten herber 81732155 Active 2023 Nakita Marc APRN [address] [place], [address] , [employer] 4 14:16:29 Vitamin D deficien cy 73155496 Active 2024 Nakita Marc APRN [address] [place], [address] , [employer] 5 09:22:32 Problem Notes None recorded. Procedures Surgical History Date Name Laterality Status Provider Name and Address Organization Details Recorded Time 06/15/19 Carpal tunnel surgery completed [employer] 08/08/2022 10:30:32 Hysterectomy completed [employer] 02/08/2022 09:09:29 Gallbladder Surgery completed [employer]. 02/08/2022 09:09:36 Imaging Results None recorded. Procedure [...] in Arterial blood by Pulse oximetry Systolic And Diastolic Provider Name and Address Organization Details Last Updated DateTime 5 162.56 cm 19.4 kg/m2 19850.2 2 g 99.4 [degF] 77 /min 96 % 96 % 115/60 mm[Hg] [employer] 5 13:43:09 Date Recorded Body height Body mass index (BMI) Body weight Body temperature Heart rate Oxygen saturation Oxygen saturation in Arterial blood by Pulse oximetry Systolic And Diastolic Provider Name and Address Organization Details Last Updated DateTime 5 162.56 cm 19.4 kg/m2 16364.9 4 g 97.8 [degF] 85 /min 97 % 97 % 112/61 mm[Hg] [employer] 5 11:02:00 Date Recorded Body height Body mass index (BMI) Body weight Body temperature Heart rate Oxygen saturation Oxygen saturation in Arterial blood by Pulse oximetry Systolic And Diastolic Provider Name and Address Organization Details Last Updated DateTime 4 162.56 cm 19.2 kg/m2 14801.9 1 g 97.9 [degF] 73 /min 96 % 96 % 130/50 mm[Hg] [email or web address] 4 14:49:30 Date Recorded Body height Body temperature Heart rate Oxygen saturation Oxygen saturation in Arterial blood by Pulse oximetry Body mass index (BMI) Body weight Systolic And Diastolic Provider Name and Address Organization Details Last Updated DateTime 4 162.56 cm 98.1 [degF] 49 /min 96 % 96 % 19.1 kg/m2 22120.7 5 g 139/56 mm[Hg] [employer] 4 17:01:02 Date Recorded Body height Body mass index (BMI) Body weight Body temperature Heart rate Oxygen saturation Oxygen saturation in Arterial blood by Pulse oximetry Systolic And Diastolic Provider Name and Address Organization Details Last Updated DateTime 4 162.56 cm 19.1 kg/m2 08429.7 5 g 97.7 [degF] 85 /min 95 % 95 % 137/53 mm[Hg] JESSICA KNUTSON [employer] 15:33:52 Social History Question Answer Notes LastModified by Organizat ion Details LastModified Time Tobacco Smoking Status Never Smoker Cindy Malave jose r, [employer] 12/13/2023 16:45:00 Do You Have An Advance [...] Do You Have A Medical Power Of Floral Designer? No Information not available 02/08/2022 What Was [...] Functional Status Question Answer Note LastModified by Organizat ion Details LastModified Time Do you use [...] 02/08/2022 Are you able to care for yourself independently? Yes Information not available 02/08/2022 Do you have difficulty dressing, bathing, grooming, or toileting? No Information not available 02/08/2022 Mental Status [...] quadrivalent, PF 3 completed Nakita Marc APRN [address] [place], [address], [employer], [email or web address] 02/08/2023 12:14:04 RSV, recombinant, protein subunit RSVpreF, adjuvant reconstituted, 0.5 mL, PF 4 completed Nakita Marc APRN [address] [place], [address], [employer], [email or web address] 08/13/2023 16:54:29 pneumococcal polysaccharide PPV23 9 completed Kendall odell, [employer] 03/15/2024 13:06:00 COVID-19, mRNA, LNP-S, PF, 100 mcg/0.5mL dose or 50 mcg/0.25mL dose 2 completed Kendall odell, [employer] 03/15/2024 13:06:00 COVID-19, mRNA, LNP-S, PF, 100 mcg/0.5mL dose or 50 mcg/0.25mL dose 1 completed Kendall Colon null, [employer] 03/15/2024 13:06:00 COVID-19, mRNA, LNP-S, PF, 100 mcg/0.5mL dose or 50 mcg/0.25mL dose 1 completed Kendall Colon null, [employer] 03/15/2024 13:06:00 Influenza, split virus, quadrivalent, PF 1 completed Not Available [facility] 01/18/2022 23:27:06 Tdap 2 completed Not Available [facility] 01/18/2022 23:27:06 COVID-19, mRNA, LNP-S, PF, 100 mcg/0.5mL dose or 50 mcg/0.25mL dose 1 completed Kendall Colon null, [employer] 03/15/2024 13:06:00 Influenza, MDCK, quadrivalent, PF 0 completed Not Available [facility] 01/18/2022 23:27:07 Influenza, high-dose, trivalent, PF 4 completed Nakita Marc APRN [address] [place] [address], [address], [employer] 02/26/2024 17:09:12 Influenza, split virus, quadrivalent, preservative 8 completed Kendall Colon null, [employer] 03/15/2024 13:06:00 COVID-19, mRNA, LNP-S, bivalent, PF, 50 mcg/0.5 mL or 25mcg/0.25 mL dose 2 completed Kendall Colon null, [employer] 03/15/2024 13:06:00 pneumococcal polysaccharide PPV23 9 completed Kendall Colon null, [employer] 03/15/2024 13:06:00 Pneumococcal conjugate PCV 13 7 completed Kendall Colon null, [employer] 03/15/2024 13:06:00 Influenza, high-dose, trivalent, PF 7 completed Kendall Colon null, [employer] 03/15/2024 13:06:00 Influenza, high-dose, trivalent, PF 9 completed Kendall Colon null, [employer] 03/15/2024 13:06:00 COVID-19, mRNA, LNP-S, PF, 50 mcg/0.5 mL 3 completed Not Available [facility] 08/23/2024 10:52:26 Influenza, split virus, quadrivalent, PF 2 completed Nakita Marc APRN [address] [place] [address], [phone], [place] [facility] [employer] 02/08/2022 09:50:14 Past Encounters Encounter ID Performer Location Encounter Start Date Encounter Closed Date Diagnosis/Indication Diagnosis SNOMED-CT Code Diagnosis ICD10 Code Diagnosis Note [id number] Nakita Marc [employer] [place] [address] 02/08/2022 08:32:21 02/08/2022 09:57:19 Acquired hypothyroidism 447253055 E03.9 Essential hypertension 70501253 I10 Administra tion of influenza vaccine 01425354 Z23 [id number] Nakita Marc [employer] [place] [id number] 0 08/08/2022 10:03:52 08/08/2022 10:51:07 Acquired hypothyroidism 028082242 E03.9 Continue current meds. Essential hypertension 62177700 I10 Adult [facility] examination 881925924 Z00.00 Body mass index 20-24 - normal 065131030 Z68.21 [id number] [place]unner [place] [id number] 02/08/2023 10:37:08 02/08/2023 12:39:29 Acquired hypothyroidism 772681620 E03.9 Continue current meds. Essential hypertension 09737715 I10 DASH diet emphasized . Administra tion of influenza vaccine 22178703 Z23 [id number] Nakita Marc [place] [address] 0 08/09/2023 13:50:49 08/09/2023 15:10:19 Active or passive immunization 808196928 Z23 Adult [facility] examination 180854041 Z00.00 Patient presented to office today for [...] risks and promote healthy living. Acquired hypothyroidism 057758531 E03.9 Continue current meds. Essential hypertension 42047785 I10 DASH diet emphasized . Body mass index 20-24 - normal 972736847 Z68.21 Osteoarthritis 794490550 M19.90 Cautioned for only rare prn use for her lumbar DDD. Prefer she use tylenol arthritis prn arthritic pain. [id number] [place] [address] 12/12/2023 14:18:32 12/12/2023 16:05:39 Deep avulsion wound 435740508 T14.8XXD Large avulsion wound to left upper lateral arm down to muscle layer. Begin LALA whitman here tomorrow for wound care until she can be seen by [facility] Wound care clinic. [id number] Nakita Marc [place] [address] 0 12/13/2023 16:32:21 12/13/2023 17:11:49 Deep avulsion wound 480216935 T14.8XXD Large avulsion wound to left upper lateral arm down to muscle layer. Begin LALA whitman here tomorrow for wound care until she can be seen by [facility] Wound care clinic. Wound was cleaned with sterile saline and hibiclens. Nonstick dressing with xeroform, telfa and roll gauze applied. Tdap is UTD. She is to leave dressing on until I see her back for wound check and dressing change tomorrow. [id number] Nakita Marc [place] [address] 0 12/15/2023 16:41:58 12/18/2023 07:30:55 Deep avulsion wound 185975029 T14.8XXD Large avulsion wound to left upper lateral arm down to muscle layer. Begin luciax, RTC here Monday for wound care until she can be seen by [facility] Wound care clinic. [id number] [place] [address] 12/18/2023 09:46:35 12/18/2023 10:31:31 Deep avulsion wound 190198549 T14.8XXD Large avulsion wound to left upper lateral arm down to muscle layer. Complete oral antx, begin [facility] treatments at [facility] tomorrow AM as scheduled. [id number] [place] [address] 01/22/2024 16:25:56 01/22/2024 16:58:45 Open wound of lower leg 250636245 S81.801A Begin wound care therapy. Cellulitis of lower limb 212000389 L03.119 Start Keflex today. Cleanse BID with antibacter ial soap and water and keep covered with dry dressing. Acquired hypothyroidism 470796819 E03.9 Refill synthroid Essential hypertension 97937739 I10 refill [id number] Nakita Marc APRN [place] [address] 0 02/26/2024 13:41:18 02/26/2024 15:08:52 Administration of influenza vaccine 04734669 Z23 Acquired hypothyroidism 371765299 E03.9 Refill synthroid Essential hypertension 21663730 I10 Refill Indapamide . 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 Short trial megace, start MVI. Samples given of Ensure today. Healthy diet with adequate protein encouraged . [id number] Nakita Marc APRN [place] [id number] 03/15/2024 12:58:02 03/15/2024 13:51:53 Cellulitis of right lower limb 9104650509 2469303 L03.115 Elevate leg over the weekend and start antx. RTC on Monday for recheck and dressing change. [id number] Nakita Marc, [place] [address] 0 03/18/2024 14:17:38 03/18/2024 15:29:24 Cellulitis of right lower limb 2749778732 7099567 L03.115 Elevate leg over the weekend and start antx. RTC on Monday for recheck and dressing change. wound care with silvadene and dressing completed today. [id number] Nakita Marc [place] [address] 0 03/20/2024 16:32:46 03/20/2024 17:20:55 Cellulitis of right lower limb 8308535390 7428124 L03.115 Elevate leg, continue antx and compressio n stocking. Daily dressing changes with silvadene to be performed. RTC in 1 week for recheck. [id number] Nakita Marc [place] [address] 0 03/27/2024 15:19:51 03/27/2024 16:44:57 Cellulitis of right lower limb 3305688203 6465343 L03.115 Continue daily dressings for the rest of this week and then continue the stocking to manage further edema issues. [id number] Nakita Marc [place] [address] 0 06/03/2024 13:26:22 06/03/2024 14:36:10 Xerosis due to atopic dermatitis 999377770 L85.3 He is of emollient lotions encouraged . 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 Could not tolerate megace due to nausea. I would like her to try to drink 1-2 Ensure drinks per day. We discussed increasing dietary protein. We will try low-dose mirtazapin e at bedtime. She was cautioned for oversedati on with that medication . Body mass index less than 20 017182482 Z68.1 [id number] [place] [address] 08/23/2024 10:49:30 08/23/2024 13:14:09 Mild thinness in adulthood 468994543 R63.6 Essential hypertension 93450347 I10 Refill Indapamide . Hypothyroidism 82265663 E03.8 Continue Synthroid. Fatigue 36157428 R53.83 Cellulitis of right lower limb 2051441818 1578633 L03.115 Healed, may use silvadene prn. Cachexia 913644460 R64 Improved. Continue Ensure. Health Concerns Section [...] 08/21/2024 1 [place] Margaret A Feeback [id number] 05 Margaret Feeback 09/16/2024 2 [place] [id number] Margaret A Feeback [id number] Margaret Feeback 08/21/2024 [place] [employer] - [facility] Margaret A Feeback [id number] Margaret Feeback OBGyn Episode No OBEpisode recorded.
--- NOTE | 2024-12-09 12:03 | A.OFFVIS_ITS ---
[facility] Disclaimer: The information contained in this section may have been updated after the patient was seen, as this information can be updated by other users. Medical History H/O Eckert's palsy History of arthritis History of hypertension History of hypothyroidism Surgical History History of carpal tunnel release History of cholecystectomy H/O: hysterectomy History of surgery Family History Other No significant family history Social History Smoking Status: Never smoker second hand exposure: No alcohol intake: never substance use type: denies use current occupational status: retired Travel in the last 8 weeks?: None household members: spouse housing: house current occupational exposures/hazards: No caffeine: Yes Have you lived/traveled outside [place] in past 30 days?: No Contact w/someone who lives/traveled outside US past 30 days?: No Exposure to someone with infectious disease in past 14 days?: No Do you have a fever (greater than 100.4 F or 38 C)?: No Have you tested positive for COVID-19?: No Exposed to someone with COVID-19 in past 14 days?: No Do you have a sore throat?: No Do you have a cough?: No Do you have any weakness?: No Do you have any diarrhea?: No Are you experiencing any unusual bleeding?: No Do you have any muscle aches/pain?: No Do you have any abdominal pain?: No Are you experiencing loss of taste or smell?: No PM Subjective & Objective Subjective Subjective:: Patient is a pleasant 89-year-old female who presents today for her 1 month follow-up. She rates her pain today a 8 out of 10. She denies any new falls or injuries. She does state that her incision she believes is completely healed and is done well with this. She states today her pain is more related to just generalized arthritis. Patient is taking Tylenol arthritis with some improvement. Patient does state today that she is having more swelling in her legs as well as increased urination. Patient is asking if we have any suggestions of what is causing this or what she can do for this. Her Ramón has been reviewed and is appropriate. Review of Systems: General: No recent weight changes, no fever, no sleep disturbances Respiratory: No cough, no shortness of air, no recurring pulmonary infections Cardiovascular/peripheral vascular: No chest pain, no palpitations, no edema, no shortness of breath Gastrointestinal: No new onset incontinence, normal bowel movements reported Genitourinary: No new onset incontinence Musculoskeletal: Bilateral leg swelling, generalized arthritis Psychiatric: [Normal mood/affect] Neurological: [Denies weakness in extremities], [denies balance issues] Pain at rest (0-10 scale): 8 Objective Objective:: Physical Exam: General: Alert and oriented x3, no acute distress, pleasant and cooperative Lungs: Respirations even and unlabored, symmetrical chest expansion Eyes: PERRL Musculoskeletal: Flexion and extension of lumbar [spine] somewhat guarded secondary to pain, [antalgic gait noted] Neurological: Speech clear, no gross sensory deficit Skin: Bilateral lower extremities do have pitting edema +1 Has patient had previous pain injection?: No Conservative treatment options previously tried: Home exercise plan Length of treatment: Longer than 12 weeks Meds Home Medications and Allergies Home Medications ?Medication ?Instructions ?Recorded ?Confirmed ?Type indapamide 2.5 mg tablet 2.5 mg PO DAILY High blood p ressure 07/25/17 10/23/24 History levothyroxine 50 mcg tablet 50 mcg PO DAILY THYROID 10/23/24 History New Prescriptions to Start Prescriptions: Allergies Allergy/AdvReac Type Severity Reaction Status Date / Time No Known Allergies Allergy Verified 10/18/24 08:04 Assessment and Plan *Assessment and plan (1) Degenerative disc disease: Status: Acute Category: Medical Plan Patient's incisions have completely healed and we did discuss that she is no longer on postop restrictions. Patient was reviewed over with her edema and we did have the discussion that I would recommend her to drink more water and decrease her intake of caffeine. Patient did states she primarily just drinks the pop. I did rehabilitation services counselor her that this should make improvement both the swelling and the urination. We did also review that she may benefit from compression socks and elevating her legs. Patient will call us for her next follow-up appointment. Patient has been instructed to contact the clinic with any concerns before the next appointment. Dr. Huntley has reviewed this note and agrees with this plan of care. This note was dictated using voice recognition software and make contain errors or omissions. All injections are used with Lidocaine, Bupivacaine and dexamethasone. Occasionally urine drug screen is needed to verify patient's compliance with our office pain contract. This is ordered based off specific treatments related to chronic pain with the potential to abuse certain medications.
[2024-12-09 13:24] VITALS: BP 129/103; PULSE 74; RESP 18; O2SAT 96; BMI 19.2
== END 2024-12-09 23:59 | disposition home or self-care (01) ==
LOC: SC.PAIN 11:26
PROVIDERS: PCP Nurse Practitioner Family; Visit Provider Nurse Practitioner Family
DX: M51.361 Other intervertebral disc degeneration, lumbar region with lower extremity pain only (principal)
CPT/HCPCS: 99212; G0463